=== PATIENT | female | born 1960 | race Caucasian/White ===

== ENCOUNTER 2022-12-31 16:43 | Emergency (ER) | payer OTHER, SELFPAY ==
[2022-12-31 17:03] VITALS: BP 137/74; PULSE 92; RESP 16; TEMP 36.8; O2SAT 98; BMI 26.0
--- NOTE | 2022-12-31 17:07 | XR_ITS ---
[address] [address] Patient Name: ANA LUA MRN: [id number] date: 1960 Sex: F Assigned Patient Location: ED.MAIN Current Patient Location: ER Accession/Order Number: [id number] Exam Date: 12/31/2022 18:10 Report Date: 12/31/2022 18:21 At the request of: MARIA ANTONIA ROMERO Procedure: XR ankle RT 2V EXAM: XR ankle RT 2V HISTORY: Right ankle pain COMPARISON: None. TECHNIQUE: 2 views FINDINGS: No osseous lesion, fracture, dislocation or subluxation. Joint spaces are normal. No visualized effusion. No visualized soft tissue edema. IMPRESSION: Normal x-rays Electronically authenticated by: JOSE FRANCISCO LONDONO Date: 12/31/2022 18:21
--- NOTE | 2022-12-31 17:08 | ED.LOWEXI1 ---
HPI - Extremity Injury (Lower) General Stated Complaint: INJURY TO FOOT Time Seen by Provider: 12/31/22 17:05 Source: patient and family History of Present Illness HPI Narrative: this patient's here for evaluation of injury to her ankle. She got up from sitting in the chair and rolled her right ankle. She does not any pain in her lower leg or knee area. Hip is asymptomatic. She points to the lateral malleolus as the area discomfort. Does not have any pain over the anterior aspect of the ankle. Related Data Home Medications Medication Instructions Recorded Confirmed acetaminophen 500 mg capsule 1,500 mg PO ONCE 12/31/22 12/31/22 albuterol sulfate 90 mcg/actuation 2 puff inhalation Q4H PRN 12/31/22 12/31/22 aerosol inhaler shortness of breath or wheezing amlodipine 5 mg tablet 5 mg PO DAILY 12/31/22 12/31/22 olmesartan 20 mg tablet 20 mg PO DAILY 12/31/22 12/31/22 Allergies Allergy/AdvReac Type Severity Reaction Status Date / Time diphenhydramine Allergy Severe hives Verified 12/31/22 17:03 [From Benadryl] aspirin Allergy Mild Nausea Verified 12/31/22 17:03 ibuprofen [From Motrin] Allergy Nausea Verified 12/31/22 17:03 prednisone Allergy swelling Verified 12/31/22 17:03 actifed Allergy Severe Hives Uncoded 12/31/22 17:03 [facility] Medical History (Updated 12/31/22 @ 19:48 by Otto Coles MD) Social History Smoking status: Never smoker Exam Narrative Exam Narrative: mild to moderate pain. Prop focus examination as below Extremity Other: early soft tissue swelling is noted over the lateral malleolus with pain over the anterior talofibular ligament. No pain over the posterior joint. No pain over the medial ankle mortise. Slight tenderness over the proximal 5th metatarsal. Neurovascular examination is normal. MDM - Extremity Injury (Lower) MDM Narrative Medical decision making narrative: patient's images were read by the radiologist as negative. She has a grade 2 ankle sprain. Ankle sprain x-ray discussion she will be discussed with her ice elevation and rest Differential Diagnosis Differential diagnosis: Likely ankle sprain and strain Discharge Plan Discharge Clinical Impression: Ankle sprain Patient Disposition: Home, Self-Care Time of Disposition Decision: 19:48 Prescriptions / Home Meds: No Action albuterol sulfate 90 mcg/actuation HFA aerosol inhaler 2 puff INHALATION Q4H PRN (Reason: shortness of breath or wheezing) amlodipine 5 mg tablet 5 mg PO DAILY olmesartan 20 mg tablet 20 mg PO DAILY acetaminophen 500 mg capsule 1,500 mg PO ONCE Instructions: Ankle Sprain (ED), Ankle Stirrup Splint (ED) Additional Instructions: patient to follow up with PCP in 1 week Stand Alone Forms: Portal Instructions Referrals: Physician,Non-Staff, MD [Primary Care Provider] - 1 week Discharge Date/Time: 12/31/22 20:22
== END 2022-12-31 20:22 | disposition home or self-care (01) ==
PROVIDERS: Emergency Provider Emergency Medicine Emergency Medical Services
DX: S93.401A Sprain of unspecified ligament of right ankle, initial encounter (principal); X50.1XXA Overexertion from prolonged static or awkward postures, initial encounter
CPT/HCPCS: 73600; 99283

== ENCOUNTER 2023-09-28 07:30 | Observation (INO) | payer OTHER, SELFPAY ==
[2023-09-28] VITALS (18 sets, daily range): BP systolic 98–114; BP diastolic 62–70; PULSE 87–98; RESP 18–24; TEMP 36.5–36.6; O2SAT 86–99; BMI 49.5; BMI 24.9
--- NOTE | 2023-09-28 07:51 | XR_ITS ---
The [address] [address] Patient Name: ANA LUA MRN: [facility]:[id number] date: 1960 Sex: F Assigned Patient Location: ER Current Patient Location: ER Accession/Order Number: [id number] Exam Date: 09/28/2023 08:13 Report Date: 09/28/2023 08:42 At the request of: LORA LOUIS Procedure: XR thoracic spine 2V EXAMINATION: XR lumbar spine 2-3V, XR thoracic spine 2V HISTORY: fall ; fell off porch; left lower back and leg pain COMPARISON: No relevant comparison available. FINDINGS: BONES: Mild left convex curvature of upper thoracic spine. Mild superior endplate irregularity of T6 and T8 vertebral bodies, nonspecific. Abnormal anterior wedging of L4 vertebral body with increased density of the adjacent trabecula and superior anterior wall angulation. DISC SPACES: No significant disc height narrowing, subluxation, or endplate abnormality. PARASPINOUS: Negative. No paraspinous abnormality is seen. OTHER: Negative. XR/XR thoracic spine 2V IMPRESSION: 1. Acute versus subacute moderate compression fracture of L4. Acute fracture is suspected. 2. Degenerative endplate changes versus mild compression fractures of T6 and T8 vertebral bodies. No increased density of the adjacent trabecula suggesting this may be degenerative or sequela of remote injury. 3. No comparison studies. Electronically authenticated by: SHARLENE HATHAWAY Date: 09/28/2023 08:42
--- NOTE | 2023-09-28 07:51 | XR_ITS ---
The [address] [address] Patient Name: ANA LUA MRN: [id number] date: 1960 Sex: F Assigned Patient Location: ER Current Patient Location: ER Accession/Order Number: [id number] Exam Date: 09/28/2023 08:13 Report Date: 09/28/2023 08:42 At the request of: LORA LOUIS Procedure: XR lumbar spine 2-3V EXAMINATION: XR lumbar spine 2-3V, XR thoracic spine 2V HISTORY: fall ; fell off porch; left lower back and leg pain COMPARISON: No relevant comparison available. FINDINGS: BONES: Mild left convex curvature of upper thoracic spine. Mild superior endplate irregularity of T6 and T8 vertebral bodies, nonspecific. Abnormal anterior wedging of L4 vertebral body with increased density of the adjacent trabecula and superior anterior wall angulation. DISC SPACES: No significant disc height narrowing, subluxation, or endplate abnormality. PARASPINOUS: Negative. No paraspinous abnormality is seen. OTHER: Negative. XR/XR lumbar spine 2-3V IMPRESSION: 1. Acute versus subacute moderate compression fracture of L4. Acute fracture is suspected. 2. Degenerative endplate changes versus mild compression fractures of T6 and T8 vertebral bodies. No increased density of the adjacent trabecula suggesting this may be degenerative or sequela of remote injury. 3. No comparison studies. Electronically authenticated by: SHARLENE HATHAWAY Date: 09/28/2023 08:42
[2023-09-28] MEDS: ALBUTEROL SULFATE 2.5 MG/3 ML VIAL NEB IH (09:01)
[2023-09-28] MEDS: MORPHINE SULFATE 4 MG/ML VIAL 10 MG IM (09:06)
--- NOTE | 2023-09-28 09:19 | ED.BACK1 ---
HPI - Back Pain/Injury General Chief Complaint: Back Pain/Injury Stated Complaint: FALL/BACK PAIN Time Seen by Provider: 09/28/23 07:44 Source: patient Mode of arrival: walk-in Limitations: no limitations History of Present Illness HPI Narrative: 63-year-old female presents for severe back pain. She fell today and landed on her back. She complains of pain in her lower back. She did not hit her head and no other injury was sustained. It is worse if she moves. She has no history of back fracture. Related Data Home Medications Medication Instructions Recorded Confirmed albuterol sulfate 90 mcg/actuation 2 puff inhalation Q4H PRN 12/31/22 09/28/23 aerosol inhaler shortness of breath or wheezing olmesartan 20 mg tablet 20 mg PO DAILY 12/31/22 09/28/23 fluticasone fur. 100 mcg-umeclid 1 inh inhalation DAILY 09/28/23 09/28/23 62.5 mcg-vilant 25 mcg inhalat.powder (Trelegy Ellipta) Previous Rx's Medication Instructions Recorded oxycodone-acetaminophen 5 mg-325 1 tab PO Q6H PRN pain 10 days #30 09/28/23 mg tablet (Percocet) tabs Allergies Allergy/AdvReac Type Severity Reaction Status Date / Time diphenhydramine Allergy Severe hives Verified 09/28/23 07:50 [From Benadryl] aspirin Allergy Mild Nausea Verified 09/28/23 07:50 ibuprofen [From Motrin] Allergy Nausea Verified 09/28/23 07:50 prednisone Allergy swelling Verified 09/28/23 07:50 actifed Allergy Severe Hives Uncoded 09/28/23 07:50 Review of Systems ROS Narrative A ten point review of systems is negative except as noted above. [facility] Medical History (Updated 09/28/23 @ 09:17 by Shahid Pena MD) Lung disease ?J98.4 - Other disorders of lung (ICD-10) Migraines ?G43.909 - Migraine, unspecified, not intractable, without status migrainosus (ICD-10) HTN (hypertension) ?I10 - Essential (primary) hypertension (ICD-10) Social History Smoking status: Never smoker Exam Narrative Exam Narrative: Nurses note and vital signs reviewed and patient is not hypoxic. General: The patient appears uncomfortable. She is tearful. Skin: Warm, dry, no pallor noted. There is no rash noted. Head: Normocephalic, atraumatic Eye: Normal conjunctiva, no drainage Ears, Nose, Mouth, and Throat: oral mucosa is moist. Nares patent. Cardiovascular: Regular Rate and Rhythm Respiratory: Patient is in no distress, no accessory muscle use, lungs are clear to auscultation, no wheezing, rales or rhonchi Back: No deformity, there is some tenderness in her lower back without abrasion. GI: Soft and nontender Musculoskeletal: The patient has no evidence of calf tenderness, no pitting edema, symmetrical pulses noted bilaterally Neurological: A&O, normal speech; lower extremity strength intact Psychiatric: Cooperative Constitutional Vital Signs, click to edit/add: Last Vital Signs Temp 97.7 F 09/28/23 07:42 Pulse 94 H 09/28/23 09:02 Resp 24 09/28/23 07:42 BP 98/68 09/28/23 07:42 Pulse Ox 99 09/28/23 07:42 O2 Del Method Room Air 09/28/23 07:42 Course Vital Signs Vital signs: Vital Signs Temperature 97.7 F 09/28/23 07:42 Pulse Rate 98 H 09/28/23 07:42 Respiratory Rate 24 09/28/23 07:42 Blood Pressure 98/68 09/28/23 07:42 Pulse Oximetry 99 09/28/23 07:42 Oxygen Delivery Method Room Air 09/28/23 07:42 Temperature 97.7 F 09/28/23 07:42 Pulse Rate 94 H 09/28/23 09:02 Respiratory Rate 24 09/28/23 07:42 Blood Pressure 98/68 09/28/23 07:42 Pulse Oximetry 99 09/28/23 07:42 Oxygen Delivery Method Room Air 09/28/23 07:42 MDM - Back Pain/Injury MDM Narrative Medical decision making narrative: L4 compression fracture is identified. I discussed the case with Dr. Villa and follow-up is arranged. She was given IM morphine and prescribed Percocet. Treatment diagnosis and follow-up were discussed with the patient and her family. Differential Diagnosis Differential diagnosis: Likely other (Back contusion, lumbar fracture) Imaging Data Lumbar x-rays: Radiologist's impression: ITS Impressions Lumbar Spine X-Ray 09/28/23 07:51 IMPRESSION: 1. Acute versus subacute moderate compression fracture of L4. Acute fracture is suspected. 2. Degenerative endplate changes versus mild compression fractures of T6 and T8 vertebral bodies. No increased density of the adjacent trabecula suggesting this may be degenerative or sequela of remote injury. 3. No comparison studies. Electronically authenticated by: SHARLENE HATHAWAY Date: 09/28/2023 08:42 Thoracic Spine X-Ray 09/28/23 07:51 IMPRESSION: 1. Acute versus subacute moderate compression fracture of L4. Acute fracture is suspected. 2. Degenerative endplate changes versus mild compression fractures of T6 and T8 vertebral bodies. No increased density of the adjacent trabecula suggesting this may be degenerative or sequela of remote injury. 3. No comparison studies. Electronically authenticated by: SHARLENE HATHAWAY Date: 09/28/2023 08:42 Discharge Plan Discharge Stand Alone Forms: Portal Instructions Chief Complaint: Back Pain/Injury Clinical Impression: Compression fx, lumbar spine Patient Disposition: Home, Self-Care Time of Disposition Decision: 09:17 Condition: Good Mode of Transportation: Private Vehicle Prescriptions / Home Meds: New oxycodone-acetaminophen [Percocet] 5-325 mg tablet 1 tab PO Q6H PRN (Reason: pain) 10 Days Qty: 30 0RF No Action albuterol sulfate 90 mcg/actuation HFA aerosol inhaler 2 puff INHALATION Q4H PRN (Reason: shortness of breath or wheezing) olmesartan 20 mg tablet 20 mg PO DAILY Trelegy Ellipta 100-62.5-25 mcg blister with device 1 inh inhalation DAILY Instructions: Vertebral Compression Fracture (ED) Referrals: Physician,Non-Staff, MD [Primary Care Provider] - 1 week
[2023-09-28] MEDS: MORPHINE SULFATE 4 MG/ML VIAL IV (09:59)
--- NOTE | 2023-09-28 12:42 | P.HP_ITS ---
HPI H&P: HPI History of Present Illness Chief complaint: LY COMPRESSION FX/ITRACTABLE PAIN Narrative: 63 y o f with was in her usual state of health when she fell backward while trying to get her dog inside. Denies head trauma, LOC. She reports significant and severe back pain since then. She was evaluated in ED - and her w/u revealed acute compression fx of L4 and possibly old thoracic compression fx. Patient was unable to ambulate due to severe pain. Patient admitted for pain control. No active complaints to offer, other than back pain Opioid HPI Opioid Management Most Recent Opioid Data: Last MAR Pain Assessment 09/28/23 09:59 Last ORT Total Score 0 09/28/23 11:57 Last ORT Risk Category Low Risk 09/28/23 11:57 Review of Systems ROS Status of ROS 10 or more systems reviewed and unremark able except as noted in history and below [facility] Medical History (Updated 09/28/23 @ 12:57 by Shaikh Andree MD) COPD (chronic obstructive pulmonary disease) ?J44.9 - Chronic obstructive pulmonary disease, unspecified (ICD-10) Lung disease ?J98.4 - Other disorders of lung (ICD-10) Migraines ?G43.909 - Migraine, unspecified, not intractable, without status migrainosus (ICD-10) HTN (hypertension) ?I10 - Essential (primary) hypertension (ICD-10) Surgical History (Updated 09/28/23 @ 11:55 by Lashaun Davis) H/O: hysterectomy ?Z90.710 - Acquired absence of both cervix and uterus (ICD-10) Family History (Updated 09/28/23 @ 12:08 by Lashaun Davis) Father Family history of cancer Mother Family history of cancer Social History (Updated 09/28/23 @ 12:09 by Lashaun Davis) Within the past year, how often did you have a drink containing alcohol: monthly or less Within the past year, how many standard drinks containing alcohol did you have on a typical day: 1 or 2 Within the past year, how often did you have six or more drinks on one occasion: never Total score: 0 Score interpretation: A score less than 3 is consistent with normal alcohol consumption. 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 Highest level of school completed/degree received: some college, no degree Are you now , , , , never or living with a partner: In a typical week, how many times do you talk on the telephone with family, friends, or neighbors: 3 or more times per week How often do you get together with friends or relatives: 3 or more times per week How often do you attend yazidism or mosque services: 4 or more times per year Do you belong to any clubs or organizations such as yazidism groups unions, [employer] or athletic groups, or school groups: no Total score: 3 Score interpretation: A score of greater than or equal to 2 indicates the lowest level of social isolation. Little interest or pleasure in doing things: not at all Feeling down, depressed, or hopeless: not at all Feel stressed/tense/nervous/anxious/difficulty sleeping: not at all Life stressors: recent of family or friend Gender Identity: female Meds Home Medications and Allergies Home Medications Medication Instructions Recorded Confirmed Type albuterol sulfate 90 mcg/actuation 2 puff inhalation Q4H PRN 12/31/22 09/28/23 History aerosol inhaler shortness of breath or wheezing fluticasone fur. 100 mcg-umeclid 1 inh inhalation DAILY 09/28/23 09/28/23 History 62.5 mcg-vilant 25 mcg inhalat.powder (Trelegy Ellipta) olmesartan 40 mg tablet 40 mg PO DAILY 09/28/23 09/28/23 History oxycodone-acetaminophen 5 mg-325 1 tab PO Q6H PRN pain 10 days #30 09/28/23 Rx mg tablet (Percocet) tabs Allergies Allergy/AdvReac Type Severity Reaction Status Date / Time diphenhydramine Allergy Severe hives Verified 09/28/23 07:50 [From Benadryl] aspirin Allergy Mild Nausea Verified 09/28/23 07:50 ibuprofen [From Motrin] Allergy Nausea Verified 09/28/23 07:50 prednisone Allergy swelling Verified 09/28/23 07:50 actifed Allergy Severe Hives Uncoded 09/28/23 07:50 Exam Constitutional Vital Signs, click to edit/add: Last Vital Signs Temp 97.7 F 09/28/23 11:57 Pulse 92 H 09/28/23 11:57 Resp 18 09/28/23 11:57 BP 105/67 09/28/23 11:57 Pulse Ox 91 L 09/28/23 11:57 O2 Del Method Room Air 09/28/23 11:57 Documenting provider has reviewed patient's vital signs: yes Common normals: no apparent distress and oriented x3 General appearance: cooperative HENMT Common normals: normocephalic and head/scalp atraumatic Head and scalp: normocephalic and atraumatic Eye Common normals: conjunctivae normal and no scleral icterus Conjunctiva: conjunctiva(e) normal Respiratory Common normals: normal respiratory effort and clear to auscultation bilaterally Effort & inspection: able to speak in complete sentences Auscultation: clear to auscultation bilaterally Cardio Common normals: regular rate, S1 normal heart sound and S2 normal heart sound Rate: regular rate Heart sounds: S1 normal and S2 normal GI Common normals: Normal to inspection, nondistended, normoactive bowel sounds present, soft to palpation, non-tender and no hepatosplenomegaly Palpation: soft and no hepatosplenomegaly Back & Pelvis Other: Severe thoracolumbar pain. Midline tenderness. Extremity Common normals: no clubbing, cyanosis or edema Neuro Common normals: oriented x3, moves all extremities and no focal motor deficits Psych Common normals: mental status grossly normal, denies hallucinations, denies homicidal ideation and denies suicidal ideation Assessment and Plan Assessment and Plan (1) Compression fx, lumbar spine: Qualifiers: Lumbar vertebra fracture level: L4 Fracture healing: with routine healing Encounter type: subsequent encounter Qualified Code(s): S32.040D - Wedge compression fracture of fourth lumbar vertebra, subsequent encounter for fracture with routine healing (2) COPD (chronic obstructive pulmonary disease): Qualifiers: COPD type: unspecified COPD Qualified Code(s): J44.9 - Chronic obstructive pulmonary disease, unspecified (3) HTN (hypertension): Qualifiers: Hypertension type: primary hypertension Qualified Code(s): I10 - Essential (primary) hypertension Plan Patient admitted for intractable pain, inability to ambulate. Patient started on combination of PO/IV narcotics along with lidocaine patch and baclofen PT/OT ordered Resumed patient's home medications. Ordered CBC, CMP to make sure no sig abnormality. Will need outpatient f/u with Orthopedics.
[2023-09-28] MEDS: BACLOFEN 10 MG TABLET PO ×2 (13:30→21:02)
[2023-09-28] MEDS: MORPHINE SULFATE 2 MG/ML SYRINGE IV ×2 (13:30→20:04)
[2023-09-28] MEDS: LIDOCAINE 5% PATCH 1 PATCH TOPICAL (13:30)
--- NOTE | 2023-09-28 15:05 | XR_ITS ---
The [address] [address] Patient Name: ANA LUA MRN: [id number] date: 1960 Sex: F Assigned Patient Location: MS Current Patient Location: MS Accession/Order Number: [id number] Exam Date: 09/28/2023 15:15 Report Date: 09/28/2023 15:38 At the request of: SHAIKH JAIME Procedure: XR wrist LT 2V IMAGES REVIEWED: XR wrist LT 2V COMPARISON: None available. CLINICAL INDICATION: pain FINDINGS/IMPRESSION: No radiographic evidence of acute osseous abnormality of the left wrist. Bones appear slightly osteopenic. There may also be a focal benign-appearing lucent lesion in the radial aspect of the distal radius. Slight positive ulnar variance. Trace vascular calcification. Electronically authenticated by: MJ BLACKMON Date: 09/28/2023 15:38
--- NOTE | 2023-09-28 16:07 | SWNOTE1 ---
SW attempted to see pt, but was having testing done in room.
--- NOTE | 2023-09-28 16:16 | SWNOTE1 ---
SW met with pt and in room. Pt had a fall at home and fell on to her back, did not hit her head. Pt voiced her wrist is hurting her and asked for more ice. At home pt was independent prior to this fall. She voiced therapy came to work with her, btu she was in too much pain and could not at this time. SW to follow as needed in regards to discharge needs. SW asked wheel braider to where to get ice for pt, nurses aide was able to assist and get ice for pt for her wrist.
[2023-09-28] MEDS: IPRATROPIUM/ALBUTEROL SULFATE 3 ML AMPUL.NEB IH (20:25)
[2023-09-28] MEDS: BUDESONIDE 0.5 MG/2 ML AMPULE NEB IH (20:25)
[2023-09-29] VITALS (7 sets, daily range): BP systolic 86–97; BP diastolic 45–57; PULSE 85–94; RESP 14–18; TEMP 36.9–37.3; O2SAT 93–95
[2023-09-29] MEDS: OXYCODONE HCL 5 MG TABLET PO ×2 (02:10→08:06)
[2023-09-29] MEDS: IPRATROPIUM/ALBUTEROL SULFATE 3 ML AMPUL.NEB IH (04:18)
[2023-09-29 04:59] LABS: Basophils Percent Auto 0.4 % (0.2-2.0); Eosinophils Percent Auto 0.5 % (0.9-7.0); Hematocrit 31.5 % (36.0-48.0); Hemoglobin 10.3 g/dL (12.0-16.0); Immature Granulocytes Abs Auto 0.03 10^3/uL (0.00-0.03); Immature Granulocytes Pct Auto 0.4 % (0.0-0.5); Lymphocytes Absolute Auto 2.3 10^3/uL (1.2-3.8); Lymphocytes Percent Auto 27.1 % (20.5-60.0); Mean Corpuscular HGB Conc 32.7 g/dL (29.9-35.2); Mean Corpuscular Hemoglobin 30.1 pg (26.7-34.0); Mean Corpuscular Volume 92.1 fL (81.0-99.0); Mean Platelet Volume 10.4 fL (9.5-13.5); Monocytes Absolute Auto 0.8 10^3/uL (0.3-0.8); Monocytes Percent Auto 9.3 % (1.7-12.0); Neutrophils Absolute Auto 5.2 10^3/uL (1.4-6.5); Neutrophils Percent Auto 62.3 % (43.0-75.0); Platelet Count 256 10^3/uL (150-450); Red Blood Count 3.42 10^6/uL (4.20-5.40); Red Cell Distribution Width 14.3 % (11.0-15.0); White Blood Count 8.4 10^3/uL (4.0-11.0)
[2023-09-29] MEDS: BACLOFEN 10 MG TABLET PO (05:32)
[2023-09-29 05:34] LABS: Alanine Aminotransferase 17 U/L (14-59); Albumin Globulin Ratio 0.9; Alkaline Phosphatase 62 U/L (46-116); Anion Gap 12.6; Aspartate Amino Transferase 19 U/L (15-37); BUN Creatinine Ratio 11.9; Bilirubin Total 0.6 mg/dL (0.2-1.0); Calcium 8.2 mg/dL (8.5-10.1); Chloride 99 mmol/L (98-107); Estimated GFR (African America >60 (>=60); Estimated GFR (Non-African Ame >60 (>=60); Globulin 3.3 g/dL; Glucose 121 mg/dL (74-106); Potassium 3.6 mmol/L (3.5-5.1); Sodium 131 mmol/L (136-145); Total Protein 6.3 g/dL (6.4-8.2)
[2023-09-29] MEDS: ACETAMINOPHEN 325 MG TABLET 650 MG PO (07:14)
[2023-09-29] MEDS: LIDOCAINE 5% PATCH 1 PATCH TOPICAL (08:05)
--- NOTE | 2023-09-29 09:54 | SWNOTE1 ---
LIZZETTE stopped in to speak with pt. Pt's daughter and in room. Pt voiced she is being discharged today. Her pain is at a 7, she stated yesterday it was a 12. She voiced she is looking to get a back brace. SW to check in to this for patient. Unsure of the requirements and her insurance. LIZZETTE also offered home health to pt for at least a physical therapy evaluation. Pt voiced she does not want it. LIZZETTE recommended to just have them come in a least 1 or 2 times to evaluate and assist pt with exercises. Pt again refused. Pt voiced her and daughter will help her. LIZZETTE to call [facility] in regards to back brace.
--- NOTE | 2023-09-29 10:32 | SWNOTE1 ---
LIZZETTE called and spoke with Reena at [facility]. Pt's can get a back brace covered by there insurance. LIZZETTE gave Reena pt's insurance information and they do not take that insurance. Pt has a commercial insurance. The back braces they have are $35. She recommended when pt follows up with orthopedic or with surgeon that they will likely be able to assist and get her fitted. Reena voiced they can purchase out of pocket. [facility] does not take insurance. LIZZETTE looked online and [facility], and [facility] have back braces ranging from $20-$35. LIZZETTE relayed all information to the patient, , and daughter. They all voiced understanding and felt out of pocket cost was not bad and will buy out of pocket.
--- NOTE | 2023-09-29 10:45 | P.DS_ITS ---
DS: Providers Provider Date of admission: 09/28/23 11:41 Primary care physician: Non-Staff Physician, Consults: 09/28/23 11:01 Occupational Therapy Eval and Treat Routine Reason for consultation: Ambulatory dysfunction/weakness Physical Therapy Eval and Treat Routine Reason for consultation: Ambulatory dysfunction/weakness Attending physician on discharge: Shaikh Andree Discharging clinician: Shaikh Andree Anticipated date of discharge: 09/29/23 DS: Diagnosis Discharge Diagnosis (1) Compression fx, lumbar spine: Assessment and plan: From fall. No neurological symptoms. Pain is improved. Will d/c on oral narcotics, asked patient to use a back brace and she will follow up with an orthopedic as outpatient. Qualifiers: Encounter type: subsequent encounter Fracture healing: with routine healing Lumbar vertebra fracture level: L4 Qualified Code(s): S32.040D - Wedge compression fracture of fourth lumbar vertebra, subsequent encounter for fracture with routine healing (2) COPD (chronic obstructive pulmonary disease): Assessment and plan: C/w home meds, stable, no wheezing. Qualifiers: COPD type: unspecified COPD Qualified Code(s): J44.9 - Chronic obstructive pulmonary disease, unspecified (3) HTN (hypertension): Assessment and plan: BP was noted to be a little soft. She is on olmesartan as outpatient. Not sure if she truly needs it. Will recommend to hold until seen by PCP and defer it to PCP to possibly d/c olmesartan Qualifiers: Hypertension type: primary hypertension Qualified Code(s): I10 - Essential (primary) hypertension DS: Summary Hospital Course Hospital Course: 63 y o f with was in her usual state of health when she fell backward while trying to get her dog inside. Denies head trauma, LOC. She was evaluated in ED - and her w/u revealed acute compression fx of L4 and possibly old thoracic compression fx. Patient was unable to ambulate due to severe pain. Patient admitted for pain control. He is doing much better today. Stable for discharge on oral narcotic. I will also prescribe intranasal CALCITONIN for pain control. Patient will follow-up with orthopedic as outpatient. She likely has osteoporosis from early surgical menopause and will benefit from antiresorptive therapy. We will defer to PCP. Her blood pressure was also noted to be well controlled out or losartan. I will recommend holding it off until she is seen by PCP and maybe possibly discontinue on losartan as it does not seem like she needs it for high blood pressure. Medically stable for discharge. Follow-up with PCP in 1-2 weeks. Status at Discharge Functional status at discharge: independent ambulation Overall status at discharge: patient is progressing back to baseline Time Spent with Patient Time attestation: Total time spent providing and/or coordinating discharge services: Time spent: greater than 30 minutes Exam Constitutional Vital Signs, click to edit/add: Last Vital Signs Temp 99.1 F 09/29/23 07:11 Pulse 89 09/29/23 07:11 Resp 14 09/29/23 07:36 BP 97/54 09/29/23 07:11 Pulse Ox 94 L 09/29/23 07:11 O2 Del Method Room Air 09/29/23 07:11 O2 Flow Rate 1 09/29/23 00:00 Documenting provider has reviewed patient's vital signs: yes Common normals: no apparent distress and oriented x3 General appearance: cooperative HENMT Common normals: normocephalic and head/scalp atraumatic Head and scalp: normocephalic and atraumatic Eye Common normals: conjunctivae normal and no scleral icterus Conjunctiva: conjunctiva(e) normal Respiratory Common normals: normal respiratory effort and clear to auscultation bilaterally Effort & inspection: able to speak in complete sentences Auscultation: clear to auscultation bilaterally Cardio Common normals: regular rate, S1 normal heart sound and S2 normal heart sound Rate: regular rate Heart sounds: S1 normal and S2 normal GI Common normals: Normal to inspection, nondistended, normoactive bowel sounds present, soft to palpation, non-tender and no hepatosplenomegaly Palpation: soft and no hepatosplenomegaly Back & Pelvis Other: Overall pain is improved. There is still midline tenderness Extremity Common normals: no clubbing, cyanosis or edema Neuro Common normals: oriented x3, moves all extremities and no focal motor deficits Psych Common normals: mental status grossly normal, denies hallucinations, denies homicidal ideation and denies suicidal ideation DS: Data Data Completed and Pending Labs on day of discharge: Labs from last 24 hours 09/29/23 04:23 WBC 8.4 RBC 3.42 L Hgb 10.3 L Hct 31.5 L MCV 92.1 MCH 30.1 MCHC 32.7 RDW 14.3 Plt Count 256 MPV 10.4 Neut % (Auto) 62.3 Lymph % (Auto) 27.1 Stewart % (Auto) 9.3 Eos % (Auto) 0.5 L Baso % (Auto) 0.4 Neut # (Auto) 5.2 Lymph # (Auto) 2.3 Stewart # (Auto) 0.8 Eos # (Auto) 0.0 Baso # (Auto) 0.0 Abs Immat Gran (auto) 0.03 Imm/Tot Granulo (auto) 0.4 Sodium 131 L Potassium 3.6 Chloride 99 Carbon Dioxide 23.0 Anion Gap 12.6 BUN 10.0 Creatinine 0.84 Est GFR ( Amer) >60 Est GFR (Non-Af Amer) >60 BUN/Creatinine Ratio 11.9 Glucose 121 H Calcium 8.2 L Total Bilirubin 0.6 AST 19 ALT 17 Alkaline Phosphatase 62 Total Protein 6.3 L Albumin 3.0 L Globulin 3.3 Albumin/Globulin Ratio 0.9 Discharge Plan Discharge Disposition: Home, Self-Care Condition: Good Discharge Medications: New oxycodone-acetaminophen [Percocet] 5-325 mg tablet 1 tab PO Q6H PRN (Reason: pain) 10 Days Qty: 30 0RF Continued albuterol sulfate 90 mcg/actuation HFA aerosol inhaler 2 puff INHALATION Q4H PRN (Reason: shortness of breath or wheezing) Trelegy Ellipta 100-62.5-25 mcg blister with device 1 inh inhalation DAILY Held olmesartan 40 mg tablet 40 mg PO DAILY Hold Instructions: Resume on 10/09/23. Until seen by PCP Activity: increase activity as tolerated Diet: advance to your usual diet Diet Detail: regular Print Language: Spanish Patient Instructions: Oxycodone/Acetaminophen (By mouth), Vertebral Compression Fracture (DC), Clamshell Brace (DC) Forms: Portal Instructions Follow Up Appointments: Follow up with Dr. Colin Saunders in 7-10 days. She will need outpatient follow-up with orthopedic (patient will discuss with her PCP)
--- NOTE | 2023-09-29 11:23 | CM.NOTE ---
Rounds made with Dr. Candelario. Plan is for pt to discharge today. Dr. Candelario discussed need to followup with orthopedics. Patient and family said they would make arrangements to go to an orthopedic dr that they already know. Dr. Candelario also discussed the need for the patient to followup with their PCP regarding the osteoporosis and the possible need for medication. Dr. Candelario is giving them a prescription for a back brace. [employer] is looking into the back brace for the patient.
--- NOTE | 2023-10-02 14:12 | CM.DCFOLLOWU ---
Person spoke with:patient How are you feeling? alright, still pain How is your pain? still having pain Did you understand your discharge instructions? yes Do you have any questions about your discharge instructions? no Were you given any prescriptions at discharge? yes Were you able to get your prescriptions filled? yes Do you understand how to take your medications as ordered? yes Do you have any questions about your follow up appointment and do you plan to keep your follow up appointment? no questions, follow up was moved back until following week as well as neuro surgeon Is there anything else that you would like to discuss? no Questions/Comments/Concerns/Other: N.A
== END 2023-09-29 11:05 | disposition home or self-care (01) ==
LOC: ER 11:05 → MS 11:46
PROVIDERS: Admitting Provider Internal Medicine; Emergency Provider Emergency Medicine; Visit Provider Internal Medicine
DX: S32.049A Unspecified fracture of fourth lumbar vertebra, initial encounter for closed fracture (principal); J44.9 Chronic obstructive pulmonary disease, unspecified; I10 Essential (primary) hypertension; W19.XXXA Unspecified fall, initial encounter; Z79.899 Other long term (current) drug therapy; Z90.710 Acquired absence of both cervix and uterus
CPT/HCPCS: 36415; 72070; 72100; 73100; 80053; 85025; 94640; 94761; 96372; 96374; 96376; 99285; G0378

== ENCOUNTER 2023-10-11 06:42 | Outpatient (OUT) | payer OTHER, SELFPAY ==
--- OUTSIDE RECORDS SUMMARY | 2023-10-11 06:44 | XMS_ITS | CCD ---
Author Organization [facility] Care Team Providers Care It Program Manager Name Role Phone Juan Manuel Hernandez Unavailable Unavailable Juan Manuel Hernandez Unavailable Unavailable NONE, XXXX Unavailable Unavailable Colin Saunders Unavailable PAY ., DR MCGEE Attending Unavailable CHIP, DR MELGAR Primary Care Unavailable PAY ., DR MCGEE Admitting Unavailable PAY ., DR MCGEE Consulting Unavailable HAY ., DR MARQUIS Admitting Unavailable HAY ., DR MARQUIS Consulting Unavailable HAY ., DR MARQUIS Attending Unavailable CHIP, DR MELGAR Primary Care Unavailable DO Colin Saunders Primary Care Provider [phone] DO Colin Saunders Attending Provider MD Obdulio Thomas Attending Provider [phone] Obdulio Thomas Unavailable DO Colin Saunders Primary Care Provider DO Colin Saunders Attending Provider [phone] Colin Saunders Admitting Unavailable Colin Saunders Primary Care Unavailable Colin Saunders Attending Unavailable Colin Saunders Primary Care Unavailable Obdulio Thomas Admitting Unavailable Obdulio Thomas Attending Unavailable Colin Saunders Admitting Unavailable Colin Saunders Primary Care Unavailable Colin Saunders Attending Unavailable Allergies Allergy Classification Reported Allergen(s) Allergy Type Date of Onset Reaction(s) Facility (20 sources) aspirin; Translations: [aspirin] Drug Allergy 02-13-[address] [facility] Repository (19 sources) ibuprofen; Translations: [Motrin] Drug Allergy 02-13-[address] [facility] Repository (1 source) probenecid; Translations: [Benemid] Drug Allergy [facility] Repository (19 sources) pseudoephedrine / triprolidine; Translations: [Actifed] Drug Allergy 02-13-20 13 [facility] Repository (2 sources) Darvocet-N 100; Translations: [Darvocet-N 100] Propensity to adverse reactions (disorder) 07-31-[address] [facility] Repository (17 sources) Acetaminophen / oxyCODONE Drug Allergy vomiting [facility] Other (17 sources) diphenhydrAMINE Drug Allergy hives [facility] Other (17 sources) methylPREDNISolone Drug Allergy dizziness [facility] Other (19 sources) predniSONE; Translations: [prednisone] Drug Allergy 11-05-19 23 [facility] Repository (1 source) Acetaminophen / oxyCODONE Drug Allergy 03-29-20 13 [facility] Repository (1 source) diphenhydrAMINE Drug Allergy 02-13-20 13 [facility] Repository (1 source) Acetaminophen Drug Allergy 05-09-20 23 [facility] Repository (1 source) diphenhydrAMINE Drug Allergy 05-09-20 23 [facility] Repository (1 source) Ibuprofen Drug Allergy 05-09-20 23 [facility] Repository (1 source) methylPREDNISolone Drug Allergy 05-09-20 23 [facility] Repository (1 source) oxyCODONE Drug Allergy 05-09-20 23 [facility] Repository (1 source) Pseudoephedrine Drug Allergy 05-09-20 23 [facility] Repository (1 source) Triprolidine Drug Allergy 05-09-20 23 [facility] Repository Medications Current Medications Medication Drug Class(es) Dates Sig (Normalized) Sig (Original) [id number] actuat albuterol 0.09 mg/actuat metered dose inhaler (17 sources) beta2-Adrenergic Agonist take 1 puff(s) by inhalation every six hours as needed Albuterol Sulfate HFA 108 (90 Base) MCG/ACT 1 puffs as needed Inhalation every 6 hrs Active take 1 puff(s) by in halation every six hours as needed Albuterol Sulfate HFA 108 (90 Base) MCG/ACT 1 puffs as needed Inhalation every 6 hrs Active take 1 puff(s) by in halation every six hours as needed Albuterol Sulfate HFA 108 (90 Base) MCG/ACT 1 puffs as needed Inhalation every 6 hrs Active amLODIPine 5 mg oral tablet (8 sources) Dihydropyridine Calcium Channel Quirino Start: 11-29-2022 take 1 tablet by mouth every twenty-four hours amLODIPine Besylate 5 MG 1 tablet Orally Once a day for 90 days November, Active azithromycin 250 mg oral tablet (3 sources) Macrolide Antimicrobial Start: 04-14-2022 Zithromax Z-Oz 250 MG as directed Orally Mar, Active cefdinir 300 mg oral capsule (5 sources) Cephalosporin Antibacterial Start: 04-04-2022 take 1 capsule by mouth every twelve hours Cefdinir 300 MG 1 capsule Orally BID for 10 days Oct, Active ciprofloxacin 500 mg oral tablet (1 source) Quinolone Antimicrobial Start: 08-16-2023 take 1 tablet by mouth every twelve hours Cipro 500 MG 1 tablet Orally every 12 hrs for 10 days Jul, Active clotrimazole 10 mg oral lozenge (14 sources) Azole Antifungal Start: 12-05-2022 Clotrimazole 10 MG 1 hayden while on immunosuppressive medicine Mouth/Throat Four times a day November, Active Start: 12-05-2022 diclofenac sodium 0.01 mg/mg topical gel (2 sources) Nonsteroidal Anti-inflammatory Drug Start: 05-09-2023 Diclofenac Sodium 1 % as directed Externally Apr, Active olmesartan medoxomil 40 mg oral tablet (14 sources) Angiotensin 2 Receptor Quirino Start: 12-05-2022 take 1 tablet by mouth every twenty-four hours Olmesartan Medoxomil 40 MG 1 tablet Orally once a day November, Active Start: 12-05-2022 take 1 tablet by brett th every twenty-four hours Olmesartan Medoxomil 20 MG 1 tablet Orally once a day for 90 days November, Active phentermine hydrochloride 37.5 mg oral tablet (8 sources) Sympathomimetic Amine Anorectic Start: 05-09-2023 take 1 tablet by mouth once daily before breakfast Phentermine HCl 37.5 MG 1 tablet before breakfast Orally Once a day for 30 days Apr, Active Start: 04-11-2023 take 1 tablet by brett th once daily before breakfast Phentermine HCl 37.5 MG 1 tablet before breakfast Orally Once a day for 30 days Mar, Active Start: 02-17-2023 take 1 tablet by brett th once daily before breakfast Phentermine HCl 37.5 MG 1 tablet before breakfast Orally Once a day for 30 days Feb, Active Start: 08-17-2020 take 1 tablet by brett th every twenty-four hours Adipex-P 37.5 MG 1 tablet Orally Once a day Aug, Active traMADol hydrochloride 50 mg oral tablet (13 sources) Opioid Agonist Start: 01-05-2023 take 1 tablet by mouth four times daily as needed for pain traMADol HCl 50 MG 1 tablet Orally QID as needed for ankle pain prn Dec, Active Trelegy Ellipta 100-62.5-25 MCG/INH (17 sources) Start: 07-20-2020 Start: 07-20-2020 take 1 puff(s) by in halation once daily Trelegy Ellipta 100-62.5-25 MCG/INH 1 puff Inhalation Once a day Jul, Active Problems Problem Classification Problem Date Documented Date Episodic/Chronic Asthma (20 sources) Reactive airway disease; Translations: [Unspecified asthma, uncomplicated] Chronic Disorders of lipid metabolism (18 sources) Hyperlipidemia; Translations: [Hyperlipidemia, unspecified] Onset: 11-29-2022 Chronic Disorders of teeth and jaw (1 source) Dental caries, unspecified Episodic Essential hypertension (20 sources) Essential (primary) hypertension; Translations: [Essential hypertension] Onset: 11-21-2022 Chronic Fever of unknown origin (1 source) Fever, unspecified Episodic Lymphadenitis (1 source) Localized enlarged lymph nodes; Translations: [LOCALIZED ENLARGED LYMPH NODES] Onset: 11-07-2022 Episodic Other aftercare (1 source) Other fci (current) drug therapy; Translations: [OTH FCI CURRENT DRUG THERAPY] Onset: 11-23-2022 Episodic Other circulatory disease (14 sources) Elevated blood-pressure reading without diagnosis of hypertension; Translations: [Elevated blood-pressure reading, without diagnosis of hypertension] Episodic Other connective tissue disease (14 sources) Tendonitis of right wrist; Translations: [Other enthesopathies, not elsewhere classified] Episodic Other connective tissue disease (1 source) Pain in right foot Episodic Other non-traumatic joint disorders (1 source) Pain in right ankle and joints of right foot Episodic Other non-traumatic joint disorders (1 source) Effusion, left knee Episodic Other non-traumatic joint disorders (1 source) Pain in left knee Episodic Other nutritional; endocrine; and metabolic disorders (17 sources) Obesity; Translations: [Obesity, unspecified] Chronic Other nutritional; endocrine; and metabolic disorders (4 sources) Obesity, unspecified Chronic Other nutritional; endocrine; and metabolic disorders (17 sources) Body mass index 25-29 - overweight; Translations: [Body mass index (BMI) 28.0-28.9, adult] Episodic Other nutritional; endocrine; and metabolic disorders (1 source) Body mass index (BMI) 27.0-27.9, adult Episodic Other nutritional; endocrine; and metabolic disorders (2 sources) Body mass index (BMI) 26.0-26.9, adult Episodic Other nutritional; endocrine; and metabolic disorders (3 sources) Overweight in adulthood with body mass index of 25 or more but less than 30; Translations: [Body mass index (BMI) 26.0-26.9, adult] Episodic Other nutritional; endocrine; and metabolic disorders (1 source) Body mass index (BMI) 25.0-25.9, adult Episodic Other screening for suspected conditions (not mental disorders or infectious disease) (6 sources) Encounter for other screening for malignant neoplasm of breast; Translations: [Encounter for screening mammogram for malignant neoplasm of breast] Episodic Other upper respiratory disease (1 source) Other specified disorders of nose and nasal sinuses; Translations: [OTH SPEC D/O NOSE NASAL SINUSES] Onset: 11-07-2022 Episodic Other upper respiratory infections (11 sources) Pain in throat; Translations: [Acute pharyngitis, unspecified] Episodic Residual codes; unclassified (17 sources) Family history of malignant neoplasm of gastrointestinal tract; Translations: [Family history of malignant neoplasm of digestive organs] Episodic Residual codes; unclassified (1 source) Acquired absence of both cervix and uterus; Translations: [ACQUIRED ABSENCE BOTH CERVIX AND UTERUS] Onset: 11-23-2022 Episodic Spondylosis; intervertebral disc disorders; other back problems (3 sources) Cervicalgia; Translations: [CERVICALGIA] Onset: 11-04-2022 Episodic Sprains and strains (19 sources) Sprain of ankle grade III; Translations: [Sprain of unspecified ligament of unspecified ankle, initial encounter] Episodic Unclassified (1 source) Encounter for screening mammogram for malignant neoplasm of breast; Translations: [Encounter for screening mammogram for malignant neoplasm of breast] Onset: 03-10-2023 Unclassified (1 source) Pain in right foot; Translations: [Pain in right foot] Onset: 01-12-2023 Results Test Name Value Interpretation Reference Range Facility MM screening mammo BI w/CADo n 03-10-2023 MM screening mammo BI w/CAD [facility] [place] [address] [place] [address] Mammography Report Signed Patient: Ana Sloan MR#: [id number] : 1960 Acct:[id number] Age/Sex: 62 / F ADM Date: 03/10/23 Loc: [place] Room: Type: [facility] Attending Dr: Colin Saunders DO Copies to: Colin Saunders DO Ordering Provider: Colin Saunders DO Date of Service: 03/10/23 MM/MM screening mammo BI w/CAD: Screening for breast cancer CLINICAL DATA: Screening for malignancy. SCREENING MAMMOGRAM - FULL FIELD DIGITAL WITH TOMOSYNTHESIS AND CAD COMPARISON:Mammograms dating back to 2010 Tomosynthesis craniocaudal and mediolateral oblique views of both breasts were obtained using low- dose digital technique. This examination was reviewed with the aid of CAD. The breast tissue is composed of scattered fibroglandular densities. There are no dominant masses, typically malignant calcifications or architectural distortion. There has been no significant interval change. MM/MM screening mammo BI w/CAD IMPRESSION: NO MAMMOGRAPHIC EVIDENCE OF MALIGNANCY. ROUTINE FOLLOW-UP IS RECOMMENDED IN ONE YEAR. RESULT CODE: 1 Negative DENSITY CODE: 2 (approximately 25-50% glandular) FOLLOW UP: 1YR The false-negative rate of mammography is approximately 10-percent. Management of a palpable abnormality must be based on clinical grounds. Patient was entered into a reminder system with a target due date for the next mammogram. Impression dictated by: Kishor Simms Jr. D.OJanes03/10/2023 10:40 AM Dictation Location: [facility] Transcribed By: MELI 03/10/23 1040 Dictated By: Kishor Simms Jr, DO 03/10/23 1039 Signed By: 03/10/23 1040 [facility] XR foot RT min 3V*on 023 XR foot RT min 3V* [facility] [place] [address] [place] [id number] XRay Report Signed Patient: Ana Sloan MR#: [id number] : 1960 Acct:[id number] Age/Sex: 62 / F ADM Date: 01/12/23 Loc: [facility] Room: Type: [facility] Attending Dr: Obdulio Thomas MD Copies to: Obdulio Thomas MD Ordering Provider: Obdulio Thomas MD Date of Service: 01/12/23 XR/XR foot RT min 3V*: Right foot pain RIGHT FOOT - 3 views CLINICAL HISTORY: Lateral right foot pain following injury. COMPARISON: None FINDINGS: No focal soft tissue abnormality. No acute bony process is seen. No bony erosions. Mild degenerative changes at the MTP joint of the first digit. XR/XR foot RT min 3V* IMPRESSION: MILD DEGENERATIVE CHANGES WITHOUT ACUTE BONY PROCESS. Impression dictated by: Kishor Simms Jr., D.O.01/12/2023 11:35 AM Dictation Location: [place] [address] Transcribed By: [facility] 01/12/23 1135 Dictated By: Kishor Simms Jr, DO 01/12/23 1127 Signed By: 01/12/23 1135 [facility] Alanine aminotransferase [En zymatic activity/volume] in Serum or PlasmaOrdered By: Colin Saunders on 11-29-2022 ALT [Catalytic activity/Vol] 10 U/L 7-52 [facility] Albumin [Mass/volume] in Ser um or Plasma by Bromocresol green (BCG) dye binding methoOrdered By: Colin Saunders on 11-29-2022 Albumin BCG dye [Mass/Vol] 4.2 g/dL 3.5-5.7 [facility] Alkaline phosphatase [Enzyma tic activity/volume] in Serum or PlasmaOrdered By: Colin Saunders on 11-29-2022 ALP [Catalytic activity/Vol] 66 U/L 34-104 [facility] Aspartate aminotransferase [ Enzymatic activity/volume] in Serum or PlasmaOrdered By: Colin Saunders on 11-29-2022 AST [Catalytic activity/Vol] 14 U/L 13-39 [facility] Basophils Auto (Bld) [#/Vol] Ordered By: Colin Saunders on 11-29-2022 Basophils (Bld) [#/Vol] 0.1 10*3/uL 0.0-0.2 [facility] Basophils/100 WBC Auto (Bld) Ordered By: Colin Saunders on 11-29-2022 Basophils/100 WBC (Bld) 0.8 % . [facility] Bilirubin.total [Mass/volume ] in Serum or PlasmaOrdered By: Colin Saunders on 11-29-2022 Bilirubin [Mass/Vol] 0.7 mg/dL 0.3-1.0 [facility] Calcium [Mass/volume] in Ser um or PlasmaOrdered By: Colin Saunders on 11-29-2022 Calcium [Mass/Vol] 9.3 mg/dL 8.6-10.3 [facility] Carbon dioxide, total [Moles /volume] in Serum or PlasmaOrdered By: Colin Saunders on 11-29-2022 CO2 [Moles/Vol] 26.7 mmol/L 21.0-31.0 [facility] Chloride [Moles/volume] in S lily or PlasmaOrdered By: Colin Saunders on 11-29-2022 Chloride [Moles/Vol] 106 mmol/L 98-107 [facility] Cholesterol [Mass/volume] in Serum or PlasmaOrdered By: Colin Saunders on 11-29-2022 Cholesterol [Mass/Vol] 225 mg/dL 140-200 [facility] Comment on above: Chol less than 200 m g/dl low riskChol 201-239 mg/dl borderline riskChol 240 mg/dl and greater high risk Cholesterol in LDL Calc [Mas s/Vol]Ordered By: Colin Saunders on 11-29-2022 Cholesterol in LDL [Mass/Vol] 155 mg/dL 0-100 [facility] Comment on above: LDL ATP III CLASSIFI CATIONLDL less than 100 mg/dL OptimalLDL 100-129 mg/dL Near or above optimalLDL 130-159 mg/dL Borderline highLDL 160-189 mg/dL HighLDL greater than 189 mg/dL Very high Cholesterol in VLDL Calc [Ma ss/Vol]Ordered By: Colin Saunders on 11-29-2022 Cholesterol in VLDL [Mass/Vol] 25 mg/dL [facility] Complete Blood Count Auto Di ffon 11-29-2022 Basophils (Bld) [#/Vol] 0.1 10*3/uL Normal 0.0-0.2 [facility] Comment on above: Result Comment: PERF ORMED BY: [place] [address] PATHOLOGIST SHOE COVERER DEVONTE HOWARD M.D. Performed By: #### L IPID, CMP, CBC, TSH3 #### [facility] [address] Basophils/100 WBC (Bld) 0.8 % Normal . [facility] Comment on above: Performed By: #### L IPID, CMP, CBC, TSH3 #### [facility] [address] [place] [address] [place] Eosinophils (Bld) [#/Vol] 0.1 10*3/uL Normal 0.0-0.45 [facility] Comment on above: Performed By: #### L IPID, CMP, CBC, TSH3 #### [facility] [address] [place] [address] [place] Eosinophils/100 WBC (Bld) 0.9 % Normal . [facility] Comment on above: Performed By: #### L IPID, CMP, CBC, TSH3 #### [facility] [address] [place] [address] [place] Erythrocyte distribution width (RBC) [Ratio] 14.9 % Normal 11.9-15.3 [facility] Comment on above: Performed By: #### L IPID, CMP, CBC, TSH3 #### [facility] [address] [place] [address] [place] Hematocrit (Bld) [Volume fraction] 42.2 % Normal 34.0-46.4 [facility] Comment on above: Performed By: #### L IPID, CMP, CBC, TSH3 #### [address] Hemoglobin (Bld) [Mass/Vol] 13.7 g/dL Normal 11.8-15.4 [facility] Comment on above: Performed By: #### L IPID, CMP, CBC, TSH3 #### [address] Lymphocytes (Bld) [#/Vol] 4.2 10*3/uL Normal 1.00-4.8 [facility] Comment on above: Performed By: #### L IPID, CMP, CBC, TSH3 #### [address] Lymphocytes/100 WBC (Bld) 48.3 % Normal . [facility] Comment on above: Performed By: #### L IPID, CMP, CBC, TSH3 #### [address] MCH (RBC) [Entitic mass] 29.1 pg Normal 24.7-34.3 [facility] Comment on above: Performed By: #### L IPID, CMP, CBC, TSH3 #### [address] MCV (RBC) [Entitic vol] 89.7 fL Normal 80-100 [facility] Comment on above: Performed By: #### L IPID, CMP, CBC, TSH3 #### [address] Mean Corpuscular HGB Conc 32.4 g/dL Normal 32.0-35.0 [facility] Comment on above: Performed By: #### L IPID, CMP, CBC, TSH3 #### [address] Monocytes (Bld) [#/Vol] 0.6 10*3/uL Normal 0.0-0.8 [facility] Comment on above: Performed By: #### L IPID, CMP, CBC, TSH3 #### [place] [address] [place] Monocytes/100 WBC (Bld) 6.5 % Normal . [facility] Comment on above: Performed By: #### L IPID, CMP, CBC, TSH3 #### [facility] [address] [place] [address] Neutrophils (Bld) [#/Vol] 3.8 10*3/uL Normal 1.8-7.7 [facility] Comment on above: Performed By: #### L IPID, CMP, CBC, TSH3 #### [address] Neutrophils/100 WBC (Bld) 43.5 % Normal . [facility] Comment on above: Performed By: #### L IPID, CMP, CBC, TSH3 #### [address] NRBC% 0.1 /100{WBC} Normal 0-0.5 [facility] Comment on above: Performed By: #### L IPID, CMP, CBC, TSH3 #### [place] [address] [place] Platelet mean volume (Bld) [Entitic vol] 8.7 fL Normal 6.3-10.7 [facility] Comment on above: Performed By: #### L IPID, CMP, CBC, TSH3 #### [place] [address] [place] Platelets (Bld) [#/Vol] 323 10*3/uL Normal 150-450 [facility] Comment on above: Performed By: #### L IPID, CMP, CBC, TSH3 #### [place] [address] [place] RBC (Bld) [#/Vol] 4.70 10*6/uL Normal 3.60-5.00 [facility] Comment on above: Performed By: #### L IPID, CMP, CBC, TSH3 #### [place] [address] [place] WBC (Bld) [#/Vol] 8.7 10*3/uL Normal 3.8-11.6 [facility] Comment on above: Performed By: #### L IPID, CMP, CBC, TSH3 #### [facility] [address] Comprehensive Metabolic Pane karl 11-29-2022 Albumin [Mass/Vol] 4.2 g/dL Normal 3.5-5.7 [facility] Comment on above: Performed By: #### L IPID, CMP, CBC, TSH3 #### [facility] [address] Albumin/Globulin [Mass ratio] 1.5 {ratio} Normal [facility] Comment on above: Performed By: #### L IPID, CMP, CBC, TSH3 #### [address] ALP [Catalytic activity/Vol] 66 U/L Normal 34-104 [facility] Comment on above: Performed By: #### L IPID, CMP, CBC, TSH3 #### [address] ALT [Catalytic activity/Vol] 10 U/L Normal 7-52 [facility] Comment on above: Performed By: #### L IPID, CMP, CBC, TSH3 #### [address] Anion gap [Moles/Vol] 12.2 mmol/L Normal 6.0-15.0 [facility] Comment on above: Performed By: #### L IPID, CMP, CBC, TSH3 #### [place] [address] [place] AST [Catalytic activity/Vol] 14 U/L Normal 13-39 [facility] Comment on above: Performed By: #### L IPID, CMP, CBC, TSH3 #### [facility] [address] Bilirubin [Mass/Vol] 0.7 mg/dL Normal 0.3-1.0 [facility] Comment on above: Performed By: #### L IPID, CMP, CBC, TSH3 #### [facility] [address] Calcium [Mass/Vol] 9.3 mg/dL Normal 8.6-10.3 [facility] Comment on above: Performed By: #### L IPID, CMP, CBC, TSH3 #### [facility] [address] Chloride [Moles/Vol] 106 mmol/L Normal 98-107 [facility] Comment on above: Performed By: #### L IPID, CMP, CBC, TSH3 #### [address] CO2 [Moles/Vol] 26.7 mmol/L Normal 21.0-31.0 [facility] Comment on above: Performed By: #### L IPID, CMP, CBC, TSH3 #### [address] Creatinine [Mass/Vol] 0.65 mg/dL Normal 0.60-1.20 [facility] Comment on above: Performed By: #### L IPID, CMP, CBC, TSH3 #### [place] [address] [place] GFR/1.73 sq M.predicted MDRD (S/P/Bld) [Vol rate/Area] mL/min/{1.73_m2} [facility] Comment on above: Performed By: #### L IPID, CMP, CBC, TSH3 #### [address] Globulin (S) [Mass/Vol] 2.8 g/dL [facility] Comment on above: Performed By: #### L IPID, CMP, CBC, TSH3 #### [address] Glucose [Mass/Vol] 89 mg/dL Normal 70-100 [facility] Comment on above: Result Comment: [facility] Glucose Reference Range is dependent on time and content of last meal. Glucose of more than 200 mg/dL in a nonstressed, ambulatory subject supports the diagnosis of Diabetes Mellitus. ADA recommended reference range Performed By: #### L IPID, CMP, CBC, TSH3 #### [facility] [address] Potassium [Moles/Vol] 3.9 mmol/L Normal 3.5-5.1 [facility] Comment on above: Performed By: #### L IPID, CMP, CBC, TSH3 #### [facility] [address] Protein [Mass/Vol] 7.0 g/dL Normal 6.4-8.9 [facility] Comment on above: Performed By: #### L IPID, CMP, CBC, TSH3 #### [facility] [address] Sodium [Moles/Vol] 141 mmol/L Normal 136-145 [facility] Comment on above: Performed By: #### L IPID, CMP, CBC, TSH3 #### [facility] [address] Urea nitrogen [Mass/Vol] 13 mg/dL Normal 7-25 [facility] Comment on above: Performed By: #### L IPID, CMP, CBC, TSH3 #### [address] Creatinine [Mass/volume] in Serum or PlasmaOrdered By: Colin Saunders on 11-29-2022 Creatinine [Mass/Vol] 0.65 mg/dL 0.60-1.20 [facility] Eosinophils Auto (Bld) [#/Vo l]Ordered By: Colin Saunders on 11-29-2022 Eosinophils (Bld) [#/Vol] 0.1 10*3/uL 0.0-0.45 [facility] Eosinophils/100 WBC Auto (Bl d)Ordered By: Colin Saunders on 11-29-2022 Eosinophils/100 WBC (Bld) 0.9 % . [facility] Erythrocyte distribution wid th Auto (RBC) [Ratio]Ordered By: Colin Saunders on 11-29-2022 Erythrocyte distribution width (RBC) [Ratio] 14.9 % 11.9-15.3 [facility] Globulin Calc (S) [Mass/Vol] Ordered By: Colin Saunders on 11-29-2022 Globulin (S) [Mass/Vol] 2.8 g/dL [facility] Glucose [Mass/volume] in Ser um or PlasmaOrdered By: Colin Saunders on 11-29-2022 Glucose [Mass/Vol] 89 mg/dL 70-100 [facility] Comment on above: ADA recommended refe rence rangeRandom Glucose Reference Range is dependent on time and content of last meal. Glucose of more than 200 mg/dL in a nonstressed, ambulatory subject supports the diagnosis of Diabetes Mellitus. Hematocrit Auto (Bld) [Volum e fraction]Ordered By: Colin Saunders on 11-29-2022 Hematocrit (Bld) [Volume fraction] 42.2 % 34.0-46.4 [facility] Hemoglobin [Mass/volume] in BloodOrdered By: Colin Saunders on 11-29-2022 Hemoglobin (Bld) [Mass/Vol] 13.7 g/dL 11.8-15.4 [facility] Leukocytes [#/volume] correc james for nucleated erythrocytes in Blood by Automated counOrdered By: Colin Saunders on 11-29-2022 WBC corrected for nucl RBC Auto (Bld) [#/Vol] 8.7 10*3/uL 3.8-11.6 [facility] Lipid Panelon 11-29-2022 Cholesterol [Mass/Vol] 225 mg/dL High 140-200 [facility] Comment on above: Result Comment: Chol less than 200 mg/dl low risk Chol 201-239 mg/dl borderline risk Chol 240 mg/dl and greater high risk Performed By: #### L IPID, CMP, CBC, TSH3 #### [facility] [address] Cholesterol in HDL [Mass/Vol] 45 mg/dL Normal 35-85 [facility] Comment on above: Result Comment: HDL CHOL ATP-III CLASSIFICATION Cardiovascular Risk HDL > or equal to 60 mg/dL LOW HDL < 40 mg/dL HIGH Performed By: #### L IPID, CMP, CBC, TSH3 #### [facility] [address] Cholesterol.total/Cho lesterol in HDL [Mass ratio] 5.0 {ratio} Normal <5.0 [facility] Comment on above: Performed By: #### L IPID, CMP, CBC, TSH3 #### [facility] [address] LDL Cholesterol,Calculate d 155 mg/dL High 0-100 [facility] Comment on above: Result Comment: LDL ATP III CLASSIFICATION LDL less than 100 mg/dL Optimal LDL 100-129 mg/dL Near or above optimal LDL 130-159 mg/dL Borderline high LDL 160-189 mg/dL High LDL greater than 189 mg/dL Very high Performed By: #### L IPID, CMP, CBC, TSH3 #### [facility] [address] Triglyceride w/Reflex 127 mg/dL Normal 0-149 [facility] Comment on above: Result Comment: TRIG ATP III CLASSIFICATION TRIG less than 150 mg/dL Normal TRIG 150-199 mg/dL Borderline high TRIG 200-500 mg/dL High TRIG greater than 500 mg/dL Very high Standard traceable to the Center for Disease Conrtrol and Prevention (CDC) test method. Performed By: #### L IPID, CMP, CBC, TSH3 #### [facility] [address] VLDL CHOLESTEROL 25 mg/dL Normal [facility] Comment on above: Performed By: #### L IPID, CMP, CBC, TSH3 #### [facility] [address] Lymphocytes Auto (Bld) [#/Vo l]Ordered By: Colin Saunders on 11-29-2022 Lymphocytes (Bld) [#/Vol] 4.2 10*3/uL 1.00-4.8 [facility] Lymphocytes/100 WBC Auto (Bl d)Ordered By: Colin Saunders on 11-29-2022 Lymphocytes/100 WBC (Bld) 48.3 % . [facility] MCH Auto (RBC) [Entitic mass ]Ordered By: Colin Saunders on 11-29-2022 MCH (RBC) [Entitic mass] 29.1 pg 24.7-34.3 [facility] MCHC Auto (RBC) [Mass/Vol]Or dered By: Colin Saunders on 11-29-2022 MCHC (RBC) [Mass/Vol] 32.4 g/dL 32.0-35.0 [facility] MCV Auto (RBC) [Entitic vol] Ordered By: Colin Saunders on 11-29-2022 MCV (RBC) [Entitic vol] 89.7 fL 80-100 [facility] Monocytes Auto (Bld) [#/Vol] Ordered By: Colin Saunders on 11-29-2022 Monocytes (Bld) [#/Vol] 0.6 10*3/uL 0.0-0.8 [facility] Monocytes/100 WBC Auto (Bld) Ordered By: Colin Saunders on 11-29-2022 Monocytes/100 WBC (Bld) 6.5 % . [facility] Neutrophils Auto (Bld) [#/Vo l]Ordered By: Colin Saunders on 11-29-2022 Neutrophils (Bld) [#/Vol] 3.8 10*3/uL 1.8-7.7 [facility] Neutrophils/100 WBC Auto (Bl d)Ordered By: Colin Saunders on 11-29-2022 Neutrophils/100 WBC (Bld) 43.5 % . [facility] No Panel InformationOrdered By: Colin Saunders on 11-29-2022 Estimated GFR (CKD-EPI) > 60.0 mL/Min [facility] Creatinine Clearance (Chem N/A [facility] Nucleated erythrocytes [Pres ence] in Blood by Automated countOrdered By: Colin Saunders on 11-29-2022 Nucleated RBC Auto Ql (Bld) 0.1 /100{WBC} 0-0.5 [facility] Platelet mean volume Auto (B ld) [Entitic vol]Ordered By: Colin Saunders on 11-29-2022 Platelet mean volume (Bld) [Entitic vol] 8.7 fL 6.3-10.7 [facility] Platelets Auto (Bld) [#/Vol] Ordered By: Colin Saunders on 11-29-2022 Platelets (Bld) [#/Vol] 323 10*3/uL 150-450 [facility] Potassium [Moles/volume] in Serum or PlasmaOrdered By: Colin Saunders on 11-29-2022 Potassium [Moles/Vol] 3.9 mmol/L 3.5-5.1 [facility] Protein [Mass/volume] in Ser um or PlasmaOrdered By: Colin Saunders on 11-29-2022 Protein [Mass/Vol] 7.0 g/dL 6.4-8.9 [facility] RBC Auto (Bld) [#/Vol]Ordere d By: Colin Saunders on 11-29-2022 RBC (Bld) [#/Vol] 4.70 10*6/uL 3.60-5.00 [facility] Serum or plasma albumin/glob ulin mass ratioOrdered By: Colin Saunders on 11-29-2022 Albumin/Globulin [Mass ratio] 1.5 {ratio} [facility] Serum or plasma anion gap de terminationOrdered By: Colin Saunders on 11-29-2022 Anion gap [Moles/Vol] 12.2 mmol/L 6.0-15.0 [facility] Serum or plasma high density lipoprotein (HDL) cholesterol measurementOrdered By: Colin Saunders on 11-29-2022 Cholesterol in HDL [Mass/Vol] 45 mg/dL 35-85 [facility] Comment on above: HDL CHOL ATP-III CLA SSIFICATION Cardiovascular RiskHDL > or equal to 60 mg/dL LOWHDL < 40 mg/dL HIGH Serum or plasma total choles terol/high density lipoprotein (HDL) cholesterol mass ratOrdered By: Colin Saunders on 11-29-2022 Cholesterol.total/Cho lesterol in HDL [Mass ratio] 5.0 {ratio} <5.0 [facility] Sodium [Moles/volume] in Ser um or PlasmaOrdered By: Colin Saunders on 11-29-2022 Sodium [Moles/Vol] 141 mmol/L 136-145 [facility] Thyroid Stimulating Hormoneo n 11-29-2022 TSH Qn 1.41 m[IU]/L Normal 0.45-5.33 [facility] Comment on above: Result Comment: PERF ORMED BY: [facility] [address] [place] [address] PATHOLOGIST SHOE COVERER DEVONTE HOWARD M.D. Performed By: #### L IPID, CMP, CBC, TSH3 #### [facility] [address] Thyrotropin [Units/volume] i n Serum or PlasmaOrdered By: Colin Saunders on 11-29-2022 TSH Qn 1.41 m[IU]/L 0.45-5.33 [facility] Triglyceride [Mass/volume] i n Serum or PlasmaOrdered By: Colin Saunders on 11-29-2022 Triglyceride [Mass/Vol] 127 mg/dL 0-149 [facility] Comment on above: TRIG ATP III CLASSIF ICATIONTRIG less than 150 mg/dL NormalTRIG 150-199 mg/dL Borderline highTRIG 200-500 mg/dL High TRIG greater than 500 mg/dL Very highStandard traceable to the Center for Disease Conrtrol and Prevention (CDC) test method. Urea nitrogen [Mass/volume] in Serum or PlasmaOrdered By: Colin Saunders on 11-29-2022 Urea nitrogen [Mass/Vol] 13 mg/dL 7-25 [facility] WBC Auto (Bld) [#/Vol]Ordere d By: Colin Saunders on 11-29-2022 WBC (Bld) [#/Vol] 8.7 10*3/uL 3.8-11.6 [facility] CBC AUTO DIFFon 11-21-2022 BASO # 0.1 103/ul Normal 0.0-0.1 [facility] Comment on above: Performed By: #### C BC #### [facility] [address] [address] [address] Jesse Nicole Basophils/100 WBC (Bld) 0.5 % Normal 0.2-2.0 [facility] Comment on above: Performed By: #### C BC #### [facility] [address] [address] [address] Jesse Nicole EO # 0.0 103/ul Normal 0.0-0.7 [facility] Comment on above: Performed By: #### C BC #### [facility] [address] [place] [address] Dr. Jesse Nicole Eosinophils/100 WBC (Bld) 0.3 % Critically low 0.9-7.0 [facility] Comment on above: Performed By: #### C BC #### [facility] [address] [place] [address] Dr. Jesse Nicole Erythrocyte distribution width (RBC) [Ratio] 14.3 % Normal 11.0-15.0 [facility] Comment on above: Performed By: #### C BC #### [facility] [address] [place] [address] Dr. Jesse Nicole Hematocrit (Bld) [Volume fraction] 44.0 % Normal 36.0-48.0 [facility] Comment on above: Performed By: #### C BC #### [facility] [address] [place] [address] Dr. Jesse Nicole Hemoglobin (Bld) [Mass/Vol] 14.4 g/dL Normal 12.0-16.0 [facility] Comment on above: Performed By: #### C BC #### [facility] [address] [place] [address] Dr. Jesse Nicole IG # 0.03 10e3/ul Normal 0.00-0.03 [facility] Comment on above: Performed By: #### C BC #### [facility] [address] [place] [address] Dr. Jesse Nicole IG % 0.3 % Normal 0.0-0.5 [facility] Comment on above: Performed By: #### C BC #### [facility] [address] [place] [address] Dr. Jesse Nicole LYMPH # 4.1 103/ul Critically high 1.2-3.8 [facility] Comment on above: Performed By: #### C BC #### [facility] [address] [place] [address] Dr. Jesse Nicole Lymphocytes/100 WBC (Bld) 39.2 % Normal 20.5-60.0 [facility] Comment on above: Performed By: #### C BC #### [facility] [address] [place] [address] Dr. Jesse Nicole MANUAL DIFF REQ NO Normal [facility] Comment on above: Performed By: #### C BC #### [facility] [address] [place] [address] Dr. Jesse Nicole MCH (RBC) [Entitic mass] 29.2 pg Normal 26.7-34.0 [facility] Comment on above: Performed By: #### C BC #### [facility] [address] [place] [address] Dr. Jesse Nicole MCHC (RBC) [Mass/Vol] 32.7 g/dL Normal 29.9-35.2 [facility] Comment on above: Performed By: #### C BC #### [facility] [address] [place] [address] Dr. Jesse Nicole MCV (RBC) [Entitic vol] 89.2 fL Normal 81.0-99.0 [facility] Comment on above: Performed By: #### C BC #### [facility] [address] [place] [address] Dr. Jesse Nicole MONO # 0.5 103/ul Normal 0.3-0.8 [facility] Comment on above: Performed By: #### C BC #### [facility] [address] [place] [address] Dr. Jesse Nicole Monocytes/100 WBC (Bld) 4.5 % Normal 1.7-12.0 [facility] Comment on above: Performed By: #### C BC #### [facility] [address] [place] [address] Dr. Jesse Nicole NEUT # 5.8 103/ul Normal 1.4-6.5 [facility] Comment on above: Performed By: #### C BC #### [facility] [address] [place] [address] Dr. Jesse Nicole Neutrophils/100 WBC (Bld) 55.2 % Normal 43.0-75.0 [facility] Comment on above: Performed By: #### C BC #### [facility] [address] [place] [address] Dr. Jesse Nicole Platelet mean volume (Bld) [Entitic vol] 9.8 fL Normal 9.5-13.5 [facility] Comment on above: Performed By: #### C BC #### [facility] [address] [place] [address] Dr. Jesse Nicole PLT 368 103/ul Normal 150-450 [facility] Comment on above: Performed By: #### C BC #### [facility] [address] [place] [address] Dr. Jesse Nicole RBC 4.93 106/ul Normal 4.20-5.40 [facility] Comment on above: Performed By: #### C BC #### [facility] [address] [place] [address] Dr. Jesse Nicole WBC 10.5 103/ul Normal 4.0-11.0 [facility] Comment on above: Performed By: #### C BC #### [facility] [address] [place] [address] Dr. Jesse Nicole PROF CHEM 8 (BAS METB)on Anion gap [Moles/Vol] 12.0 mmol/L Normal [facility] Comment on above: Performed By: #### B MP #### [facility] [address] [place] [address] Dr. Jesse Nicole Calcium [Mass/Vol] 9.0 mg/dL Normal 8.5-10.1 [facility] Comment on above: Performed By: #### B MP #### [facility] [address] [place] [address] Dr. Jesse Nicole Chloride [Moles/Vol] 104 mmol/L Normal 98-107 [facility] Comment on above: Performed By: #### B MP #### [facility] [address] [place] [address] Dr. Jesse Nicole CO2 [Moles/Vol] 28.1 mmol/L Normal 21.0-32.[address] [facility] Comment on above: Performed By: #### B MP #### [facility] [address] [address] [address] Jesse Nicole Creatinine [Mass/Vol] 0.75 mg/dL Normal 0.55-1.02 [facility] Comment on above: Performed By: #### B MP #### [facility] [address] [address] [address] Jesse Nicole EGFR-AF MONTENEGRIN >60 Normal >=[address] [facility] Comment on above: Performed By: #### B MP #### [facility] [address] [address] [address] Jesse Nicole EGFR-NON AF MONTENEGRIN >60 Normal >=60 [facility] Comment on above: Performed By: #### B MP #### [facility] [address] [address] [address] Jesse Nicole Glucose [Mass/Vol] 106 mg/dL Normal 74-106 [facility] Comment on above: Performed By: #### B MP #### [facility] [address] [address] [address] Jesse Nicole Potassium [Moles/Vol] 3.1 mmol/L Critically low 3.5-5.1 [facility] Comment on above: Performed By: #### B MP #### [facility] [address] [address] [address] Jesse Nicole Sodium [Moles/Vol] 141 mmol/L Normal 136-145 [facility] Comment on above: Performed By: #### B MP #### [facility] [address] [address] [address] Jesse Nicole Urea nitrogen [Mass/Vol] 8.0 mg/dL Normal 7.0-18.0 [facility] Comment on above: Performed By: #### B MP #### [facility] [address] [address] [address] Jesse Nicole Urea nitrogen/Creatinine [Mass ratio] 10.7 mg/mg Normal [facility] Comment on above: Performed By: #### B MP #### [facility] [address] [address] [address] Jesse Nicole COVID + FLU Quick Testingon 09-09-2022 SARS-CoV-2 (COVID-19) RNA MARCIN+probe Ql (Unsp spec) Positive [facility] Other COVID + FLU Quick Testing Negative [facility] Other Quick Strepon 09-09-2022 S. pyogenes Org specific cx Ql (Throat) Negative [facility] Other Quick Strep [facility] Other RSVon 09-09-2022 RSV Ag IA Ql (Unsp spec) Negative [facility] Other Coding Summary.on 06-19-2017 Coding Summary. CODING DATE: 017 [facility] STATUS: Home (Routine DC) PAYOR: Self Pay APC DESCRIPTION 5521 Level 1 Imaging without Contrast 5023 Level 3 Type A ED Visits ADMIT DX: REASON FOR VISIT DX: R06.02 Shortness of breath R05 Cough FINAL DX: PRINCIPAL: J68.0 Bronchitis and pneumonitis due to chemicals, gases, fumes and vapors SECONDARY: H10.9 Unspecified conjunctivitis PYMT PROC APC STAT DESCRIPTION DOCTOR NAME DATE NOTE: The code number assigned matches the documented diagnosis and / or procedure in the patient's chart. However, the narrative phrase printed from the coding software may appear abbreviated, or result in slightly different terminology. Revised Coded By: Sonja Bird Revised Date Saved: 06/19/2017 03:14 pm Normal [facility] ED Clinical Summaryon 2016 ED Clinical Summary (Inserted Image. Linda ble to display) [place] [id number] ED Clinical SummaryPerson Information Name: ANA MOROCHO/Xu Age: 56 Years : 1960 12:00 AM Sex: Female Language:Urdu PCP: NONE, XXXX Marital Status: Visit Id: Visit Reason:General medical; Upper respiratory infection; Inhalation injury; UPPER RESP INFEC, DIFF BREATHING, L EYE BURNING Speciality: Acuity: 4 Enc Type: Emergency Med Service: Emergency Arrival:06/13/2017 10:12 AM Discharge: 06/13/2017 11:30 AM LOS: 000 01:18 Checkin:06/13/2017 10:12 AM Checkout: 06/13/2017 11:30 AM Dispo Type: Home (Routine DC) EVENTS:Event Name Event Status Request Date/Time Start Date/Time Complete Date/Time Arrive Complete 06/13/2017 10:12 AM 06/13/2017 10:12 AM 06/13/2017 10:12 AM Document Home Meds Request 06/13/2017 10:12 AM Triage Complete 06/13/2017 10:12 AM 06/13/2017 10:27 AM 06/13/2017 10:27 AM Bed Assign Complete 06/13/2017 10:32 AM 06/13/2017 10:32 AM 06/13/2017 10:[address] Exam Complete 06/13/2017 10:32 AM 06/13/2017 10:32 AM 06/13/2017 10:32 AM RN Exam Complete 06/13/2017 10:32 AM 06/13/2017 10:39 AM 06/13/2017 10:39 AM Registration Complete 06/13/2017 10:32 AM 06/13/2017 10:45 AM 06/13/2017 10:45 AM X-Ray Complete 06/13/2017 10:37 AM 06/13/2017 10:42 AM 06/13/2017 10:53 AM Reg Complete Request 06/13/2017 10:45 AM Reg Bed Request Complete 06/13/2017 10:45 AM 06/13/2017 10:45 AM 06/13/2017 10:45 AM Wet Read Complete 06/13/2017 10:53 AM 06/13/2017 10:53 AM 06/13/2017 10:53 AM Discharge Complete 06/13/2017 10:55 AM 06/13/2017 11:30 AM 06/13/2017 11:30 AM Transfer Complete 06/13/2017 11:30 AM 06/13/2017 11:30 AM 06/13/2017 11:30 AM ADDRESS:[address] [place], [place] [address] [id number] PHYS DOC NOTES: Patient: ANA MOROCHO Age: 56 years Sex: Female : 1960 Associated Diagnoses: None Author: Juan Manuel Hernandez DO Basic Information Time seen: Date & time 06/13/17 10:30:00. History source: Patient, Nursing notes, Nursing notes. Arrival mode: Private vehicle. History limitation: None. Additional information: Chief Complaint from Nursing Triage Note : Chief Complaint 06/13/2017 10:26 EST Chief Complaint reports just completed antibiotic and steroid for bronchitis, this am chemicals were being sparayed and increased wheezing and redness and puffiness to face fever last night (Modified) . History of Present Illness 56 female presents emergency department with shortness of breath and cough. The patient states that she was just recently treated in [place] for bronchitis she was given unknown antibiotic unknown dose of steroids and albuterol. The patient states that she was feeling a little bit better but continued to have cough when today at work she was exposed to some type of cleaning solution that she inhaled and she believes this triggered her difficulty breathing. The patient denies any sore throat or earache other than pain associated with her cough. Patient denies any history of COPD emphysema did have asthma many years ago but nothing recently. No other associated symptoms or complaints no other prior treatments. Review of Systems Unless otherwise stated in this report the patient's positive and negative responses for review of systems for constitutional, eyes, ENT, cardiovascular, respiratory, gastrointestinal, neurological, genitourinary, musculoskeletal, and integument systems and related systems to the presenting problem are either as stated in the HPI or were not pertinent or were negative for the symptoms and/or complaints related to the presenting medical problem. Health Status Allergies: Allergic Reactions (Selected)Severity Not DocumentedActifed- Swelling.Aspirin- Nausea.Benemid- Swelling.Darvocet-N 100- Vomiting.Motrin- Nausea.. Past Medical/ Family/ Social History Medical history: No active or resolved past medical history items have been selected or recorded.. Surgical history: No active procedure history items have been selected or recorded.. Family history: No family history items have been selected or recorded., reviewed in chart and noncontributory. Social history: Social & Psychosocial HabitsTobacco Comment: none - 06/13/2017 10:37 - Mojgan Hunter RN. Problem list: No qualifying data available. Physical Examination Vital Signs Vital Signs 06/13/2017 10:26 EST Temperature Oral 36.7 DegC Peripheral Pulse Rate 86 bpm Respiratory Rate 16 br/min Systolic Blood Pressure 165 mmHg HI Diastolic Blood Pressure 100 mmHg HI SpO2 96 % . Measurements 06/13/2017 10:26 EST Height/Length Measured 165 cm Body Mass Index Measured 27.73 kg/m2 Weight Measured 75.5 kg . Basic Oxygen Information 06/13/2017 10:26 EST SpO2 96 % Oxygen Therapy Room air . Vital signs have been reviewed and the patient is not hypoxic.. General: Alert, no acute distress. Skin: Warm, dry, pink, intact, no rash. Head: Normocephalic, atraumatic. Neck: No JVD. Eye: Pupils are equal, round and reactive to light, extraocular movements are intact, normal conjunctiva. Ears, nose, mouth and throat: Oral mucosa moist, Minimal posterior pharyngeal erythema no exudate swelling shift or mass. Right tympanic membrane does show some injection and erythema no perforation no posterior fusion. Left tympanic membrane benign.. Cardiovascular: Regular rate and rhythm, No murmur, Normal peripheral perfusion, No wheezing rhonchi or rales, No cardiac rub, Respiratory: Lungs are clear to auscultation, breath sounds are equal, Symmetrical chest wall expansion, Respirations: Regular, Retractions: None. Musculoskeletal: Normal ROM, normal strength, no swelling. Neurological: No focal neurological deficit observed, normal sensory observed, normal motor observed, normal speech observed, cranial nerves grossly intact bilaterally. Psychiatric: Cooperative, appropriate mood & affect. Medical Decision Making Orders Launch Order Profile (Selected) Inpatient OrdersOrdered (Exam Ordered)XR Chest 2 Views: 06/13/17 10:37:00 EST, Stat, Transport Mode: Cart, Reason: Cough, No, pp_set_radiology_subspecia lty, Emergency. Radiology results: 06/13/2017 10:53; Juan Manuel Hernandez DO; Negative; No infiltrate, mass or other acute cardiopulmonary abnormality. Notes: The patient was treated with Omnicef and 40 mg prednisone and Flonase as we did call the pharmacy to find this out. Therefore chest x-ray here today is negative she is discharged home on doxycycline given additional prednisone for a few more days and follow-up in the outpatient setting.. Reexamination/ Reevaluation Vital signs Basic Oxygen Information 06/13/2017 10:26 EST SpO2 96 % Oxygen Therapy Room air Impression and Plan Diagnosis Acute chemical pneumonitis ([id number] J68.0, Discharge, Emergency medicine, Medical) Bronchitis ([id number] J40, Discharge, Emergency medicine, Medical) Plan Condition: Improved, Stable. Disposition: Discharged: to home. Prescriptions: Launch prescriptions Pharmacy:homatropine-hydro codone 1.5 mg-5 mg/5 mL Oral Syrup 473 mL (Prescribe): 5 mL, Oral, q4hr for 5 day(s), 150 mL, Refill(s) 0predniSONE 20 mg Tab (Prescribe): 3, Oral, Daily, # 15 tab(s), Refills(s) 0doxycycline monohydrate 100 mg oral tablet (Prescribe): 100 = 1 mg tab(s), Oral, BID, X 7 day(s), # 14 tab(s), Refills(s) 0. Follow up with: ; Ned Salguero In 3 days 06/16/2017. Counseled: Patient, Regarding diagnosis, Regarding diagnostic results, Regarding treatment plan, Regarding prescription, Patient indicated understanding of instructions. Notes: Return to the ER if condition changes or worsens or if you have any other concerns. Otherwise see your family doctor for follow up.. Addendum by Juan Manuel Hernandez DO on June 13, 2017 11:19 ESTUpon discharge the patient does start to complain of left eye irritation. She states this occurred yesterday. She took her contact lenses out. The patient does not have any injury to the area but does complain of some irritation and erythema to the area. No ocular injuries. I did examine the eye with floor seen dye and tetracaine. The patient has no increased uptake no dendritic lesions no abrasions no form bodies no corneal ulcerations. The patient is treated with topical antibiotics discharged home educated to avoid contact usage for at least 7 days.Add diagnosis: Conjunctivitis left eye MEDICAL INFORMATION: Prescriptions Given:Prescription Display doxycycline (doxycycline monohydrate 100 mg oral tablet) 100 mg = 1 tab(s), Oral, BID, X 7 day(s), # 14 tab(s), Refills(s) 0 homatropine-hydrocodone (homatropine-hydrocodone 1.5 mg-5 mg/5 mL Oral Syrup 473 mL) 5 mL, Oral, q4hr for 5 day(s), 150 mL, Refill(s) 0 predniSONE (predniSONE 20 mg Tab) 3, Oral, Daily, # 15 tab(s), Refills(s) 0 tobramycin ophthalmic (tobramycin ophthalmic 0.3% ointment) 1 jose armando, OPTH, TID, 3.5 gram, Refill(s) 0 PATIENT EDUCATION INFORMATION: Instructions:Pneumonitis; Acute Bronchitis Follow up:With: Address: When: Ned Salguero [facility] [address] [place] [id number] Business (1) In 3 days 06/16/2017 DIAGNOSIS:Acute chemical pneumonitis; Bronchitis Normal [facility] ED Note-Physicianon 06-13-20 ED Note-Physician Patient: MARS MOROCHO Age: 56 years Sex: Female : 1960 Associated Diagnoses: None Author: Juan Manuel Hernandez DO Basic Information Time seen: Date & time 06/13/17 10:30:00. History source: Patient, Nursing notes, Nursing notes. Arrival mode: Private vehicle. History limitation: None. Additional information: Chief Complaint from Nursing Triage Note : Chief Complaint 06/13/2017 10:26 EST Chief Complaint reports just completed antibiotic and steroid for bronchitis, this am chemicals were being sparayed and increased wheezing and redness and puffiness to face fever last night (Modified) . History of Present Illness 56 female presents emergency department with shortness of breath and cough. The patient states that she was just recently treated in [place] for bronchitis she was given unknown antibiotic unknown dose of steroids and albuterol. The patient states that she was feeling a little bit better but continued to have cough when today at work she was exposed to some type of cleaning solution that she inhaled and she believes this triggered her difficulty breathing. The patient denies any sore throat or earache other than pain associated with her cough. Patient denies any history of COPD emphysema did have asthma many years ago but nothing recently. No other associated symptoms or complaints no other prior treatments. Review of Systems Unless otherwise stated in this report the patient's positive and negative responses for review of systems for constitutional, eyes, ENT, cardiovascular, respiratory, gastrointestinal, neurological, genitourinary, musculoskeletal, and integument systems and related systems to the presenting problem are either as stated in the HPI or were not pertinent or were negative for the symptoms and/or complaints related to the presenting medical problem. Health Status Allergies: Allergic Reactions (Selected)Severity Not DocumentedActifed- Swelling.Aspirin- Nausea.Benemid- Swelling.Darvocet-N 100- Vomiting.Motrin- Nausea.. Past Medical/ Family/ Social History Medical history: No active or resolved past medical history items have been selected or recorded.. Surgical history: No active procedure history items have been selected or recorded.. Family history: No family history items have been selected or recorded., reviewed in chart and noncontributory. Social history: Social & Psychosocial HabitsTobacco Comment: none - 06/13/2017 10:37 - Mojgan Hunter RN. Problem list: No qualifying data available. Physical Examination Vital Signs Vital Signs 06/13/2017 10:26 EST Temperature Oral 36.7 DegC Peripheral Pulse Rate 86 bpm Respiratory Rate 16 br/min Systolic Blood Pressure 165 mmHg HI Diastolic Blood Pressure 100 mmHg HI SpO2 96 % . Measurements 06/13/2017 10:26 EST Height/Length Measured 165 cm Body Mass Index Measured 27.73 kg/m2 Weight Measured 75.5 kg . Basic Oxygen Information 06/13/2017 10:26 EST SpO2 96 % Oxygen Therapy Room air . Vital signs have been reviewed and the patient is not hypoxic.. General: Alert, no acute distress. Skin: Warm, dry, pink, intact, no rash. Head: Normocephalic, atraumatic. Neck: No JVD. Eye: Pupils are equal, round and reactive to light, extraocular movements are intact, normal conjunctiva. Ears, nose, mouth and throat: Oral mucosa moist, Minimal posterior pharyngeal erythema no exudate swelling shift or mass. Right tympanic membrane does show some injection and erythema no perforation no posterior fusion. Left tympanic membrane benign.. Cardiovascular: Regular rate and rhythm, No murmur, Normal peripheral perfusion, No wheezing rhonchi or rales, No cardiac rub, Respiratory: Lungs are clear to auscultation, breath sounds are equal, Symmetrical chest wall expansion, Respirations: Regular, Retractions: None. Musculoskeletal: Normal ROM, normal strength, no swelling. Neurological: No focal neurological deficit observed, normal sensory observed, normal motor observed, normal speech observed, cranial nerves grossly intact bilaterally. Psychiatric: Cooperative, appropriate mood & affect. Medical Decision Making Orders Launch Order Profile (Selected) Inpatient OrdersOrdered (Exam Ordered)XR Chest 2 Views: 06/13/17 10:37:00 EST, Stat, Transport Mode: Cart, Reason: Cough, No, pp_set_radiology_subspecia lty, Emergency. Radiology results: 06/13/2017 10:53; David DO, Juan Manuel; Negative; No infiltrate, mass or other acute cardiopulmonary abnormality. Notes: The patient was treated with Omnicef and 40 mg prednisone and Flonase as we did call the pharmacy to find this out. Therefore chest x-ray here today is negative she is discharged home on doxycycline given additional prednisone for a few more days and follow-up in the outpatient setting.. Reexamination/ Reevaluation Vital signs Basic Oxygen Information 06/13/2017 10:26 EST SpO2 96 % Oxygen Therapy Room air Impression and Plan Diagnosis Acute chemical pneumonitis (OBS14-BD J68.0, Discharge, Emergency medicine, Medical) Bronchitis ([id number] J40, Discharge, Emergency medicine, Medical) Plan Condition: Improved, Stable. Disposition: Discharged: to home. Prescriptions: Launch prescriptions Pharmacy:homatropine-hydro codone 1.5 mg-5 mg/5 mL Oral Syrup 473 mL (Prescribe): 5 mL, Oral, q4hr for 5 day(s), 150 mL, Refill(s) 0predniSONE 20 mg Tab (Prescribe): 3, Oral, Daily, # 15 tab(s), Refills(s) 0doxycycline monohydrate 100 mg oral tablet (Prescribe): 100 = 1 mg tab(s), Oral, BID, X 7 day(s), # 14 tab(s), Refills(s) 0. Follow up with: ; Ned Salguero In 3 days 06/16/2017. Counseled: Patient, Regarding diagnosis, Regarding diagnostic results, Regarding treatment plan, Regarding prescription, Patient indicated understanding of instructions. Notes: Return to the ER if condition changes or worsens or if you have any other concerns. Otherwise see your family doctor for follow up..Upon discharge the patient does start to complain of left eye irritation. She states this occurred yesterday. She took her contact lenses out. The patient does not have any injury to the area but does complain of some irritation and erythema to the area. No ocular injuries. I did examine the eye with floor seen dye and tetracaine. The patient has no increased uptake no dendritic lesions no abrasions no form bodies no corneal ulcerations. The patient is treated with topical antibiotics discharged home educated to avoid contact usage for at least 7 days.Add diagnosis: Conjunctivitis left eye Normal [facility] Comment on above: Result Comment: Elec tronically Signed By: Juan Manuel Hernandez DO\.raissa\Date and Time Signed: 06/13/17 11:19 EST ED Patient Education Noteon 06-13-2017 ED Patient Education Note Patient Education Materials Follows:MedicineAcute BronchitisBronchitis is inflammation of the airways that extend from the windpipe into the lungs (bronchi). The inflammation often causes mucus to develop. This leads to a cough, which is the most common symptom of bronchitis. In acute bronchitis, the condition usually develops suddenly and goes away over time, usually in a couple weeks. Smoking, allergies, and asthma can make bronchitis worse. Repeated episodes of bronchitis may cause further lung problems. CAUSESAcute bronchitis is most often caused by the same virus that causes a cold. The virus can spread from person to person (contagious) through coughing, sneezing, and touching contaminated objects.SIGNS AND SYMPTOMS? Cough. ?? Fever. ?? Coughing up mucus. ?? Body aches. ?? Chest congestion. ?? Chills. ?? Shortness of breath. ?? Sore throat. ?DIAGNOSISAcute bronchitis is usually diagnosed through a physical exam. Your health care provider will also ask you questions about your medical history. Tests, such as chest X-rays, are sometimes done to rule out other conditions. TREATMENTAcute bronchitis usually goes away in a couple weeks. Oftentimes, no medical treatment is necessary. Medicines are sometimes given for relief of fever or cough. Antibiotic medicines are usually not needed but may be prescribed in certain situations. In some cases, an inhaler may be recommended to help reduce shortness of breath and control the cough. A cool mist vaporizer may also be used to help thin bronchial secretions and make it easier to clear the chest. HOME CARE INSTRUCTIONS? Get plenty of rest. ?? Drink enough fluids to keep your urine clear or pale yellow (unless you have a medical condition that requires fluid restriction). Increasing fluids may help thin your respiratory secretions (sputum) and reduce chest congestion, and it will prevent dehydration. ?? Take medicines only as directed by your health care provider. ? If you were prescribed an antibiotic medicine, finish it all even if you start to feel better. ? Avoid smoking and secondhand smoke. Exposure to cigarette smoke or irritating chemicals will make bronchitis worse. If you are a smoker, consider using nicotine gum or skin patches to help control withdrawal symptoms. Quitting smoking will help your lungs heal faster. ?? Reduce the chances of another bout of acute bronchitis by washing your hands frequently, avoiding people with cold symptoms, and trying not to touch your hands to your mouth, nose, or eyes. ?? Keep all follow-up visits as directed by your health care provider. ?SEEK MEDICAL CARE IF:Your symptoms do not improve after 1 week of treatment. SEEK IMMEDIATE MEDICAL CARE IF:? You develop an increased fever or chills. ?? You have chest pain. ?? You have severe shortness of breath.? You have bloody sputum. ? ? You develop dehydration.? You faint or repeatedly feel like you are going to pass out.? You develop repeated vomiting.? You develop a severe headache. MAKE SURE YOU:? Understand these instructions. ? Will watch your condition.? Will get help right away if you are not doing well or get worse.Document Released: 08/10/2005 Document Revised: 11/17/2014 Document Reviewed: 12/24/2013ExitCare? Patient Information ?2015 [employer]. This information is not intended to replace advice given to you by your health care provider. Make sure you discuss any questions you have with your health care provider.Internal MedicinePneumonitisPneumon itis is inflammation of the lungs. CAUSESMany things can cause pneumonitis. These can include: ? A bacterial or viral infection. Pneumonitis due to an infection is usually called pneumonia.? Work-related exposures, including farm and industrial work. Some substances that can cause pneumonitis include asbestos, silica, inhaled acids, or inhaled chlorine gas. ?? Repeated exposure to bird feathers, bird feces, or other allergens. ?? Medicine such as chemotherapy drugs, certain antibiotics, and some heart medicines. ?? Radiation therapy. ?? Exposure to mold. A hot tub, sauna, or home humidifier can have mold growing in it, even if it looks clean. The mold can be breathed in through water vapor. ? Breathing (aspirating) stomach contents, food, or liquids into the lungs. ?SIGNS AND SYMPTOMS? Cough. ?? Shortness of breath or difficulty breathing. ?? Fever. ?? Decreased energy. ?? Decreased appetite. ?DIAGNOSISTo diagnose pneumonitis, your health care provider will do a complete history and physical exam. Various tests may be ordered, such as: ? Pulmonary function test. ?? Chest X-ray. ?? CT scan of the lungs. ?? Bronchoscopy. ?? Lung biopsy. ?TREATMENTTreatment will depend on the cause of the pneumonitis. If the cause is exposure to a substance, avoiding further exposure to that substance will help reduce your symptoms. Possible medical treatments for pneumonitis include: ? Corticosteroid medicine to help decrease inflammation in the lungs. ?? Antibiotic medicine to help fight a bacterial lung infection. ?? Oxygen therapy if you are having difficulty breathing. ?HOME CARE INSTRUCTIONS? Avoid exposure to any substance identified as the cause of your pneumonitis. ?? If you must continue to work with substances that can cause pneumonitis, wear a mask to protect your lungs. ?? Only take quzy-hxk-nqynvbe or prescription medicine as directed by your health care provider. ?? Do not smoke. ?? If you use inhalers, keep them with you at all times. ?? Follow up with your health care provider as directed. ?SEEK IMMEDIATE MEDICAL CARE IF:? You develop new or increased shortness of breath. ?? You develop a blue color (cyanosis) under your fingernails. ?? You have a fever. ?MAKE SURE YOU:? Understand these instructions.? Will watch your condition.? Will get help right away if you are not doing well or get worse.Document Released: 12/21/2010 Document Revised: 03/05/2014 Document Reviewed: 12/23/2013ExitCare? Patient Information ?2015 [employer]. This information is not intended to replace advice given to you by your health care provider. Make sure you discuss any questions you have with your health care provider. Normal [facility] ED Patient Summaryon 017 ED Patient Summary (Inserted Image. Linda ble to display) [place] [id number] Patient Discharge Instructions Person Information Name: ANA MOROCHO Age: 56 Years Date: 06/13/2017 10:12 AMDischarge Diagnosis: Acute chemical pneumonitis; Bronchitis Primary Care Physician: NONE, XXXX Provider InformationPrimary Provider: Cris Hernandez DO Astrophysics Teacher:Vonda The exam and treatment you received in the Emergency Department were for an urgent problem and are not intended as complete care. It is important that you follow up with a doctor, nurse practitioner, or physician?s anatomic pathology assistant for ongoing care. If your symptoms become worse or you do not improve as expected and you are unable to reach your usual health care provider, you should return to the Emergency Department. We are available 24 hours a day. ANA MOROCHO has been given the following list of patient education materials, prescriptions and follow-up instructions: Follow-up Instructions:With: Address: When: Ned Salguero [facility] [place] [address] [place] [address] Business (1) In 3 days 06/16/2017 In the event that this physician does not participate in your insurance network, please consult with your insurance company to find a nearby participating provider. Patient Education Materials:Pneumonitis; Acute Bronchitis Medications Given:Medication Dose Route tetracaine ophthalmic 2.00 drop(s) Eye-Left fluorescein ophthalmic 1.00 mg OPTH Medication Information:New MedicationsPrinted Prescriptionsdoxycycline (doxycycline monohydrate 100 mg oral tablet) 1 Tabs By Mouth 2 times a day for 7 Days. Refills: 0.homatropine-hydrocodone (homatropine-hydrocodone 1.5 mg-5 mg/5 mL Oral Syrup 473 mL) 5 Milliliter By Mouth every 4 hours for 5 Days. Refills: 0.predniSONE (predniSONE 20 mg Tab) 3 By Mouth every day. Refills: 0.tobramycin ophthalmic (tobramycin ophthalmic 0.3% ointment) 1 Application Ophthalmic 3 times a day. Refills: 0.Comment: Pharmacy Information: Thank you for choosing [facility] Patient Education Materials: PneumonitisPneumonitis is inflammation of the lungs. CAUSESMany things can cause pneumonitis. These can include: ? A bacterial or viral infection. Pneumonitis due to an infection is usually called pneumonia.? Work-related exposures, including farm and industrial work. Some substances that can cause pneumonitis include asbestos, silica, inhaled acids, or inhaled chlorine gas. ?? Repeated exposure to bird feathers, bird feces, or other allergens. ?? Medicine such as chemotherapy drugs, certain antibiotics, and some heart medicines. ?? Radiation therapy. ?? Exposure to mold. A hot tub, sauna, or home humidifier can have mold growing in it, even if it looks clean. The mold can be breathed in through water vapor. ? Breathing (aspirating) stomach contents, food, or liquids into the lungs. ?SIGNS AND SYMPTOMS? Cough. ?? Shortness of breath or difficulty breathing. ?? Fever. ?? Decreased energy. ?? Decreased appetite. ?DIAGNOSISTo diagnose pneumonitis, your health care provider will do a complete history and physical exam. Various tests may be ordered, such as: ? Pulmonary function test. ?? Chest X-ray. ?? CT scan of the lungs. ?? Bronchoscopy. ?? Lung biopsy. ?TREATMENTTreatment will depend on the cause of the pneumonitis. If the cause is exposure to a substance, avoiding further exposure to that substance will help reduce your symptoms. Possible medical treatments for pneumonitis include: ? Corticosteroid medicine to help decrease inflammation in the lungs. ?? Antibiotic medicine to help fight a bacterial lung infection. ?? Oxygen therapy if you are having difficulty breathing. ?HOME CARE INSTRUCTIONS? Avoid exposure to any substance identified as the cause of your pneumonitis. ?? If you must continue to work with substances that can cause pneumonitis, wear a mask to protect your lungs. ?? Only take nmyu-kth-jihzutz or prescription medicine as directed by your health care provider. ?? Do not smoke. ?? If you use inhalers, keep them with you at all times. ?? Follow up with your health care provider as directed. ?SEEK IMMEDIATE MEDICAL CARE IF:? You develop new or increased shortness of breath. ?? You develop a blue color (cyanosis) under your fingernails. ?? You have a fever. ?MAKE SURE YOU:? Understand these instructions.? Will watch your condition.? Will get help right away if you are not doing well or get worse.Document Released: 12/21/2010 Document Revised: 03/05/2014 Document Reviewed: 12/23/2013ExitCare? Patient Information ?2014 [employer]. This information is not intended to replace advice given to you by your health care provider. Make sure you discuss any questions you have with your health care provider.Acute BronchitisBronchitis is inflammation of the airways that extend from the windpipe into the lungs (bronchi). The inflammation often causes mucus to develop. This leads to a cough, which is the most common symptom of bronchitis. In acute bronchitis, the condition usually develops suddenly and goes away over time, usually in a couple weeks. Smoking, allergies, and asthma can make bronchitis worse. Repeated episodes of bronchitis may cause further lung problems. CAUSESAcute bronchitis is most often caused by the same virus that causes a cold. The virus can spread from person to person (contagious) through coughing, sneezing, and touching contaminated objects.SIGNS AND SYMPTOMS? Cough. ?? Fever. ?? Coughing up mucus. ?? Body aches. ?? Chest congestion. ?? Chills. ?? Shortness of breath. ?? Sore throat. ?DIAGNOSISAcute bronchitis is usually diagnosed through a physical exam. Your health care provider will also ask you questions about your medical history. Tests, such as chest X-rays, are sometimes done to rule out other conditions. TREATMENTAcute bronchitis usually goes away in a couple weeks. Oftentimes, no medical treatment is necessary. Medicines are sometimes given for relief of fever or cough. Antibiotic medicines are usually not needed but may be prescribed in certain situations. In some cases, an inhaler may be recommended to help reduce shortness of breath and control the cough. A cool mist vaporizer may also be used to help thin bronchial secretions and make it easier to clear the chest. HOME CARE INSTRUCTIONS? Get plenty of rest. ?? Drink enough fluids to keep your urine clear or pale yellow (unless you have a medical condition that requires fluid restriction). Increasing fluids may help thin your respiratory secretions (sputum) and reduce chest congestion, and it will prevent dehydration. ?? Take medicines only as directed by your health care provider. ? If you were prescribed an antibiotic medicine, finish it all even if you start to feel better. ? Avoid smoking and secondhand smoke. Exposure to cigarette smoke or irritating chemicals will make bronchitis worse. If you are a smoker, consider using nicotine gum or skin patches to help control withdrawal symptoms. Quitting smoking will help your lungs heal faster. ?? Reduce the chances of another bout of acute bronchitis by washing your hands frequently, avoiding people with cold symptoms, and trying not to touch your hands to your mouth, nose, or eyes. ?? Keep all follow-up visits as directed by your health care provider. ?SEEK MEDICAL CARE IF:Your symptoms do not improve after 1 week of treatment. SEEK IMMEDIATE MEDICAL CARE IF:? You develop an increased fever or chills. ?? You have chest pain. ?? You have severe shortness of breath.? You have bloody sputum. ? ? You develop dehydration.? You faint or repeatedly feel like you are going to pass out.? You develop repeated vomiting.? You develop a severe headache. MAKE SURE YOU:? Understand these instructions. ? Will watch your condition.? Will get help right away if you are not doing well or get worse.Document Released: 08/10/2005 Document Revised: 11/17/2014 Document Reviewed: 12/24/2013ExitCare? Patient Information ?2015 [employer]. This information is not intended to replace advice given to you by your health care provider. Make sure you discuss any questions you have with your health care provider.RASHAWN Jimenes KIMBERLY A , have received the following patient education materials/instructions and have verbalized understanding: Patient Education Materials: Pneumonitis; Acute Bronchitis Follow-up Instructions: With: Address: When: Ned Salguero [facility] [address] [place] [address] Business (1) In 3 days 06/16/2017 Prescriptions: [doxycycline (doxycycline monohydrate 100 mg oral tablet)] [homatropine-hydrocodone (homatropine-hydrocodone 1.5 mg-5 mg/5 mL Oral Syrup 473 mL)] [predniSONE (predniSONE 20 mg Tab)] [tobramycin ophthalmic (tobramycin ophthalmic 0.3% ointment)] Patient Signature __ Date Clinician/Nurse Signature Date 06/13/17 11:30:16 [facility] XR Chest 2 Viewson 7 XR Chest 2 Views Exam Date/Time:06/13 10:53 ESTReason for Exam:CoughReportIMPRESSION : NO EVIDENCE OF ACTIVE DISEASE IN THE CHEST.CLINICAL HISTORY: Upper respiratory congestion, cough and dyspnea x1 week, history ofbronchitisCOMPARISONS: None available.FINDINGS: Two views of the chest demonstrate normal appearance of the heart andmediastinum. The lungs appear clear. The visualized bony thorax and remainder ofthe chest appears unremarkable. FINAL REPORT Dictated: 06/13/2017 11:04 am Austin White MD Signed (Electronic Signature): 06/13/2017 11:04 am Signed by: Austin White MD Transcribed by: MAAME Technologist: CHRISTOPHER [facility] Vital Signs Date Time Vital Sign Value Performing Clinician Facility 05-09-2023 15:30-0400 Body height 165.1 cm Colin Saunders Other [facility] Other 05-09-2023 15:30-0400 Body mass index (BMI) [Ratio] 25.29 kg/m2 Colin Saunders Other [facility] Other 05-09-2023 15:30-0400 Body weight 68.95 kg Colin Saunders Other [facility] Other 05-09-2023 15:30-0400 Diastolic blood pressure 78 mm[Hg] Colin Saunders Other [facility] Other 05-09-2023 15:30-0400 Respiratory rate 18 /min Colin Saunders Other [facility] Other 05-09-2023 15:30-0400 SaO2% (BldA) [Mass fraction] 93 % Colin Saunders Other [facility] Other 05-09-2023 15:30-0400 Systolic blood pressure 115 mm[Hg] Colin Saunders Other [facility] Other 04-11-2023 14:45-0400 Body height 165.1 cm Colin Saunders Other [facility] Other 04-11-2023 14:45-0400 Body mass index (BMI) [Ratio] 26.46 kg/m2 Colin Saunders Other [facility] Other 04-11-2023 14:45-0400 Body weight 72.12 kg Colin Saunders Other [facility] Other 04-11-2023 14:45-0400 Diastolic blood pressure 80 mm[Hg] Colin Saunders Other [facility] Other 04-11-2023 14:45-0400 Respiratory rate 16 /min Colin Saunders Other [facility] Other 04-11-2023 14:45-0400 SaO2% (BldA) [Mass fraction] 94 % Colin Saunders Other [facility] Other 04-11-2023 14:45-0400 Systolic blood pressure 130 mm[Hg] Colin Saunders Other [facility] Other 03-17-2023 09:00-0400 Body height 165.1 cm Colin Saunders Other [facility] Other 03-17-2023 09:00-0400 Body mass index (BMI) [Ratio] 26.29 kg/m2 Colin Saunders Other [facility] Other 03-17-2023 09:00-0400 Body weight 71.67 kg Colin Saunders Other [facility] Other 03-17-2023 09:00-0400 Diastolic blood pressure 80 mm[Hg] Coiln Saunders Other [facility] Other 03-17-2023 09:00-0400 Respiratory rate 16 /min Colin Saunders Other [facility] Other 03-17-2023 09:00-0400 SaO2% (BldA) [Mass fraction] 97 % Colin Saunders Other [facility] Other 03-17-2023 09:00-0400 Systolic blood pressure 126 mm[Hg] Colin Saunders Other [facility] Other 02-17-2023 08:30-0400 Body height 165.1 cm Colin Saunders Other [facility] Other 02-17-2023 08:30-0400 Body mass index (BMI) [Ratio] 27.29 kg/m2 Colin Saunders Other [facility] Other 02-17-2023 08:30-0400 Body weight 74.39 kg Colin Saunders Other [facility] Other 02-17-2023 08:30-0400 Diastolic blood pressure 86 mm[Hg] Colin Saunders Other [facility] Other 02-17-2023 08:30-0400 Respiratory rate 16 /min Colin Saunders Other [facility] Other 02-17-2023 08:30-0400 SaO2% (BldA) [Mass fraction] 96 % Colin Saunders Other [facility] Other 02-17-2023 08:30-0400 Systolic blood pressure 146 mm[Hg] Colin Saunders Other [facility] Other 01-09-2023 10:45-0400 Body height 165.1 cm Colin Saunders Other [facility] Other 01-09-2023 10:45-0400 Diastolic blood pressure 76 mm[Hg] Colin Saunders Other [facility] Other 01-09-2023 10:45-0400 Respiratory rate 18 /min Colin Saunders Other [facility] Other 01-09-2023 10:45-0400 SaO2% (BldA) [Mass fraction] 98 % Colin Saunders Other [facility] Other 01-09-2023 10:45-0400 Systolic blood pressure 114 mm[Hg] Colin Saunders Other [facility] Other Encounters Encounter Date Encounter Type Care Provider Facility Start: 08-16-2023 End: 08-16-2023 ambulatory Colin Blounts Other [facility] Other Start: 08-16-2023 Telephone encounter Colin Chip [facility] Start: 05-09-2023 End: 05-09-2023 ambulatory Colin Blounts Other [facility] Other Start: 05-09-2023 Office outpatient vi sit 15 minutes Colinrudolph Blounts [facility] Start: 04-11-2023 End: 04-11-2023 ambulatory Colinrudolph Blounts Other [facility] Other Start: 04-11-2023 Office outpatient vi sit 15 minutes Colinrudolph Blounts [facility] Start: 03-17-2023 End: 03-17-2023 ambulatory Colin Blounts Other [facility] Other Start: 03-17-2023 Office outpatient vi sit 15 minutes Colin Blounts [facility] Start: 03-10-2023 End: 03-10-2023 ambulatory Colin Saunders Facility:[facility] Start: 03-10-2023 End: 03-10-2023 ambulatory DO Colin Blounts Work Phone: [facility] Work Phone: Start: 03-10-2023 End: 03-10-2023 Patient encounter procedure DO Colin Blounts Work Phone: [facility] Work Phone: Start: 02-17-2023 End: 02-17-2023 ambulatory Colin Blounts Other [facility] Other Start: 02-17-2023 Office outpatient vi sit 25 minutes Colinrudolph Blounts [facility] Start: 02-01-2023 End: 02-01-2023 ambulatory Colinrudolph Blounts Other [facility] Other Start: 02-01-2023 Telephone encounter Colin Saunders [facility] Start: 01-30-2023 End: 01-30-2023 ambulatory Obdulio Ezekielxa Other [facility] Other Start: 01-30-2023 Office outpatient vi sit 15 minutes Obdulio Olexa [facility] Start: 01-12-2023 Office outpatient ne w 30 minutes Obdulio Olexa [facility] Start: 01-12-2023 Telephone encounter Obdulio Ezekielxa [facility] Start: 01-12-2023 End: 01-12-2023 ambulatory Colin Saunders Facility:[facility] Start: 01-12-2023 End: 01-12-2023 ambulatory DO Colin Saunders Work Phone: [facility] Work Phone: Start: 01-12-2023 End: 01-12-2023 Patient encounter procedure DO Colin Saunders Work Phone: [facility] Start: 01-10-2023 End: 01-10-2023 ambulatory Colin Saunders Other [facility] Other Start: 01-10-2023 Telephone encounter Colin Saunders [facility] Start: 01-09-2023 End: 01-09-2023 ambulatory Colin Saunders Other [facility] Other Start: 01-09-2023 Office outpatient vi sit 15 minutes Colin Saunders [facility] Start: 01-09-2023 Telephone encounter Colin Saunders [facility] Start: 01-05-2023 End: 01-05-2023 ambulatory Colin Saunders Other [facility] Other Start: 01-05-2023 Telephone encounter Colin Saunders [facility] Start: 01-03-2023 End: 01-03-2023 ambulatory Colin Saunders Other [facility] Other Start: 01-03-2023 Telephone encounter Colin Saunders [facility] Start: 11-29-2022 End: 11-29-2022 ambulatory Colin Jose Alejandroabilio Facility:[facility] Start: 11-29-2022 End: 11-29-2022 Patient encounter procedure DO Colin Saunders Work Phone: [facility] Work Phone: Start: 11-21-2022 End: 11-21-[address] KANDIS ALAN . Facility: Start: 11-04-2022 End: 11-04-[address] EVERARDO BROWN . [facility] Other Start: 11-04-2022 Telephone encounter Colin Saunders [facility] Start: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
--- NOTE | 2023-10-11 06:46 | MR_ITS ---
[address] [address] Patient Name: ANA LUA MRN: [facility]:[id number] date: 1960 Sex: F Assigned Patient Location: MRI Current Patient Location: MRI Accession/Order Number: [id number] Exam Date: 10/11/2023 07:55 Report Date: 10/11/2023 09:14 At the request of: JENNIFER ESTRADA Procedure: MR thoracic spine wo con EXAMINATION: MR thoracic spine wo con, MR lumbar spine wo con HISTORY: Closed Wedge Fracture Of Vertebra T6, T8, L4 COMPARISON: No relevant comparison available. TECHNIQUE: A variety of imaging planes and parameters were utilized for visualization of suspected pathology. FINDINGS: PARASPINAL AREA: Normal with no visible mass. BONES: Superior endplate compression fracture of L4 with approximately 40% loss of its height and marrow edema consistent with acute to subacute injury. Retropulsion of the superior posterior corner causing mild/moderate central canal narrowing. CORD/CAUDA EQUINA: Normal caliber, contour, and signal intensity. DISC LEVELS: Lower cervical: C6-C7 prominent posterior disc osteophyte complex indenting the anterior margin of the cord causing moderate central canal narrowing. Thoracic spine: No acute abnormality or significant degenerative changes. 12-L1: Early degenerative disc disease is present without focal protrusion or neural impingement. L1-L2: Early degenerative disc disease is present without focal protrusion or neural impingement. L2-L3: Early degenerative disc disease is present without focal protrusion or neural impingement. L3-L4: Mild diffuse disc bulging without disc height reduction. Mild central canal and foraminal narrowing. L4-L5: Mild-moderate foramen narrowing bilaterally secondary to mild diffuse disc bulging without disc at reduction and mild degenerative facet arthropathy. L5-S1: Mild-moderate left foramen narrowing secondary to mild diffuse disc bulging eccentric into the left foramen and mild degenerative facet arthropathy. MR/MR thoracic spine wo con IMPRESSION: 1. Acute to early subacute moderate compression fracture of L4 vertebral body causing mild-moderate central canal and mild-moderate foramen narrowing. 2. No compression fractures of the thoracic spine with specific attention to T6 and T8. 3. L5-S1 mild to moderate left foramen narrowing secondary to degenerative disc disease and facet arthropathy. 4. Images of the lower cervical spine show prominent disc osteophyte complex at C6-C7 indenting the cord causing moderate central canal narrowing. Electronically authenticated by: SHARLENE HATHAWAY Date: 10/11/2023 09:14
--- NOTE | 2023-10-11 06:46 | XR_ITS ---
[address] [address] Patient Name: ANA LUA MRN: [id number] date: 1960 Sex: F Assigned Patient Location: MRI Current Patient Location: MRI Accession/Order Number: [id number] Exam Date: 10/11/2023 08:00 Report Date: 10/11/2023 09:15 At the request of: JENNIFER ESTRADA Procedure: XR DEXA axial skeleton EXAMINATION: XR DEXA axial skeleton HISTORY: Closed Wedge Fracture Of Vertebra T6, T8, L4 COMPARISON: No relevant comparison available. TECHNIQUE: Dual-energy X-ray absorptiometry (DXA) was performed. FINDINGS: SPINE ANALYSIS: Average bone mineral density is 0.959 g/cm2. T-score (standard deviation relative to young adult mean): -1.8 . HIP ANALYSIS: Lowest bone mineral density is within the right femoral neck, 0.794 g/cm2. T-score (standard deviation relative to young adult mean): -1.8 . XR/XR DEXA axial skeleton IMPRESSION: World [employer] Classification: Osteopenia - Moderate Fracture Risk Electronically authenticated by: SHARLENE HATHAWAY Date: 10/11/2023 09:15
--- NOTE | 2023-10-11 06:46 | MR_ITS ---
[address] [address] Patient Name: ANA LUA MRN: [facility]:[id number] date: 1960 Sex: F Assigned Patient Location: MRI Current Patient Location: MRI Accession/Order Number: [id number] Exam Date: 10/11/2023 06:55 Report Date: 10/11/2023 09:14 At the request of: JENNIFER ESTRADA Procedure: MR lumbar spine wo con EXAMINATION: MR thoracic spine wo con, MR lumbar spine wo con HISTORY: Closed Wedge Fracture Of Vertebra T6, T8, L4 COMPARISON: No relevant comparison available. TECHNIQUE: A variety of imaging planes and parameters were utilized for visualization of suspected pathology. FINDINGS: PARASPINAL AREA: Normal with no visible mass. BONES: Superior endplate compression fracture of L4 with approximately 40% loss of its height and marrow edema consistent with acute to subacute injury. Retropulsion of the superior posterior corner causing mild/moderate central canal narrowing. CORD/CAUDA EQUINA: Normal caliber, contour, and signal intensity. DISC LEVELS: Lower cervical: C6-C7 prominent posterior disc osteophyte complex indenting the anterior margin of the cord causing moderate central canal narrowing. Thoracic spine: No acute abnormality or significant degenerative changes. 12-L1: Early degenerative disc disease is present without focal protrusion or neural impingement. L1-L2: Early degenerative disc disease is present without focal protrusion or neural impingement. L2-L3: Early degenerative disc disease is present without focal protrusion or neural impingement. L3-L4: Mild diffuse disc bulging without disc height reduction. Mild central canal and foraminal narrowing. L4-L5: Mild-moderate foramen narrowing bilaterally secondary to mild diffuse disc bulging without disc at reduction and mild degenerative facet arthropathy. L5-S1: Mild-moderate left foramen narrowing secondary to mild diffuse disc bulging eccentric into the left foramen and mild degenerative facet arthropathy. MR/MR lumbar spine wo con IMPRESSION: 1. Acute to early subacute moderate compression fracture of L4 vertebral body causing mild-moderate central canal and mild-moderate foramen narrowing. 2. No compression fractures of the thoracic spine with specific attention to T6 and T8. 3. L5-S1 mild to moderate left foramen narrowing secondary to degenerative disc disease and facet arthropathy. 4. Images of the lower cervical spine show prominent disc osteophyte complex at C6-C7 indenting the cord causing moderate central canal narrowing. Electronically authenticated by: SHARLENE HATHAWAY Date: 10/11/2023 09:14
== END 2023-10-11 06:43 | disposition home or self-care (01) ==
LOC: MRI 06:42
PROVIDERS: PCP Family Medicine; Visit Provider Orthopaedic Surgery Orthopaedic Surgery of the Spine
DX: M54.32 Sciatica, left side (principal); S22.050A Wedge compression fracture of T5-T6 vertebra, initial encounter for closed fracture; S22.060A Wedge compression fracture of T7-T8 vertebra, initial encounter for closed fracture; S32.040A Wedge compression fracture of fourth lumbar vertebra, initial encounter for closed fracture; M51.36 Other intervertebral disc degeneration, lumbar region; M85.80 Other specified disorders of bone density and structure, unspecified site
CPT/HCPCS: 72146; 72148; 77080

== ENCOUNTER 2023-11-22 12:25 | Outpatient (OUT) | payer OTHER, SELFPAY ==
--- NOTE | 2023-11-22 12:30 | ECG_ITS ---
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
--- NOTE | 2023-11-22 12:30 | XR_ITS ---
[address] [address] Patient Name: ANA LUA MRN: [id number] date: 1960 Sex: F Assigned Patient Location: [facility] Current Patient Location: Accession/Order Number: [id number] Exam Date: 11/22/2023 13:15 Report Date: 11/23/2023 11:44 At the request of: JENNIFER ESTRADA Procedure: XR chest 2V EXAM: CHEST 2 VIEWS HISTORY: Preop exam TECHNIQUE: PA and lateral views chest. COMPARISON: None. FINDINGS: The lungs are clear. There is no focal lung consolidation, pleural effusion or pneumothorax. Pulmonary vasculature is within normal limits. The cardiomediastinal silhouette is normal. XR/XR chest 2V IMPRESSION: 1. No acute cardiopulmonary disease. Electronically authenticated by: RUSS LANRDY Date: 11/23/2023 11:44
--- NOTE | 2023-11-22 13:12 | P.GSHP_ITS ---
History of Present Illness History of Present Illness Chief complaint: closed wedge compression fracture Narrative: Patient presents for preadmission testing. Please see HPI from Dr. Keen's office dated 11/17/2023. Review of Systems ROS Narrative REVIEW OF SYSTEMS: Negative except as stated in HPI, ten or more systems reviewed. Constitutional: No fever , chills, weakness ENT: No sore throat or epistaxis Cardiovascular: No edema, chest pain, palpitations, or activity intolerance Respiratory: No shortness of breath, cough, or wheezing Gastrointestinal: No abdominal pain, constipation, diarrhea, or vomiting Genitourinary: No dysuria or hematuria Neurological: No numbness, tingling, weakness, or headache Psychiatric: No mood changes [facility] (Updated 11/22/23 @ 13:16 by Huma Lee NP) Wedge compression fracture of lumbar vertebra ?S32.000A - Wedge compression fracture of unspecified lumbar vertebra, initial encounter for closed fracture (ICD-10) Back pain ?M54.9 - Dorsalgia, unspecified (ICD-10) Radiculopathy ?M54.10 - Radiculopathy, site unspecified (ICD-10) Spinal stenosis ?M48.00 - Spinal stenosis, site unspecified (ICD-10) Osteopenia ?M85.80 - Other specified disorders of bone density and structure, unspecified site (ICD-10) COVID-19 ?U07.1 - COVID-19 (ICD-10) Respiratory syncytial virus ?B33.8 - Other specified viral diseases (ICD-10) Reactive airway disease ?J45.909 - Unspecified asthma, uncomplicated (ICD-10) Bronchitis ?J40 - Bronchitis, not specified as acute or chronic (ICD-10) Pneumonia ?J18.9 - Pneumonia, unspecified organism (ICD-10) Kidney stones ?N20.0 - Calculus of kidney (ICD-10) Postoperative nausea and vomiting ?R11.2 - Nausea with vomiting, unspecified (ICD-10) ?Z98.890 - Other specified postprocedural states (ICD-10) COPD (chronic obstructive pulmonary disease) ?J44.9 - Chronic obstructive pulmonary disease, unspecified (ICD-10) Compression fx, lumbar spine ?S32.000A - Wedge compression fracture of unspecified lumbar vertebra, initial encounter for closed fracture (ICD-10) Lung disease ?J98.4 - Other disorders of lung (ICD-10) Migraines ?G43.909 - Migraine, unspecified, not intractable, without status migrainosus (ICD-10) HTN (hypertension) ?I10 - Essential (primary) hypertension (ICD-10) Surgical History (Updated 11/22/23 @ 12:52 by Huma Lee NP) History of colonoscopy ?Z98.890 - Other specified postprocedural states (ICD-10) H/O knee surgery ?Z98.890 - Other specified postprocedural states (ICD-10) History of arthroscopy of knee ?Z98.890 - Other specified postprocedural states (ICD-10) H/O hand surgery ?Z98.890 - Other specified postprocedural states (ICD-10) H/O hand surgery ?Z98.890 - Other specified postprocedural states (ICD-10) H/O hand surgery ?Z98.890 - Other specified postprocedural states (ICD-10) H/O: hysterectomy ?Z90.710 - Acquired absence of both cervix and uterus (ICD-10) Family History (Updated 09/28/23 @ 12:08 by Lashaun Davis) Father Family history of cancer Mother Family history of cancer Social History (Updated 09/28/23 @ 12:09 by Lashaun Davis) Within the past year, how often did you have a drink containing alcohol: monthly or less Within the past year, how many standard drinks containing alcohol did you have on a typical day: 1 or 2 Within the past year, how often did you have six or more drinks on one occasion: never Total score: 0 Score interpretation: A score less than 3 is consistent with normal alcohol consumption. 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 [employer] Highest level of school completed/degree received: some college, no degree Are you now , , , , never or living with a partner: In a typical week, how many times do you talk on the telephone with family, friends, or neighbors: 3 or more times per week How often do you get together with friends or relatives: 3 or more times per week How often do you attend muslim or restorationist services: 4 or more times per year Do you belong to any clubs or organizations such as muslim groups unions, fraternal or athletic groups, or school groups: no Total score: 3 Score interpretation: A score of greater than or equal to 2 indicates the lowest level of social isolation. Little interest or pleasure in doing things: not at all Feeling down, depressed, or hopeless: not at all Feel stressed/tense/nervous/anxious/difficulty sleeping: not at all Life stressors: recent of family or friend Gender Identity: female Meds Home Medications and Allergies Home Medications ?Medication ?Instructions ?Recorded ?Confirmed ?Type albuterol sulfate 90 mcg/actuation 2 puff inhalation Q4H PRN 12/31/22 11/22/23 History aerosol inhaler shortness of breath or wheezing fluticasone fur. 100 mcg-umeclid 1 inh inhalation DAILY 09/28/23 11/22/23 History 62.5 mcg-vilant 25 mcg inhalat.powder (Trelegy Ellipta) alendronate 70 mg tablet 70 mg PO QWEEK 11/22/23 11/22/23 History amlodipine 5 mg tablet 5 mg PO DAILY 11/22/23 11/22/23 History cholecalciferol (vitamin D3) 125 5,000 unit PO DAILY 11/22/23 11/22/23 History mcg (5,000 unit) capsule tramadol 50 mg tablet 50 mg PO Q4H PRN pain 11/22/23 11/22/23 History Allergies Allergy/AdvReac Type Severity Reaction Status Date / Time diphenhydramine Allergy Severe hives Verified 11/22/23 12:41 [From Benadryl] aspirin Allergy Mild Nausea Verified 11/22/23 12:41 ibuprofen [From Motrin] Allergy Nausea Verified 11/22/23 12:41 prednisone Allergy swelling Verified 11/22/23 12:41 pseudoephedrine Allergy Rash Verified 11/22/23 12:41 [From Sudafed] actifed Allergy Severe Hives Uncoded 11/22/23 12:41 Exam Narrative Exam Narrative: Constitutional: Awake, alert, comfortable, well-appearing, nontoxic, interactive, vital signs as charted Head: Normocephalic, atraumatic Neck: Supple, normal appearance, normal range of motion, no meningeal signs, no lymphadenopathy Respiratory: No respiratory distress, breath sounds clear Cardiovascular: Regular rate and rhythm, strong and regular heart tones Skin: No rashes or induration, no lesions, only visible skin inspected Neuro: No neurological deficits, normal sensation Psychiatric: Oriented ?3, normal affect Assessment and Plan Assessment and Plan (1) Back pain: (2) Radiculopathy: (3) Spinal stenosis: (4) Wedge compression fracture of lumbar vertebra: Plan L4 kyphoplasty scheduled with Dr. Keen 12/01/2023.
[2023-11-22 14:41] LABS: Partial Thromboplastin Time 27.3 sec (22.3-36.2); Prothrombin Time 10.6 sec (9.0-11.6)
== END 2023-11-22 12:26 | disposition home or self-care (01) ==
LOC: PST 12:27
PROVIDERS: PCP Family Medicine; Visit Provider Orthopaedic Surgery Orthopaedic Surgery of the Spine
DX: Z01.810 Encounter for preprocedural cardiovascular examination (principal); Z01.812 Encounter for preprocedural laboratory examination; Z01.818 Encounter for other preprocedural examination; S32.040A Wedge compression fracture of fourth lumbar vertebra, initial encounter for closed fracture
CPT/HCPCS: 71046; 80048; 85610; 85730; 87081; 93005; G0463

== ENCOUNTER 2023-12-01 06:24 | Day surgery (SDC) | payer OTHER, SELFPAY ==
[2023-11-22 13:06] VITALS: BP 138/82; PULSE 69; TEMP 36.3; O2SAT 97; BMI 24.7
[2023-12-01] VITALS (18 sets, daily range): BP systolic 120–140; BP diastolic 71–85; PULSE 70–97; TEMP 36.4; O2SAT 96–100; BMI 24.8
--- NOTE | 2023-12-01 | FL_ITS ---
[address] [address] Patient Name: ANA LUA MRN: [id number] date: 1960 Sex: F Assigned Patient Location: [facility] Current Patient Location: [facility] Accession/Order Number: [id number] Exam Date: 12/01/2023 07:45 Report Date: 12/01/2023 09:32 At the request of: JENNIFER ESTRADA Procedure: FL fluoroscopy <1hr NON-READ EXAM: FL fluoroscopy <1hr NON-READ HISTORY: Fracture COMPARISON: 10/11/2023 TECHNIQUE: 40.0 seconds of fluoroscopy. 46.6 mg FINDINGS: 42 images demonstrate kyphoplasty at the L4 level. Methylmethacrylate is confined to the vertebral body with no extension beyond the cortical margins FL/FL fluoroscopy <1hr NON-READ IMPRESSION: L4 kyphoplasty Electronically authenticated by: JOSE FRANCISCO LAWRENCE Date: 12/01/2023 09:32
--- OUTSIDE RECORDS SUMMARY | 2023-12-01 06:27 | XMS_ITS | CCD ---
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 [employer] Name Role Phone Juan Manuel Hernandez Unavailable [...] Unavailable DO Colin Saunders Primary Care Provider [phone] DO Colin Saunders Attending Provider MD Obdulio Thomas Attending Provider [phone] Obdulio Thomas Unavailable DO Colin Saunders Primary Care Provider [phone] DO Colin Saunders Attending Provider [phone] Obdulio Thomas Admitting Unavailable Obdulio Thomas Attending Unavailable Colin Saunders Primary Care Unavailable Colin Saunders Admitting Unavailable Colin Saunders Attending Unavailable Colin Saunders Primary Care Unavailable Colin Saunders Admitting Unavailable Colin Saunders Attending Unavailable Colin Saunders Primary Care Unavailable Colin Saunders Admitting Unavailable Colin Saunders Attending Unavailable Colin Saunders Primary Care Unavailable Allergies Allergy Classification Reported Allergen(s) Allergy Type Date of Onset Reaction(s) Facility (20 sources) aspirin; Translations: [aspirin] Drug Allergy 02-13-20 13 vomiting [facility] Repository (19 sources) ibuprofen; Translations: [Motrin] Drug Allergy 02-13-20 13 vomiting [facility] (1 source) probenecid; Translations: [Benemid] Drug Allergy [facility] Repository (19 sources) pseudoephedrine / triprolidine; Translations: [Actifed] Drug Allergy 02-13-20 13 hives [facility] Repository (2 sources) Darvocet-N 100; Translations: [Darvocet-N 100] Propensity to adverse reactions (disorder) 07-31-19 14 [facility] Repository (17 sources) Acetaminophen / oxyCODONE Drug Allergy vomiting [facility] Other (17 sources) diphenhydrAMINE Drug Allergy hives [facility] Other (17 sources) methylPREDNISolone Drug Allergy dizziness [facility] Other (19 sources) predniSONE; Translations: [prednisone] Drug Allergy 11-05-19 23 hives [facility] Repository (1 source) Acetaminophen / oxyCODONE Drug Allergy 03-29-20 13 [facility] Repository (1 source) diphenhydrAMINE Drug Allergy 02-13-20 13 [facility] Repository (1 source) Acetaminophen Drug Allergy 05-09-20 [facility] Repository (1 source) diphenhydrAMINE Drug Allergy 10-09-19 [facility] Repository (1 source) Ibuprofen Drug Allergy 10-09-19 [facility] Repository (1 source) methylPREDNISolone Drug Allergy 10-09-19 [facility] Repository (1 source) oxyCODONE Drug Allergy 05-09-20 [facility] Repository (1 source) Pseudoephedrine Drug Allergy 10-09-19 [facility] Repository (1 source) Triprolidine Drug Allergy 10-09-19 [facility] Repository Medications Current Medications Medication Drug Class(es) Dates Sig (Normalized) Sig (Original) [id number] actuat albuterol 0.09 mg/actuat metered dose [...] [LOCALIZED ENLARGED LYMPH NODES] Onset: 11-07-2022 Episodic Nutritional deficiencies (1 source) Vitamin D deficiency, unspecified; Translations: [Vitamin D deficiency, unspecified] Onset: 11-15-2023 Chronic Other aftercare (1 source) 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 Performed By: #### V [id number], CMP, LIPID, CBC, TSH3 #### [address] Basophils/100 WBC (Bld) 1.1 % Normal . [facility] Comment on above: Performed By: #### V [id number], CMP, LIPID, CBC, TSH3 #### [place] [address] [place] Eosinophils (Bld) [#/Vol] 0.2 10*3/uL Normal 0.0-0.45 [facility] Comment on above: Performed By: #### V [id number], CMP, LIPID, CBC, TSH3 #### [address] Eosinophils/100 WBC (Bld) 2.0 % Normal . [facility] Comment on above: Performed By: #### V [id number], CMP, LIPID, CBC, TSH3 #### [place] [id number] [place] Erythrocyte distribution width (RBC) [Ratio] 14.7 % Normal 11.9-15.3 [facility] Comment on above: Performed By: #### V [id number], CMP, LIPID, CBC, TSH3 #### [address] Hematocrit (Bld) [Volume fraction] 39.1 % Normal 34.0-46.4 [facility] Comment on above: Performed By: #### V [id number], CMP, LIPID, CBC, TSH3 #### [address] Hemoglobin (Bld) [Mass/Vol] 12.8 g/dL Normal 11.8-15.4 [facility] Comment on above: Performed By: #### V [id number], CMP, LIPID, CBC, TSH3 #### [address] Lymphocytes (Bld) [#/Vol] 3.9 10*3/uL Normal 1.00-4.8 [facility] Comment on above: Performed By: #### V [id number], CMP, LIPID, CBC, TSH3 #### [address] Lymphocytes/100 WBC (Bld) 50.5 % Normal . [facility] Comment on above: Performed By: #### V [id number], CMP, LIPID, CBC, TSH3 #### [address] MCH (RBC) [Entitic mass] 29.7 pg Normal 24.7-34.3 [facility] Comment on above: Performed By: #### V [id number], CMP, LIPID, CBC, TSH3 #### [address] MCV (RBC) [Entitic vol] 90.8 fL Normal 80-100 [facility] Comment on above: Performed By: #### V [id number], CMP, LIPID, CBC, TSH3 #### [address] Mean Corpuscular HGB Conc 32.7 g/dL Normal 32.0-35.0 [facility] Comment on above: Performed By: #### V [id number], CMP, LIPID, CBC, TSH3 #### [address] Monocytes (Bld) [#/Vol] 0.5 10*3/uL Normal 0.0-0.8 [facility] Comment on above: Performed By: #### V [id number], CMP, LIPID, CBC, TSH3 #### [address] Monocytes/100 WBC (Bld) 6.1 % Normal . [facility] Comment on above: Performed By: #### V [id number], CMP, LIPID, CBC, TSH3 #### [address] Neutrophils (Bld) [#/Vol] 3.1 10*3/uL Normal 1.8-7.7 [facility] Comment on above: Performed By: #### V [id number], CMP, LIPID, CBC, TSH3 #### [address] Neutrophils/100 WBC (Bld) 40.3 % Normal . [facility] Comment on above: Performed By: #### V [id number], CMP, LIPID, CBC, TSH3 #### [address] NRBC% 0.1 /100{WBC} Normal 0-0.5 [facility] Comment on above: Performed By: #### V [id number], CMP, LIPID, CBC, TSH3 #### [address] Platelet mean volume (Bld) [Entitic vol] 8.4 fL Normal 6.3-10.7 [facility] Comment on above: Performed By: #### V [id number], CMP, LIPID, CBC, TSH3 #### [place] [address] [place] Platelets (Bld) [#/Vol] 342 10*3/uL Normal 150-450 [facility] Comment on above: Performed By: #### V [id number], CMP, LIPID, CBC, TSH3 #### [address] RBC (Bld) [#/Vol] 4.31 10*6/uL Normal 3.60-5.00 [facility] Comment on above: Performed By: #### V [id number], CMP, LIPID, CBC, TSH3 #### [address] WBC (Bld) [#/Vol] 7.7 10*3/uL Normal 3.8-11.6 [facility] Comment on above: Performed By: #### V [id number], CMP, LIPID, CBC, TSH3 #### [address] Comprehensive Metabolic Pane karl 11-15-2023 Albumin [Mass/Vol] 4.3 g/dL Normal 3.5-5.7 [facility] Comment on above: Performed By: #### V [id number], CMP, LIPID, CBC, TSH3 #### [address] Albumin/Globulin [Mass ratio] 1.7 {ratio} Normal [facility] Comment on above: Performed By: #### V [id number], CMP, LIPID, CBC, TSH3 #### [address] ALP [Catalytic activity/Vol] 61 U/L Normal 34-104 [facility] Comment on above: Performed By: #### V [id number], CMP, LIPID, CBC, TSH3 #### [address] ALT [Catalytic activity/Vol] 12 U/L Normal 7-52 [facility] Comment on above: Performed By: #### V [id number], CMP, LIPID, CBC, TSH3 #### [address] Anion gap [Moles/Vol] 12.6 mmol/L Normal 6.0-15.0 [facility] Comment on above: Performed By: #### V [id number], CMP, LIPID, CBC, TSH3 #### [address] AST [Catalytic activity/Vol] 18 U/L Normal 13-39 [facility] Comment on above: Performed By: #### V [id number], CMP, LIPID, CBC, TSH3 #### [address] Bilirubin [Mass/Vol] 0.3 mg/dL Normal 0.3-1.0 [facility] Comment on above: Performed By: #### V [id number], CMP, LIPID, CBC, TSH3 #### [address] Calcium [Mass/Vol] 9.3 mg/dL Normal 8.6-10.3 [facility] Comment on above: Performed By: #### V [id number], CMP, LIPID, CBC, TSH3 #### [place] [address] [place] Chloride [Moles/Vol] 107 mmol/L Normal 98-107 [facility] Comment on above: Performed By: #### V [id number], CMP, LIPID, CBC, TSH3 #### [place] [address] [place] CO2 [Moles/Vol] 27.7 mmol/L Normal 21.0-31.0 [facility] Comment on above: Performed By: #### V [id number], CMP, LIPID, CBC, TSH3 #### [place] [address] [place] Creatinine [Mass/Vol] 0.70 mg/dL Normal 0.60-1.20 [facility] Comment on above: Performed By: #### V [id number], CMP, LIPID, CBC, TSH3 #### [place] [address] [place] GFR/1.73 sq M.predicted MDRD (S/P/Bld) [Vol rate/Area] mL/min/{1.73_m2} Normal [facility] Comment on above: Performed By: #### V [id number], CMP, LIPID, CBC, TSH3 #### [address] Globulin (S) [Mass/Vol] 2.5 g/dL Normal [facility] Comment on above: Performed By: #### V [id number], CMP, LIPID, CBC, TSH3 #### [address] Glucose [Mass/Vol] 93 mg/dL Normal 70-100 [facility] Comment on above: Result Comment: Whitt Glucose Reference Range is dependent on time and content of last meal. Glucose of more than 200 mg/dL in a nonstressed, ambulatory subject supports the diagnosis of Diabetes Mellitus. ADA recommended reference range Performed By: #### V [id number], CMP, LIPID, CBC, TSH3 #### [address] Potassium [Moles/Vol] 4.3 mmol/L Normal 3.5-5.1 [facility] Comment on above: Performed By: #### V [id number], CMP, LIPID, CBC, TSH3 #### [address] Protein [Mass/Vol] 6.8 g/dL Normal 6.4-8.9 [facility] Comment on above: Performed By: #### V [id number], CMP, LIPID, CBC, TSH3 #### [address] Sodium [Moles/Vol] 143 mmol/L Normal 136-145 [facility] Comment on above: Performed By: #### V [id number], CMP, LIPID, CBC, TSH3 #### [address] Urea nitrogen [Mass/Vol] 11 mg/dL Normal 7-25 [facility] Comment on above: Performed By: #### V [id number], CMP, LIPID, CBC, TSH3 #### [facility] [address] Lipid Panelon 11-15-2023 Cholesterol [Mass/Vol] 200 mg/dL Normal 140-200 [facility] Comment on above: Result Comment: Chol less than 200 mg/dl low risk Chol 201-239 mg/dl borderline risk Chol 240 mg/dl and greater high risk Performed By: #### V [id number], CMP, LIPID, CBC, TSH3 #### [facility] [address] Cholesterol in HDL [Mass/Vol] 43 mg/dL Normal 23-92 [facility] Comment on above: Result Comment: HDL CHOL ATP-III CLASSIFICATION Cardiovascular Risk HDL > or equal to 60 mg/dL LOW HDL < 40 mg/dL HIGH Performed By: #### V [id number], CMP, LIPID, CBC, TSH3 #### [facility] [address] Cholesterol.total/Cho lesterol in HDL [Mass ratio] 4.7 {ratio} Normal <5.0 [facility] Comment on above: Performed By: #### V [id number], CMP, LIPID, CBC, TSH3 #### [facility] [address] LDL Cholesterol,Calculate d 135 mg/dL High 0-100 [facility] Comment on above: Result Comment: LDL ATP III CLASSIFICATION LDL less than 100 mg/dL Optimal LDL 100-129 mg/dL Near or above optimal LDL 130-159 mg/dL Borderline high LDL 160-189 mg/dL High LDL greater than 189 mg/dL Very high Performed By: #### V [id number], CMP, LIPID, CBC, TSH3 #### [facility] [address] [place] [id number] [facility] Triglyceride w/Reflex 109 mg/dL Normal 0-149 [facility] Comment on above: Result Comment: TRIG ATP III CLASSIFICATION TRIG less than 150 mg/dL Normal TRIG 150-199 mg/dL Borderline high TRIG 200-500 mg/dL High TRIG greater than 500 mg/dL Very high Standard traceable to the Center for Disease Conrtrol and Prevention (CDC) test method. Performed By: #### V [id number], CMP, LIPID, CBC, TSH3 #### [address] VLDL CHOLESTEROL 21 mg/dL Normal [facility] Comment on above: Performed By: #### V [id number], CMP, LIPID, CBC, TSH3 #### [address] Thyroid Stimulating Hormoneo n 11-15-2023 TSH Qn 2.56 m[IU]/L Normal 0.45-5.33 [facility] Comment on above: Performed By: #### V [id number], CMP, LIPID, CBC, TSH3 #### [address] Vitamin D 25 Hydroxy Totalon 11-15-2023 Vitamin D 25 Hydroxy Total 9.4 ng/mL Low 30-100 [facility] Comment on above: Result Comment: ASHWINI MIN D STATUS 25(OH)VITAMIN D RANGE (ng/mL) Deficient <20 Insufficient 20 to <30 Sufficient 30 to 100 Reference: Codie MF,Lucy NC, Molina MARTINEZ, et al. Evaluation,treatment, and prevention of vitamin D deficiency; an Endocrine Society clinical practice guideline. JCEM. 2010; 96(7):1911-30. PERFORMED BY: [place] [address] PATHOLOGIST PAINT MAKER DEVONTE HOWARD M.D. Performed By: #### T SH3, LIPID, CMP, CBC #### [address] MM screening mammo BI w/CADo n 03-10-2023 MM screening mammo BI w/CAD [facility] Main [place] [address] [place] [address] Mammography Report Signed Patient: Ana Sloan MR#: [id number] : 1960 Acct:[id number] Age/Sex: 62 / F ADM Date: 03/10/23 Loc: [place] Room: Type: [facility] Attending Dr: Colin Saunders DO Copies to: [...] next mammogram. Impression dictated by: Kishor Simms Jr., D.O.03/10/2023 10:40 AM Dictation Location: [facility] Transcribed By: [facility] 03/10/23 1040 Dictated By: Kishor Simms Jr, DO 03/10/23 1039 Signed By: 03/10/23 1040 Normal [facility] XR foot RT min 3V*on 023 XR foot RT min 3V* [facility] [place] [address] XRay Report Signed Patient: Ana Sloan MR#: [id number] : 1960 Acct:[id number] Age/Sex: 62 / F ADM Date: 01/12/23 Loc: [facility] Room: Type: [facility] Attending Dr: Obdulio Thomas MD Copies to: [...] Simms Jr., D.O.01/12/2023 11:35 AM Dictation Location: [place] [address] Transcribed By: [facility] 01/12/23 1135 Dictated By: Kishor Simms Jr, DO 01/12/23 1127 Signed By: 01/12/23 1135 Normal [facility] Alanine aminotransferase [En zymatic activity/volume] in Serum or PlasmaOrdered By: Colin Saunders on 11-29-2022 ALT [Catalytic activity/Vol] 10 U/L 7-52 [facility] Albumin [Mass/volume] in Ser um or Plasma by Bromocresol green (BCG) dye binding methoOrdered By: Colin Saunders on 11-29-2022 Albumin BCG dye [Mass/Vol] 4.2 g/dL 3.5-5.7 [facility] Alkaline phosphatase [Enzyma tic activity/volume] in Serum or PlasmaOrdered By: Colin Saunders on 11-29-2022 ALP [Catalytic activity/Vol] 66 U/L 34-104 [facility] Aspartate aminotransferase [ Enzymatic activity/volume] in Serum or PlasmaOrdered By: Colin Saunders on 11-29-2022 AST [Catalytic activity/Vol] 14 U/L 13-39 [facility] Basophils Auto (Bld) [#/Vol] Ordered By: Colin Saunders on 11-29-2022 Basophils (Bld) [#/Vol] 0.1 10*3/uL 0.0-0.2 [facility] Basophils/100 WBC Auto (Bld) Ordered By: Colin Saunders on 11-29-2022 Basophils/100 WBC (Bld) 0.8 % . [facility] Bilirubin.total [Mass/volume ] in Serum or PlasmaOrdered By: Colin Saunders on 11-29-2022 Bilirubin [Mass/Vol] 0.7 mg/dL 0.3-1.0 [facility] Calcium [Mass/volume] in Ser um or PlasmaOrdered By: Colin Saunders on 11-29-2022 Calcium [Mass/Vol] 9.3 mg/dL 8.6-10.3 [facility] Carbon dioxide, total [Moles /volume] in Serum or PlasmaOrdered By: Colin Saunders on 11-29-2022 CO2 [Moles/Vol] 26.7 mmol/L 21.0-31.0 [facility] Chloride [Moles/volume] in S lily or PlasmaOrdered By: Colin Saunders on 11-29-2022 Chloride [Moles/Vol] 106 mmol/L 98-107 [facility] Cholesterol [Mass/volume] in Serum or PlasmaOrdered By: Colin Saunders on 11-29-2022 Cholesterol [Mass/Vol] 225 mg/dL 140-200 [facility] Comment on above: Chol less than 200 m g/dl low riskChol 201-239 mg/dl borderline riskChol 240 mg/dl and greater high risk Cholesterol in LDL Calc [Mas s/Vol]Ordered By: Colin Saunders on 11-29-2022 Cholesterol in LDL [Mass/Vol] 155 mg/dL 0-100 [facility] Comment on above: LDL ATP III CLASSIFI CATIONLDL less than 100 mg/dL OptimalLDL 100-129 mg/dL Near or above optimalLDL 130-159 mg/dL Borderline highLDL 160-189 mg/dL HighLDL greater than 189 mg/dL Very high Cholesterol in VLDL Calc [Ma ss/Vol]Ordered By: Colin Saunders on 11-29-2022 Cholesterol in VLDL [Mass/Vol] 25 mg/dL [facility] Complete Blood Count Auto Di ffon 11-29-2022 Basophils (Bld) [#/Vol] 0.1 10*3/uL Normal 0.0-0.2 [facility] Comment on above: Result Comment: PERF ORMED BY: [place] [address] PATHOLOGIST PAINT MAKER DEVONTE HOWARD M.D. Performed By: #### T SH3, LIPID, CMP, CBC #### [address] Basophils/100 WBC (Bld) 0.8 % Normal . [facility] Comment on above: Performed By: #### T SH3, LIPID, CMP, CBC #### [address] Eosinophils (Bld) [#/Vol] 0.1 10*3/uL Normal 0.0-0.45 [facility] Comment on above: Performed By: #### T SH3, LIPID, CMP, CBC #### [address] Eosinophils/100 WBC (Bld) 0.9 % Normal . [facility] Comment on above: Performed By: #### T SH3, LIPID, CMP, CBC #### [address] Erythrocyte distribution width (RBC) [Ratio] 14.9 % Normal 11.9-15.3 [facility] Comment on above: Performed By: #### T SH3, LIPID, CMP, CBC #### [address] Hematocrit (Bld) [Volume fraction] 42.2 % Normal 34.0-46.4 [facility] Comment on above: Performed By: #### T SH3, LIPID, CMP, CBC #### [address] Hemoglobin (Bld) [Mass/Vol] 13.7 g/dL Normal 11.8-15.4 [facility] Comment on above: Performed By: #### T SH3, LIPID, CMP, CBC #### [address] Lymphocytes (Bld) [#/Vol] 4.2 10*3/uL Normal 1.00-4.8 [facility] Comment on above: Performed By: #### T SH3, LIPID, CMP, CBC #### [address] Lymphocytes/100 WBC (Bld) 48.3 % Normal . [facility] Comment on above: Performed By: #### T SH3, LIPID, CMP, CBC #### [address] MCH (RBC) [Entitic mass] 29.1 pg Normal 24.7-34.3 [facility] Comment on above: Performed By: #### T SH3, LIPID, CMP, CBC #### [address] MCV (RBC) [Entitic vol] 89.7 fL Normal 80-100 [facility] Comment on above: Performed By: #### T SH3, LIPID, CMP, CBC #### [address] Mean Corpuscular HGB Conc 32.4 g/dL Normal 32.0-35.0 [facility] Comment on above: Performed By: #### T SH3, LIPID, CMP, CBC #### [address] Monocytes (Bld) [#/Vol] 0.6 10*3/uL Normal 0.0-0.8 [facility] Comment on above: Performed By: #### T SH3, LIPID, CMP, CBC #### [address] Monocytes/100 WBC (Bld) 6.5 % Normal . [facility] Comment on above: Performed By: #### T SH3, LIPID, CMP, CBC #### [address] Neutrophils (Bld) [#/Vol] 3.8 10*3/uL Normal 1.8-7.7 [facility] Comment on above: Performed By: #### T SH3, LIPID, CMP, CBC #### [address] Neutrophils/100 WBC (Bld) 43.5 % Normal . [facility] Comment on above: Performed By: #### T SH3, LIPID, CMP, CBC #### [address] NRBC% 0.1 /100{WBC} Normal 0-0.5 [facility] Comment on above: Performed By: #### T SH3, LIPID, CMP, CBC #### [address] Platelet mean volume (Bld) [Entitic vol] 8.7 fL Normal 6.3-10.7 [facility] Comment on above: Performed By: #### T SH3, LIPID, CMP, CBC #### [address] Platelets (Bld) [#/Vol] 323 10*3/uL Normal 150-450 [facility] Comment on above: Performed By: #### T SH3, LIPID, CMP, CBC #### [address] RBC (Bld) [#/Vol] 4.70 10*6/uL Normal 3.60-5.00 [facility] Comment on above: Performed By: #### T SH3, LIPID, CMP, CBC #### [address] WBC (Bld) [#/Vol] 8.7 10*3/uL Normal 3.8-11.6 [facility] Comment on above: Performed By: #### T SH3, LIPID, CMP, CBC #### [address] Comprehensive Metabolic Pane karl 11-29-2022 Albumin [Mass/Vol] 4.2 g/dL Normal 3.5-5.7 [facility] Comment on above: Performed By: #### T SH3, LIPID, CMP, CBC #### [address] Albumin/Globulin [Mass ratio] 1.5 {ratio} Normal [facility] Comment on above: Performed By: #### T SH3, LIPID, CMP, CBC #### [address] ALP [Catalytic activity/Vol] 66 U/L Normal 34-104 [facility] Comment on above: Performed By: #### T SH3, LIPID, CMP, CBC #### [address] [address] [place] ALT [Catalytic activity/Vol] 10 U/L Normal 7-52 [facility] Comment on above: Performed By: #### T SH3, LIPID, CMP, CBC #### [address] Anion gap [Moles/Vol] 12.2 mmol/L Normal 6.0-15.0 [facility] Comment on above: Performed By: #### T SH3, LIPID, CMP, CBC #### [address] AST [Catalytic activity/Vol] 14 U/L Normal 13-39 [facility] Comment on above: Performed By: #### T SH3, LIPID, CMP, CBC #### [address] Bilirubin [Mass/Vol] 0.7 mg/dL Normal 0.3-1.0 [facility] Comment on above: Performed By: #### T SH3, LIPID, CMP, CBC #### [address] Calcium [Mass/Vol] 9.3 mg/dL Normal 8.6-10.3 [facility] Comment on above: Performed By: #### T SH3, LIPID, CMP, CBC #### [place] [address] [place] Chloride [Moles/Vol] 106 mmol/L Normal 98-107 [facility] Comment on above: Performed By: #### T SH3, LIPID, CMP, CBC #### [place] [address] [place] CO2 [Moles/Vol] 26.7 mmol/L Normal 21.0-31.0 [facility] Comment on above: Performed By: #### T SH3, LIPID, CMP, CBC #### [place] [address] [place] Creatinine [Mass/Vol] 0.65 mg/dL Normal 0.60-1.20 [facility] Comment on above: Performed By: #### T SH3, LIPID, CMP, CBC #### [facility] [address] [place] [address] [place] GFR/1.73 sq M.predicted MDRD (S/P/Bld) [Vol rate/Area] mL/min/{1.73_m2} Normal [facility] Comment on above: Performed By: #### T SH3, LIPID, CMP, CBC #### [facility] [address] [place] [address] [place] Globulin (S) [Mass/Vol] 2.8 g/dL Normal [facility] Comment on above: Performed By: #### T SH3, LIPID, CMP, CBC #### [address] Glucose [Mass/Vol] 89 mg/dL Normal 70-100 [facility] Comment on above: Result Comment: [facility] Glucose Reference Range is dependent on time and content of last meal. Glucose of more than 200 mg/dL in a nonstressed, ambulatory subject supports the diagnosis of Diabetes Mellitus. ADA recommended reference range Performed By: #### T SH3, LIPID, CMP, CBC #### [address] Potassium [Moles/Vol] 3.9 mmol/L Normal 3.5-5.1 [facility] Comment on above: Performed By: #### T SH3, LIPID, CMP, CBC #### [address] Protein [Mass/Vol] 7.0 g/dL Normal 6.4-8.9 [facility] Comment on above: Performed By: #### T SH3, LIPID, CMP, CBC #### [place] [address] [place] Sodium [Moles/Vol] 141 mmol/L Normal 136-145 [facility] Comment on above: Performed By: #### T SH3, LIPID, CMP, CBC #### [address] Urea nitrogen [Mass/Vol] 13 mg/dL Normal 7-25 [facility] Comment on above: Performed By: #### T SH3, LIPID, CMP, CBC #### [facility] [address] Creatinine [Mass/volume] in Serum or PlasmaOrdered By: Colin Saunders on 11-29-2022 Creatinine [Mass/Vol] 0.65 mg/dL 0.60-1.20 [facility] Eosinophils Auto (Bld) [#/Vo l]Ordered By: Colin Saunders on 11-29-2022 Eosinophils (Bld) [#/Vol] 0.1 10*3/uL 0.0-0.45 [facility] Eosinophils/100 WBC Auto (Bl d)Ordered By: Colin Saunders on 11-29-2022 Eosinophils/100 WBC (Bld) 0.9 % . [facility] Erythrocyte distribution wid th Auto (RBC) [Ratio]Ordered By: Colin Saunders on 11-29-2022 Erythrocyte distribution width (RBC) [Ratio] 14.9 % 11.9-15.3 [facility] Globulin Calc (S) [Mass/Vol] Ordered By: Colin Saunders on 11-29-2022 Globulin (S) [Mass/Vol] 2.8 g/dL [facility] Glucose [Mass/volume] in Ser um or PlasmaOrdered By: Colin Saunders on 11-29-2022 Glucose [Mass/Vol] 89 mg/dL 70-100 [facility] Comment on above: ADA recommended refe rence rangeRandom Glucose Reference Range is dependent on time and content of last meal. Glucose of more than 200 mg/dL in a nonstressed, ambulatory subject supports the diagnosis of Diabetes Mellitus. Hematocrit Auto (Bld) [Volum e fraction]Ordered By: Colin Saunders on 11-29-2022 Hematocrit (Bld) [Volume fraction] 42.2 % 34.0-46.4 [facility] Hemoglobin [Mass/volume] in BloodOrdered By: Colin Saunders on 11-29-2022 Hemoglobin (Bld) [Mass/Vol] 13.7 g/dL 11.8-15.4 [facility] Leukocytes [#/volume] correc james for nucleated erythrocytes in Blood by Automated counOrdered By: Colin Saunders on 11-29-2022 WBC corrected for nucl RBC Auto (Bld) [#/Vol] 8.7 10*3/uL 3.8-11.6 [facility] Lipid Panelon 11-29-2022 Cholesterol [Mass/Vol] 225 mg/dL High 140-200 [facility] Comment on above: Result Comment: Chol less than 200 mg/dl low risk Chol 201-239 mg/dl borderline risk Chol 240 mg/dl and greater high risk Performed By: #### T SH3, LIPID, CMP, CBC #### [facility] [address] Cholesterol in HDL [Mass/Vol] 45 mg/dL Normal 35-85 [facility] Comment on above: Result Comment: HDL CHOL ATP-III CLASSIFICATION Cardiovascular Risk HDL > or equal to 60 mg/dL LOW HDL < 40 mg/dL HIGH Performed By: #### T SH3, LIPID, CMP, CBC #### [facility] [address] Cholesterol.total/Cho lesterol in HDL [Mass ratio] 5.0 {ratio} Normal <5.0 [facility] Comment on above: Performed By: #### T SH3, LIPID, CMP, CBC #### [facility] [address] LDL Cholesterol,Calculate d 155 mg/dL High 0-100 [facility] Comment on above: Result Comment: LDL ATP III CLASSIFICATION LDL less than 100 mg/dL Optimal LDL 100-129 mg/dL Near or above optimal LDL 130-159 mg/dL Borderline high LDL 160-189 mg/dL High LDL greater than 189 mg/dL Very high Performed By: #### T SH3, LIPID, CMP, CBC #### [facility] [address] Triglyceride w/Reflex 127 mg/dL Normal 0-149 [facility] Comment on above: Result Comment: TRIG ATP III CLASSIFICATION TRIG less than 150 mg/dL Normal TRIG 150-199 mg/dL Borderline high TRIG 200-500 mg/dL High TRIG greater than 500 mg/dL Very high Standard traceable to the Center for Disease Conrtrol and Prevention (CDC) test method. Performed By: #### T SH3, LIPID, CMP, CBC #### [facility] [address] VLDL CHOLESTEROL 25 mg/dL Normal [facility] Comment on above: Performed By: #### T SH3, LIPID, CMP, CBC #### [facility] [address] Lymphocytes Auto (Bld) [#/Vo l]Ordered By: Colin Saunders on 11-29-2022 Lymphocytes (Bld) [#/Vol] 4.2 10*3/uL 1.00-4.8 [facility] Lymphocytes/100 WBC Auto (Bl d)Ordered By: Colin Saunders on 11-29-2022 Lymphocytes/100 WBC (Bld) 48.3 % . [facility] MCH Auto (RBC) [Entitic mass ]Ordered By: Colin Saunders on 11-29-2022 MCH (RBC) [Entitic mass] 29.1 pg 24.7-34.3 [facility] MCHC Auto (RBC) [Mass/Vol]Or dered By: Colin Saunders on 11-29-2022 MCHC (RBC) [Mass/Vol] 32.4 g/dL 32.0-35.0 [facility] MCV Auto (RBC) [Entitic vol] Ordered By: Colin Saunders on 11-29-2022 MCV (RBC) [Entitic vol] 89.7 fL 80-100 [facility] Monocytes Auto (Bld) [#/Vol] Ordered By: Colin Saunders on 11-29-2022 Monocytes (Bld) [#/Vol] 0.6 10*3/uL 0.0-0.8 [facility] Monocytes/100 WBC Auto (Bld) Ordered By: Colin Saunders on 11-29-2022 Monocytes/100 WBC (Bld) 6.5 % . [facility] Neutrophils Auto (Bld) [#/Vo l]Ordered By: Colin Saunders on 11-29-2022 Neutrophils (Bld) [#/Vol] 3.8 10*3/uL 1.8-7.7 [facility] Neutrophils/100 WBC Auto (Bl d)Ordered By: Colin Saunders on 11-29-2022 Neutrophils/100 WBC (Bld) 43.5 % . [facility] No Panel InformationOrdered By: Colin Saunders on 11-29-2022 Estimated GFR (CKD-EPI) > 60.0 mL/Min [facility] Creatinine Clearance (Chem N/A [facility] Nucleated erythrocytes [Pres ence] in Blood by Automated countOrdered By: Colin Saunders on 11-29-2022 Nucleated RBC Auto Ql (Bld) 0.1 /100{WBC} 0-0.5 [facility] Platelet mean volume Auto (B ld) [Entitic vol]Ordered By: Colin Saunders on 11-29-2022 Platelet mean volume (Bld) [Entitic vol] 8.7 fL 6.3-10.7 [facility] Platelets Auto (Bld) [#/Vol] Ordered By: Colin Saunders on 11-29-2022 Platelets (Bld) [#/Vol] 323 10*3/uL 150-450 [facility] Potassium [Moles/volume] in Serum or PlasmaOrdered By: Colin Saunders on 11-29-2022 Potassium [Moles/Vol] 3.9 mmol/L 3.5-5.1 [facility] Protein [Mass/volume] in Ser um or PlasmaOrdered By: Colin Saunders on 11-29-2022 Protein [Mass/Vol] 7.0 g/dL 6.4-8.9 [facility] RBC Auto (Bld) [#/Vol]Ordere d By: Colin Saunders on 11-29-2022 RBC (Bld) [#/Vol] 4.70 10*6/uL 3.60-5.00 [facility] Serum or plasma albumin/glob ulin mass ratioOrdered By: Colin Saunders on 11-29-2022 Albumin/Globulin [Mass ratio] 1.5 {ratio} [facility] Serum or plasma anion gap de terminationOrdered By: Colin Saunders on 11-29-2022 Anion gap [Moles/Vol] 12.2 mmol/L 6.0-15.0 [facility] Serum or plasma high density lipoprotein (HDL) cholesterol measurementOrdered By: Colin Saunders on 11-29-2022 Cholesterol in HDL [Mass/Vol] 45 mg/dL 35-85 [facility] Comment on above: HDL CHOL ATP-III CLA SSIFICATION Cardiovascular RiskHDL > or equal to 60 mg/dL LOWHDL < 40 mg/dL HIGH Serum or plasma total choles terol/high density lipoprotein (HDL) cholesterol mass ratOrdered By: Colin Saunders on 11-29-2022 Cholesterol.total/Cho lesterol in HDL [Mass ratio] 5.0 {ratio} <5.0 [facility] Sodium [Moles/volume] in Ser um or PlasmaOrdered By: Colin Saunders on 11-29-2022 Sodium [Moles/Vol] 141 mmol/L 136-145 [facility] Thyroid Stimulating Hormoneo n 11-29-2022 TSH Qn 1.41 m[IU]/L Normal 0.45-5.33 [facility] Comment on above: Result Comment: PERF ORMED BY: [place] [address] PATHOLOGIST [employer] DEVONTE HOWARD M.D. Performed By: #### T SH3, LIPID, CMP, CBC #### [address] Thyrotropin [Units/volume] i n Serum or PlasmaOrdered By: Colin Saunders on 11-29-2022 TSH Qn 1.41 m[IU]/L 0.45-5.33 [facility] Triglyceride [Mass/volume] i n Serum or PlasmaOrdered By: Colin Saunders on 11-29-2022 Triglyceride [Mass/Vol] 127 mg/dL 0-149 [facility] Comment on above: TRIG ATP III CLASSIF ICATIONTRIG less than 150 mg/dL NormalTRIG 150-199 mg/dL Borderline highTRIG 200-500 mg/dL High TRIG greater than 500 mg/dL Very highStandard traceable to the Center for Disease Conrtrol and Prevention (CDC) test method. Urea nitrogen [Mass/volume] in Serum or PlasmaOrdered By: Colin Saunders on 11-29-2022 Urea nitrogen [Mass/Vol] 13 mg/dL 7-25 [facility] WBC Auto (Bld) [#/Vol]Ordere d By: Colin Saunders on 11-29-2022 WBC (Bld) [#/Vol] 8.7 10*3/uL 3.8-11.6 [facility] CBC AUTO DIFFon 11-21-2022 BASO # 0.1 103/ul Normal 0.0-0.1 [facility] Comment on above: Performed By: #### C BC #### [facility] [address] [address] [address] Jesse Nicole Basophils/100 WBC (Bld) 0.5 % Normal 0.2-2.0 [facility] Comment on above: Performed By: #### C BC #### [facility] [address] [address] [address] Jesse Nicole EO # 0.0 103/ul Normal 0.0-0.7 [facility] Comment on above: Performed By: #### C BC #### [facility] [address] [address] [address] Jesse Nicole Eosinophils/100 WBC (Bld) 0.3 % Critically low 0.9-7.0 [facility] Comment on above: Performed By: #### C BC #### [facility] [address] [address] [address] Jesse Nicole Erythrocyte distribution width (RBC) [Ratio] 14.3 % Normal 11.0-15.0 [facility] Comment on above: Performed By: #### C BC #### [facility] [address] [address] [address] Jesse Nicole Hematocrit (Bld) [Volume fraction] 44.0 % Normal 36.0-48.0 [facility] Comment on above: Performed By: #### C BC #### [facility] [address] [address] [address] Jesse Nicole Hemoglobin (Bld) [Mass/Vol] 14.4 g/dL Normal 12.0-16.0 [facility] Comment on above: Performed By: #### C BC #### [facility] [address] [place] [address] Dr. Jesse Nicole IG # 0.03 10e3/ul Normal 0.00-0.03 [facility] Comment on above: Performed By: #### C BC #### [facility] [address] [place] [address] Dr. Jesse Nicole IG % 0.3 % Normal 0.0-0.5 [facility] Comment on above: Performed By: #### C BC #### [facility] [address] [place] [address] Dr. Jesse Nicole LYMPH # 4.1 103/ul Critically high 1.2-3.8 [facility] Comment on above: Performed By: #### C BC #### [facility] [address] [place] [address] Dr. Jesse Nicole Lymphocytes/100 WBC (Bld) 39.2 % Normal 20.5-60.0 [facility] Comment on above: Performed By: #### C BC #### [facility] [address] [place] [address] Dr. Jesse Nicole MANUAL DIFF REQ NO Normal [facility] Comment on above: Performed By: #### C BC #### [facility] [address] [place] [address] Dr. Jesse Nicole MCH (RBC) [Entitic mass] 29.2 pg Normal 26.7-34.0 [facility] Comment on above: Performed By: #### C BC #### [facility] [address] [place] [address] Dr. Jesse Nicole MCHC (RBC) [Mass/Vol] 32.7 g/dL Normal 29.9-35.2 [facility] Comment on above: Performed By: #### C BC #### [facility] [address] [place] [address] Dr. Jesse Nicole MCV (RBC) [Entitic vol] 89.2 fL Normal 81.0-99.0 [facility] Comment on above: Performed By: #### C BC #### [facility] [address] [place] [address] Dr. Jesse Nicole MONO # 0.5 103/ul Normal 0.3-0.8 [facility] Comment on above: Performed By: #### C BC #### [facility] [address] [place] [address] Dr. Jesse Nicole Monocytes/100 WBC (Bld) 4.5 % Normal 1.7-12.0 [facility] Comment on above: Performed By: #### C BC #### [facility] [address] [place] [address] Dr. Jesse Nicole NEUT # 5.8 103/ul Normal 1.4-6.5 [facility] Comment on above: Performed By: #### C BC #### [facility] [address] [place] [address] Dr. Jesse Nicole Neutrophils/100 WBC (Bld) 55.2 % Normal 43.0-75.0 [facility] Comment on above: Performed By: #### C BC #### [facility] [address] [place] [address] Dr. Jesse Nicole Platelet mean volume (Bld) [Entitic vol] 9.8 fL Normal 9.5-13.5 [facility] Comment on above: Performed By: #### C BC #### [facility] [address] [place] [address] Dr. Jesse Nicole PLT 368 103/ul Normal 150-450 [facility] Comment on above: Performed By: #### C BC #### [facility] [address] [place] [address] Dr. Jesse Nicole RBC 4.93 106/ul Normal 4.20-5.40 [facility] Comment on above: Performed By: #### C BC #### [facility] [address] [place] [address] Dr. Jesse Nicole WBC 10.5 103/ul Normal 4.0-11.0 [facility] Comment on above: Performed By: #### C BC #### [facility] [address] [place] [address] Dr. Jesse Nicole PROF CHEM 8 (BAS METB)on Anion gap [Moles/Vol] 12.0 mmol/L Normal Th [facility] Comment on above: Performed By: #### B MP #### [facility] [address] [address] [address] Jesse Nicole Calcium [Mass/Vol] 9.0 mg/dL Normal 8.5-10.1 [facility] Comment on above: Performed By: #### B MP #### [facility] [address] [address] [address] Jesse Nicole Chloride [Moles/Vol] 104 mmol/L Normal 98-107 [facility] Comment on above: Performed By: #### B MP #### [facility] [address] [address] [address] Jesse Nicole CO2 [Moles/Vol] 28.1 mmol/L Normal 21.0-32.0 [facility] Comment on above: Performed By: #### B MP #### [facility] [address] [place] [address] Dr. Jesse Nicole Creatinine [Mass/Vol] 0.75 mg/dL Normal 0.55-1.02 [facility] Comment on above: Performed By: #### B MP #### [facility] [address] [address] [address] Jesse Nicole EGFR-AF BURKINAN >60 Normal >=60 [facility] Comment on above: Performed By: #### B MP #### [facility] [address] [place] [address] Dr. Jesse Nicole EGFR-NON AF BURKINAN >60 Normal >=60 [facility] Comment on above: Performed By: #### B MP #### [facility] [address] [address] [address] Jesse Nicole Glucose [Mass/Vol] 106 mg/dL Normal 74-106 [facility] Comment on above: Performed By: #### B MP #### [facility] [address] [address] [address] Jesse Nicole Potassium [Moles/Vol] 3.1 mmol/L Critically low 3.5-5.1 [facility] Comment on above: Performed By: #### B MP #### [facility] [address] [address] [address] Jesse Nicole Sodium [Moles/Vol] 141 mmol/L Normal 136-145 [facility] Comment on above: Performed By: #### B MP #### [facility] [address] [address] [address] Jesse Nicole Urea nitrogen [Mass/Vol] 8.0 mg/dL Normal 7.0-18.0 [facility] Comment on above: Performed By: #### B MP #### [facility] [address] [address] [address] Jesse Nicole Urea nitrogen/Creatinine [Mass ratio] 10.7 mg/mg Normal [facility] Comment on above: Performed By: #### B MP #### [facility] [address] [address] [address] Jesse Nicole COVID + FLU Quick Testingon 09-09-2022 SARS-CoV-2 (COVID-19) RNA MARCIN+probe Ql (Unsp spec) Positive [facility] Other COVID + FLU Quick Testing Negative [facility] Other Quick Strepon 09-09-2022 S. pyogenes Org specific cx Ql (Throat) Negative [facility] Other Quick Strep [facility] Other RSVon 09-09-2022 RSV Ag IA Ql (Unsp spec) Negative [facility] Other Coding Summary.on 06-19-2017 Coding Summary. CODING DATE: 017 FINAL [facility] STATUS: Home (Routine DC) PAYOR: Self [...] Revised Date Saved: 06/19/2017 03:14 pm Normal [facility] ED Clinical Summaryon 2016 ED Clinical Summary (Inserted Image. Linda ble to display) [address] [place] [id number] [place] [id number] ED Clinical SummaryPerson Information Name: ANA MOROCHO/Xu Age: 56 Years : 1960 12:00 AM Sex: Female Language:Ukrainian PCP: NONE, XXXX Marital Status: Visit Id: [...] AM 06/13/2017 11:30 AM 06/13/2017 11:30 AM ADDRESS:[facility] [place] [id number] [facility] DOC NOTES: Patient: ANA MOROCHO Age: 56 [...] that she was just recently treated in [place] for bronchitis she was given unknown antibiotic [...] Impression and Plan Diagnosis Acute chemical pneumonitis ([id number] J68.0, Discharge, Emergency medicine, Medical) Bronchitis ([id number] J40, Discharge, Emergency medicine, Medical) Plan Condition: [...] Bronchitis Follow up:With: Address: When: Ned Salguero [facility][note 3] [address] [place] [address] Business (1) In 3 days 06/16/2017 DIAGNOSIS:Acute chemical pneumonitis; Bronchitis Normal [facility] ED Note-Physicianon 06-13-20 ED Note-Physician Patient: MARS [...] that she was just recently treated in [place] for bronchitis she was given unknown antibiotic [...] Impression and Plan Diagnosis Acute chemical pneumonitis ([id number] J68.0, Discharge, Emergency medicine, Medical) Bronchitis ([id number] J40, Discharge, Emergency medicine, Medical) Plan Condition: [...] 7 days.Add diagnosis: Conjunctivitis left eye Normal [facility] Comment on above: Result Comment: Elec tronically [...] 11/17/2014 Document Reviewed: 12/24/2013ExitCare? Patient Information ?2015 [employer]. This information is not intended to replace [...] to protect your lungs. ?? Only take aqet-yxo-qejssnq or prescription medicine as directed by your [...] 03/05/2014 Document Reviewed: 12/23/2013ExitCare? Patient Information ?2015 [employer]. This information is not intended to replace advice given to you by your health care provider. Make sure you discuss any questions you have with your health care provider. Normal [facility] ED Patient Summaryon 017 ED Patient Summary (Inserted Image. Linda ble to display) [address] [address] Patient Discharge Instructions Person Information Name: ANA MOROCHO Age: 56 Years Date: 06/13/2017 10:12 AMDischarge Diagnosis: Acute chemical pneumonitis; Bronchitis Primary Care Physician: NONE, XXXX Provider InformationPrimary Provider: Cris Hernandez DO [employer] The exam and treatment you received in the Emergency Department were for an urgent problem and are not intended as complete care. It is important that you follow up with a doctor, nurse practitioner, or physician?s assignment desk assistant for ongoing care. If your symptoms become worse or you do not improve as expected and you are unable to reach your usual health care provider, you should return to the Emergency Department. We are available 24 hours a day. ANA MOROCHO has been given the following list of patient education materials, prescriptions and follow-up instructions: Follow-up Instructions:With: Address: When: Ned Jose M [address] [place] [id number] Business (1) In 3 days 06/16/2017 In [...] 0.Comment: Pharmacy Information: Thank you for choosing [facility] Patient Education Materials: PneumonitisPneumonitis is inflammation of [...] to protect your lungs. ?? Only take isgl-fao-cvsuqdr or prescription medicine as directed by your [...] 03/05/2014 Document Reviewed: 12/23/2013ExitCare? Patient Information ?2015 [employer]. This information is not intended to replace [...] 11/17/2014 Document Reviewed: 12/24/2013ExitCare? Patient Information ?2015 [employer]. This information is not intended to replace advice given to you by your health care provider. Make sure you discuss any questions you have with your health care provider.IRASHAWN KIMBERLY A , have received the following patient education materials/instructions and have verbalized understanding: Patient Education Materials: Pneumonitis; Acute Bronchitis Follow-up Instructions: With: Address: When: Ned Salguero [address] [place] [address] Business (2) In 3 days 06/16/2017 Prescriptions: [doxycycline (doxycycline monohydrate 100 mg oral tablet)] [homatropine-hydrocodone (homatropine-hydrocodone 1.5 mg-5 mg/5 mL Oral Syrup 473 mL)] [predniSONE (predniSONE 20 mg Tab)] [tobramycin ophthalmic (tobramycin ophthalmic 0.3% ointment)] Patient Signature __ Date Clinician/Nurse Signature Date 06/13/17 11:30:16 [facility] XR Chest 2 Viewson XR Chest 2 Views Exam Date/Time:06/13 10:53 [...] White MD Transcribed by: MAAME Technologist: [facility] Vital Signs Date Time Vital Sign Value Performing Clinician Facility 05-09-2023 15:30-0400 Body height 165.1 cm Colin Chip Other [facility] Other 05-09-2023 15:30-0400 Body mass index (BMI) [Ratio] 25.29 kg/m2 Colin Chip Other [facility] Other 05-09-2023 15:30-0400 Body weight 68.95 kg Colin Saunders Other [facility] Other 05-09-2023 15:30-0400 Diastolic blood pressure 78 mm[Hg] Colin Saunders Other [facility] Other 05-09-2023 15:30-0400 Respiratory rate 18 /min Colin Saunders Other [facility] Other 05-09-2023 15:30-0400 SaO2% (BldA) [Mass fraction] 93 % Colin Saunders Other [facility] Other 05-09-2023 15:30-0400 Systolic blood pressure 115 mm[Hg] Colin Saunders Other [facility] Other 04-11-2023 14:45-0400 Body height 165.1 cm Colin Saunders Other [facility] Other 04-11-2023 14:45-0400 Body mass index (BMI) [Ratio] 26.46 kg/m2 Colin Saunders Other [facility] Other 04-11-2023 14:45-0400 Body weight 72.12 kg Colin Saunders Other [facility] Other 04-11-2023 14:45-0400 Diastolic blood pressure 80 mm[Hg] Colin Saunders Other [facility] Other 04-11-2023 14:45-0400 Respiratory rate 16 /min Colin Saunders Other [facility] Other 04-11-2023 14:45-0400 SaO2% (BldA) [Mass fraction] 94 % Colin Saunders Other [facility] Other 04-11-2023 14:45-0400 Systolic blood pressure 130 mm[Hg] Colin Saunders Other [facility] Other 03-17-2023 09:00-0400 Body height 165.1 cm Colin Saunders Other [facility] Other 03-17-2023 09:00-0400 Body mass index (BMI) [Ratio] 26.29 kg/m2 Colin Saunders Other [facility] Other 03-17-2023 09:00-0400 Body weight 71.67 kg Colin Saunders Other [facility] Other 03-17-2023 09:00-0400 Diastolic blood pressure 80 mm[Hg] Colin Saunders Other [facility] Other 03-17-2023 09:00-0400 Respiratory rate 16 /min Colin Saunders Other [facility] Other 03-17-2023 09:00-0400 SaO2% (BldA) [Mass fraction] 97 % Colin Saunders Other [facility] Other 03-17-2023 09:00-0400 Systolic blood pressure 126 mm[Hg] Colin Saunders Other [facility] Other 02-17-2023 08:30-0400 Body height 165.1 cm Colin Saunders Other [facility] Other 02-17-2023 08:30-0400 Body mass index (BMI) [Ratio] 27.29 kg/m2 Colin Saunders Other [facility] Other 02-17-2023 08:30-0400 Body weight 74.39 kg Colin Saunders Other [facility] Other 02-17-2023 08:30-0400 Diastolic blood pressure 86 mm[Hg] Colin Saunders Other [facility] Other 02-17-2023 08:30-0400 Respiratory rate 16 /min Colin Saunders Other [facility] Other 02-17-2023 08:30-0400 SaO2% (BldA) [Mass fraction] 96 % Colin Saunders Other [facility] Other 02-17-2023 08:30-0400 Systolic blood pressure 146 mm[Hg] Colin Saunders Other [facility] Other 01-09-2023 10:45-0400 Body height 165.1 cm Colin Saunders Other [facility] Other 01-09-2023 10:45-0400 Diastolic blood pressure 76 mm[Hg] Colin Suanders Other [facility] Other 01-09-2023 10:45-0400 Respiratory rate 18 /min Colin Saunders Other [facility] Other 01-09-2023 10:45-0400 SaO2% (BldA) [Mass fraction] 98 % Colin Blountabilio Other [facility] Other 01-09-2023 10:45-0400 Systolic blood pressure 114 mm[Hg] Colin Saunders Other [facility] Other Encounters Encounter Date Encounter Type Care Provider Facility Start: 11-15-2023 End: 11-15-2023 ambulatory Colin Saunders Facility:[facility] Start: 08-16-2023 End: 08-16-2023 ambulatory Colin Saunders Other [facility] Other Start: 08-16-2023 Telephone encounter Colin Saunders [facility] Start: 05-09-2023 End: 05-09-2023 ambulatory Colin Saunders Other [facility] Other Start: 05-09-2023 Office outpatient vi sit 15 minutes Colin Blounts [facility] Start: 04-11-2023 End: 04-11-2023 ambulatory Colin Saunders Other [facility] Other Start: 04-11-2023 Office outpatient vi sit 15 minutes Colin Blounts [facility] Start: 03-17-2023 End: 03-17-2023 ambulatory Colin Saunders Other [facility] Other Start: 03-17-2023 Office outpatient vi sit 15 minutes Colin Blounts [facility] Start: 03-10-2023 End: 03-10-2023 ambulatory Colin Saunders Facility:[facility] Start: 03-10-2023 End: 03-10-2023 ambulatory DO Colin Saunders Work Phone: [facility] Work Phone: Start: 03-10-2023 End: 03-10-2023 Patient encounter procedure DO Colin Saunders Work Phone: [facility] Work Phone: Start: 02-17-2023 End: 02-17-2023 ambulatory Colin Saunders Other [facility] Other Start: 02-17-2023 Office outpatient vi sit 25 minutes Colinrudolph Saunders [facility] Start: 02-01-2023 End: 02-01-2023 ambulatory Colin Saunders Other [facility] Other Start: 02-01-2023 Telephone encounter Colinrudolph Saunders [facility] Start: 01-30-2023 End: 01-30-2023 ambulatory Obdulio Olexa Other [facility] Other Start: 01-30-2023 Office outpatient vi sit 15 minutes Obdulio Olexa [facility] Start: 01-12-2023 Office outpatient ne w 30 minutes Obdulio Olexa [facility] Start: 01-12-2023 Telephone encounter Obdulio Olexa [facility] Start: 01-12-2023 End: 01-12-2023 ambulatory Obdulio Olexa Facility:[facility] Start: 01-12-2023 End: 01-12-2023 ambulatory DO Colin Saunders Work Phone: [facility] Work Phone: Start: 01-12-2023 End: 01-12-2023 Patient encounter procedure DO Colin Saunders Work Phone: [facility] Start: 01-10-2023 End: 01-10-2023 ambulatory Colin Jose Alejandroabilio Other [facility] Other Start: 01-10-2023 Telephone encounter Colin Saunders [facility] Start: 01-09-2023 End: 01-09-2023 ambulatory Colinrudolph Saunders Other [facility] Other Start: 01-09-2023 Office outpatient vi sit 15 minutes Colin Jose Alejandroabilio [facility] Start: 01-09-2023 Telephone encounter Colinrudolph Saunders [facility] Start: 01-05-2023 End: 01-05-2023 ambulatory Colin Jose Alejandroabilio Other [facility] Other Start: 01-05-2023 Telephone encounter Colin Saunders [facility] Start: 01-03-2023 End: 01-03-2023 ambulatory Colin Saunders Other [facility] Other Start: 01-03-2023 Telephone encounter Colin Jose Alejandroabilio [facility] Start: 11-29-2022 End: 11-29-2022 ambulatory Colin Blountabilio Facility:[facility] Start: 11-29-2022 End: 11-29-2022 Patient encounter procedure DO Colin Saunders Work Phone: [facility] Work Phone: Start: 11-21-2022 End: 11-21-[address] KANDIS ALAN . Facility: Start: 11-04-2022 End: 11-04-[address] EVERARDO BROWN . [employer] Other Start: 11-04-2022 Telephone encounter Colin Chip [facility] Start: 10-19-2022 End: 10-19-2022 ambulatory Colin Saunders Other [facility] Other Start: 10-19-2022 Telephone encounter Colin Saunders [facility] Start: 09-09-2022 End: 09-09-2022 ambulatory Colin Saunders Other [facility] Other Start: 09-09-2022 Nursing evaluation o f patient and report Colin Saunders [facility] Start: 06-13-2017 End: 06-13-2017 Emergency department patient visit [facility] Facility:[facility] Procedures Date Procedure Procedure Detail Performing Clinician Start: 03-10-2023 Screening mammograph y of bilateral breasts DO Colin Saunders Work Phone: Start: 01-12-2023 X-ray of right foot DO Colin Saunders Work Phone: Screening for malign ant neoplasm of breast Colin Saunders Other Payers Date Payer Category Payer Private Health Insurance [id number] 2017 Self-pay 1961 Unknown [id number] 1960 Unknown [id number] 1960 Unknown [id number] Private Health Insurance [facility] e [id number] Private Health Insurance [facility] e [id number] Unknown [facility] Employees [id number] Unknown [employer] [id number] Unknown [id number] Unknown [id number] Unknown [id number] Unknown [id number] Social History Date Type Detail Facility Unknown if ever smoked [facility] Other Sex Assigned At Sex Assigned At Bir th [facility] Other Start: 1960 Sex Assigned At Female [facility] Clinical Notes 05-02-2018 to 08-16-2023 Note Date & Type Note Facility 08-16-2023 Evaluation note Encounter Date Diagnosis Assessment Notes Jul, Reactive airway disease (ICD-10 - J45.909) [facility] Other [id number] Evaluation note* Encounter Date Diagnosis Assessment Notes [...] left knee. Apr, Obesity (ICD-10 - E66.9) [facility] Other 09-26-2023 Evaluation note* Encounter Date Diagnosis [...] airway disease (ICD-10 - J45.909) Sample provided. [facility] Other 09-01-2023 Evaluation note* Encounter Date Diagnosis [...] Mammogram reviewed advising that this was normal. [facility] Other 08-04-2023 Evaluation note* Encounter Date Diagnosis [...] She did buy an ankle brace at [facility] but this is not very comfortable and [...] weight loss efforts. EKG done in the [facility] ER 11/21/22 Feb, Obesity (ICD-10 - E66.9) Encouraged patient to increase exercise and monitor diet closer. Feb, Screening for breast cancer (ICD-10 - Z12.39) Mammogram ordered. Feb, Dental cavity (ICD-10 - K02.9) Letter provided for her to proceed with previously planned dental procedure now that blood pressure is stabilized. [facility] Other 07-19-2023 Evaluation note* Encounter Date Diagnosis Assessment Notes Treatment Notes Treatment Clinical Notes Jan, Essential hypertension (ICD-10 - I10) [facility] Other 07-17-2023 Evaluation note* Encounter Date Diagnosis [...] right foot, initial encounter (ICD-10 - S93.601A) [facility] Other 06-29-2023 Evaluation note* Encounter Date Diagnosis [...] Dec, Right foot pain (ICD-10 - M79.671) [facility] Other 06-26-2023 Evaluation note* Encounter Date Diagnosis Assessment Notes Treatment Notes Treatment Clinical Notes Dec, Sprain of right ankle, unspecified ligament, initial encounter (ICD-10 - S93.401A) Review of [facility] ER report from 12/31/22 . Upon examination I recommend the patient cosult with an technical customer support specialist for a likey 2nd - 3rd [...] two samples of the above medication provided. [facility] Other 06-22-2023 Evaluation note* Encounter Date Diagnosis Assessment Notes Treatment Notes Treatment Clinical Notes Dec, Essential hypertension (ICD-10 - I10) [facility] Other 02-24-2023 Evaluation note* Encounter Date Diagnosis Assessment Notes Treatment Notes Treatment Clinical Notes Aug, Fever (ICD-10 - R50.9) Patient covid test is positive, all other testing was negative. Treatment discussed in TE. [facility] Other 10-17-2018 History general Narrative - Reported* Type Description Date Medical History hypertension Medical History hx of UTI Medical History 05/02/2018 Mammogram - normal Medical History 04/2018 NEGATIVE COLOGUARD Surgical History Left knee repaired torn meniscu s 07/11/13 Surgical History Total hysterectomy and hernia r epair 2008 Surgical History metal inserted into lump during mammogram Surgical History left forearm surgery-severed te dani shaffer. 2003 Surgical History left meniscus repair, and bone spur Dr. Burnette Hospitalization History see above [facility] Other Evaluation noteNo InformationNortMoney360 Other Evaluation noteNo assessment information available [facility] Work Phone: History general Narrative - ReportedNortMoney360 Other Summary Purpose Family History No Family History Records FoundNo Family History Records FoundNo Family History Records Found Advance Directives No Advanced Directives Records Found Advance Directive Response Recorded Date/ Time Advance Directives No March 8:46am Reason for Referral Reason consult and treat Diagnosis 1 Sprain of right ankl e, unspecified ligament, initial encounter (S93.401A) Referral Organization [facility] Referring Provider First Name Colin Referring Provider Last Name Chip Referring Provider Specialty Family Prac kevin Referred Organization [facility] Referred Provider Keegan Thompson II Referred Address [address] [place] [place] [place] Referred Provider Specialty Orthopedic S urgery Referral Priority Routine General Notes Roselia Alvarado 02:27:11 PM >[facility] contacted for urgent referral. They request the [...] section and content) DATE CREATED AUTHOR 01/09/2018 [facility] DATE CREATED AUTHOR AUTHOR'S ORGANIZ ATION 11/24/2022 [facility] DATE CREATED AUTHOR AUTHOR'S ORGANIZ ATION 11/25/2023 [facility] REASON FOR VISIT (unrecogniz ed section and content) need insurance card-covid, f yo, strep, rsvClinicalEar pain/neck massClinicalRefillsClinicalER recheck/ ankle sprain/ per Dr. WahlRight Ankle InjuryRecheck Right Ankle/FootClinicalR/S Follow up1 month [...] Colin Saunders DO Primary Care Provider, Attending [place] [facility] Active Goals (unrecognized section and content) Goals [...] BE BASED ON THE PRIMARY CLINICAL RECORDS. [facility] [employer] [facility]. provides no warranty or guarantee of the accuracy or completeness of information in this document.
[2023-12-01] MEDS: LACTATED RINGER'S SOLUTION 1,000 ML 50 ML IV (07:09)
[2023-12-01] MEDS: SCOPOLAMINE 1 MG/3 DAYS TRANSDERM PATCH 1 PATCH TD (07:09)
[2023-12-01] MEDS: CEFAZOLIN SODIUM/DEXTROSE,ISO 2 GM/50 ML PIGGYBACK IV (07:43)
[2023-12-01] MEDS: IOHEXOL 300 MG/ML - 50 ML BTL INJ (08:29)
--- NOTE | 2023-12-01 15:05 | W.PM.OPNOTE ---
Surgery Operative Note Operative Note Procedure Date: 12/01/23 Time Out Performed: yes Pre-op Diagnosis: L4 vertebral compression fracture Post-op Diagnosis: same as pre-op Procedures performed: L4 kyphoplasty Anesthesia: DUNIAA Primary Surgeon: Deni Keen Complications: none Estimated blood loss (mL): 5 Findings: no significant findings Specimens: none Drains: none Indications for Procedures: This is a with refractory back and leg pain from lumbar stenosis and degenerative disc disease at L3-S1. ?Patient has tried failed conservative therapy including medication management, physical therapy, and epidural steroid injections. ?Due to the persistence of symptoms and failure of conservative treatment, patient elected to proceed with surgical treatment. ?Patient, therefore, understood the indication for the surgery as well as its risks, benefits, and alternatives. ?These risks include, but are not limited to paralysis, infection, hematoma, dural tear, nerve root injury, DVT/PE, stroke, MS, etc. ?All questions were answered and informed consent was obtained. Detailed description of Procedure: The patient was taken to the operating room by Anesthesiology Service and had satisfactory general anesthesia. ?A first-generation cephalosporin was given within one hour of surgical incision, 2 gm of cefazolin were given IV. ?Venous thromboembolic prophylaxis was performed with sequential devices. ?The patient was then positioned prone on a standard OSI frame with the abdomen hanging free and all bony prominences well padded. ?The low back was then prepped and draped in its entirety in the usual sterile fashion. Before incision, a formal time-out was taken per protocol. ?C-arm was used to identify landmarks over the L4 pedicles in the AP and lateral planes. Salified with this, we made a poke hole incision with an 11 scalpel an inch and half lateral to the L4 pedicle on the left. Jamschidi then used to cannulate the pedicle at L4, paying attention to get across midline under fluoroscopic guidance. a hand drill was then used to create a cavity in the body of L4. A cavity was widened with a rotating ahl. Satisfied with this, we then used a Kyphon balloon to create a contained defect. The balloon was then inserted and expanded to an average of 300 psi. The balloon was then deflated. Satisfied with this, cement was mixed at the back table and then inserted into the defect through the cannula for approximately 3cc .This was done under direct visualization with fluoroscopy. The cement was then allowed to dry and the cannula removed. No extravasation of the cement was found in the canal. Final xrays were taken which demonstrated satisfactory placement of the cement in the L4 vertebral body. Poke hole-incision was then closed with a steri-strip. The patient was then returned to the hospital bed, extubated, and taken to recovery room in stable condition. DATACAP DEVELOPER: ?MARIE Mann, PAC, assisted throughout the procedure with positioning, draping, retraction, wound closure, and dressing application POSTOPERATIVE CARE: ?The patient will be recovered in PACU and then discharged home per clinical indication. Patient will follow up in the office in 6 weeks. Acid Etch Operator: Isak Castaneda
== END 2023-12-01 10:24 | disposition home or self-care (01) ==
PROVIDERS: PCP Family Medicine; Visit Provider Orthopaedic Surgery Orthopaedic Surgery of the Spine
PROC: (CPT 01942; principal; 2023-12-01 07:30)
DX: S32.040A Wedge compression fracture of fourth lumbar vertebra, initial encounter for closed fracture (principal); M48.061 Spinal stenosis, lumbar region without neurogenic claudication; M54.16 Radiculopathy, lumbar region; M51.37 Other intervertebral disc degeneration, lumbosacral region; Z86.16 Personal history of COVID-19; Z87.01 Personal history of pneumonia (recurrent); Z87.442 Personal history of urinary calculi; J44.9 Chronic obstructive pulmonary disease, unspecified; I10 Essential (primary) hypertension; M85.80 Other specified disorders of bone density and structure, unspecified site; Z90.710 Acquired absence of both cervix and uterus; X58.XXXA Exposure to other specified factors, initial encounter
CPT/HCPCS: 01942; 22514; 36415; 76000; C1713; J1094; J2704; Q9967

== ENCOUNTER 2024-05-17 08:30 | Outpatient (OUT) | payer OTHER, SELFPAY ==
--- NOTE | 2024-05-17 | XR_ITS ---
The [address] [address] Patient Name: ANA LUA MRN: [id number] date: 1960 Sex: F Assigned Patient Location: Current Patient Location: Accession/Order Number: [id number] Exam Date: 05/17/2024 08:30 Report Date: 05/19/2024 06:03 At the request of: JENNIFER ESTRADA Procedure: XR lumbar spine min 4V EXAMINATION: XR lumbar spine min 4V HISTORY: LUMBAR SPINE PAIN COMPARISON: XR lumbar spine 09/28/2023 FINDINGS: BONES: Moderate compression fracture of L4 with prior vertebral plasty. No new fracture. No spondylolisthesis or bone lesion. Mild-moderate degenerative facet arthropathy L4-L5, L5-S1. DISC SPACES: No significant disc height narrowing, subluxation, or endplate abnormality. PARASPINOUS: Negative. No paraspinous abnormality is seen. OTHER: Negative. XR/XR lumbar spine min 4V IMPRESSION: 1. Remote L4 compression fracture and vertebroplasty. No appreciable acute abnormality. 2. Mild degenerative facet arthropathy. No significant disc height reduction. Electronically authenticated by: SHARLENE HATHAWAY Date: 05/19/2024 06:03
--- NOTE | 2024-05-17 | XR_ITS ---
The [address] [address] Patient Name: ANA LUA MRN: [id number] date: 1960 Sex: F Assigned Patient Location: Current Patient Location: Accession/Order Number: [id number] Exam Date: 05/17/2024 08:56 Report Date: 05/19/2024 06:08 At the request of: JENNIFER ESTRADA Procedure: XR cervical spine w flex/ext EXAMINATION: XR cervical spine w flex/ext HISTORY: CERVICAL SPINE PAIN COMPARISON: No relevant comparison available. FINDINGS: BONES: Mild grade 1 retrolisthesis of C3 on 4, C4-C5. Mild grade 1 anterolisthesis of C7 on T1. No appreciable change in alignment during flexion and extension. Multilevel mild-moderate degenerative facet arthropathy. DISC SPACES: Moderate narrowing C3-C4 through C6-C7. PARASPINOUS: Negative. No paraspinous abnormality is seen. OTHER: Negative. XR/XR cervical spine w flex/ext IMPRESSION: 1. Moderate degenerative changes throughout the cervical spine. Electronically authenticated by: SHARLENE HATHAWAY Date: 05/19/2024 06:08
== END 2024-05-17 08:31 | disposition home or self-care (01) ==
LOC: EC 08:30
PROVIDERS: PCP Family Medicine; Visit Provider Orthopaedic Surgery Orthopaedic Surgery of the Spine
DX: M54.2 Cervicalgia (principal); M54.50 Low back pain, unspecified
CPT/HCPCS: 72052; 72110

== ENCOUNTER 2024-05-30 14:33 | Outpatient (OUT) | payer OTHER, SELFPAY ==
--- NOTE | 2024-05-30 14:38 | MR_ITS ---
[address] [address] Patient Name: ANA LUA MRN: [facility]:[id number] date: 1960 Sex: F Assigned Patient Location: MRI Current Patient Location: Accession/Order Number: [id number] Exam Date: 05/30/2024 15:00 Report Date: 06/03/2024 05:08 At the request of: JENNFIER ESTRADA Procedure: MR cervical spine wo con EXAMINATION: MR cervical spine wo con HISTORY: Neck Pain, Degenerative Disc Disease ; chronic cervical pain, left arm and shoulder pain COMPARISON: XR cervical spine 05/17/2024 TECHNIQUE: A variety of imaging planes and parameters were utilized for visualization of suspected pathology without and/or with intravenous Dotarem contrast based on examination type. FINDINGS: CRANIOCERVICAL AREA: Normal foramen magnum with no Chiari malformation. PARASPINAL AREA: Normal with no visible mass. BONES: Minimal grade 1 retrolisthesis of C3 on 4. No fracture or bone lesion. CORD: Normal caliber, contour, and signal intensity. CERVICAL DISC LEVELS: C2-C3: Mild left foramen narrowing. Mild uncovertebral joint spurring and mild degenerative left facet arthropathy. No significant disc bulging. C3-C4: Moderate central canal and right foramen narrowing. Marked left foramen narrowing. Moderate diffuse disc bulging with moderate-marked disc height reduction. Mild degenerative facet arthropathy and uncovertebral joint spurring bilaterally. C4-C5: Moderate central canal narrowing. Marked foramen narrowing bilaterally. Moderate-marked disc height reduction with mild diffuse disc bulging, uncovertebral joint spurring, and mild degenerative facet arthropathy bilaterally. C5-C6: Mild central canal narrowing and moderate bilateral foramen narrowing. Mild diffuse disc bulging and mild disc height reduction. Mild degenerative facet arthropathy bilaterally. C6-C7: Marked central canal narrowing with moderate-marked foramen narrowing bilaterally. Prominent posterior disc-osteophyte complex with moderate disc height reduction. Mild degenerative facet arthropathy bilaterally. C7-T1:. Early degenerative disc disease is present without focal protrusion or neural impingement. MR/MR cervical spine wo con IMPRESSION: 1. Multilevel degenerative disc disease and degenerative facet arthropathy resulting in central canal and foraminal stenosis, greatest at C3-C4 through C6-C7. Electronically authenticated by: SHARLENE Toussaint: 06/03/2024 05:08
== END 2024-05-30 14:34 | disposition home or self-care (01) ==
LOC: MRI 14:33
PROVIDERS: PCP Family Medicine; Visit Provider Orthopaedic Surgery Orthopaedic Surgery of the Spine
DX: M54.2 Cervicalgia (principal); M48.02 Spinal stenosis, cervical region
CPT/HCPCS: 72141

== ENCOUNTER 2024-08-06 09:09 | Outpatient (OUT) | payer OTHER, SELFPAY ==
--- NOTE | 2024-08-06 | ECG_ITS ---
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
--- NOTE | 2024-08-06 09:31 | XR_ITS ---
[address] [address] Patient Name: ANA LUA MRN: [id number] date: 1960 Sex: F Assigned Patient Location: CARD Current Patient Location: CARD Accession/Order Number: [id number] Exam Date: 08/06/2024 09:35 Report Date: 08/06/2024 10:28 At the request of: JUSTINE ACOSTA Procedure: XR chest 2V PROCEDURE: XR chest 2V DATE: 08/06/2024 8:35 AM CHIEF RELAY TESTER COMPARISONS: 11/22/2023 CLINICAL INDICATION: 64 years Female Cervical Spinal Stenosis FINDINGS: The cardiomediastinal silhouette and pulmonary vasculature are within normal limits. The lungs are clear. There is no evidence of pleural effusion or pneumothorax. XR/XR chest 2V IMPRESSION: Chest radiograph is within normal limits. Electronically authenticated by: LUISA BOWDEN Date: 08/06/2024 10:28
--- OUTSIDE RECORDS SUMMARY | 2024-08-06 09:34 | XMS_ITS | CCD ---
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 Hand Name Role Phone Juan Manuel Hernandez Unavailable [...] Care Provider DO Colin Saunders Attending Provider MD Obdulio Thomas Attending Provider Obdulio Thomas Unavailable DO Colin Saunders Primary Care Provider [phone] DO Colin Saunders Attending Provider DO Colin Saunders Primary Care Provider [phone] DO Colin Saunders Attending Provider Colin Saunders Admitting Unavailable Colin Saunders Attending Unavailable Colin Saunders Primary Care Unavailable Colin Saunders Admitting Unavailable Colin Saunders Attending Unavailable Colin Saunders Primary Care Unavailable Colin Saunders Admitting Unavailable Colin Saunders Attending Unavailable Colin Saunders Primary Care Unavailable Allergies Allergy Classification Reported Allergen(s) Allergy Type Date of Onset Reaction(s) Facility (20 sources) aspirin; Translations: [aspirin] Drug Allergy 02-13-20 13 vomiting [facility] (19 sources) ibuprofen; Translations: [Motrin] Drug Allergy 02-13-20 13 vomiting [facility] (1 source) probenecid; Translations: [Benemid] Drug Allergy [facility] (19 sources) pseudoephedrine / triprolidine; Translations: [Actifed] Drug Allergy 02-13-20 13 [facility] Repository (2 sources) Darvocet-N 100; Translations: [Darvocet-N 100] Propensity to adverse reactions (disorder) 07-31-19 14 [facility] Repository (17 sources) Acetaminophen / oxyCODONE Drug Allergy vomiting [facility] Other (18 sources) diphenhydrAMINE Drug Allergy 12-13-19 24 [facility] (18 sources) methylPREDNISolone Drug Allergy 12-13-19 24 [facility] (20 sources) predniSONE; Translations: [prednisone] Drug Allergy 11-05-19 23 [facility] Repository (1 source) Acetaminophen / oxyCODONE Drug Allergy 03-29-20 13 [facility] Repository (1 source) diphenhydrAMINE Drug Allergy 02-13-20 13 [facility] Repository (2 sources) Ibuprofen; Translations: [ibuprofen] Drug Allergy 12-13-19 24 [facility] (2 sources) Pseudoephedrine; Translations: [pseudoephedrine] Drug Allergy 12-13-19 24 [facility] (2 sources) Triprolidine; Translations: [triprolidine] Drug Allergy 12-13-19 24 [facility] (1 source) diphenhydrAMINE Drug Allergy 12-13-19 24 [facility] Repository (1 source) methylPREDNISolone Drug Allergy 12-13-19 24 [facility] Repository Medications Current Medications Medication Drug Class(es) Dates Sig (Normalized) Sig (Original) acetaminophen 325 mg / oxyCODONE hydrochloride 5 mg oral tablet (6 sources) Opioid Agonist Start: 04-08-2024 take 1 tablet by mouth every four to six hours Oxycodone-Acetami nophen (Percocet) 5-325 mg tablet Active 1 TAB PO EVERY 4-6 HOURS 10 02April 08, 2024 Start: 10-03-2023 End: 12-13-2023 take 1 tablet by mouth four times daily Oxycodone-Acetaminophen (Percocet) 5-325 mg tablet Discontinued 1 TAB PO Four times daily 10 02October 20, 2023 October 20, 2023 5:10pm [id number] 200 actuat albuterol 0.09 mg/actuat metered dose inhaler (18 sources) beta2-Adrenergic Agonist Start: 10-03-2023 Albut oliverio Sulfate Active 1 PUFF INHALATION October 03, 2023 12:00am take 1 puff(s) by in halation every [...] as needed Inhalation every 6 hrs Active alendronic acid 70 mg oral tablet (2 sources) Bisphosphonate Start: 10-20-2023 End: 01-12-2024 take 1 tablet by mouth every week Alendronate (Fosamax) 70 mg tablet Active 70 MG PO every week January 12, 2024 10:47am amLODIPine 5 mg oral tablet (8 sources) Dihydropyridine Calcium Channel Quirino Start: 11-29-2022 take 1 tablet by mouth every twenty-four hours amLODIPine Besylate 5 MG 1 tablet Orally Once a day for 90 days November, Active cefdinir 300 mg oral capsule (5 [...] 12 hrs for 10 days Jul, Active cyclobenzaprine hydrochloride 10 mg oral tablet (2 sources) Muscle Relaxant Start: 12-13-2023 End: 12-13-2023 take 10 mg by mouth twice daily Cyclobenzaprine Active 10 MG PO Twice daily December 13, 2023 11:34am 30 actuat fluticasone furoate 0.1 mg/actuat / vilanterol 0.025 mg/actuat dry powder inhaler (1 source) Corticosteroid, beta2-Adrenergic Agonist Start: 11-24-2023 Fluticasone Furoate-Vilanterol (Breo Ellipta) 100-25 mcg/dose blister with device Active 1 INH INHALATION Daily November 24, 2023 12:00am olmesartan medoxomil 20 mg oral tablet (20 sources) Angiotensin 2 Receptor Quirino Start: 03-21-2024 End: 03-22-2024 take 20 mg by mouth once daily Olmesartan Active 20 MG PO Daily March 22, 2024 10:18am Start: 01-12-2024 End: 03-21-2024 take 40 mg by mouth once daily Olmesartan Discontinued 40 MG PO Daily January 12, 2024 12:00am March 21, 2024 11:51am Start: 10-09-2023 End: 03-21-2024 take 5 mg by mouth once daily Olmesartan Discontinued 5 MG PO Daily October 09, 2023 12:00am March 21, 2024 11:51am Start: 10-03-2023 End: 10-09-2023 take 1 tablet by mouth once daily Olmesartan Discontinued 1 TAB PO Daily October 03, 2023 12:00am October 09, 2023 9:30am [employer] tablet Orally once a day; Note: Source Status: Taking; Provider: Chip Knott Start: 12-05-2022 take 1 tablet by brett th every twenty-four hours Olmesartan Medoxomil 40 MG [...] Start: 04-11-2023 take 1 tablet by brett once daily before breakfast Phentermine HCl 37.5 MG 1 tablet before breakfast Orally Once a day for 30 days Mar, Active Start: 02-17-2023 take 1 tablet by brett once daily before breakfast Phentermine HCl 37.5 MG 1 tablet before breakfast Orally Once a day for 30 days Feb, Active Start: 08-17-2020 take 1 tablet by brett every twenty-four hours Adipex-P 37.5 MG 1 tablet Orally Once a day Aug, Active traMADol hydrochloride 50 mg oral tablet (16 sources) Opioid Agonist Start: 12-13-2023 End: 12-13-2023 take 50 mg by mouth four times daily Tramadol Active 50 MG PO Four times daily 120 December 13, 2023 11:34am Start: 10-03-2023 End: 10-09-2023 take 50 mg by mouth four times daily Tramadol Discontinued 50 MG PO Four times daily October 03, 2023 12:00am October 09, 2023 9:29am Start: 01-05-2023 take 1 tablet by brett four times daily as needed for pain traMADol HCl 50 MG 1 tablet Orally QID as needed for ankle pain prn Dec, Active Trelegy Ellipta 100-62.5-25 MCG/INH (17 sources) Start: 07-20-2020 Start: 07-20-2020 take 1 puff(s) by in halation once daily Trelegy Ellipta 100-62.5-25 MCG/INH 1 puff Inhalation Once a day Jul, Active Completed/Discontinued Medications Medication Drug Class(es) Dates Sig (Normalized) Sig (Original) azithromycin 250 mg oral tablet (4 sources) Macrolide Antimicrobial Start: 09-01-2023 End: 10-09-2023 Azithromycin (Zithromax Z-Oz) 250 mg tablet Discontinued 0 PO .COMPLEX September 01, 2023 1:00am October 09, 2023 9:28am For 250 mg dose pack: take 500 mg today (day 1), then 250 mg for 4 days (days 2-5) PO Start: 04-14-2022 Zithromax Z-Pa k 250 MG as directed Orally Mar, Active betamethasone 1 mg/ml topical cream (1 source) Corticosteroid Start: 11-24-2023 End: 12-13-2023 Betamethasone Valerate Discontinued 1 APPLIC TOPICAL Three times daily November 24, 2023 12:00am December 13, 2023 11:21am clotrimazole 10 mg oral lozenge (15 sources) Azole Antifungal Start: 10-03-2023 End: 12-13-2023 Clotrimazole Discontinued MG PO October 03, 2023 12:00am December 13, 2023 11:21am FreeTextSi hayden while on immunosuppressive medicine Mouth/Throat Four times a day; Note: Source Status: Taking; Refills: 0; Provider: Chip Knott Start: 12-05-2022 Clotrimazole 1 0 MG 1 hayden while on immunosuppressive medicine Mouth/Throat Four times a day November, Active Start: 12-05-2022 diclofenac sodium 0.01 mg/mg topical gel (3 sources) Nonsteroidal Anti-inflammatory Drug Start: 10-03-2023 End: 10-09-2023 Diclofenac Sodium Discontinued 2 GM TOPICAL As Directed October 03, 2023 12:00am October 09, 2023 9:28am FreeTextSig: as directed Externally; Note: Source Status: Start; Provider: Chip Knott Start: 05-09-2023 Diclofenac Sod ium 1 % as directed Externally Apr, Active Vstwgmpgvmf-Ywpapnsrl-Okwchu er (2 sources) Anticholinergic, Corticosteroid, beta2-Adrenergic Agonist Start: 10-09-2023 End: 11-24-2023 Uexonllmael-Mwnllwhgk-Cijpgf er (Trelegy Ellipta) 100-62.5-25 mcg blister with device Discontinued 1 INH INHALATION Daily October 09, 2023 10:05am November 24, 2023 9:18am Sample provided Start: 10-03-2023 End: 10-09-2023 Uyrnacdshpv-Ozzutxase-Ouwfdd er (Trelegy Ellipta) 100-62.5-25 mcg blister with device Discontinued 1 INH INHALATION Daily October 03, 2023 12:00am October 09, 2023 10:16am levoFLOXacin 750 mg oral tablet (1 source) Quinolone Antimicrobial Start: 09-13-2023 End: 10-09-2023 take 750 mg by mouth once daily Levofloxacin Discontinued 750 MG PO Daily September 13, 2023 1:00am October 09, 2023 9:29am Problems Problem Classification Problem Date Documented Date Episodic/Chronic Asthma (20 sources) Reactive airway disease; Translations: [Unspecified asthma, uncomplicated] Chronic Disorders of lipid metabolism (19 sources) Hyperlipidemia; Translations: [Hyperlipidemia, unspecified] Onset: 06-28-2024 09-29-2023 Chronic Disorders of teeth and jaw (1 source) Dental caries, unspecified Episodic Essential hypertension (20 sources) Essential (primary) hypertension; Translations: [Essential hypertension] Onset: 11-21-2022 Chronic Fever of unknown origin (1 source) Fever, unspecified Episodic Headache; including migraine (1 source) Headache; Translations: [Headache] 01-12-2024 Episodic Lymphadenitis (1 source) Localized enlarged lymph nodes; Translations: [LOCALIZED ENLARGED LYMPH NODES] Onset: 11-07-2022 Episodic Nutritional deficiencies (2 sources) Vitamin D deficiency; Translations: [Vitamin D deficiency, unspecified] Onset: 06-28-2024 10-09-2023 Chronic Other aftercare (1 source) Other senior care (current) drug therapy; Translations: [OTH CARE HOME CURRENT DRUG THERAPY] Onset: 11-23-2022 Episodic Other bone disease and musculoskeletal deformities (1 source) Disorder of bone, unspecified; Translations: [Bone lesion] 10-09-2023 Episodic Other circulatory disease (14 sources) Elevated blood-pressure reading without diagnosis of hypertension; Translations: [Elevated blood-pressure reading, without diagnosis of hypertension] Episodic Other connective tissue disease (14 sources) Tendonitis of right wrist; Translations: [Other enthesopathies, not elsewhere classified] Episodic Other connective tissue disease (1 source) Pain in right foot Episodic Other connective tissue disease (1 source) Pain in left arm; Translations: [Pain in left arm] 03-22-2024 Episodic Other connective tissue disease (1 source) Pain in left arm; Translations: [Pain in left arm] Onset: 04-17-2024 Episodic Other fractures (1 source) Compression fracture of thoracic spine; Translations: [Wedge compression fracture of T7-T8 vertebra, initial encounter for closed fracture] 11-24-2023 Episodic Other fractures (1 source) Fracture of sixth thoracic vertebra; Translations: [Wedge compression fracture of T5-T6 vertebra, initial encounter for closed fracture] 11-24-2023 Episodic Other fractures (1 source) Wedge fracture of lumbar vertebra; Translations: [Wedge compression fracture of fourth lumbar vertebra, subsequent encounter for fracture with routine healing] 11-24-2023 Episodic Other non-traumatic joint disorders (1 source) Pain in right ankle and joints of right foot Episodic Other non-traumatic joint disorders (1 source) Effusion, left knee Episodic Other non-traumatic joint disorders (1 source) Pain in left knee Episodic Other nutritional; endocrine; and metabolic disorders (18 sources) Obesity; Translations: [Obesity, unspecified] 09-29-2023 Chronic Other nutritional; endocrine; and metabolic disorders [...] conditions (not mental disorders or infectious disease) (7 sources) Encounter for other screening for malignant [...] BOTH CERVIX AND UTERUS] Onset: 11-23-2022 Episodic Residual codes; unclassified (1 source) H/O Spinal surgery; Translations: [Other specified postprocedural states] 12-13-2023 Episodic Residual codes; unclassified (1 source) History of hernia repair; Translations: [Other specified postprocedural states] 09-29-2023 Episodic Spondylosis; intervertebral disc disorders; other back problems (3 sources) Cervicalgia; Translations: [CERVICALGIA] Onset: 11-04-2022 Episodic Sprains and strains (19 sources) Sprain of ankle grade III; Translations: [Sprain of unspecified ligament of unspecified ankle, initial encounter] Episodic Results Test Name Value Interpretation Reference Range Facility Comprehensive Metabolic Pane [facility] 06-28-2024 Albumin [Mass/Vol] 3.9 g/dL Normal 3.5-5.7 [facility] Comment on above: Performed By: #### C MP, LIPID, [id number] #### [address] Albumin/Globulin [Mass ratio] 1.6 {ratio} Normal [facility] Comment on above: Performed By: #### C MP, LIPID, [id number] #### [address] ALP [Catalytic activity/Vol] 60 U/L Normal 34-104 [facility] Comment on above: Performed By: #### C MP, LIPID, [id number] #### [address] ALT [Catalytic activity/Vol] 18 U/L Normal 7-52 [facility] Comment on above: Performed By: #### C MP, LIPID, [id number] #### [address] Anion gap [Moles/Vol] 9.2 mmol/L Normal 6.0-15.0 [facility] Comment on above: Performed By: #### C MP, LIPID, [id number] #### [address] AST [Catalytic activity/Vol] 15 U/L Normal 13-39 [facility] Comment on above: Performed By: #### C MP, LIPID, [id number] #### [address] Bilirubin [Mass/Vol] 0.5 mg/dL Normal 0.3-1.0 [facility] Comment on above: Performed By: #### C MP, LIPID, [id number] #### [address] Calcium [Mass/Vol] 9.5 mg/dL Normal 8.6-10.3 [facility] Comment on above: Performed By: #### C MP, LIPID, [id number] #### [address] Chloride [Moles/Vol] 105 mmol/L Normal 98-107 [facility] Comment on above: Performed By: #### C MP, LIPID, [id number] #### [address] CO2 [Moles/Vol] 31.2 mmol/L High 21.0-31.0 [facility] Comment on above: Performed By: #### C MP, LIPID, [id number] #### [address] Creatinine [Mass/Vol] 0.79 mg/dL Normal 0.60-1.20 [facility] Comment on above: Performed By: #### C MP, LIPID, [id number] #### [place] [id number] [place] GFR/1.73 sq M.predicted MDRD (S/P/Bld) [Vol rate/Area] mL/min/{1.73_m2} Normal [facility] Comment on above: Performed By: #### C MP, LIPID, [id number] #### [address] Globulin (S) [Mass/Vol] 2.5 g/dL Normal [facility] Comment on above: Performed By: #### C MP, LIPID, [id number] #### [address] Glucose [Mass/Vol] 92 mg/dL Normal 70-100 [facility] Comment on above: Result Comment: [facility] Glucose Reference Range is dependent on time and content of last meal. Glucose of more than 200 mg/dL in a nonstressed, ambulatory subject supports the diagnosis of Diabetes Mellitus. ADA recommended reference range Performed By: #### C MP, LIPID, [id number] #### [address] Potassium [Moles/Vol] 4.4 mmol/L Normal 3.5-5.1 [facility] Comment on above: Performed By: #### C MP, LIPID, [id number] #### [address] Protein [Mass/Vol] 6.4 g/dL Normal 6.4-8.9 [facility] Comment on above: Performed By: #### C MP, LIPID, [id number] #### [address] Sodium [Moles/Vol] 141 mmol/L Normal 136-145 [facility] Comment on above: Performed By: #### C MP, LIPID, [id number] #### [address] Urea nitrogen [Mass/Vol] 17 mg/dL Normal 7-25 [facility] Comment on above: Performed By: #### C MP, LIPID, [id number] #### [address] Lipid Panelon 06-28-2024 Cholesterol [Mass/Vol] 219 mg/dL High 140-200 [facility] Comment on above: Result Comment: Chol less than 200 mg/dl low risk Chol 201-239 mg/dl borderline risk Chol 240 mg/dl and greater high risk Performed By: #### C MP, LIPID, [id number] #### [place] [id number] [place] Cholesterol in HDL [Mass/Vol] 37 mg/dL Normal 23-92 [facility] Comment on above: Result Comment: HDL CHOL ATP-III CLASSIFICATION Cardiovascular Risk HDL > or equal to 60 mg/dL LOW HDL < 40 mg/dL HIGH Performed By: #### C MP, LIPID, [id number] #### [facility] [place] [address] Cholesterol.total/Cho lesterol in HDL [Mass ratio] 5.9 {ratio} Normal <5.0 [facility] Comment on above: Performed By: #### C MP, LIPID, [id number] #### [facility] [address] LDL Cholesterol,Calculate d 126 mg/dL High 0-100 [facility] Comment on above: Result Comment: LDL ATP III CLASSIFICATION LDL less than 100 mg/dL Optimal LDL 100-129 mg/dL Near or above optimal LDL 130-159 mg/dL Borderline high LDL 160-189 mg/dL High LDL greater than 189 mg/dL Very high Performed By: #### C MP, LIPID, [id number] #### [facility] [address] [place] [id number] [facility] Triglyceride w/Reflex 282 mg/dL High 0-149 [facility] Comment on above: Result Comment: TRIG ATP III CLASSIFICATION TRIG less than 150 mg/dL Normal TRIG 150-199 mg/dL Borderline high TRIG 200-500 mg/dL High TRIG greater than 500 mg/dL Very high Standard traceable to the Center for Disease Conrtrol and Prevention (CDC) test method. Performed By: #### C MP, LIPID, [id number] #### [facility] [address] [place] [id number] [facility] VLDL CHOLESTEROL 56 mg/dL Normal [facility] Comment on above: Performed By: #### C MP, LIPID, [id number] #### [facility] [place] [address] [place] [id number] [facility] Vitamin D 25 Hydroxy Totalon 06-28-2024 Vitamin D 25 Hydroxy Total 20.0 ng/mL Low 30-100 [facility] Comment on above: Result Comment: ASHWINI MIN D STATUS 25(OH)VITAMIN D RANGE (ng/mL) Deficient <20 Insufficient 20 to <30 Sufficient 30 to 100 Reference: Codie MF,Lucy NC, Molina MARTINEZ, et al. Evaluation,treatment, and prevention of vitamin D deficiency; an Endocrine Society clinical practice guideline. JCEM. 2010; 96(7):1911-30. PERFORMED BY: [place] [address] PATHOLOGIST MECHANICAL PROCESS ENGINEER JE MOBLEY M.D. Performed By: #### C MP, LIPID, [id number] #### [address] Complete Blood Count Auto Di ffon 11-15-2023 Basophils (Bld) [#/Vol] 0.1 10*3/uL Normal 0.0-0.2 [facility] Comment on above: Result Comment: PERF ORMED BY: [place] [address] PATHOLOGIST MECHANICAL PROCESS ENGINEER DEVONTE HOWARD M.D. Performed By: #### V [id number], CMP, LIPID, CBC, TSH3 #### [address] Basophils/100 WBC (Bld) 1.1 % Normal . [facility] Comment on above: Performed By: #### V [id number], CMP, LIPID, CBC, TSH3 #### [address] Eosinophils (Bld) [#/Vol] 0.2 10*3/uL Normal 0.0-0.45 [facility] Comment on above: Performed By: #### V [id number], CMP, LIPID, CBC, TSH3 #### [place] [id number] [place] Eosinophils/100 WBC (Bld) 2.0 % Normal . [facility] Comment on above: Performed By: #### V [id number], CMP, LIPID, CBC, TSH3 #### [address] Erythrocyte distribution width (RBC) [Ratio] 14.7 % Normal 11.9-15.3 [facility] Comment on above: Performed By: #### V [id number], CMP, LIPID, CBC, TSH3 #### [address] Hematocrit (Bld) [Volume fraction] 39.1 % Normal 34.0-46.4 [facility] Comment on above: Performed By: #### V [id number], CMP, LIPID, CBC, TSH3 #### [address] Hemoglobin (Bld) [Mass/Vol] 12.8 g/dL Normal 11.8-15.4 [facility] Comment on above: Performed By: #### V [id number], CMP, LIPID, CBC, TSH3 #### [address] Lymphocytes (Bld) [#/Vol] 3.9 10*3/uL Normal 1.00-4.8 [facility] Comment on above: Performed By: #### V [id number], CMP, LIPID, CBC, TSH3 #### [address] Lymphocytes/100 WBC (Bld) 50.5 % Normal . [facility] Comment on above: Performed By: #### V [id number], CMP, LIPID, CBC, TSH3 #### [address] MCH (RBC) [Entitic mass] 29.7 pg Normal 24.7-34.3 [facility] Comment on above: Performed By: #### V [id number], CMP, LIPID, CBC, TSH3 #### [address] MCV (RBC) [Entitic vol] 90.8 fL Normal 80-100 [facility] Comment on above: Performed By: #### V [id number], CMP, LIPID, CBC, TSH3 #### [address] Mean Corpuscular HGB Conc 32.7 g/dL Normal 32.0-35.0 [facility] Comment on above: Performed By: #### V [id number], CMP, LIPID, CBC, TSH3 #### [address] Monocytes (Bld) [#/Vol] 0.5 10*3/uL Normal 0.0-0.8 [facility] Comment on above: Performed By: #### V [id number], CMP, LIPID, CBC, TSH3 #### [address] Monocytes/100 WBC (Bld) 6.1 % Normal . [facility] Comment on above: Performed By: #### V [id number], CMP, LIPID, CBC, TSH3 #### [address] Neutrophils (Bld) [#/Vol] 3.1 10*3/uL Normal 1.8-7.7 [facility] Comment on above: Performed By: #### V [id number], CMP, LIPID, CBC, TSH3 #### [address] Neutrophils/100 WBC (Bld) 40.3 % Normal . [facility] Comment on above: Performed By: #### V [id number], CMP, LIPID, CBC, TSH3 #### [address] NRBC% 0.1 /100{WBC} Normal 0-0.[address] [facility] Comment on above: Performed By: #### V [id number], CMP, LIPID, CBC, TSH3 #### [address] Platelet mean volume (Bld) [Entitic vol] 8.4 fL Normal 6.3-10.[address] [facility] Comment on above: Performed By: #### V [id number], CMP, LIPID, CBC, TSH3 #### [address] Platelets (Bld) [#/Vol] 342 10*3/uL Normal 150-450 [facility] Comment on above: Performed By: #### V [id number], CMP, LIPID, CBC, TSH3 #### [address] RBC (Bld) [#/Vol] 4.31 10*6/uL Normal 3.60-5.00 [facility] Comment on above: Performed By: #### V [id number], CMP, LIPID, CBC, TSH3 #### [address] WBC (Bld) [#/Vol] 7.7 10*3/uL Normal 3.8-11.6 [facility] Comment on above: Performed By: #### V [id number], CMP, LIPID, CBC, TSH3 #### [address] Comprehensive Metabolic Pane karl 11-15-2023 Albumin [Mass/Vol] 4.3 g/dL Normal 3.5-5.7 [facility] Comment on above: Performed By: #### V [id number], CMP, LIPID, CBC, TSH3 #### [address] Albumin/Globulin [Mass ratio] 1.7 {ratio} Normal [facility] Comment on above: Performed By: #### V [id number], CMP, LIPID, CBC, TSH3 #### [address] ALP [Catalytic activity/Vol] 61 U/L Normal 34-104 [facility] Comment on above: Performed By: #### V [id number], CMP, LIPID, CBC, TSH3 #### [address] ALT [Catalytic activity/Vol] 12 U/L Normal 7-52 [facility] Comment on above: Performed By: #### V [id number], CMP, LIPID, CBC, TSH3 #### [address] Anion gap [Moles/Vol] 12.6 mmol/L Normal 6.0-15.0 Th e [facility] Comment on above: Performed By: #### V [id number], CMP, LIPID, CBC, TSH3 #### [address] AST [Catalytic activity/Vol] 18 U/L Normal 13-39 [facility] Comment on above: Performed By: #### V [id number], CMP, LIPID, CBC, TSH3 #### [place] [address] [place] Bilirubin [Mass/Vol] 0.3 mg/dL Normal 0.3-1.0 [facility] Comment on above: Performed By: #### V [id number], CMP, LIPID, CBC, TSH3 #### [address] Calcium [Mass/Vol] 9.3 mg/dL Normal 8.6-10.3 [facility] Comment on above: Performed By: #### V [id number], CMP, LIPID, CBC, TSH3 #### [address] Chloride [Moles/Vol] 107 mmol/L Normal 98-107 [facility] Comment on above: Performed By: #### V [id number], CMP, LIPID, CBC, TSH3 #### [address] CO2 [Moles/Vol] 27.7 mmol/L Normal 21.0-31.0 [facility] Comment on above: Performed By: #### V [id number], CMP, LIPID, CBC, TSH3 #### [place] [address] [place] Creatinine [Mass/Vol] 0.70 mg/dL Normal 0.60-1.20 [facility] Comment on above: Performed By: #### V [id number], CMP, LIPID, CBC, TSH3 #### [place] [address] [place] GFR/1.73 sq M.predicted MDRD (S/P/Bld) [Vol rate/Area] mL/min/{1.73_m2} Normal [facility] Comment on above: Performed By: #### V [id number], CMP, LIPID, CBC, TSH3 #### [facility] [place] [address] Globulin (S) [Mass/Vol] 2.5 g/dL Normal [facility] Comment on above: Performed By: #### V [id number], CMP, LIPID, CBC, TSH3 #### [address] Glucose [Mass/Vol] 93 mg/dL Normal 70-100 [facility] Comment on above: Result Comment: [facility] Glucose Reference Range is dependent on time and content of last meal. Glucose of more than 200 mg/dL in a nonstressed, ambulatory subject supports the diagnosis of Diabetes Mellitus. ADA recommended reference range Performed By: #### V [id number], CMP, LIPID, CBC, TSH3 #### [address] Potassium [Moles/Vol] 4.3 mmol/L Normal 3.5-5.1 [facility] Comment on above: Performed By: #### V [id number], CMP, LIPID, CBC, TSH3 #### [address] Protein [Mass/Vol] 6.8 g/dL Normal 6.4-8.9 [facility] Comment on above: Performed By: #### V [id number], CMP, LIPID, CBC, TSH3 #### [address] Sodium [Moles/Vol] 143 mmol/L Normal 136-145 [facility] Comment on above: Performed By: #### V [id number], CMP, LIPID, CBC, TSH3 #### [address] Urea nitrogen [Mass/Vol] 11 mg/dL Normal 7-25 [facility] Comment on above: Performed By: #### V [id number], CMP, LIPID, CBC, TSH3 #### [address] Lipid Panelon 05-01-2024 Cholesterol [Mass/Vol] 200 mg/dL Normal 140-200 [facility] Comment on above: Result Comment: Chol less than 200 mg/dl low risk Chol 201-239 mg/dl borderline risk Chol 240 mg/dl and greater high risk Performed By: #### V [id number], CMP, LIPID, CBC, TSH3 #### [facility] [place] [address] Cholesterol in HDL [Mass/Vol] 43 mg/dL Normal 23-92 [facility] Comment on above: Result Comment: HDL CHOL ATP-III CLASSIFICATION Cardiovascular Risk HDL > or equal to 60 mg/dL LOW HDL < 40 mg/dL HIGH Performed By: #### V [id number], CMP, LIPID, CBC, TSH3 #### [facility] [place] [address] Cholesterol.total/Cho lesterol in HDL [Mass ratio] 4.7 {ratio} Normal <5.0 [facility] Comment on above: Performed By: #### V [id number], CMP, LIPID, CBC, TSH3 #### [address] LDL Cholesterol,Calculate d 135 mg/dL High 0-100 [facility] Comment on above: Result Comment: LDL ATP III CLASSIFICATION LDL less than 100 mg/dL Optimal LDL 100-129 mg/dL Near or above optimal LDL 130-159 mg/dL Borderline high LDL 160-189 mg/dL High LDL greater than 189 mg/dL Very high Performed By: #### V [id number], CMP, LIPID, CBC, TSH3 #### [facility] [place] [address] Triglyceride w/Reflex 109 mg/dL Normal 0-149 [facility] Comment on above: Result Comment: TRIG ATP III CLASSIFICATION TRIG less than 150 mg/dL Normal TRIG 150-199 mg/dL Borderline high TRIG 200-500 mg/dL High TRIG greater than 500 mg/dL Very high Standard traceable to the Center for Disease Conrtrol and Prevention (CDC) test method. Performed By: #### V [id number], CMP, LIPID, CBC, TSH3 #### [facility] [place] [address] [place] [address] VLDL CHOLESTEROL 21 mg/dL Normal [facility] Comment on above: Performed By: #### V [id number], CMP, LIPID, CBC, TSH3 #### [facility] [place] [address] Thyroid Stimulating Hormoneo n 11-15-2023 TSH Qn 2.56 m[IU]/L Normal 0.45-5.[address] [facility] Comment on above: Performed By: #### V [id number], CMP, LIPID, CBC, TSH3 #### [facility] [place] [address] Vitamin D 25 Hydroxy Totalon 11-15-2023 Vitamin D 25 Hydroxy Total 9.4 ng/mL Low 30-100 [facility] Comment on above: Result Comment: ASHWINI MIN D STATUS 25(OH)VITAMIN D RANGE (ng/mL) Deficient <20 Insufficient 20 to <30 Sufficient 30 to 100 Reference: Codie MF,Lucy ABBOTT, Molina MARTINEZ, et al. Evaluation,treatment, and prevention of vitamin D deficiency; an Endocrine Society clinical practice guideline. JCEM. 2010; 96(7):1911-30. PERFORMED BY: [place] [address] PATHOLOGIST MECHANICAL PROCESS ENGINEER DEVONTE HOWARD M.D. Performed By: #### V [id number], CMP, LIPID, CBC, TSH3 #### [facility] [address] [place] [address] Alanine aminotransferase [En zymatic activity/volume] in Serum or PlasmaOrdered By: Colin Saunders on 11-29-2022 ALT [Catalytic activity/Vol] 10 U/L 7-52 [facility] Albumin [Mass/volume] in Ser um or Plasma by Bromocresol green (BCG) dye binding methoOrdered By: Colin Saunders on 11-29-2022 Albumin BCG dye [Mass/Vol] 4.2 g/dL 3.5-5.7 [facility] Alkaline phosphatase [Enzyma tic activity/volume] in Serum or PlasmaOrdered By: Colin Saunders on 11-29-2022 ALP [Catalytic activity/Vol] 66 U/L 34-104 [facility] Aspartate aminotransferase [ Enzymatic activity/volume] in Serum or PlasmaOrdered By: Colin Saunders on 11-29-2022 AST [Catalytic activity/Vol] 14 U/L 13-39 [facility] Basophils Auto (Bld) [#/Vol] Ordered By: Colin Saunders on 11-29-2022 Basophils (Bld) [#/Vol] 0.1 10*3/uL 0.0-0.2 [facility] Basophils/100 WBC Auto (Bld) Ordered By: Colin Saunders on 11-29-2022 Basophils/100 WBC (Bld) 0.8 % . [facility] Bilirubin.total [Mass/volume ] in Serum or PlasmaOrdered By: Colin Saunders on 11-29-2022 Bilirubin [Mass/Vol] 0.7 mg/dL 0.3-1.0 [facility] Calcium [Mass/volume] in Ser um or PlasmaOrdered By: Colin Saunders on 11-29-2022 Calcium [Mass/Vol] 9.3 mg/dL 8.6-10.3 [facility] Carbon dioxide, total [Moles /volume] in Serum or PlasmaOrdered By: Colin Saunders on 11-29-2022 CO2 [Moles/Vol] 26.7 mmol/L 21.0-31.0 [facility] Chloride [Moles/volume] in S lily or PlasmaOrdered By: Colin Saunders on 11-29-2022 Chloride [Moles/Vol] 106 mmol/L 98-107 [facility] Cholesterol [Mass/volume] in Serum or PlasmaOrdered By: Colin Saunders on 11-29-2022 Cholesterol [Mass/Vol] 225 mg/dL 140-200 [facility] Comment on above: Chol less than 200 m g/dl low riskChol 201-239 mg/dl borderline riskChol 240 mg/dl and greater high risk Cholesterol in LDL Calc [Mas s/Vol]Ordered By: Colin Saunders on 11-29-2022 Cholesterol in LDL [Mass/Vol] 155 mg/dL 0-100 [facility] Comment on above: LDL ATP III CLASSIFI CATIONLDL less than 100 mg/dL OptimalLDL 100-129 mg/dL Near or above optimalLDL 130-159 mg/dL Borderline highLDL 160-189 mg/dL HighLDL greater than 189 mg/dL Very high Cholesterol in VLDL Calc [Ma ss/Vol]Ordered By: Colin Saunders on 11-29-2022 Cholesterol in VLDL [Mass/Vol] 25 mg/dL [facility] Creatinine [Mass/volume] in Serum or PlasmaOrdered By: Colin Saunders on 11-29-2022 Creatinine [Mass/Vol] 0.65 mg/dL 0.60-1.20 [facility] Eosinophils Auto (Bld) [#/Vo l]Ordered By: Colin Saunders on 11-29-2022 Eosinophils (Bld) [#/Vol] 0.1 10*3/uL 0.0-0.45 [facility] Eosinophils/100 WBC Auto (Bl d)Ordered By: Colin Saunders on 11-29-2022 Eosinophils/100 WBC (Bld) 0.9 % . [facility] Erythrocyte distribution wid th Auto (RBC) [Ratio]Ordered By: Colin Saunders on 11-29-2022 Erythrocyte distribution width (RBC) [Ratio] 14.9 % 11.9-15.3 [facility] Globulin Calc (S) [Mass/Vol] Ordered By: Colin Saunders on 11-29-2022 Globulin (S) [Mass/Vol] 2.8 g/dL [facility] Glucose [Mass/volume] in Ser um or PlasmaOrdered By: Colin Saunders on 11-29-2022 Glucose [Mass/Vol] 89 mg/dL 70-100 [facility] Comment on above: ADA recommended refe rence rangeRandom Glucose Reference Range is dependent on time and content of last meal. Glucose of more than 200 mg/dL in a nonstressed, ambulatory subject supports the diagnosis of Diabetes Mellitus. Hematocrit Auto (Bld) [Volum e fraction]Ordered By: Colin Saunders on 11-29-2022 Hematocrit (Bld) [Volume fraction] 42.2 % 34.0-46.4 [facility] Hemoglobin [Mass/volume] in BloodOrdered By: Colin Saunders on 11-29-2022 Hemoglobin (Bld) [Mass/Vol] 13.7 g/dL 11.8-15.4 [facility] Leukocytes [#/volume] correc james for nucleated erythrocytes in Blood by Automated counOrdered By: Colin Saunders on 11-29-2022 WBC corrected for nucl RBC Auto (Bld) [#/Vol] 8.7 10*3/uL 3.8-11.6 [facility] Lymphocytes Auto (Bld) [#/Vo l]Ordered By: Colin Saunders on 11-29-2022 Lymphocytes (Bld) [#/Vol] 4.2 10*3/uL 1.00-4.8 [facility] Lymphocytes/100 WBC Auto (Bl d)Ordered By: Colin Saunders on 11-29-2022 Lymphocytes/100 WBC (Bld) 48.3 % . [facility] MCH Auto (RBC) [Entitic mass ]Ordered By: Colin Saunders on 11-29-2022 MCH (RBC) [Entitic mass] 29.1 pg 24.7-34.3 [facility] MCHC Auto (RBC) [Mass/Vol]Or dered By: Colin Saunders on 11-29-2022 MCHC (RBC) [Mass/Vol] 32.4 g/dL 32.0-35.0 [facility] MCV Auto (RBC) [Entitic vol] Ordered By: Colin Saunders on 11-29-2022 MCV (RBC) [Entitic vol] 89.7 fL 80-100 [facility] Monocytes Auto (Bld) [#/Vol] Ordered By: Colin Saunders on 11-29-2022 Monocytes (Bld) [#/Vol] 0.6 10*3/uL 0.0-0.8 [facility] Monocytes/100 WBC Auto (Bld) Ordered By: Colin Saunders on 11-29-2022 Monocytes/100 WBC (Bld) 6.5 % . [facility] Neutrophils Auto (Bld) [#/Vo l]Ordered By: Colin Saunders on 11-29-2022 Neutrophils (Bld) [#/Vol] 3.8 10*3/uL 1.8-7.7 [facility] Neutrophils/100 WBC Auto (Bl d)Ordered By: Colin Saunders on 11-29-2022 Neutrophils/100 WBC (Bld) 43.5 % . [facility] No Panel InformationOrdered By: Colin Saunders on 11-29-2022 Estimated GFR (CKD-EPI) > 60.0 mL/Min [facility] Creatinine Clearance (Chem N/A [facility] Nucleated erythrocytes [Pres ence] in Blood by Automated countOrdered By: Colin Saunders on 11-29-2022 Nucleated RBC Auto Ql (Bld) 0.1 /100{WBC} 0-0.5 [facility] Platelet mean volume Auto (B ld) [Entitic vol]Ordered By: Colin Saunders on 11-29-2022 Platelet mean volume (Bld) [Entitic vol] 8.7 fL 6.3-10.7 [facility] Platelets Auto (Bld) [#/Vol] Ordered By: Colin Saunders on 11-29-2022 Platelets (Bld) [#/Vol] 323 10*3/uL 150-450 [facility] Potassium [Moles/volume] in Serum or PlasmaOrdered By: Colin Saunders on 11-29-2022 Potassium [Moles/Vol] 3.9 mmol/L 3.5-5.1 [facility] Protein [Mass/volume] in Ser um or PlasmaOrdered By: Colin Saunders on 11-29-2022 Protein [Mass/Vol] 7.0 g/dL 6.4-8.9 [facility] RBC Auto (Bld) [#/Vol]Ordere d By: Colin Saunders on 11-29-2022 RBC (Bld) [#/Vol] 4.70 10*6/uL 3.60-5.00 [facility] Serum or plasma albumin/glob ulin mass ratioOrdered By: Cloin Saunders on 11-29-2022 Albumin/Globulin [Mass ratio] 1.5 {ratio} [facility] Serum or plasma anion gap de terminationOrdered By: Colin Saunders on 11-29-2022 Anion gap [Moles/Vol] 12.2 mmol/L 6.0-15.0 [facility] Serum or plasma high density lipoprotein (HDL) cholesterol measurementOrdered By: Colin Saunders on 11-29-2022 Cholesterol in HDL [Mass/Vol] 45 mg/dL 35-85 [facility] Comment on above: HDL CHOL ATP-III CLA SSIFICATION Cardiovascular RiskHDL > or equal to 60 mg/dL LOWHDL < 40 mg/dL HIGH Serum or plasma total choles terol/high density lipoprotein (HDL) cholesterol mass ratOrdered By: Colin Saunders on 11-29-2022 Cholesterol.total/Cho lesterol in HDL [Mass ratio] 5.0 {ratio} <5.0 [facility] Sodium [Moles/volume] in Ser um or PlasmaOrdered By: Colin Saunders on 11-29-2022 Sodium [Moles/Vol] 141 mmol/L 136-145 [facility] Thyrotropin [Units/volume] i n Serum or PlasmaOrdered By: Colin Saunders on 11-29-2022 TSH Qn 1.41 m[IU]/L 0.45-5.33 [facility] Triglyceride [Mass/volume] i n Serum or PlasmaOrdered By: Colin Saunders on 11-29-2022 Triglyceride [Mass/Vol] 127 mg/dL 0-149 [facility] Comment on above: TRIG ATP III CLASSIF ICATIONTRIG less than 150 mg/dL NormalTRIG 150-199 mg/dL Borderline highTRIG 200-500 mg/dL High TRIG greater than 500 mg/dL Very highStandard traceable to the Center for Disease Conrtrol and Prevention (CDC) test method. Urea nitrogen [Mass/volume] in Serum or PlasmaOrdered By: Colin Saunders on 11-29-2022 Urea nitrogen [Mass/Vol] 13 mg/dL 7-25 [facility] WBC Auto (Bld) [#/Vol]Ordere d By: Colin Saunders on 11-29-2022 WBC (Bld) [#/Vol] 8.7 10*3/uL 3.8-11.6 [facility] CBC AUTO DIFFon 11-21-2022 BASO # 0.1 103/ul Normal 0.0-0.1 [facility] Comment on above: Performed By: #### C BC #### [facility] [address] [place] [address] Dr. Jesse Nicole Basophils/100 WBC (Bld) 0.5 % Normal 0.2-2.0 [facility] Comment on above: Performed By: #### C BC #### [facility] [address] [place] [address] Dr. Jesse Nicole EO # 0.0 103/ul Normal 0.0-0.[address] [facility] Comment on above: Performed By: #### C BC #### [facility] [address] [place] [address] Dr. Jesse Nicole Eosinophils/100 WBC (Bld) 0.3 % Critically low 0.9-7.0 [facility] Comment on above: Performed By: #### C BC #### [facility] [address] [place] [address] Dr. Jesse Nicole Erythrocyte distribution width (RBC) [Ratio] 14.3 % Normal 11.0-15.0 [facility] Comment on above: Performed By: #### C BC #### [facility] [address] [place] [address] Dr. Jesse Nicole Hematocrit (Bld) [Volume fraction] 44.0 % Normal 36.0-48.0 [facility] Comment on above: Performed By: #### C BC #### [facility] [address] [place] [address] Dr. Jesse Nicole Hemoglobin (Bld) [Mass/Vol] 14.4 g/dL Normal 12.0-16.0 [facility] Comment on above: Performed By: #### C BC #### [facility] [address] [place] [address] Dr. Jesse Nicole IG # 0.03 10e3/ul Normal 0.00-0.[address] [facility] Comment on above: Performed By: #### C BC #### [facility] [address] [place] [address] Dr. Jesse Nicole IG % 0.3 % Normal 0.0-0.[address] [facility] Comment on above: Performed By: #### C BC #### [facility] [address] [place] [address] Dr. Jesse Nicole LYMPH # 4.1 103/ul Critically high 1.2-3.8 [facility] Comment on above: Performed By: #### C BC #### [facility] [address] [place] [address] Dr. Jesse Nicole Lymphocytes/100 WBC (Bld) 39.2 % Normal 20.5-60.0 [facility] Comment on above: Performed By: #### C BC #### [facility] [address] [place] [address] Dr. Jesse Nicole MANUAL DIFF REQ NO Normal [facility] Comment on above: Performed By: #### C BC #### [facility] [address] [place] [address] Dr. Jesse Nicole MCH (RBC) [Entitic mass] 29.2 pg Normal 26.7-34.0 [facility] Comment on above: Performed By: #### C BC #### [facility] [address] [place] [address] Dr. Jesse Nicole MCHC (RBC) [Mass/Vol] 32.7 g/dL Normal 29.9-35.2 [facility] Comment on above: Performed By: #### C BC #### [facility] [address] [place] [address] Dr. Jesse Nicole MCV (RBC) [Entitic vol] 89.2 fL Normal 81.0-99.0 [facility] Comment on above: Performed By: #### C BC #### [facility] [address] [place] [address] Dr. Jesse Nicole MONO # 0.5 103/ul Normal 0.3-0.[address] [facility] Comment on above: Performed By: #### C BC #### [facility] [address] [place] [address] Dr. Jesse Nicole Monocytes/100 WBC (Bld) 4.5 % Normal 1.7-12.0 [facility] Comment on above: Performed By: #### C BC #### [facility] [address] [place] [address] Dr. Jesse Nicole NEUT # 5.8 103/ul Normal 1.4-6.5 [facility] Comment on above: Performed By: #### C BC #### [facility] [address] [place] [address] Dr. Jesse Nicole Neutrophils/100 WBC (Bld) 55.2 % Normal 43.0-75.0 [facility] Comment on above: Performed By: #### C BC #### [facility] [address] [place] [address] Dr. Jesse Nicole Platelet mean volume (Bld) [Entitic vol] 9.8 fL Normal 9.5-13.5 [facility] Comment on above: Performed By: #### C BC #### [facility] [address] [place] [address] Dr. Jesse Nicole PLT 368 103/ul Normal 150-450 [facility] Comment on above: Performed By: #### C BC #### [facility] [address] [place] [address] Dr. Jesse Nicole RBC 4.93 106/ul Normal 4.20-5.40 [facility] Comment on above: Performed By: #### C BC #### [facility] [address] [place] [address] Dr. Jesse Nicole WBC 10.5 103/ul Normal 4.0-11.0 [facility] Comment on above: Performed By: #### C BC #### [facility] [address] [place] [address] Dr. Jesse Nicole PROF CHEM 8 (BAS METB)on Anion gap [Moles/Vol] 12.0 mmol/L Normal [facility] Comment on above: Performed By: #### B MP #### [facility] [address] [place] [address] Dr. Jesse Nicole Calcium [Mass/Vol] 9.0 mg/dL Normal 8.5-10.1 [facility] Comment on above: Performed By: #### B MP #### [facility] [address] [place] [address] Dr. Jesse Nicole Chloride [Moles/Vol] 104 mmol/L Normal 98-107 [facility] Comment on above: Performed By: #### B MP #### [facility] [address] [place] [address] [address] Jesse Nicole CO2 [Moles/Vol] 28.1 mmol/L Normal 21.0-32.0 [facility] Comment on above: Performed By: #### B MP #### [facility] [address] [address] [address] Jesse Nicole Creatinine [Mass/Vol] 0.75 mg/dL Normal 0.55-1.02 [facility] Comment on above: Performed By: #### B MP #### [facility] [address] [address] [address] Jesse Nicole EGFR-AF CYPRIOT >60 Normal >=60 [facility] Comment on above: Performed By: #### B MP #### [facility] [address] [address] [address] Jesse Nicole EGFR-NON AF CYPRIOT >60 Normal >=60 [facility] Comment on above: Performed By: #### B MP #### [facility] [address] [address] [address] Jesse Nicole Glucose [Mass/Vol] 106 mg/dL Normal 74-106 [facility] Comment on above: Performed By: #### B MP #### [facility] [address] [place] [address] Dr. Jesse Nicole Potassium [Moles/Vol] 3.1 mmol/L Critically low 3.5-5.[address] [facility] Comment on above: Performed By: #### B MP #### [facility] [address] [address] [address] Jesse Nicole Sodium [Moles/Vol] 141 mmol/L Normal 136-145 [facility] Comment on above: Performed By: #### B MP #### [facility] [address] [address] [address] Jesse Nicole Urea nitrogen [Mass/Vol] 8.0 mg/dL Normal 7.0-18.[address] [facility] Comment on above: Performed By: #### B MP #### [facility] [address] [place], [place] [address] Dr. Jesse Nicole Urea nitrogen/Creatinine [Mass ratio] 10.7 mg/mg Normal [facility] Comment on above: Performed By: #### B MP #### [facility] [address] [place], [place] [address] Dr. Jesse Nicole COVID + FLU Quick Testingon 09-09-2022 SARS-CoV-2 (COVID-19) RNA MARCIN+probe Ql (Unsp spec) Positive [facility] [employer] Other COVID + FLU Quick Testing Negative [facility] [employer] Other Quick Strepon 09-09-2022 S. pyogenes Org specific cx Ql (Throat) Negative [facility] [employer] Other Quick Strep [facility] [employer] Other RSVon 09-09-2022 RSV Ag IA Ql (Unsp spec) Negative [facility] [employer] Other Coding Summary.on 06-19-2017 Coding Summary. CODING DATE: 017 FINAL [facility] STATUS: Home (Routine DC) PAYOR: Self [...] Revised Date Saved: 06/19/2017 03:14 pm Normal [facility] ED Clinical Summaryon 2016 ED Clinical Summary (Inserted Image. Linda ble to display) [place] [id number] ED Clinical SummaryPerson Information Name: ANA MOROCHO/[facility] Age: 56 Years : 1960 12:00 AM Sex: Female Language:Guatemalan PCP: NONE, XXXX Marital Status: Visit Id: [...] AM 06/13/2017 11:30 AM 06/13/2017 11:30 AM ADDRESS:[place] [id number] [facility] DOC NOTES: Patient: ANA MOROCHO Age: 56 [...] that she was just recently treated in [place] for bronchitis she was given unknown antibiotic [...] Impression and Plan Diagnosis Acute chemical pneumonitis (FHI58-OV J68.0, Discharge, Emergency medicine, Medical) Bronchitis ([id number] J40, Discharge, Emergency medicine, Medical) Plan Condition: [...] Bronchitis Follow up:With: Address: When: Ned Salguero [facility] [address] [place] [address] Business (1) In 3 days 06/16/2017 DIAGNOSIS:Acute chemical pneumonitis; Bronchitis Normal [facility] ED Note-Physicianon 06-13-20 ED Note-Physician Patient: MARS [...] that she was just recently treated in [place] for bronchitis she was given unknown antibiotic [...] Impression and Plan Diagnosis Acute chemical pneumonitis (CNT09-ZH J68.0, Discharge, Emergency medicine, Medical) Bronchitis (SUL28-HL J40, Discharge, Emergency medicine, Medical) Plan Condition: [...] 7 days.Add diagnosis: Conjunctivitis left eye Normal [facility] Comment on above: Result Comment: Prema martinez Signed By: Juan Manuel Hernandez DO\.br\Date and Time Signed: 06/13/17 11:19 EST ED [...] 11/17/2014 Document Reviewed: 12/24/2013ExitCare? Patient Information ?2015 [employer]. This information is not intended to replace [...] to protect your lungs. ?? Only take onyn-fqy-wwfvmmq or prescription medicine as directed by your [...] 03/05/2014 Document Reviewed: 12/23/2013ExitCare? Patient Information ?2015 [employer]. This information is not intended to replace advice given to you by your health care provider. Make sure you discuss any questions you have with your health care provider. Normal [facility] ED Patient Summaryon 017 ED Patient Summary (Inserted Image. Linda ble to display) [address] [address] Patient Discharge Instructions Person Information Name: ANA MOROCHO Age: 56 Years Date: 06/13/2017 10:12 AMDischarge Diagnosis: Acute chemical pneumonitis; Bronchitis Primary Care Physician: NONE, XXXX Provider InformationPrimary Provider: Cris Hernandez DO Cane Burner:Vonda The exam and treatment you received in the Emergency Department were for an urgent problem and are not intended as complete care. It is important that you follow up with a doctor, nurse practitioner, or physician?s sales service assistant for ongoing care. If your symptoms become worse or you do not improve as expected and you are unable to reach your usual health care provider, you should return to the Emergency Department. We are available 24 hours a day. ANA MOROCHO has been given the following list of patient education materials, prescriptions and follow-up instructions: Follow-up Instructions:With: Address: When: Ned Salguero [address] [place], [place] [id number] Business (1) In 3 days 06/16/2017 In [...] 0.Comment: Pharmacy Information: Thank you for choosing [facility] Patient Education Materials: PneumonitisPneumonitis is inflammation of [...] to protect your lungs. ?? Only take ewqv-iyl-meslkkp or prescription medicine as directed by your [...] 03/05/2014 Document Reviewed: 12/23/2013ExitCare? Patient Information ?2015 [employer]. This information is not intended to replace [...] Revised: 11/17/2014 Document Reviewed: 12/24/2013ExitCare? Patient Information ?2014 [employer]. This information is not intended to replace advice given to you by your health care provider. Make sure you discuss any questions you have with your health care provider.RASHAWN Jimenes KIMBERLY A , have received the following patient education materials/instructions and have verbalized understanding: Patient Education Materials: Pneumonitis; Acute Bronchitis Follow-up Instructions: With: Address: When: Ned Salguero [address] [place] [address] [facility] (1) In 3 days 06/16/2017 Prescriptions: [doxycycline (doxycycline monohydrate 100 mg oral tablet)] [homatropine-hydrocodone (homatropine-hydrocodone 1.5 mg-5 mg/5 mL Oral Syrup 473 mL)] [predniSONE (predniSONE 20 mg Tab)] [tobramycin ophthalmic (tobramycin ophthalmic 0.3% ointment)] Patient Signature __ Date Clinician/Nurse Signature Date 06/13/17 11:30:16 [facility] XR Chest 2 Viewson 7 XR [...] Signature): 06/13/2017 11:04 am Signed by: Austin Whtie MD Transcribed by: MAAME Technologist: CHRISTOPHER [facility] Vital Signs Date Time Vital Sign Value Performing Clinician Facility 05-09-2023 15:30-0400 Body height 165.1 cm Colin Saunders Other [facility] Other 05-09-2023 15:30-0400 Body mass index (BMI) [Ratio] 25.29 kg/m2 Colin Saunders Other [facility] Other 05-09-2023 15:30-0400 Body weight 68.95 kg Colin Saunders Other [facility] Other 05-09-2023 15:30-0400 Diastolic blood pressure 78 mm[Hg] Colinrudolph Saunders Other [facility] Other 05-09-2023 15:30-0400 Respiratory rate 18 /min Colin Saunders Other [facility] Other 05-09-2023 15:30-0400 SaO2% (BldA) [Mass fraction] 93 % Colin Saunders Other [facility] Other 05-09-2023 15:30-0400 Systolic blood pressure 115 mm[Hg] Colin Saunders Other [facility] Other 04-11-2023 14:45-0400 Body height 165.1 cm Colin Blountabilio Other [facility] Other 04-11-2023 14:45-0400 Body mass index (BMI) [Ratio] 26.46 kg/m2 Colin Chip Other [facility] Other 04-11-2023 14:45-0400 Body weight 72.12 kg Colin Chip Other [facility] Other 04-11-2023 14:45-0400 Diastolic blood pressure 80 mm[Hg] Colin Saunders Other [facility] Other 04-11-2023 14:45-0400 Respiratory rate 16 /min Colin Saunders Other [facility] Other 04-11-2023 14:45-0400 SaO2% (BldA) [Mass fraction] 94 % Colin Saunders Other [facility] Other 04-11-2023 14:45-0400 Systolic blood pressure 130 mm[Hg] Colin Saunders Other [facility] Other 03-17-2023 09:00-0400 Body height 165.1 cm Colin Saunders Other [facility] Other 03-17-2023 09:00-0400 Body mass index (BMI) [Ratio] 26.29 kg/m2 Colin Saunders Other [facility] Other 03-17-2023 09:00-0400 Body weight 71.67 kg Colin Saunders Other [facility] Other 03-17-2023 09:00-0400 Diastolic blood pressure 80 mm[Hg] Colin Saunders Other [facility] Other 03-17-2023 09:00-0400 Respiratory rate 16 /min Colin Saunders Other [facility] Other 03-17-2023 09:00-0400 SaO2% (BldA) [Mass fraction] 97 % Colin Saunders Other [facility] Other 03-17-2023 09:00-0400 Systolic blood pressure 126 mm[Hg] Colin Saunders Other [facility] Other 02-17-2023 08:30-0400 Body height 165.1 cm Colin Saunders Other [facility] Other 02-17-2023 08:30-0400 Body mass index (BMI) [Ratio] 27.29 kg/m2 Colin Saunders Other [facility] Other 02-17-2023 08:30-0400 Body weight 74.39 kg Colin Saunders Other [facility] Other 02-17-2023 08:30-0400 Diastolic blood pressure 86 mm[Hg] Colin Saunders Other [facility] Other 02-17-2023 08:30-0400 Respiratory rate 16 /min Colin Saunders Other [facility] Other 02-17-2023 08:30-0400 SaO2% (BldA) [Mass fraction] 96 % Colinrudolph Blountabilio Other [facility] Other 02-17-2023 08:30-0400 Systolic blood pressure 146 mm[Hg] Colin Saunders Other [facility] Other 01-09-2023 10:45-0400 Body height 165.1 cm Colin Blountabilio Other [facility] Other 01-09-2023 10:45-0400 Diastolic blood pressure 76 mm[Hg] Colin Saunders Other [facility] Other 01-09-2023 10:45-0400 Respiratory rate 18 /min Colin Saunders Other [facility] Other 01-09-2023 10:45-0400 SaO2% (BldA) [Mass fraction] 98 % Colin Saunders Other [facility] Other 01-09-2023 10:45-2270 Systolic blood pressure 114 mm[Hg] Colinrudolph Blountabilio Other [facility] Other Encounters Encounter Date Encounter Type Care Provider Facility Start: 06-28-2024 End: 06-28-2024 ambulatory Colin Saunders Facility:[facility] Start: 04-17-2024 End: 04-17-2024 Patient encounter procedure DO Colinrudolph Saunders Work Phone: [facility] Work Phone: Start: 04-17-2024 End: 04-17-2024 ambulatory DO Colinrudolph Saunders Work Phone: [facility] Work Phone: Start: 04-08-2024 Non-patient / Non-visit DO David rudolph Blounts Work Phone: [facility] [place] Work Phone: Start: 03-22-2024 Non-patient / Non-visit DO David rudolph Blounts Work Phone: [facility] [place] Work Phone: Start: 03-21-2024 Non-patient / Non-visit DO David Blounts Work Phone: [facility] [place] Work Phone: Start: 12-13-2023 Patient encounter status DO Colin Saunders Work Phone: [facility] Start: 11-15-2023 End: 11-15-2023 ambulatory Colin Saunders Facility:[facility] Start: 08-16-2023 End: 08-16-2023 ambulatory Colin Blountabilio Other [facility] Other Start: 08-16-2023 Telephone encounter Colin Saunders [facility] [place] Start: 05-09-2023 End: 05-09-2023 ambulatory Colin Blounts Other [facility] Other Start: 05-09-2023 Office outpatient vi sit 15 minutes Colin Jose Alejandros [facility] [place] Start: 04-11-2023 End: 04-11-2023 ambulatory Colin Blounts Other [facility] Other Start: 04-11-2023 Office outpatient vi sit 15 minutes Colinrudolph Blounts [facility] Start: 03-17-2023 End: 03-17-2023 ambulatory Colin Blounts Other [facility] Other Start: 03-17-2023 Office outpatient vi sit 15 minutes Colin Blounts [facility] Start: 03-10-2023 End: 03-10-2023 ambulatory DO Colin Jose Alejandroabilio Work Phone: [facility] Work Phone: Start: 03-10-2023 End: 03-10-2023 Patient encounter procedure DO Colin Saunders Work Phone: [facility] Work Phone: Start: 02-17-2023 End: 02-17-2023 ambulatory Colin Saunders Other [facility] Other Start: 02-17-2023 Office outpatient vi sit 25 minutes Colin Blounts [facility] Start: 02-01-2023 End: 02-01-2023 ambulatory Colin Blounts Other [facility] Other Start: 02-01-2023 Telephone encounter Colin Blounts [facility] [place] Start: 01-30-2023 End: 01-30-2023 ambulatory Obdulio Thomas Other [facility] Other Start: 01-30-2023 Office outpatient vi sit 15 minutes Obdulio Thomas [facility] Start: 01-12-2023 Office outpatient ne w 30 minutes Obdulio Falconxa [facility] Start: 01-12-2023 Telephone encounter Obdulio Thomas [facility] Start: 01-12-2023 End: 01-12-2023 ambulatory DO Colin Saunders Work Phone: [facility] Work Phone: Start: 01-12-2023 End: 01-12-2023 Patient encounter procedure DO Colin Saunders Work Phone: [facility] Start: 01-10-2023 End: 01-10-2023 ambulatory Colin Saunders Other [facility] Other Start: 01-10-2023 Telephone encounter Colin Saunders [facility] [place] Start: 01-09-2023 End: 01-09-2023 ambulatory Colin Saunders Other [facility] Other Start: 01-09-2023 Office outpatient vi sit 15 minutes Colin Saunders [facility] [place] Start: 01-09-2023 Telephone encounter Colin Saunders [facility] [place] Start: 01-05-2023 End: 01-05-2023 ambulatory Colin Saunders Other [facility] Other Start: 01-05-2023 Telephone encounter Colin Saunders [facility] [place] Start: 01-03-2023 End: 01-03-2023 ambulatory Colin Saunders Other [facility] Other Start: 01-03-2023 Telephone encounter Colin Saunders [facility] [place] Start: 11-29-2022 End: 11-29-2022 Patient encounter procedure DO Colin Saunders Work Phone: [facility] [place] Work Phone: Start: 11-21-2022 End: 11-21-[address] KANDIS ALAN . Facility: Start: 11-04-2022 End: 11-04-[address] EVERARDO BROWN . [facility] Other Start: 11-04-2022 Telephone encounter Colinrudolph Saunders [facility] Start: 10-19-2022 End: 10-19-2022 ambulatory Colin Jose Alejandroabilio Other [facility] Other Start: 10-19-2022 Telephone encounter Colin Saunders [facility] Start: 09-09-2022 End: 09-09-2022 ambulatory Colin Jose Alejandroabilio Other [facility] Other Start: 09-09-2022 Nursing evaluation o f patient and report Colin Chip [facility] Start: 06-13-2017 End: 06-13-2017 [facility] [place] [place] Date Procedure Procedure Detail Performing Clinician Start: 03-10-2023 Screening mammograph y of bilateral breasts DO Colin Saunders Work Phone: Start: 01-12-2023 X-ray of right foot DO Colin Saunders Work Phone: Screening for malign ant neoplasm of breast Colin Saunders Other Plan of Treatment Date Care Activity Detail Author Electromyography [facility] Payers Date Payer Category Payer Private Health Insurance [id number] 2017 Self-pay 1961 Unknown [id number] 1960 Unknown [id number] 1960 Unknown [id number] [facility] e [id number] Private Health Insurance [facility] e [id number] Unknown [facility] Employees [id number] Unknown [employer] [id number] Unknown [id number] Unknown [id number] Unknown [id number] Social History Date Type Detail Facility Unknown if ever smoked [facility] Other Sex Assigned At Sex Assigned At Bir th [facility] Other Start: 1960 Sex Assigned At Female F [facility] Start: 08-23-2018 Tobacco smoking status NHIS Never smoked tobacco (finding) [facility] Clinical Notes 05-02-2018 to 08-16-2023 Note Date & Type Note Facility 08-16-2023 Evaluation note Encounter Date Diagnosis Assessment Notes Jul, Reactive airway disease (ICD-10 - J45.909) [facility] Other [id number] Evaluation note* Encounter Date Diagnosis Assessment Notes [...] left knee. Apr, Obesity (ICD-10 - E66.9) [facility] Other 09-26-2023 Evaluation note* Encounter Date Diagnosis [...] airway disease (ICD-10 - J45.909) Sample provided. [facility] Other 09-01-2023 Evaluation note* Encounter Date Diagnosis [...] Mammogram reviewed advising that this was normal. [facility] Other 08-04-2023 Evaluation note* Encounter Date Diagnosis [...] She did buy an ankle brace at [facility] but this is not very comfortable and [...] weight loss efforts. EKG done in the [facility] ER 11/21/22 Feb, Obesity (ICD-10 - E66.9) Encouraged patient to increase exercise and monitor diet closer. Feb, Screening for breast cancer (ICD-10 - Z12.39) Mammogram ordered. Feb, Dental cavity (ICD-10 - K02.9) Letter provided for her to proceed with previously planned dental procedure now that blood pressure is stabilized. [facility] Other 07-19-2023 Evaluation note* Encounter Date Diagnosis Assessment Notes Treatment Notes Treatment Clinical Notes Jan, Essential hypertension (ICD-10 - I10) [facility] Other 07-17-2023 Evaluation note* Encounter Date Diagnosis [...] right foot, initial encounter (ICD-10 - S93.601A) [facility] Other 06-29-2023 Evaluation note* Encounter Date Diagnosis [...] Dec, Right foot pain (ICD-10 - M79.671) [facility] Other 06-26-2023 Evaluation note* Encounter Date Diagnosis Assessment Notes Treatment Notes Treatment Clinical Notes Dec, Sprain of right ankle, unspecified ligament, initial encounter (ICD-10 - S93.401A) Review of [facility] ER report from 12/31/22 . Upon examination I recommend the patient cosult with an manipulative therapy specialist for a likey 2nd - 3rd [...] two samples of the above medication provided. [facility] Other 06-22-2023 Evaluation note* Encounter Date Diagnosis Assessment Notes Treatment Notes Treatment Clinical Notes Dec, Essential hypertension (ICD-10 - I10) [facility] Other 02-24-2023 Evaluation note* Encounter Date Diagnosis Assessment Notes Treatment Notes Treatment Clinical Notes Aug, Fever (ICD-10 - R50.9) Patient covid test is positive, all other testing was negative. Treatment discussed in TE. [facility] Other 10-17-2018 History general Narrative - Reported* [...] spur Dr. Burnette Hospitalization History see above [place] [facility] Other Evaluation noteNo InformationNort Alerts Other Evaluation noteNo assessment information available [facility] Work Phone: History general [facility] - [facility] Other Summary Purpose Family History No Family History Records Found Relationship Condition Age at Onset Recorded Date/T gabo brother Heart disease Unknown Unknown brother Unknown father Heart disease Unknown Malignant neoplasm Unknown mother Malignant neoplasm Unknown Advance Directives No Advanced Directives Records Found Advance Directive Response Recorded Date/ Time Advance Directives No March 8:46am Reason for Referral Reason consult and treat Diagnosis 1 Sprain of right ankl e, unspecified ligament, initial encounter (S93.401A) Referral Organization [facility] Referring Provider First Name Colin Referring Provider Last Name Chip Referring Provider Specialty Family Prac kevin Referred Organization [facility] Referred Provider Keegan Thompson II Referred Address [address] [place] [address] Abilio [facility] [place],[address] Referred Provider Specialty Orthopedic S urgery Referral [...] Chief Complaint E78.5 Chief Complaint m79.671 Z12.39 Chief Complaint Amb Documentation Amb Documentation Amb Documentation m79.602 Additional Source Comments INFORMATION SOURCE (unrecogn ized section and content) DATE CREATED AUTHOR 01/09/2018 [employer] [facility] DATE CREATED AUTHOR AUTHOR'S ORGANIZ ATION 11/24/2022 [facility] DATE CREATED AUTHOR AUTHOR'S ORGANIZ ATION 06/30/2024 [facility] REASON FOR VISIT (unrecogniz ed section and content) need insurance card-covid, f yo, strep, rsvClinicalEar pain/neck massClinicalRefillsClinicalER recheck/ ankle sprain/ per Dr. Matamoros Ankle InjuryRecheck Right Ankle/FootClinicalR/S Follow up1 month follow up -adipex1 month obesity adipexadipexClinical Care Teams (unrecognized sec tion and content) Team Status: Active Member Role Status Dates Colin Saunders DO Primary Care Provider Active Team Status: Active Member Role Status Dates Colin Saunders DO Primary Care Provider Active Sta rt: March 21, 2024 MAYRA Nelson Attending Provider Active Start: March 21, 2024 Team Status: Active Member Role Status Dates oClin Saunders DO Primary Care Provider Active Sta rt: March 22, 2024 MAYRA Chang Attending Provider Active Start: March 22, 2024 Team Status: Active Member Role Status Dates Colin Saunders DO Primary Care Provider Active Sta rt: April 08, 2024 MAYRA Chang Attending Provider Active Start: April 08, 2024 Team Status: Inactive Member Role Status Dates Colin Saunders DO Primary Care Provide r, Attending Provider Active Start: April 17, 2024 End: April 17, 2024 Team Status: Inactive Member Role Status Dates Colin Saunders DO Primary Care Provider Active Obdulio Thomas MD Attending Provider Active Team Status: Inactive Member Role Status Dates Colin Saunders DO Primary Care Provider, Attending Provi lennox Active Goals (unrecognized section and content) [...] BE BASED ON THE PRIMARY CLINICAL RECORDS. [facility] [employer] [facility]. provides no warranty or guarantee of the accuracy or completeness of information in this document.
[2024-08-06 09:51] LABS: INR 0.99; Partial Thromboplastin Time 26.8 sec (22.3-36.2); Prothrombin Time 10.5 sec (9.0-11.6)
[2024-08-06 10:33] LABS: Anion Gap 10.7; BUN Creatinine Ratio 19.8; Calcium 8.9 mg/dL (8.5-10.1); Carbon Dioxide 29.5 mmol/L (21.0-32.0); Chloride 107 mmol/L (98-107); Estimated GFR (African America >60 (>=60 mL/min/1.73m^2); Estimated GFR (Non-African Ame >60 (>=60 mL/min/1.73m^2); Glucose 96 mg/dL (74-106); Potassium 4.2 mmol/L (3.5-5.1); Sodium 143 mmol/L (136-145)
== END 2024-08-06 09:10 | disposition home or self-care (01) ==
LOC: CARD 09:11
PROVIDERS: PCP Family Medicine; Visit Provider Physician Assistant
DX: M48.02 Spinal stenosis, cervical region (principal)
CPT/HCPCS: 36415; 71046; 80048; 85610; 85730; 87081; 93005

== ENCOUNTER 2024-11-19 07:45 | Outpatient (OUT) | payer OTHER, SELFPAY ==
--- NOTE | 2024-11-19 07:53 | CT_ITS ---
The [address] [address] Patient Name: ANA LUA MRN: [id number] date: 1960 Sex: F Assigned Patient Location: CT Current Patient Location: CT Accession/Order Number: [id number] Exam Date: 11/19/2024 11:49 Report Date: 11/19/2024 11:52 At the request of: GEOVANNI PASCUAL Procedure: CT soft tissue neck wo con CT soft tissue neck wo con 11/19/2024 8:13 AM SIGNS AND SYMPTOMS: ^Dysphagia, Orthopedic Aftercare Encounter TECHNIQUE: Multidetector CT axial slices of the soft tissues of the neck were obtained without IV contrast . Sagittal and coronal reformats were reconstructed. CT was performed with one or more of the following dose reduction techniques: Automated exposure control, adjustment of the mA and/or kV according to patient size, or use of iterative reconstruction technique. COMPARISON: None FINDINGS: Mucosal surfaces of the nasopharynx, oropharynx, hypopharynx, glottic, and subglottic airways are grossly unremarkable. The parotid glands, submandibular, and the thyroid gland are within normal limits. The visualized lung parenchyma shows no acute pathology. No acute bony abnormalities are appreciated. Anterior fusion hardware C3-C7 without hardware complication. CT/CT soft tissue neck wo con IMPRESSION: Unremarkable CT soft tissue neck. Impression dictated by: Kishor Simms Jr., D.O. 11/19/2024 11:52 AM Dictation Location: [place] [address] Electronically authenticated by: [id number] Y Date: 11/19/2024 11:52
== END 2024-11-19 07:46 | disposition home or self-care (01) ==
LOC: CT 07:45
PROVIDERS: PCP Family Medicine
DX: R13.19 Other dysphagia (principal); Z47.89 Encounter for other orthopedic aftercare
CPT/HCPCS: 70490

== ENCOUNTER 2025-02-11 06:52 | Emergency (ER) | payer MEDICARE, SELFPAY ==
[2025-02-11] VITALS (21 sets, daily range): BP systolic 128–162; BP diastolic 81–98; PULSE 67–88; TEMP 36.9; O2SAT 88–100; BMI 25.7
--- OUTSIDE RECORDS SUMMARY | 2025-02-11 07:05 | XMS_ITS | Clinical Summary ---
Author Organization [employer] s tem Address [id number] [address] 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 Active albuterol (PROVENTIL HFA;VENTOLIN HFA) 90 mcg/actuation inhaler Inhale 2 puffs every 6 (six) hours as needed for wheezing. Active Active Problems No known active problems Social History Tobacco Use Types Packs/Day Years Used Date Smoking Tobacco: Never Smokeless Tobacco: Never Childcare Answer Date Recorded Childcare Unknown 12/26/2018 Employment Answer Date Recorded Employment Unknown 12/26/2018 Purpose - Life Answer Date Recorded Purpose and direction in life Unknown Comments Unknown Sex and Gender Information Value Date Recorded Sex Assigned at Not on file Legal Sex Female 11:57 AM EDT Gender Identity Not on file Sexual Orientation Not on file Last Filed Vital Signs Vital Sign Reading Time Taken Comments Blood Pressure 148/86 10/04/2018 12:03 PM EDT Pulse 97 10/04/2018 12:38 PM EDT Temperature 36.5 C (97.7 F) 10/04/2018 10:52 AM EDT Respiratory Rate 12 10/04/2018 12:38 PM EDT Oxygen Saturation 100% 10/04/2018 12:30 PM EDT Inhaled Oxygen Concentration - - Weight 72.6 kg (160 lb) 10/04/2018 10:52 AM EDT Height 162.6 cm (5' 4 ) 10/04/2018 10:52 AM EDT Body Mass Index 27.46 10/04/2018 10:52 AM EDT Plan of Treatment Not on file Medical Devices Not on file Insurance [employer] Care Teams 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
--- OUTSIDE RECORDS SUMMARY | 2025-02-11 07:05 | XMS_ITS | Patient Health Record ---
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 Inspector And Packer Name Role Phone ALVERTO KOLB Primary Care Provider Unavailabl e Deni Urena Unavailable [phone] Self, Referral Unavailable Unavailable Marco Antonio Veras Unavailable [phone] Nohemi Barragan Unavailable Allergies Allergen (clinical drug ingredient) Drug/Non Drug Allergy documented on EMR Reaction Allergy Type Onset Date Status bees (uncoded) Unknown Allergy Activ e diphenhydramine Benadryl Allergy Unknown Drug Allergy Active prednisone predniSONE Unknown Drug Allergy Activ e aspirin aspirin Unknown Drug Allergy Active Antihistamine and Nasal Decongestant Unknown Drug Allergy Active Results Component Value Reference Range Notes Surgery Scheduling (Not yet reviewed by provider) Interpretation: Performing Lab: Notes/Report: Primary Insurance Company: [facility] Surgeon/Assist: ST TUBBS/SHARLENE OR MARCO ANTONIO Surgery Location: [facility] Surgery Date & Time: 08/21/24 @ 8:30AM Hosp arrival time day of: 5:30AM Surgery End Time: 10:30AM Procedure: C3-7 ACDF Special Equipment: SSEP, SUPINE, OR TAB LE, MEDTRONICS Diagnosis: M48.02 STENOSIS Admission Type: OUTPATIENT Anesthesia Type/CPNB: GENERAL Bed 23 HOUR Post-op Appointment Date: 10/04/24 @ 9:50AM [facility] Latex Allergy NO Lab Location: Reports Analysis Manager: COY Muller Physician: ALVERTO KOLB History & Physical Appointme nt Date/: 08/09/24 @ 11:30AM HUMBERTO Reason For Referral Reason APPROVED............ .................NOT SCHEDULED...............................[facility] CERV[facility] TO BE DONE AT [facility] Diagnosis 1 Neck pain (M54.2) Referral Organization [facility] Referring Provider First Name Deni Referring Provider Last Name Ayanna Referring Provider Speciality Orthopedic Surgery Referred [facility] Referred Address [place], [place], Procedure 1 MRI Cervical w/o dye (49252) General Notes Coy Borges 2023 09:25:11 AM >, Jennifer Foster 05/17/2024 10:35:22 AM > WAITING ON TODAY'S OFFICE NOTE AUTHORIZATION IS REQUIRED PER [facility] CPT 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 SCANNED INTO CHART AND FAXED TO [facility].Isaias Sara 05/24/2024 08:58:28 AM > order faxed Referral Priority Routine Reason APPROVED................................08/21/24.................................. .........MMO C3-7 ACDF 10426, 38424 x3, 56211, 94792 Diagnos is 1 Degeneration of C5-C6 intervertebral dis c (M50.322) Diagnos is 2 Other cervical disc degeneration, high c ervical region (M50.31) Diagnos is 3 Cervical radiculopathy (M54.12) Diagnos is 4 Cervical spinal stenosis (M48.02) [facility]erra l [facility] Referri ng Provide r First Name Deni Referri nestor Provide r Last Name Ayanna Referri nestor Provide r Special ity Orthopedic Surgery Referre d [facility] - Outpatient Referre d Provide r [facility] Referre d Address [address],[place], [place],[address],[place] Procedu re 1 Arthrodesis, anterior interbody, includi ng disc space prep, discectomy, osteophytectomy & decompression of spinal cord and/or nerve roots, cervical below C2 (55177) Procedu re 2 Arthrodesis, cervical below C2 each add' l interspace (96274) Procedu re 3 Anterior instrumentation; 4-7 vertebral segments (18446) Procedu re 4 Allograft for spine surgery only; struct ural (00661) General Notes Coy Borges 08/12/2024 03:35:52 PM >, Coy Borges 08/13/2024 08:00:00 AM >so Kristin talbot Kayla 08/13/2024 08:10:45 AM > I NEED 08/09 OFFICE NOTE COMPLETED FOR AUTHORIZATION., Coy Borges 08/13/2024 08:21:19 AM >07/20 WAS THE H& P, Jennifer Foster 08/13/2024 08:37:20 AM > EXPEDITED AUTHORIZATION REQUEST SUBMITTED WITH CLINICALS VIA [employer] PROVIDER PORTAL, TRACKING # [id number], Jennifer Foster 08/14/2024 07:39:26 AM > AUTHORIZATION REQUEST DENIED DUE TO NOTES NOTE SHOWING PATIENT HAS TRIED AND FAILED AT LEAST 3 MONTHS OF NON-SURGICAL MANAGEMENT (PAIN MEDICATIONS, PT, CERVICAL COLLAR, EPIDURALS, ETC). P2P IS AVAILABLE BY CALLING [phone] WITHIN 14 DAYS. SCANNED INTO CHART., Coy Borges 08/14/2024 07:57:30 AM >NO RECENT PHYSICAL THERAPY FOR NECK. PRINTED FOR REVIEW, Leida Esparza 08/14/2024 10:29:23 AM > yes schedule P2P- has been on Mobic X3 months.., Coy Borges 08/14/2024 02:37:17 PM >requested p2p, Coy Borges 08/15/2024 09:24:53 AM >P2P SCHEDULE FOR SATURDAY 08/19 @ 11:30AM, Coy Borges 08/19/2024 11:53:33 AM >PER SFS APPROVED WITH P2P, Kristin HARRISON, Jennifer 08/19/2024 11:54:57 AM > NOTED, THANK YOU. CASE STILL SHOWING DENIED ON [employer] PROVIDER PORTAL, CAN TAKE 24-48 TO UPDATE. WILL KEEP AN EYE ON IT. AUTHORIZATION # [id number] WILL BE VALID 08/21/24-02/17/25.Kristin Kayla 08/20/2024 12:28:07 PM > PER PRADIP @ Source [employer] PATIENT ALSO HAS [facility] IN ADDITION TO MMO. ADVISED HER AUTH WASN'T RAN THROUGH [facility] WE DON'T HAVE IT LISTED SECONDARY, JUST AN ACTIVE POLICY. SHE IS SUPPOSED TO BE REACHING OUT TO THE PATIENT TO VERIFY BOTH POLICIES SHOW HER THE CARD LINARES. 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 SHE REACHED OUT TO CASE MANAGEMENT DEPARTMENT TRYING TO GET IN TOUCH WITH THE NURSE ON THE CASE BUT WAS UNABLE TO GET IN TOUCH WITH HER. SHE DID ADVISE ME THAT IF PROVIDER WAS TOLD CASE IS APPROVED TO GO AHEAD AND DO PROCEDURE AND IF CLAIM GETS DENIED WE CAN ALWAYS APPEAL WITH [employer]. CASES CAN TAKE UP TO 48 HOURS TO GET UPDATED AND IT HASN'T QUITE BEEN 48 HOURS YET SINCE P2P WAS COMPLETED. WILL KEEP CHECKING ON [employer] [place] AND ONCE CASE GETS UPDATED I WILL SCAN INTO CHART., Jennifer Foster 08/23/2024 09:22:26 AM > CASE NOW SHOWING APPROVED PER [employer] PROVIDER PORTAL. SCANNED INTO CHART. Elena Walter Stat Reason APPROVED............ .....................NOT SCHEDULED....................................MMO CT scan soft tissue neck at [facility] Diagnosis 1 Encounter for other orthopedic aftercare (Z47.89) Diagnosis 2 Other dysphagia (R13 .19) Referral Organization [facility] Referring Provider First Name Deni Referring Provider Last Name St Tubbs Referring Provider Speciality Orthopedic Surgery Referred Organization [facility] Referred Address [place], [place], Procedure [address] SOFT TISSUE NECK W/O DYE (99827) General Notes Leida Esparza 10/16 09:20:44 AM >, Jennifer Fostre 11/08/2024 09:54:56 AM > WAITING ON TODAY'S OFFICE NOTEIsaias Sara 11/13/2024 11:10:05 AM > note is done!, Jennifer Foster 11/13/2024 12:43:04 PM > AUTHORIZATION # [id number] APPROVED AND VALID 11/14/24-12/29/[address] [facility] SCANNED INTO CHART AND FAXED TO [facility].Isaias Sara 11/13/2024 01:34:55 PM > order faxed Referral Priority Urgent Medications Medication SIG (Take, Route, Fr equency, Duration) Notes Start Date End Date Status Flexeril 10 mg 1 tab(s) orally 3 ti mes a day prn muscle spasms 08/14/2024 Active meloxicam 15 mg 1 tab(s) orally once a day for 30 06/21/2024 Active Trelegy Ellipta Acti ve alendronate Active Social History AUDIT-C (Standard) Question Answer Notes Did you have a drink contain ing alcohol in the past year? Yes How often did you have six o r more drinks on one occasion in the past year? Never (0 point) How many drinks did you have on a typical day when you were drinking in the past year? 1 or 2 drinks (0 point) How often did you have a dri nk containing alcohol in the past year? Monthly or less (1 point) Problems Problem Type SNOMED Code ICD Code Onset Dates Problem Status W/U Status Risk Notes Problem 28749107 Cervical radiculopathy (M54.12) Active confirmed Problem 51832749 Cervical spinal stenosis (M48.02) Active confirmed Problem 79360716 Neck pain (M54.2) Active confirmed Problem 816195605 Arthrodesis status (Z98.1) Active confirmed Problem Degeneration of cervical intervertebral disc (54979912) Other cervical disc degeneration, high cervical region (M50.31) Active confirmed Problem 338239299 Radiculopathy, lumbar region (M54.16) Active confirmed Problem 432816559659804 Sciatica, left side (M54.32) Active confirmed Problem Pathological fracture of vertebra (557650028) Age-related osteoporosis with current pathological fracture, vertebra(e), initial encounter for fracture (M80.08XA) Active confirmed Problem 442630395 Wedge compressio n fracture of fourth lumbar vertebra, subsequent encounter for fracture with routine healing (S32.040D) Active confirmed Problem 327267335 Fall from, out o f or through balcony, initial encounter (W13.0XXA) Active confirmed Problem 317411929 Osteopenia, unspecified location (M85.80) Active confirmed Problem 43820871 Dysphagia, unspecified type (R13.10) Active confirmed Problem 78081400 Spinal stenosis of lumbar region, unspecified whether neurogenic claudication present (M48.061) Active confirmed Problem Degeneration of cervical intervertebral disc (64579870) Degeneration of intervertebral disc at C6-C7 level (M50.323) Active confirmed Problem Degeneration of cervical intervertebral disc (75120958) Degeneration of intervertebral disc at C4-C5 level (M50.321) Active confirmed Problem Degeneration of cervical intervertebral disc (21813522) Degeneration of C5-C6 intervertebral disc (M50.322) Active confirmed Problem 557135628 Encounter for other orthopedic aftercare (Z47.89) Active confirmed Problem 399878588 Closed wedge compression fracture of T6 vertebra, initial encounter (S22.050A) Active confirmed Problem 703452121 Closed wedge compression fracture of L4 vertebra, initial encounter (S32.040A) Active confirmed Problem 462228336 Closed wedge compression fracture of T8 vertebra, initial encounter (S22.060A) Active confirmed Problem Age-related osteopor with curr pathol fx of vertebra with routine heal (M80.08XD) Active confirmed Vital Signs Height 5'5 in 11/08/2024 Weight 140 lbs 11/08/2024 BMI 23.29 11/08/2024 Encounters Encounter Location Date Provider Diagnosis [facility] [address] [place] [address] [place] [address] 05/17/2024 Nohemi Barragan Other cervical disc degeneration, high cervical region M50.31 ; Age-related osteopor with curr pathol fx of vertebra with routine heal M80.08XD ; Degeneration of intervertebral disc at C4-C5 level M50.321 ; Degeneration of C5-C6 intervertebral disc M50.322 ; Degeneration of intervertebral disc at C6-C7 level M50.323 ; Cervical radiculopathy M54.12 and Cervical spinal stenosis M48.02 [facility] [address] [place] [facility] [place] [address] [place] [address] 06/21/2024 [facility] Other cervical disc degeneration, high cervical region M50.31 ; Degeneration of intervertebral disc at C4-C5 level M50.321 ; Degeneration of C5-C6 intervertebral disc M50.322 ; Degeneration of intervertebral disc at C6-C7 level M50.323 ; Cervical spinal stenosis M48.02 and Cervical radiculopathy M54.12 [facility] Office [address] [place] [address] 08/09/2024 Marco Antonio Veras Degeneration of intervertebral disc at C6-C7 level M50.323 ; Degeneration of intervertebral disc at C4-C5 level M50.321 ; Degeneration of C5-C6 intervertebral disc M50.322 ; Other cervical disc degeneration, high cervical region M50.31 ; Cervical radiculopathy M54.12 and Cervical spinal stenosis M48.02 [facility] - Outpatient [address] [place], [place] [id number] 08/21/2024 Deni Wild Clair Cervical spinal stenosis M48.02 ; Other cervical disc degeneration, high cervical region M50.31 ; Degeneration of intervertebral disc at C4-C5 level M50.321 ; Degeneration of C5-C6 intervertebral disc M50.322 and Degeneration of intervertebral disc at C6-C7 level M50.323 [facility] Office [address] [place] [address] 09/27/2024 Nohemi Barragan Encounter for other orthopedic aftercare Z47.89 and Arthrodesis status Z98.1 [facility] [facility] [address] [place] [address] 11/08/2024 Marco Antonio Veras Encounter for other orthopedic aftercare Z47.89 and Other dysphagia R13.19 [facility] [facility] [address] [place] [address] 11/22/2024 Selvon Ayanna Dysphagia, unspecifi ed type R13.10 and Aftercare following surgery of the musculoskeletal system Z47.89 [place] [address] [place] [address] 08/14/2024 Marco Antonio Veras Degeneration of intervertebral disc at C6-C7 level M50.323 [place] [address] [place] [address] 09/02/2024 Selmaurice Urena [place] [address] [place] [address] 09/04/2024 Selvoalberto Ayanna [place] [address] [place] [address] 09/12/2024 Selvon Ayanna Aftercare following surgery of the musculoskeletal system Z47.89 [place] [address] [place] [address] 09/24/2024 Selvon Ayanna Assessments Encounter Date Diagnosis (ICD Code) Assessment Notes Treatment Notes Treatment Clinical Notes Section Notes 05/17/2024 Other cervical disc degeneration, high cervical region (ICD-10 - M50.31) 1. S/p L4 kyphoplasty in November 2023 2. C3-7 DDD/radiculopat hy/stenosis 3. Dynamic C3 on 4 retrolithesis 05/17/2024 Age-related osteopor with curr pathol fx of vertebra with routine heal (ICD-10 - M80.08XD) 1. S/p L4 kyphoplasty in November 2023 2. C3-7 DDD/radiculopat hy/stenosis 3. Dynamic C3 on 4 retrolithesis 06/21/2024 Other cervical disc degeneration, high cervical region (ICD-10 - M50.31) 1. C3-7 stenosis/radicu lopathy/degener ative disc disease 06/21/2024 Degeneration of intervertebral disc at C4-C5 level (ICD-10 - M50.321) 1. C3-7 stenosis/radicu lopathy/degener ative disc disease 08/09/2024 Degeneration of intervertebral disc at C6-C7 level (ICD-10 - M50.323) 08/09/2024 Degeneration of intervertebral disc at C4-C5 level (ICD-10 - M50.321) 08/14/2024 Degeneration of intervertebral disc at C6-C7 level (ICD-10 - M50.323) 08/21/2024 Cervical spinal stenosis (ICD-10 - M48.02) 09/12/2024 Aftercare following surgery of the musculoskeletal system (ICD-10 - Z47.89) 09/27/2024 Arthrodesis status (ICD-10 - Z98.1) 1. 5 weeks s/p C3-7 ACDF 09/27/2024 Encounter for other orthopedic aftercare (ICD-10 - Z47.89) 1. 5 weeks s/p C3-7 ACDF 11/08/2024 Other dysphagia (ICD-10 - R13.19) 1. 2-1/2-month status post C3-7 anterior cervical discectomy and fusion with complaints of dysphagia 11/08/2024 Encounter for other orthopedic aftercare (ICD-10 - Z47.89) 1. 2-1/2-month status post C3-7 anterior cervical discectomy and fusion with complaints of dysphagia 11/22/2024 Aftercare following surgery of the musculoskeletal system (ICD-10 - Z47.89) 11/22/2024 Dysphagia, unspecified type (ICD-10 - R13.10) 08/21/2024 Other cervical disc degeneration, high cervical region (ICD-10 - M50.31) 08/09/2024 Degeneration of C5-C6 intervertebral disc (ICD-10 - M50.322) 06/21/2024 Degeneration of C5-C6 intervertebral disc (ICD-10 - M50.322) 1. C3-7 stenosis/radicu lopathy/degener ative disc disease 05/17/2024 Degeneration of intervertebral disc at C4-C5 level (ICD-10 - M50.321) 1. S/p L4 kyphoplasty in November 2023 2. C3-7 DDD/radiculopat hy/stenosis 3. Dynamic C3 on 4 retrolithesis 05/17/2024 Degeneration of C5-C6 intervertebral disc (ICD-10 - M50.322) 1. S/p L4 kyphoplasty in November 2023 2. C3-7 DDD/radiculopat hy/stenosis 3. Dynamic C3 on 4 retrolithesis 06/21/2024 Degeneration of intervertebral disc at C6-C7 level (ICD-10 - M50.323) 1. C3-7 stenosis/radicu lopathy/degener ative disc disease 08/09/2024 Other cervical disc degeneration, high cervical region (ICD-10 - M50.31) 08/21/2024 Degeneration of intervertebral disc at C4-C5 level (ICD-10 - M50.321) 08/21/2024 Degeneration of C5-C6 intervertebral disc (ICD-10 - M50.322) 06/21/2024 Cervical spinal stenosis (ICD-10 - M48.02) 1. C3-7 stenosis/radicu lopathy/degener ative disc disease 08/09/2024 Cervical radiculopathy (ICD-10 - M54.12) 05/17/2024 Degeneration of intervertebral disc at C6-C7 level (ICD-10 - M50.323) 1. S/p L4 kyphoplasty in November 2023 2. C3-7 DDD/radiculopat hy/stenosis 3. Dynamic C3 on 4 retrolithesis 05/17/2024 Cervical radiculopathy (ICD-10 - M54.12) 1. S/p L4 kyphoplasty in November 2023 2. C3-7 DDD/radiculopat hy/stenosis 3. Dynamic C3 on 4 retrolithesis 06/21/2024 Cervical radiculopathy (ICD-10 - M54.12) 1. C3-7 stenosis/radicu lopathy/degener ative disc disease 08/09/2024 Cervical spinal stenosis (ICD-10 - M48.02) 08/21/2024 Degeneration of intervertebral disc at C6-C7 level (ICD-10 - M50.323) 05/17/2024 Cervical spinal stenosis (ICD-10 - M48.02) 1. S/p L4 kyphoplasty in November 2023 2. C3-7 DDD/radiculopat hy/stenosis 3. Dynamic C3 on 4 retrolithesis 05/17/2024 Other Plan established by Dr. Keen. Patient was evaluated by myself and Dr. Keen today. For the patient's cervical radicular symptoms I have prescribed a Medrol Dosepak and Mobic to start afterwards. Medication precautions reviewed. I have also ordered an MRI of the cervical spine to further evaluate for any neural compression. We will see her back after imaging is complete to review and offer further recommendations . The patient is very much in agreement with the treatment and/or diagnostic plan set forth and all questions were answered to the patient's satisfaction. Thanks once again. If we can be of further service to your patients with disorders of the spine, cervical, thoracic, or lumbar, please do not hesitate to contact Dr. Keen. Best regards, 1. S/p L4 kyphoplasty in November 2023 2. C3-7 DDD/radiculopat hy/stenosis 3. Dynamic C3 on 4 retrolithesis 06/21/2024 Other Plan established by Dr. Keen. At this time, Dr. Keen discussed MRI results with the patient. He recommended a C3-7 anterior cervical discectomy and fusion. Surgical risks and benefits were discussed. Risks include, but are not limited to paralysis, infection, dural tear, nerve root injury, nonunion, etc. Patient would like to proceed with surgical intervention. In the meantime we will start patient on Mobic and see the patient back in the office prior to surgery. The patient is very much in agreement with the treatment and/or diagnostic plan set forth and all questions were answered to the patient's satisfaction. Thanks once again. If we can be of further service to your patients with disorders of the spine, cervical, thoracic, or lumbar, please do not hesitate to contact Dr. Keen. Best regards, 1. C3-7 stenosis/radicu lopathy/degener ative disc disease 09/27/2024 Other Plan established by Dr. Keen. Patient evaluated by myself and Dr. Keen today. Today we discussed with patient that the dysphagia can be normal at this point and recommend that she continue with soft diet until it starts to resolve. She was counseled to let us know immediately if she is having trouble swallowing liquids or report to the ER if she is having SOB or trouble breathing. She can discontinue the c-collar. I am going to start her on another Medrol Dosepak. We will see her back in 6 weeks for her next postop recheck. The patient is very much in agreement with the treatment and/or diagnostic plan set forth and all questions were answered to the patient's satisfaction. Thanks once again. If we can be of further service to your patients with disorders of the spine, cervical, thoracic, or lumbar, please do not hesitate to contact Dr. Keen. Best regards, 1. 5 weeks s/p C3-7 ACDF 11/08/2024 Other Plan established by Dr. Keen. At this time, we will set the patient up with a CT soft tissue of the neck with contrast. We will see her back in the office after the imaging is completed to discuss the results and likely refer her to ENT. The patient is very much in agreement with the treatment and/or diagnostic plan set forth and all questions were answered to the patient's satisfaction. Thanks once again. If we can be of further service to your patients with disorders of the spine, cervical, thoracic, or lumbar, please do not hesitate to contact Dr. Keen. Best regards, 1. 2-1/2-month status post C3-7 anterior cervical discectomy and fusion with complaints of dysphagia 11/22/2024 Other Feli Colon, 3 months post anterior cervical discectomy and fusion (ACDF) from C3-C7, presenting with persistent dysphagia and intermittent dysphonia. Post-operative dysphagia and dysphonia Assessment: Patient is experiencing difficulty swallowing solid foods and intermittent hoarseness, particularly worsening towards the end of the day. These symptoms are consistent with post-operative soft tissue swelling and potential laryngeal nerve irritation following ACDF. A CT scan of the neck soft tissues dated 11/19/2024 showed unremarkable soft tissue remaining, suggesting no significant obstructive pathology. The current presentation is likely due to expected post-operative changes, with symptoms typically resolving within 4-7 months post-surgery. Plan - Continue current diet of soft foods, avoiding [id number] items like steak - Gradually introduce small pieces of softer solid foods (e.g., chicken, fish) - No further steroid packs at this time - Monitor for worsening symptoms, especially difficulty with liquids - Follow-up appointment in 3 months at [facility] - Consider ENT referral for potential dilation if symptoms persist beyond 7 months post-op Plan Of Treatment Pending Test Test Name Order Date Lumbar spine, 4v flex ext - 55759 2023 Cervical spine,ap,lat,flex,ext - 63969 1 07/17/2023 Cervical spine 2 v - 09497 09/27/2024 Cervical spine 2 v - 83652 11/08/2024 MRI : Lumbosacral Spine W/O Contrast - 7 2148 10/06/2023 MRI : Thoracic Spine W/O Contrast - 7214 6 10/06/2023 [place] J Cervical Collar OTS 08/09/2024 DEXA SCAN: [id number] 10/06/2023 Surgery Scheduling 07/24/2024 DME - Lumbar Support, Surgical OTS 10/05 CT Scan Cervical Soft Tissue W/O Contras t - [id number] 11/08/2024 EKG 11/17/2023 Pain management- Eval and treat 10/20/19 MRI : Cervical Spine W/O Contrast - 7214 1 05/17/2024 Future Test Test Name Order Date Chest 2 views - 02127 11/17/2023 CBC 11/17/2023 PT/PTT 11/17/2023 BMP 11/17/2023 MRSA (Bilateral Nares) PCR 11/17/2023 EKG 11/17/2023 Chest 2 views - [id number] 07/24/2024 CBC 07/24/2024 PT/PTT 07/24/2024 BMP 07/24/2024 MRSA (Bilateral Nares) PCR 07/24/2024 EKG 07/24/2024 Insurance Providers Payer Name Payer Address Payer Phone Subscriber Number Group Number Insured Name Patient Relationship to Insured Coverage Start Date Coverage End Date [facility] [address] [place] [phone] [id number] FELI LEA Self - patient is the insured Medical (General) History Medical History History ICD Code High Blood Pressure Drug Allergies Surgical History Surgery Date(Month/Year) C3-7 ACDF 08/2024 2 Knee surgeries 3 Left hand surgeries
--- OUTSIDE RECORDS SUMMARY | 2025-02-11 07:05 | XMS_ITS | Patient Health Record ---
Author Organization [facility] Address [address] [place], [place] [id number] Support Name Relationship Address Phone Neil Burris Emergency Contact [address] [facility] [place] [address] Feli Smith Guarantor Unknown Reason For Referral No Information Plan Of Treatment No Information Insurance Providers Payer Name Payer Address Payer Phone Subscriber Number Group Number Insured Name Patient Relationship to Insured Coverage Start Date Coverage End Date [employer] [address] [address] [place], [place] [id number] Feli Smith Self - patient is the insured 3 3
--- OUTSIDE RECORDS SUMMARY | 2025-02-11 07:06 | XMS_ITS | CCD ---
Author Organization [facility] Care Team Providers Care Molder Floor Name Role Phone Juan Manuel Hernandez Unavailable Unavailable Juan Manuel Hernandez Unavailable Unavailable NONE, XXXX Unavailable Unavailable Colin Saunders Unavailable PAY ., DR MCGEE Attending Unavailable KUNAbilio, DR MELGAR Primary Care Unavailable PAY ., DR MCGEE Admitting Unavailable PAY ., DR MCGEE Consulting Unavailable HAY ., DR MARQUIS Admitting Unavailable HAY ., DR MARQUIS Consulting Unavailable HAY ., DR MARQUIS Attending Unavailable CHIP, DR MELGAR Primary Care Unavailable DO Colin Saunders Primary Care Provider DO Colin Saunders Attending Provider MD Obdulio Thomas Attending Provider [phone] Obdulio Thomas Unavailable DO Colin Saunders Primary Care Provider [phone] DO Colin Saunders Attending Provider [phone] DO Colin Saunders Primary Care Provider [phone] DO Colin Saunders Attending Provider Colin Saunders DO Primary Care Provider Colin Saunders DO Attending Provider [phone] Chip DOColin Primary Care Provider [phone] Colin Saunders DO Attending Provider [phone] Colin Saunders Admitting Unavailable Colin Saunders Primary Care Unavailable Colin Saunders Attending Unavailable Jose AlejandrosColin Primary Care Unavailable Colin Saunders Attending Unavailable KunsColin Admitting Unavailable KunsColin Admitting Unavailable KunsColin Primary Care Unavailable Colin Saunders Attending Unavailable Allergies Allergy Classification Reported Allergen(s) Allergy Type Date of Onset Reaction(s) Facility (20 sources) aspirin; Translations: [aspirin] Drug Allergy 02-13-20 13 vomiting [facility] Repository (19 sources) ibuprofen; Translations: [Motrin] Drug Allergy 02-13-20 13 vomiting [facility] Repository (1 source) probenecid; Translations: [Benemid] Drug Allergy [facility] Repository (19 sources) pseudoephedrine / triprolidine; Translations: [Actifed] Drug Allergy 02-13-20 13 [facility] Repository (2 sources) Darvocet-N 100; Translations: [Darvocet-N 100] Propensity to adverse reactions (disorder) 07-31-19 14 [facility] Repository (17 sources) Acetaminophen / oxyCODONE Drug Allergy vomiting [facility] Xochitl (So-Shee) [place] Other (20 sources) diphenhydrAMINE Drug Allergy 12-13-19 24 [facility] (18 sources) methylPREDNISolone Drug Allergy 12-13-[address] [facility] (20 sources) predniSONE; Translations: [prednisone] Drug Allergy 11-05-19 23 [facility] Repository (1 source) Acetaminophen / oxyCODONE Drug Allergy 03-29-20 13 [facility] Repository (1 source) diphenhydrAMINE Drug Allergy 02-13-20 13 [facility] Repository (5 sources) Ibuprofen; Translations: [ibuprofen] Drug Allergy 12-13-19 24 [facility] (5 sources) Pseudoephedrine; Translations: [pseudoephedrine] Drug Allergy 12-13-19 24 [facility] (5 sources) Triprolidine; Translations: [triprolidine] Drug Allergy 12-13-19 24 [facility] (1 source) diphenhydrAMINE Drug Allergy 09-20-[address] [facility] Repository (1 source) methylPREDNISolone Drug Allergy 12-13-[address] [facility] Repository Medications Current Medications Medication Drug Class(es) Dates Sig (Normalized) Sig (Original) [id number] 200 actuat albuterol 0.09 mg/actuat metered dose inhaler (20 sources) beta2-Adrenergic Agonist Start: 10-03-2023 Albuterol Sulfate 90 mcg/actuation HFA aerosol inhaler Active 1 PUFF INHALATION October 03, 2023 [...] as needed Inhalation every 6 hrs Active Albuterol-Budesonide (Airsup ra) 90-80 mcg/actuation HFA aerosol inhaler (3 sources) Start: 08-12-2024 Albuterol-[place] sonide (Airsupra) 90-80 mcg/actuation HFA aerosol inhaler Active 2 INH INHALATION Daily as needed August 12, 2024 1:00am Start: 08-12-2024 Albuterol-[place] sonide (Airsupra) 90-80 mcg/actuation HFA aerosol inhaler Active 2 INH INHALATION Daily as needed August 12, 2024 12:00am amLODIPine 5 mg oral tablet (8 sources) [...] Active cyclobenzaprine hydrochloride 10 mg oral tablet (9 sources) Muscle Relaxant Start: 09-19-2024 take 1 tablet by mouth twice daily as needed for muscle spasms Cyclobenzaprine 10 mg tablet Active 10 MG PO Twice daily as needed for muscle spasm 100 September 19, 2024 5:28pm Start: 12-13-2023 End: 09-19-2024 take 1 tablet by mouth twice daily as needed for muscle spasms Cyclobenzaprine 10 mg tablet Discontinued 10 MG PO Twice daily as needed for muscle spasm December 13, 2023 11:34am September 19, 2024 5:28pm meloxicam 15 mg oral tablet (3 sources) Nonsteroidal Anti-inflammatory Drug Start: 08-12-2024 End: 09-19-2024 take 1 tablet by mouth four times daily Meloxicam 15 mg tablet Discontinued 15 MG PO Four times daily August 12, 2024 1:00am September 19, 2024 5:04pm phentermine hydrochloride 37.5 mg oral tablet (8 [...] Active traMADol hydrochloride 50 mg oral tablet (20 sources) Opioid Agonist Start: 09-19-2024 take 1 tablet by mouth four times daily as needed Tramadol 50 mg tablet Active 50 MG PO Four times daily as needed September 19, 2024 5:04pm Start: 12-13-2023 End: 09-19-2024 take 1 tablet by mouth four times daily Tramadol 50 mg tablet Discontinued 50 MG PO Four times daily December 13, 2023 11:34am September 19, 2024 5:05pm Start: 10-03-2023 End: 10-09-2023 take 1 tablet by mouth four times daily Tramadol 50 mg tablet Discontinued 50 MG PO Four times daily October 03, 2023 12:00am October 09, 2023 9:29am Start: 01-05-2023 take 1 tablet by brett th four times daily as needed for pain [...] / oxyCODONE hydrochloride 5 mg oral tablet (20 sources) Opioid Agonist Start: 04-08-2024 End: 08-12-2024 take 1 tablet by mouth every four to six hours as needed for pain Oxycodone-Acetamino phen (Percocet) 5-325 mg tablet Discontinued 1 TAB PO EVERY 4-6 HOURS as needed for pain 10 02April 08, 2024 August 12, 2024 8:50am Start: 10-03-2023 End: 12-13-2023 take 1 tablet by mouth four times daily as needed for pain Oxycodone-Acetaminophen (Percocet) 5-325 mg tablet Discontinued 1 TAB PO Four times daily as needed for pain 10 02October 20, 2023 October 20, 2023 5:10pm alendronic acid 70 mg oral tablet (11 sources) Bisphosphonate Start: 10-20-2023 End: 08-12-2024 take 1 tablet by mouth every week Alendronate (Fosamax) 70 mg tablet Discontinued 70 MG PO every week January 12, 2024 10:47am August 12, 2024 9:38am azithromycin 250 mg oral tablet (7 sources) Macrolide Antimicrobial Start: 09-01-2023 End: 10-09-2023 Azithromycin (Zithromax Z-Oz) 250 mg tablet Discontinued 0 PO .COMPLEX September 01, 2023 1:00am October 09, 2023 9:28am For 250 mg dose pack: take 500 mg today (day 1), then 250 mg for 4 days (days 2-5) PO Start: 04-14-2022 Zithromax Z-Pa k 250 MG as directed Orally Mar, Active benzonatate 200 mg oral capsule (6 sources) Non-narcotic Antitussive Start: 06-05-2024 End: 08-12-2024 take 1 capsule by mouth twice daily as needed for cough Benzonatate 200 mg capsule Discontinued 200 MG PO Twice daily as needed for cough June 26, 2024 12:31pm August 12, 2024 8:48am betamethasone 1 mg/ml topical cream (4 sources) Corticosteroid Start: 11-24-2023 End: 12-13-2023 Betamethasone Valerate 0.1 % cream Discontinued 1 APPLIC TOPICAL Three times daily as needed for rash November 24, 2023 12:00am December 13, 2023 11:21am cephalexin 500 mg oral capsule (6 sources) Cephalosporin Antibacterial Start: 06-05-2024 End: 08-12-2024 take 1 capsule by mouth three times daily Cephalexin 500 mg capsule Discontinued 500 MG PO Three times daily 15 05June 26, 2024 12:32pm August 12, 2024 8:48am clotrimazole 10 mg oral lozenge (18 sources) Azole Antifungal Start: 10-03-2023 End: 12-13-2023 Clotrimazole 10 mg hayden Discontinued MG PO October 03, 2023 12:00am December 13, 2023 11:21am FreeTextSi hayden while on immunosuppressive medicine Mouth/Throat Four times a day; Note: Source Status: Taking; Refills: 0; Provider: Chip Knott Start: 12-05-2022 Clotrimazole 1 0 MG 1 hayden while on immunosuppressive medicine Mouth/Throat Four times a day November, Active diclofenac sodium 0.01 mg/mg topical gel (6 sources) Nonsteroidal Anti-inflammatory Drug Start: 10-03-2023 End: 10-09-2023 Diclofenac Sodium 1 % gel Discontinued 2 GM TOPICAL As Directed October 03, 2023 12:00am October 09, 2023 9:28am FreeTextSig: as directed Externally; Note: Source Status: Start; Provider: Chip Knott Start: 10-03-2023 End: 10-09-2023 Diclofenac Sodium Discontinu ed 2 GM TOPICAL As Directed October 03, 2023 12:00am October 09, 2023 9:28am FreeTextSig: as directed Externally; Note: Source Status: Start; Provider: Chip Knott Start: 05-09-2023 Diclofenac Sod ium 1 % as directed Externally Apr, Active Iqeqvgdyclu-Wsncnxkec-Xdwtyq er (8 sources) Anticholinergic, Corticosteroid, beta2-Adrenergic Agonist Start: 10-09-2023 End: 11-24-2023 Jhfqbsloblv-Jvdqyrsrs-Bgjacv er (Trelegy Ellipta) 100-62.5-25 mcg blister with device Discontinued 1 INH INHALATION Daily October 09, 2023 9:05am November 24, 2023 8:18am Sample provided Start: 10-09-2023 End: 11-24-2023 Lxjthcyjjfd-Ljsewxafe-Phskih er (Trelegy Ellipta) 100-62.5-25 mcg blister with device Discontinued 1 INH INHALATION Daily October 09, 2023 10:05am November 24, 2023 9:18am Sample provided Start: 10-03-2023 End: 10-09-2023 Cxyswolsdok-Ixxnecmrf-Khhsqi er (Trelegy Ellipta) 100-62.5-25 mcg blister with device Discontinued 1 INH INHALATION Daily October 02, 2023 11:00pm October 09, 2023 9:16am Start: 10-03-2023 End: 10-09-2023 Ucvlzhpdgox-Jmxsodkgp-Bzkrni er (Trelegy Ellipta) 100-62.5-25 mcg blister with device Discontinued 1 INH INHALATION Daily October 03, 2023 12:00am October 09, 2023 10:16am 30 actuat fluticasone furoate 0.1 mg/actuat / vilanterol 0.025 mg/actuat dry powder inhaler (4 sources) Corticosteroid, beta2-Adrenergic Agonist Start: 11-24-2023 End: 08-12-2024 Fluticasone Furoate-Vilanterol (Breo Ellipta) 100-25 mcg/dose blister with device Discontinued 1 INH INHALATION Daily November 24, 2023 12:00am August 12, 2024 8:50am levoFLOXacin 750 mg oral tablet (4 sources) Quinolone Antimicrobial Start: 09-13-2023 End: 10-09-2023 take 1 tablet by mouth once daily Levofloxacin 750 mg tablet Discontinued 750 MG PO Daily September 13, 2023 1:00am October 09, 2023 9:29am methylPREDNISolone 4 mg oral tablet (3 sources) Corticosteroid Start: 06-05-2024 End: 08-12-2024 Methylprednisolone 4 mg tablets,dose pack Discontinued 0 PO per package directions June 05, 2024 1:00am August 12, 2024 8:50am PO PER PKG DIR olmesartan medoxomil 20 mg oral tablet (20 sources) Angiotensin 2 Receptor Quirino Start: 03-21-2024 End: 03-22-2024 take 1 tablet by mouth once daily Olmesartan 20 mg tablet Discontinued 20 MG PO Daily March 22, 2024 7:35am March 22, 2024 10:18am Start: 01-12-2024 End: 03-21-2024 take 1 tablet by mouth once daily Olmesartan 40 mg tablet Discontinued 40 MG PO Daily January 12, 2024 12:00am March 21, 2024 11:51am Start: 10-09-2023 End: 03-21-2024 take 1 tablet by mouth once daily Olmesartan 5 mg tablet Discontinued 5 MG PO Daily October 09, 2023 12:00am March 21, 2024 11:51am Start: 10-03-2023 End: 10-09-2023 take 1 tablet by mouth once daily Olmesartan 40 mg tablet Discontinued 1 TAB PO Daily October 03, [...] a day for 90 days November, Active Problems Active Problems Problem Classification Problem Date Documented Date Episodic/Chronic Asthma (20 sources) Reactive airway disease; Translations: [Unspecified asthma, uncomplicated] Chronic Disorders of lipid metabolism (20 sources) Hyperlipidemia; Translations: [Hyperlipidemia, unspecified] Onset: 06-28-2024 4 Chronic Disorders of teeth and jaw (1 source) Dental caries, unspecified Episodic Essential hypertension (20 sources) Essential (primary) hypertension; Translations: [Essential hypertension] Onset: 11-21-2022 Chronic Fever of unknown origin (1 source) Fever, unspecified Episodic Headache; including migraine (4 sources) Headache; Translations: [Headache] 01-12-2024 Episodic Lymphadenitis (1 source) Localized enlarged lymph nodes; Translations: [LOCALIZED ENLARGED LYMPH NODES] Onset: 11-07-2022 Episodic Nutritional deficiencies (5 sources) Vitamin D deficiency; Translations: [Vitamin D deficiency, unspecified] Onset: 06-28-2024 10-09-2023 Chronic Other aftercare (1 source) Other intermediate accountant (current) drug therapy; Translations: [OTH SENIOR CARE CURRENT DRUG THERAPY] Onset: 11-23-2022 Episodic Other bone disease and musculoskeletal deformities (4 sources) Disorder of bone, unspecified; Translations: [Bone lesion] 10-09-2023 Episodic Other circulatory disease (14 sources) Elevated blood-pressure reading without diagnosis of hypertension; Translations: [Elevated blood-pressure reading, without diagnosis of hypertension] Episodic Other connective tissue disease (14 sources) Tendonitis of right wrist; Translations: [Other enthesopathies, not elsewhere classified] Episodic Other connective tissue disease (1 source) Pain in right foot Episodic Other connective tissue disease (4 sources) Pain in left arm; Translations: [Pain in left arm] 03-22-2024 Episodic Other fractures (4 sources) Compression fracture of thoracic spine; Translations: [Wedge compression fracture of T7-T8 vertebra, initial encounter for closed fracture] 11-24-2023 Episodic Other fractures (4 sources) Fracture of sixth thoracic vertebra; Translations: [Wedge compression fracture of T5-T6 vertebra, initial encounter for closed fracture] 11-24-2023 Episodic Other fractures (4 sources) Wedge fracture of lumbar vertebra; Translations: [Wedge compression fracture of fourth lumbar vertebra, subsequent encounter for fracture with routine healing] 11-24-2023 Episodic Other lower respiratory disease (5 sources) Cough; Translations: [Acute cough] 06-14-2024 Episodic Other non-traumatic joint disorders (1 source) Pain in right ankle and joints of right foot Episodic Other non-traumatic joint disorders (1 source) Effusion, left knee Episodic Other non-traumatic joint disorders (1 source) Pain in left knee Episodic Other nutritional; endocrine; and metabolic disorders (20 sources) Obesity; Translations: [Obesity, unspecified] 09-29-2023 Chronic [...] mass index (BMI) 25.0-25.9, adult Episodic Other nutritional; endocrine; and metabolic disorders (3 sources) Overweight; Translations: [Overweight] 08-12-2024 Episodic Other screening for suspected conditions (not mental disorders or infectious disease) (10 sources) Encounter for other screening for malignant neoplasm of breast; Translations: [Encounter for screening mammogram for malignant neoplasm of breast] Episodic Comment on above: 12/19/2023 Other upper respiratory disease (1 source) Other specified disorders of nose and nasal sinuses; Translations: [OTH SPEC D/O NOSE NASAL SINUSES] Onset: 11-07-2022 Episodic Other upper respiratory infections (16 sources) Pain in throat; Translations: [Acute pharyngitis, unspecified] 06-14-2024 Episodic Residual codes; unclassified (17 sources) Family history of malignant neoplasm of gastrointestinal tract; Translations: [Family history of malignant neoplasm of digestive organs] Episodic Residual codes; unclassified (1 source) Acquired absence of both cervix and uterus; Translations: [ACQUIRED ABSENCE BOTH CERVIX AND UTERUS] Onset: 11-23-2022 Episodic Residual codes; unclassified (4 sources) H/O Spinal surgery; Translations: [Other specified postprocedural states] 12-13-2023 Episodic Comment on above: L4 kyphoplasty [facility] Residual codes; unclassified (4 sources) History of hernia repair; Translations: [Other specified postprocedural states] 09-29-2023 Episodic Residual codes; unclassified (1 source) Postoperative state; Translations: [Other specified postprocedural states] 09-19-2024 Episodic Residual codes; unclassified (1 source) Other specified postprocedural states; Translations: [Other postprocedural status] 09-19-2024 Episodic Spondylosis; intervertebral disc disorders; other back problems (11 sources) Cervicalgia; Translations: [Spinal stenosis, cervical region] Onset: 11-04-2022 Episodic Sprains and strains (19 sources) Sprain of ankle grade III; Translations: [Sprain of unspecified ligament of unspecified ankle, initial encounter] Episodic Past or Other Problems Problem Classification Problem Date Documented Da te Episodic/Chronic Other connective tissue disease (1 source) Pain in left arm; Translations: [Pain in left arm] Onset: 04-17-2024 Episodic Results Test Name Value Interpretation Reference Range Facility Basophils Auto (Bld) [#/Vol] Ordered By: Colin Saunders on 08-12-2024 Basophils (Bld) [#/Vol] Automated basophil count 0.0-0.2 [facility] Basophils/100 WBC Auto (Bld) Ordered By: Colin Saunders on 08-12-2024 Basophils/100 WBC (Bld) Automated basophil % . [facility] Complete Blood Count Auto Di ffon 08-12-2024 Basophils (Bld) [#/Vol] 0.1 10*3/uL Normal 0.0-0.2 [facility] Comment on above: Result Comment: PERF ORMED BY: [place] [id number] PATHOLOGIST OXYHYDROGEN WELDER JE MOBLEY M.D. Performed By: #### C BC #### [address] Basophils/100 WBC (Bld) 0.8 % Normal . [facility] Comment on above: Performed By: #### C BC #### [place] [address] [place] Eosinophils (Bld) [#/Vol] 0.3 10*3/uL Normal 0.0-0.45 [facility] Comment on above: Performed By: #### C BC #### [address] Eosinophils/100 WBC (Bld) 2.4 % Normal . [facility] Comment on above: Performed By: #### C BC #### [address] Erythrocyte distribution width (RBC) [Ratio] 14.0 % Normal 11.9-15.3 [facility] Comment on above: Performed By: #### C BC #### [address] Hematocrit (Bld) [Volume fraction] 39.9 % Normal 34.0-46.4 [facility] Comment on above: Performed By: #### C BC #### [address] Hemoglobin (Bld) [Mass/Vol] 13.2 g/dL Normal 11.8-15.4 [facility] Comment on above: Performed By: #### C BC #### [address] Lymphocytes (Bld) [#/Vol] 4.3 10*3/uL Normal 1.00-4.8 [facility] Comment on above: Performed By: #### C BC #### [address] Lymphocytes/100 WBC (Bld) 40.3 % Normal . [facility] Comment on above: Performed By: #### C BC #### [address] MCH (RBC) [Entitic mass] 29.7 pg Normal 24.7-34.3 [facility] Comment on above: Performed By: #### C BC #### [address] MCV (RBC) [Entitic vol] 90.1 fL Normal 80-100 [facility] Comment on above: Performed By: #### C BC #### [facility] [address] Mean Corpuscular HGB Conc 33.0 g/dL Normal 32.0-35.0 [facility] Comment on above: Performed By: #### C BC #### [address] Monocytes (Bld) [#/Vol] 0.6 10*3/uL Normal 0.0-0.8 [facility] Comment on above: Performed By: #### C BC #### [place] [address] [place] Monocytes/100 WBC (Bld) 5.9 % Normal . [facility] Comment on above: Performed By: #### C BC #### [place] [address] [place] Neutrophils (Bld) [#/Vol] 5.3 10*3/uL Normal 1.8-7.7 [facility] Comment on above: Performed By: #### C BC #### [place] [address] [place] Neutrophils/100 WBC (Bld) 50.6 % Normal . [facility] Comment on above: Performed By: #### C BC #### [address] NRBC% 0.1 /100{WBC} Normal 0-0.5 [facility] Comment on above: Performed By: #### C BC #### [place] [address] [place] Platelet mean volume (Bld) [Entitic vol] 8.5 fL Normal 6.3-10.7 [facility] Comment on above: Performed By: #### C BC #### [place] [address] [place] Platelets (Bld) [#/Vol] 334 10*3/uL Normal 150-450 [facility] Comment on above: Performed By: #### C BC #### [address] [address] [place] RBC (Bld) [#/Vol] 4.43 10*6/uL Normal 3.60-5.00 [facility] Comment on above: Performed By: #### C BC #### [facility] [address] WBC (Bld) [#/Vol] 10.6 10*3/uL Normal 3.8-11.6 [facility] Comment on above: Performed By: #### C BC #### [facility] [address] Eosinophils Auto (Bld) [#/Vo l]Ordered By: Colin Saunders on 08-12-2024 Eosinophils (Bld) [#/Vol] Automated eosinophil count 0.0-0.45 [facility] Eosinophils/100 WBC Auto (Bl d)Ordered By: Colin Saunders on 08-12-2024 Eosinophils/100 WBC (Bld) Automated eosinophil % . [facility] Erythrocyte distribution wid th Auto (RBC) [Ratio]Ordered By: Colin Saunders on 08-12-2024 Erythrocyte distribution width (RBC) [Ratio] Erythrocyte distribution width [Ratio] by Automated count 11.9-15.[address] [facility] Hematocrit Auto (Bld) [Volum e fraction]Ordered By: Colin Saunders on 08-12-2024 Hematocrit (Bld) [Volume fraction] Hematocrit [Volume Fraction] of Blood by Automated count 34.0-46.[address] [facility] Hemoglobin [Mass/volume] in BloodOrdered By: Colin Saunders on 08-12-2024 Hemoglobin (Bld) [Mass/Vol] Hemoglobin [Mass/volume] in Blood 11.8-15.[address] [facility] Leukocytes [#/volume] correc james for nucleated erythrocytes in Blood by Automated counOrdered By: Colin Saunders on 08-12-2024 WBC corrected for nucl RBC Auto (Bld) [#/Vol] Leukocytes [#/volume] corrected for nucleated erythrocytes in Blood by Automated coun 3.8-11.[address] [facility] Lymphocytes Auto (Bld) [#/Vo l]Ordered By: Colin Saunders on 08-12-2024 Lymphocytes (Bld) [#/Vol] Lymphocytes [#/volume] in Blood by Automated count 1.00-4.[address] [facility] Lymphocytes/100 WBC Auto (Bl d)Ordered By: Colin Saunders on 08-12-2024 Lymphocytes/100 WBC (Bld) Lymphocytes/100 leukocytes in Blood by Automated count . [facility] MCH Auto (RBC) [Entitic mass ]Ordered By: Colin Saunders on 08-12-2024 MCH (RBC) [Entitic mass] MCH [Entitic mass] by Automated count 24.7-34.[address] [facility] MCHC Auto (RBC) [Mass/Vol]Or dered By: Colin Saunders on 08-12-2024 MCHC (RBC) [Mass/Vol] MCHC [Mass/volume] by Automated count 32.0-35.[address] [facility] MCV Auto (RBC) [Entitic vol] Ordered By: Colin Saunders on 08-12-2024 MCV (RBC) [Entitic vol] MCV [Entitic volume] by Automated count 80-[address] [facility] Monocytes Auto (Bld) [#/Vol] Ordered By: Colin Saunders on 08-12-2024 Monocytes (Bld) [#/Vol] Automated blood monocyte count 0.0-0.[address] [facility] Monocytes/100 WBC Auto (Bld) Ordered By: Colin Saunders on 08-12-2024 Monocytes/100 WBC (Bld) Automated monocyte % . [facility] Neutrophils Auto (Bld) [#/Vo l]Ordered By: Colin Saunders on 08-12-2024 Neutrophils (Bld) [#/Vol] Neutrophils [#/volume] in Blood by Automated count 1.8-7.[address] [facility] Neutrophils/100 WBC Auto (Bl d)Ordered By: Colin Saunders on 08-12-2024 Neutrophils/100 WBC (Bld) Automated neutrophil % . [facility] Nucleated erythrocytes [Pres ence] in Blood by Automated countOrdered By: Colin Saunders on 08-12-2024 Nucleated RBC Auto Ql (Bld) Nucleated erythrocytes [Presence] in Blood by Automated count 0-0.[address] [facility] Platelet mean volume Auto (B ld) [Entitic vol]Ordered By: Colin Saunders on 08-12-2024 Platelet mean volume (Bld) [Entitic vol] Platelet mean volume [Entitic volume] in Blood by Automated count 6.3-10.[address] [facility] Platelets Auto (Bld) [#/Vol] Ordered By: Colin Saunders on 08-12-2024 Platelets (Bld) [#/Vol] Platelets [#/volume] in Blood by Automated count 150-[address] [facility] RBC Auto (Bld) [#/Vol]Ordere d By: Colin Saunders on 08-12-2024 RBC (Bld) [#/Vol] Erythrocytes [#/volu me] in Blood by Automated count 3.60-5.[address] [facility] WBC Auto (Bld) [#/Vol]Ordere d By: Colin Saunders on 08-12-2024 WBC (Bld) [#/Vol] Leukocytes [#/volume ] in Blood by Automated count 3.8-11.[address] [facility] Activated partial thrombopla stin time (aPTT) in platelet poor plasma by coagulation aon 08-06-2024 aPTT Coag (PPP) [Time] Activated partial thromboplastin time (aPTT) in platelet poor plasma by coagulation a 22.3-36.[address] [facility] Estimated glomerular filtrat ion rate (GFR) non- Americanon 08-06-2024 GFR/1.73 sq M.predicted among non-blacks MDRD (S/P/Bld) [Vol rate/Area] Estimated glomerular filtration rate (GFR) non- >=60 mL/min/1.7 3m [address] [facility] INR in Platelet poor plasma by Coagulation assayon 08-06-2024 INR Coag (PPP) [Relative time] INR in Platelet poor plasma by Coagulation assay [facility] Comment on above: DESIRED INR:2.0-3.0 CONDITIONS NOT LISTED BELOW2.5-3.5 FOR PROSTHETIC HEART VALVE REPLACEMENT2.5-3.5 RECURRENT THROMBOSIS Laboratory - Chemistry and C hemistry - challengeon 08-06-2024 Calcium [Mass/Vol] 8.9 mg/dL 8.5-10.1 [facility] Chloride [Moles/Vol] 107 mmol/L 98-107 [facility] CO2 [Moles/Vol] 29.5 mmol/L 21.0-32.0 [facility] Creatinine [Mass/Vol] 0.86 mg/dL 0.55-1.02 [facility] GFR/1.73 sq M.predicted MDRD (S/P/Bld) [Vol rate/Area] mL/min/{1.73_m2} >=60 mL/min/1.7 [address]m [address] [facility] Glucose [Mass/Vol] 96 mg/dL 74-106 [facility] Potassium [Moles/Vol] 4.2 mmol/L 3.5-5.1 [facility] Sodium [Moles/Vol] 143 mmol/L 136-145 [facility] Urea nitrogen [Mass/Vol] 17.0 mg/dL 7.0-18.[address] [facility] Urea nitrogen/Creatinine [Mass ratio] 19.8 mg/mg [facility] Prothrombin time (PT)on 07-18 PT Coag (PPP) [Time] Prothrombin time (PT) 9.0- 11.[address] [facility] Serum or plasma anion gap de terminationon 08-06-2024 Anion gap [Moles/Vol] Serum or plasma an ion gap determination [facility] Alanine aminotransferase [En zymatic activity/volume] in Serum or PlasmaOrdered By: Colin Saunders on 06-28-2024 ALT [Catalytic activity/Vol] Alanine aminotransferase [Enzymatic activity/volume] in Serum or Plasma 7-[address] [facility] Albumin [Mass/volume] in Ser um or Plasma by Bromocresol green (BCG) dye binding methoOrdered By: Colin Saunders on 06-28-2024 Albumin BCG dye [Mass/Vol] Albumin [Mass/volume] in Serum or Plasma by Bromocresol green (BCG) dye binding metho 3.5-5.[address] [facility] Alkaline phosphatase [Enzyma tic activity/volume] in Serum or PlasmaOrdered By: Colin Saunders on 06-28-2024 ALP [Catalytic activity/Vol] Alkaline phosphatase [Enzymatic activity/volume] in Serum or Plasma 34-[address] [facility] Aspartate aminotransferase [ Enzymatic activity/volume] in Serum or PlasmaOrdered By: Colin Saunders on 06-28-2024 AST [Catalytic activity/Vol] Aspartate aminotransferase [Enzymatic activity/volume] in Serum or Plasma 13-[address] [facility] Bilirubin.total [Mass/volume ] in Serum or PlasmaOrdered By: Colin Saunders on 06-28-2024 Bilirubin [Mass/Vol] Bilirubin.total [Mass/volume] in Serum or Plasma 0.3-1.[address] [facility] Calcium [Mass/volume] in Ser um or PlasmaOrdered By: Colin Saunders on 06-28-2024 Calcium [Mass/Vol] Calcium [Mass/volume ] in Serum or Plasma 8.6-10.[address] [facility] Carbon dioxide, total [Moles /volume] in Serum or PlasmaOrdered By: Colin Saunders on 06-28-2024 CO2 [Moles/Vol] Carbon dioxide, tota l [Moles/volume] in Serum or Plasma High 21.0-31.[address] [facility] Chloride [Moles/volume] in S lily or PlasmaOrdered By: Colin Saunders on 06-28-2024 Chloride [Moles/Vol] Chloride [Moles/vol ume] in Serum or Plasma 98-[address] [facility] Cholesterol [Mass/volume] in Serum or PlasmaOrdered By: Colin Saunders on 06-28-2024 Cholesterol [Mass/Vol] Cholesterol [Mass/volume] in Serum or Plasma High 140-[address] [facility] Comment on above: Chol less than 200 m g/dl low riskChol 201-239 mg/dl borderline riskChol 240 mg/dl and greater high risk Cholesterol in HDL [Mass/vol ume] in Serum or PlasmaOrdered By: Colin Saunders on 06-28-2024 Cholesterol in HDL [Mass/Vol] Serum or plasma high density lipoprotein (HDL) cholesterol measurement 23-[address] [facility] Comment on above: HDL CHOL ATP-III CLA SSIFICATION Cardiovascular RiskHDL > or equal to 60 mg/dL LOWHDL < 40 mg/dL HIGH Cholesterol in LDL Calc [Mas s/Vol]Ordered By: Colin Saunders on 06-28-2024 Cholesterol in LDL [Mass/Vol] Cholesterol in LDL [Mass/volume] in Serum or Plasma by calculation High 0-[address] [facility] Comment on above: LDL ATP III CLASSIFI CATIONLDL less than 100 mg/dL OptimalLDL 100-129 mg/dL Near or above optimalLDL 130-159 mg/dL Borderline highLDL 160-189 mg/dL HighLDL greater than 189 mg/dL Very high Cholesterol in VLDL Calc [Ma ss/Vol]Ordered By: Colin Saunders on 06-28-2024 Cholesterol in VLDL [Mass/Vol] Cholesterol in VLDL [Mass/volume] in Serum or Plasma by calculation [facility] Comprehensive Metabolic Pane karl 06-28-2024 Albumin [Mass/Vol] 3.9 g/dL Normal 3.5-5.7 [facility] Comment on above: Performed By: #### C MP, LIPID, [id number] #### [address] Albumin/Globulin [Mass ratio] 1.6 {ratio} Normal [facility] Comment on above: Performed By: #### C MP, LIPID, [id number] #### [address] ALP [Catalytic activity/Vol] 60 U/L Normal 34-104 [facility] Comment on above: Performed By: #### C MP, LIPID, [id number] #### [address] ALT [Catalytic activity/Vol] 18 U/L Normal 7-52 [facility] Comment on above: Performed By: #### C MP, LIPID, [id number] #### [address] Anion gap [Moles/Vol] 9.2 mmol/L Normal 6.0-15.0 [facility] Comment on above: Performed By: #### C MP, LIPID, [id number] #### [address] AST [Catalytic activity/Vol] 15 U/L Normal 13-39 [facility] Comment on above: Performed By: #### C MP, LIPID, [id number] #### [place] [address] [place] Bilirubin [Mass/Vol] 0.5 mg/dL Normal 0.3-1.0 [facility] Comment on above: Performed By: #### C MP, LIPID, [id number] #### [address] Calcium [Mass/Vol] 9.5 mg/dL Normal 8.6-10.3 [facility] Comment on above: Performed By: #### C MP, LIPID, [id number] #### [address] Chloride [Moles/Vol] 105 mmol/L Normal 98-107 [facility] Comment on above: Performed By: #### C MP, LIPID, [id number] #### [address] CO2 [Moles/Vol] 31.2 mmol/L High 21.0-31.0 [facility] Comment on above: Performed By: #### C MP, LIPID, [id number] #### [address] Creatinine [Mass/Vol] 0.79 mg/dL Normal 0.60-1.20 [facility] Comment on above: Performed By: #### C MP, LIPID, [id number] #### [address] GFR/1.73 sq M.predicted MDRD (S/P/Bld) [Vol rate/Area] mL/min/{1.73_m2} Normal [facility] Comment on above: Performed By: #### C MP, LIPID, [id number] #### [place] [address] [place] Globulin (S) [Mass/Vol] 2.5 g/dL Normal [facility] Comment on above: Performed By: #### C MP, LIPID, [id number] #### [address] Glucose [Mass/Vol] 92 mg/dL Normal 70-100 [facility] Comment on above: Result Comment: [facility] Glucose Reference Range is dependent on time and content of last meal. Glucose of more than 200 mg/dL in a nonstressed, ambulatory subject supports the diagnosis of Diabetes Mellitus. ADA recommended reference range Performed By: #### C MP, LIPID, [id number] #### [facility] [address] Potassium [Moles/Vol] 4.4 mmol/L Normal 3.5-5.1 [facility] Comment on above: Performed By: #### C MP, LIPID, [id number] #### [address] Protein [Mass/Vol] 6.4 g/dL Normal 6.4-8.9 [facility] Comment on above: Performed By: #### C MP, LIPID, [id number] #### [address] Sodium [Moles/Vol] 141 mmol/L Normal 136-145 [facility] Comment on above: Performed By: #### C MP, LIPID, [id number] #### [place] [address] [place] Urea nitrogen [Mass/Vol] 17 mg/dL Normal 7-25 [facility] Comment on above: Performed By: #### C MP, LIPID, [id number] #### [address] Creatinine [Mass/volume] in Serum or PlasmaOrdered By: Colin Saunders on 06-28-2024 Creatinine [Mass/Vol] Creatinine [Mass/v olume] in Serum or Plasma 0.60-1.[address] [facility] Globulin Calc (S) [Mass/Vol] Ordered By: Colin Saunders on 06-28-2024 Globulin (S) [Mass/Vol] Serum globulin measurement by calculation (mass/volume) [facility] Glucose [Mass/volume] in Ser um or PlasmaOrdered By: Colin Saunders on 06-28-2024 Glucose [Mass/Vol] Glucose [Mass/volume ] in Serum or Plasma 70-[address] [facility] Comment on above: ADA recommended refe rence rangeRandom Glucose Reference Range is dependent on time and content of last meal. Glucose of more than 200 mg/dL in a nonstressed, ambulatory subject supports the diagnosis of Diabetes Mellitus. Lipid Panelon 06-28-2024 Cholesterol [Mass/Vol] 219 mg/dL High 140-200 [facility] Comment on above: Result Comment: Chol less than 200 mg/dl low risk Chol 201-239 mg/dl borderline risk Chol 240 mg/dl and greater high risk Performed By: #### C MP, LIPID, [id number] #### [facility] [address] Cholesterol in HDL [Mass/Vol] 37 mg/dL Normal 23-92 [facility] Comment on above: Result Comment: HDL CHOL ATP-III CLASSIFICATION Cardiovascular Risk HDL > or equal to 60 mg/dL LOW HDL < 40 mg/dL HIGH Performed By: #### C MP, LIPID, [id number] #### [facility] [address] Cholesterol.total/Cho lesterol in HDL [Mass ratio] 5.9 {ratio} Normal <5.0 [facility] Comment on above: Performed By: #### C MP, LIPID, [id number] #### [facility] [address] [place] [id number] [place] LDL Cholesterol,Calculate d 126 mg/dL High 0-100 [facility] Comment on above: Result Comment: LDL ATP III CLASSIFICATION LDL less than 100 mg/dL Optimal LDL 100-129 mg/dL Near or above optimal LDL 130-159 mg/dL Borderline high LDL 160-189 mg/dL High LDL greater than 189 mg/dL Very high Performed By: #### C MP, LIPID, [id number] #### [facility] [address] [place] [id number] [place] Triglyceride w/Reflex 282 mg/dL High 0-149 [facility] Comment on above: Result Comment: TRIG ATP III CLASSIFICATION TRIG less than 150 mg/dL Normal TRIG 150-199 mg/dL Borderline high TRIG 200-500 mg/dL High TRIG greater than 500 mg/dL Very high Standard traceable to the Center for Disease Conrtrol and Prevention (CDC) test method. Performed By: #### C MP, LIPID, [id number] #### [facility] [address] VLDL CHOLESTEROL 56 mg/dL Normal [facility] Comment on above: Performed By: #### C MP, LIPID, [id number] #### [facility] [address] No Panel InformationOrdered By: Colin Saunders on 06-28-2024 Estimated GFR (CKD-EPI) > 60.0 mL/Min [facility] Creatinine Clearance (Chem N/A [facility] Potassium [Moles/volume] in Serum or PlasmaOrdered By: Colin Saunders on 06-28-2024 Potassium [Moles/Vol] Potassium [Moles/v olume] in Serum or Plasma 3.5-5.[address] [facility] Protein [Mass/volume] in Ser um or PlasmaOrdered By: Colin Saunders on 06-28-2024 Protein [Mass/Vol] Protein [Mass/volume ] in Serum or Plasma 6.4-8.[address] [facility] Serum or plasma albumin/glob ulin mass ratioOrdered By: Colin Saunders on 06-28-2024 Albumin/Globulin [Mass ratio] Serum or plasma albumin/globulin mass ratio [facility] Serum or plasma anion gap de terminationOrdered By: Colin Saunders on 06-28-2024 Anion gap [Moles/Vol] Serum or plasma an ion gap determination 6.0-15.[address] [facility] Serum or plasma total choles terol/high density lipoprotein (HDL) cholesterol mass ratOrdered By: Colin Saunders on 06-28-2024 Cholesterol.total/Cho lesterol in HDL [Mass ratio] Serum or plasma total cholesterol/high density lipoprotein (HDL) cholesterol mass rat <5.[address] [facility] Sodium [Moles/volume] in Ser um or PlasmaOrdered By: Colin Saunders on 06-28-2024 Sodium [Moles/Vol] Sodium [Moles/volume ] in Serum or Plasma 136-[address] [facility] Triglyceride [Mass/volume] i n Serum or PlasmaOrdered By: Colin Saunders on 06-28-2024 Triglyceride [Mass/Vol] Triglyceride [Mass/volume] in Serum or Plasma High 0-[address] [facility] Comment on above: TRIG ATP III CLASSIF ICATIONTRIG less than 150 mg/dL NormalTRIG 150-199 mg/dL Borderline highTRIG 200-500 mg/dL High TRIG greater than 500 mg/dL Very highStandard traceable to the Center for Disease Conrtrol and Prevention (CDC) test method. Urea nitrogen [Mass/volume] in Serum or PlasmaOrdered By: Colin Saunders on 06-28-2024 Urea nitrogen [Mass/Vol] Urea nitrogen [Mass/volume] in Serum or Plasma 7-[address] [facility] Vitamin D 25 Hydroxy Totalon 06-28-2024 Vitamin D 25 Hydroxy Total 20.0 ng/mL Low 30-100 [facility] Comment on above: Result Comment: ASHWINI MIN D STATUS 25(OH)VITAMIN D RANGE (ng/mL) Deficient <20 Insufficient 20 to <30 Sufficient 30 to 100 Reference: Lucy Neri, Molina MARTINEZ, et al. Evaluation,treatment, and prevention of vitamin D deficiency; an Endocrine Society clinical practice guideline. JCEM. 2010; 96(7):191-. PERFORMED BY: [place] [address] PATHOLOGIST OXYHYDROGEN WELDER JE MOBLEY M.D. Performed By: #### C MP, LIPID, [id number] #### [address] Vitamin D+Metabolites [Mass/ volume] in Serum or PlasmaOrdered By: Colin Saunders on 06-28-2024 Vitamin D+Metabolites [Mass/Vol] Vitamin D+Metabolites [Mass/volume] in Serum or Plasma Low 30-[address] [facility] Comment on above: VITAMIN D STATUS 25( OH)VITAMIN D RANGE (ng/mL) Deficient <20 Insufficient 20 to <30Sufficient 30 to 100Reference: Lucy Neri, Molina MARTINEZ, et al. Evaluation,treatment, and prevention of vitamin D deficiency; an Endocrine Society clinical practice guideline. JCEM. 2010; 96(7):1911-30. Influenza virus B Ag [Presen ce] in Upper respiratory specimen by Rapid immunoassayon 06-05-2024 FLUBV Ag IA.rapid Ql (Nph) Influenza virus B Ag [Presence] in Upper respiratory specimen by Rapid immunoassay [facility] No Panel Informationon 06-05 Influenza Type A (Rapid) Negative [facility] POC SARS CoV-2 Antigen Negative [facility] No Panel InformationOrdered By: Colin Saunders on 06-05-2024 Quick Strep (POC) [facility] RSV (POC) [facility] Alanine aminotransferase [En zymatic activity/volume] in Serum or PlasmaOrdered By: Colin Suanders on 11-29-2022 ALT [Catalytic activity/Vol] 10 U/L 7-[address] [facility] Albumin [Mass/volume] in Ser um or Plasma by Bromocresol green (BCG) dye binding methoOrdered By: Colin Saunders on 11-29-2022 Albumin BCG dye [Mass/Vol] 4.2 g/dL 3.5-5.[address] [facility] Alkaline phosphatase [Enzyma tic activity/volume] in Serum or PlasmaOrdered By: Colin Saunders on 11-29-2022 ALP [Catalytic activity/Vol] 66 U/L 34-[address] [facility] Aspartate aminotransferase [ Enzymatic activity/volume] in Serum or PlasmaOrdered By: Colin Saunders on 11-29-2022 AST [Catalytic activity/Vol] 14 U/L 13-[address] [facility] Basophils Auto (Bld) [#/Vol] Ordered By: Colin Saunders on 11-29-2022 Basophils (Bld) [#/Vol] 0.1 10*3/uL 0.0-0.[address] [facility] Basophils/100 WBC Auto (Bld) Ordered By: Colin Saunders on 11-29-2022 Basophils/100 WBC (Bld) 0.8 % . [facility] Bilirubin.total [Mass/volume ] in Serum or PlasmaOrdered By: Colin Saunders on 11-29-2022 Bilirubin [Mass/Vol] 0.7 mg/dL 0.3-1.0 [facility] Calcium [Mass/volume] in Ser um or PlasmaOrdered By: Colin Saunders on 11-29-2022 Calcium [Mass/Vol] 9.3 mg/dL 8.6-10.3 [facility] Carbon dioxide, total [Moles /volume] in Serum or PlasmaOrdered By: Colin Saunders on 11-29-2022 CO2 [Moles/Vol] 26.7 mmol/L 21.0-31.0 [facility] Chloride [Moles/volume] in S lily or PlasmaOrdered By: Colin Saunders on 11-29-2022 Chloride [Moles/Vol] 106 mmol/L 98-107 [facility] Cholesterol [Mass/volume] in Serum or PlasmaOrdered By: Colin Saunders on 11-29-2022 Cholesterol [Mass/Vol] 225 mg/dL 140-[address] [facility] Comment on above: Chol less than 200 m g/dl low riskChol 201-239 mg/dl borderline riskChol 240 mg/dl and greater high risk Cholesterol in LDL Calc [Mas s/Vol]Ordered By: Colin Saunders on 11-29-2022 Cholesterol in LDL [Mass/Vol] 155 mg/dL 0-[address] [facility] Comment on above: LDL ATP III CLASSIFI CATIONLDL less than 100 mg/dL OptimalLDL 100-129 mg/dL Near or above optimalLDL 130-159 mg/dL Borderline highLDL 160-189 mg/dL HighLDL greater than 189 mg/dL Very high Cholesterol in VLDL Calc [Ma ss/Vol]Ordered By: Colin Saunders on 11-29-2022 Cholesterol in VLDL [Mass/Vol] 25 mg/dL [facility] Creatinine [Mass/volume] in Serum or PlasmaOrdered By: Colin Saunders on 11-29-2022 Creatinine [Mass/Vol] 0.65 mg/dL 0.60-1.20 [facility] Eosinophils Auto (Bld) [#/Vo l]Ordered By: Colin Saunders on 11-29-2022 Eosinophils (Bld) [#/Vol] 0.1 10*3/uL 0.0-0.[address] [facility] Eosinophils/100 WBC Auto (Bl d)Ordered By: Colin Saunders on 11-29-2022 Eosinophils/100 WBC (Bld) 0.9 % . [facility] Erythrocyte distribution wid th Auto (RBC) [Ratio]Ordered By: Colin Saunders on 11-29-2022 Erythrocyte distribution width (RBC) [Ratio] 14.9 % 11.9-15.[address] [facility] Globulin Calc (S) [Mass/Vol] Ordered By: Colin Saunders on 11-29-2022 Globulin (S) [Mass/Vol] 2.8 g/dL [facility] Glucose [Mass/volume] in Ser um or PlasmaOrdered By: Colin Saunders on 11-29-2022 Glucose [Mass/Vol] 89 mg/dL 70-100 [facility] Comment on above: ADA recommended refe rence rangeRandom Glucose Reference Range is dependent on time and content of last meal. Glucose of more than 200 mg/dL in a nonstressed, ambulatory subject supports the diagnosis of Diabetes Mellitus. Hematocrit Auto (Bld) [Volum e fraction]Ordered By: Colin Saunders on 11-29-2022 Hematocrit (Bld) [Volume fraction] 42.2 % 34.0-46.[address] [facility] Hemoglobin [Mass/volume] in BloodOrdered By: Colin Saunders on 11-29-2022 Hemoglobin (Bld) [Mass/Vol] 13.7 g/dL 11.8-15.[address] [facility] Leukocytes [#/volume] correc james for nucleated erythrocytes in Blood by Automated counOrdered By: Colin Saunders on 11-29-2022 WBC corrected for nucl RBC Auto (Bld) [#/Vol] 8.7 10*3/uL 3.8-11.[address] [facility] Lymphocytes Auto (Bld) [#/Vo l]Ordered By: Colin Saunders on 11-29-2022 Lymphocytes (Bld) [#/Vol] 4.2 10*3/uL 1.00-4.[address] [facility] Lymphocytes/100 WBC Auto (Bl d)Ordered By: Colin Saunders on 11-29-2022 Lymphocytes/100 WBC (Bld) 48.3 % . [facility] MCH Auto (RBC) [Entitic mass ]Ordered By: Colin Saunders on 11-29-2022 MCH (RBC) [Entitic mass] 29.1 pg 24.7-34.[address] [facility] MCHC Auto (RBC) [Mass/Vol]Or dered By: Colin Saunders on 11-29-2022 MCHC (RBC) [Mass/Vol] 32.4 g/dL 32.0-35.0 [facility] MCV Auto (RBC) [Entitic vol] Ordered By: Colin Saunders on 11-29-2022 MCV (RBC) [Entitic vol] 89.7 fL 80-[address] [facility] Monocytes Auto (Bld) [#/Vol] Ordered By: Colin Saunders on 11-29-2022 Monocytes (Bld) [#/Vol] 0.6 10*3/uL 0.0-0.[address] [facility] Monocytes/100 WBC Auto (Bld) Ordered By: Colin Saunders on 11-29-2022 Monocytes/100 WBC (Bld) 6.5 % . [facility] Neutrophils Auto (Bld) [#/Vo l]Ordered By: Colin Saunders on 11-29-2022 Neutrophils (Bld) [#/Vol] 3.8 10*3/uL 1.8-7.[address] [facility] Neutrophils/100 WBC Auto (Bl d)Ordered By: Colin Saunders on 11-29-2022 Neutrophils/100 WBC (Bld) 43.5 % . [facility] No Panel InformationOrdered By: Colin Saunders on 11-29-2022 Estimated GFR (CKD-EPI) > 60.0 mL/Min [facility] Creatinine Clearance (Chem N/A [facility] Nucleated erythrocytes [Pres ence] in Blood by Automated countOrdered By: Colin Saunders on 11-29-2022 Nucleated RBC Auto Ql (Bld) 0.1 /100{WBC} 0-0.[address] [facility] Platelet mean volume Auto (B ld) [Entitic vol]Ordered By: Colin Saunders on 11-29-2022 Platelet mean volume (Bld) [Entitic vol] 8.7 fL 6.3-10.[address] [facility] Platelets Auto (Bld) [#/Vol] Ordered By: Colin Saunders on 11-29-2022 Platelets (Bld) [#/Vol] 323 10*3/uL 150-[address] [facility] Potassium [Moles/volume] in Serum or PlasmaOrdered By: Colin Saunders on 11-29-2022 Potassium [Moles/Vol] 3.9 mmol/L 3.5-5.1 [facility] Protein [Mass/volume] in Ser um or PlasmaOrdered By: Colin Saunders on 11-29-2022 Protein [Mass/Vol] 7.0 g/dL 6.4-8.9 [facility] RBC Auto (Bld) [#/Vol]Ordere d By: Colin Saunders on 11-29-2022 RBC (Bld) [#/Vol] 4.70 10*6/uL 3.60-5.00 [facility] Serum or plasma albumin/glob ulin mass ratioOrdered By: Colin Saunders on 11-29-2022 Albumin/Globulin [Mass ratio] 1.5 {ratio} [facility] Serum or plasma anion gap de terminationOrdered By: Colin Saunders on 11-29-2022 Anion gap [Moles/Vol] 12.2 mmol/L 6.0-15.0 [facility] Serum or plasma high density lipoprotein (HDL) cholesterol measurementOrdered By: Colin Saunders on 11-29-2022 Cholesterol in HDL [Mass/Vol] 45 mg/dL 35-[address] [facility] Comment on above: HDL CHOL ATP-III CLA SSIFICATION Cardiovascular RiskHDL > or equal to 60 mg/dL LOWHDL < 40 mg/dL HIGH Serum or plasma total choles terol/high density lipoprotein (HDL) cholesterol mass ratOrdered By: Colin Saunders on 11-29-2022 Cholesterol.total/Cho lesterol in HDL [Mass ratio] 5.0 {ratio} <5.[address] [facility] Sodium [Moles/volume] in Ser um or PlasmaOrdered By: Colin Saunders on 11-29-2022 Sodium [Moles/Vol] 141 mmol/L 136-145 [facility] Thyrotropin [Units/volume] i n Serum or PlasmaOrdered By: Colin Saunders on 11-29-2022 TSH Qn 1.41 m[IU]/L 0.45-5.[address] [facility] Triglyceride [Mass/volume] i n Serum or PlasmaOrdered By: Colin Saunders on 11-29-2022 Triglyceride [Mass/Vol] 127 mg/dL 0-[address] [facility] Comment on above: TRIG ATP III CLASSIF ICATIONTRIG less than 150 mg/dL NormalTRIG 150-199 mg/dL Borderline highTRIG 200-500 mg/dL High TRIG greater than 500 mg/dL Very highStandard traceable to the Center for Disease Conrtrol and Prevention (CDC) test method. Urea nitrogen [Mass/volume] in Serum or PlasmaOrdered By: Colin Saunders on 11-29-2022 Urea nitrogen [Mass/Vol] 13 mg/dL 7-[address] [facility] WBC Auto (Bld) [#/Vol]Ordere d By: Colin Saunders on 11-29-2022 WBC (Bld) [#/Vol] 8.7 10*3/uL 3.8-11.6 [facility] CBC AUTO DIFFon 11-21-2022 BASO # 0.1 103/ul Normal 0.0-0.1 [facility] Comment on above: Performed By: #### C BC #### [facility] [address] [place] [address] Dr. Jesse Nicole Basophils/100 WBC (Bld) 0.5 % Normal 0.2-2.0 [facility] Comment on above: Performed By: #### C BC #### [facility] [address] [place] [address] Dr. Jesse Nicole EO # 0.0 103/ul Normal 0.0-0.7 [facility] Comment on above: Performed By: #### C BC #### [facility] [address] [address] [address] Jesse Nicole Eosinophils/100 WBC (Bld) 0.3 % Critically low 0.9-7.0 [facility] Comment on above: Performed By: #### C BC #### [facility] [address] [address] [address] Jesse Nicole Erythrocyte distribution width (RBC) [Ratio] 14.3 % Normal 11.0-15.0 [facility] Comment on above: Performed By: #### C BC #### [facility] [address] [place] [address] Dr. Jesse Nicole Hematocrit (Bld) [Volume fraction] 44.0 % Normal 36.0-48.0 [facility] Comment on above: Performed By: #### C BC #### [facility] [address] [place] [address] Dr. Jesse Nicole Hemoglobin (Bld) [Mass/Vol] 14.4 g/dL Normal 12.0-16.0 [facility] Comment on above: Performed By: #### C BC #### [facility] [address] [place] [address] Dr. Jesse Nicole IG # 0.03 10e3/ul Normal 0.00-0.03 [facility] Comment on above: Performed By: #### C BC #### [facility] [address] [place] [address] Dr. Jesse Nicole IG % 0.3 % Normal 0.0-0.5 [facility] Comment on above: Performed By: #### C BC #### [facility] [address] [place] [address] Dr. Jesse Nicole LYMPH # 4.1 103/ul Critically high 1.2-3.8 [facility] Comment on above: Performed By: #### C BC #### [facility] [address] [place] [address] Dr. Jesse Nicole Lymphocytes/100 WBC (Bld) 39.2 % Normal 20.5-60.0 [facility] Comment on above: Performed By: #### C BC #### [facility] [address] [place] [address] Dr. Jesse Nicole MANUAL DIFF REQ NO Normal [facility] Comment on above: Performed By: #### C BC #### [facility] [address] [place] [address] Dr. Jesse Nicole MCH (RBC) [Entitic mass] 29.2 pg Normal 26.7-34.0 [facility] Comment on above: Performed By: #### C BC #### [facility] [address] [place] [address] Dr. Jesse Nicole MCHC (RBC) [Mass/Vol] 32.7 g/dL Normal 29.9-35.2 [facility] Comment on above: Performed By: #### C BC #### [facility] [address] [place] [address] Dr. Jesse Nicole MCV (RBC) [Entitic vol] 89.2 fL Normal 81.0-99.0 [facility] Comment on above: Performed By: #### C BC #### [facility] [address] [address] [address] Jesse Nicole MONO # 0.5 103/ul Normal 0.3-0.8 [facility] Comment on above: Performed By: #### C BC #### [facility] [address] [place] [address] Dr. Jesse Nicole Monocytes/100 WBC (Bld) 4.5 % Normal 1.7-12.0 [facility] Comment on above: Performed By: #### C BC #### [facility] [address] [place] [address] Dr. Jesse Nicole NEUT # 5.8 103/ul Normal 1.4-6.5 [facility] Comment on above: Performed By: #### C BC #### [facility] [address] [place] [address] Dr. Jesse Nicole Neutrophils/100 WBC (Bld) 55.2 % Normal 43.0-75.0 [facility] Comment on above: Performed By: #### C BC #### [facility] [address] [place] [address] Dr. Jesse Nicole Platelet mean volume (Bld) [Entitic vol] 9.8 fL Normal 9.5-13.5 [facility] Comment on above: Performed By: #### C BC #### [facility] [address] [place] [address] Dr. Jesse Nicole PLT 368 103/ul Normal 150-450 [facility] Comment on above: Performed By: #### C BC #### [facility] [address] [place] [address] Dr. Jesse Nicole RBC 4.93 106/ul Normal 4.20-5.40 [facility] Comment on above: Performed By: #### C BC #### [facility] [address] [place] [address] Dr. Jesse Nicole WBC 10.5 103/ul Normal 4.0-11.0 [facility] Comment on above: Performed By: #### C BC #### [facility] [address] [place] [address] Dr. Jesse Nicole PROF CHEM 8 (BAS METB)on Anion gap [Moles/Vol] 12.0 mmol/L Normal Th [facility] Comment on above: Performed By: #### B MP #### [facility] [address] [place] [address] Dr. Jesse Nicole Calcium [Mass/Vol] 9.0 mg/dL Normal 8.5-10.1 [facility] Comment on above: Performed By: #### B MP #### [facility] [address] [place] [address] Dr. Jesse Nicole Chloride [Moles/Vol] 104 mmol/L Normal 98-107 [facility] Comment on above: Performed By: #### B MP #### [facility] [address] [place] [address] Dr. Jesse Nicole CO2 [Moles/Vol] 28.1 mmol/L Normal 21.0-32.0 [facility] Comment on above: Performed By: #### B MP #### [facility] [address] [place] [address] Dr. Jesse Nicole Creatinine [Mass/Vol] 0.75 mg/dL Normal 0.55-1.02 [facility] Comment on above: Performed By: #### B MP #### [facility] [address] [place] [address] Dr. Jesse Nicole EGFR-AF MALDIVIAN >60 Normal >=60 [facility] Comment on above: Performed By: #### B MP #### [facility] [address] [place] [address] Dr. Jesse Nicole EGFR-NON AF MALDIVIAN >60 Normal >=60 [facility] Comment on above: Performed By: #### B MP #### [facility] [address] [address] [address] Jesse Nicole Glucose [Mass/Vol] 106 mg/dL Normal 74-106 [facility] Comment on above: Performed By: #### B MP #### [facility] [address] [address] [address] Jesse Nicole Potassium [Moles/Vol] 3.1 mmol/L Critically low 3.5-5.1 [facility] Comment on above: Performed By: #### B MP #### [facility] [address] [address] [address] Jesse Nicole Sodium [Moles/Vol] 141 mmol/L Normal 136-145 [facility] Comment on above: Performed By: #### B MP #### [facility] [address] [address] [address] Jesse Nicole Urea nitrogen [Mass/Vol] 8.0 mg/dL Normal 7.0-18.0 [facility] Comment on above: Performed By: #### B MP #### [facility] [address] [address] [address] Jesse Nicole Urea nitrogen/Creatinine [Mass ratio] 10.7 mg/mg Normal [facility] Comment on above: Performed By: #### B MP #### [facility] [address] [address] [address] Jesse Nicole COVID + FLU Quick Testingon 09-09-2022 SARS-CoV-2 (COVID-19) RNA MARCIN+probe Ql (Unsp spec) Positive [employer] [facility] [employer] Other COVID + FLU Quick Testing Negative [employer] [facility] [employer] Other Quick Strepon 09-09-2022 S. pyogenes Org specific cx Ql (Throat) Negative [employer] [facility] [employer] Other Quick Strep [employer] [facility] [employer] Other RSVon 09-09-2022 RSV Ag IA Ql (Unsp spec) Negative [employer] [facility] [employer] Other Coding Summary.on 06-19-2017 Coding Summary. CODING DATE: 017 [facility] DSC STATUS: Home (Routine DC) PAYOR: Self Pay [...] Revised Date Saved: 06/19/2017 03:14 pm Normal [facility] ED Clinical Summaryon 2016 ED Clinical Summary (Inserted Image. Linda ble to display) [place] [id number] ED Clinical SummaryPerson Information Name: ANA [facility]ORO[facility] Age[facility] 56 Years : 1960 12:00 AM Sex: Female Language:Surinamese PCP: NONE, XXXX Marital Status: Visit Id: [...] AM 06/13/2017 11:30 AM 06/13/2017 11:30 AM ADDRESS:[facility] RADHA Reinaldo [employer] [phone] [facility] DOC NOTES: Patient: ANA MOROCHO [...] that she was just recently treated in [place] for bronchitis she was given unknown antibiotic [...] Impression and Plan Diagnosis Acute chemical pneumonitis (VMR38-OZ J68.0, Discharge, Emergency medicine, Medical) Bronchitis ([id number]-BL J40, Discharge, Emergency medicine, Medical) Plan Condition: [...] Bronchitis Follow up:With: Address: When: Ned Salguero [address] [place] [address] [employer] ([employer] In 3 days 06/16/2017 DIAGNOSIS:Acute chemical pneumonitis; Bronchitis Normal [facility] ED Note-Physicianon 06-13-20 ED Note-Physician Patient: [...] that she was just recently treated in [place] for bronchitis she was given unknown antibiotic [...] [employer] Comment: none - 06/13/2017 10:37 - Alexis-Mojgan Rice RN. Problem list: No qualifying data available. [...] Impression and Plan Diagnosis Acute chemical pneumonitis (NKJ59-NE J68.0, Discharge, Emergency medicine, Medical) Bronchitis (EUK78-[id number] J40, Discharge, Emergency medicine, Medical) Plan Condition: [...] 7 days.Add diagnosis: Conjunctivitis left eye Normal [facility] Comment on above: Result Comment: Elec tronically Signed By: Juan Manuel Hernandez DO\.richard\Date and Time Signed: 06/13/17 11:19 EST ED [...] 11/17/2014 Document Reviewed: 12/24/2013ExitCare? Patient Information ?2014 [employer]. This information is not intended to replace [...] to protect your lungs. ?? Only take xhct-mqh-fpfohyr or prescription medicine as directed by your [...] 03/05/2014 Document Reviewed: 12/23/2013ExitCare? Patient Information ?2015 [employer]. This information is not intended to replace advice given to you by your health care provider. Make sure you discuss any questions you have with your health care provider. Normal [facility] ED Patient Summaryon 017 ED Patient Summary (Inserted Image. Linda ble to display) [address] [id number] Patient Discharge Instructions Person Information Name: ANA MOROCHO Age: 56 Years Date: 06/13/2017 10:12 AMDischarge Diagnosis: Acute chemical pneumonitis; Bronchitis Primary Care Physician: NONE, XXXX Provider InformationPrimary Provider: Cris Hernandez DO Microgrinder Operator:Vonda The exam and treatment you received in the Emergency Department were for an urgent problem and are not intended as complete care. It is important that you follow up with a doctor, nurse practitioner, or physician?s insurance claims assistant for ongoing care. If your symptoms become worse or you do not improve as expected and you are unable to reach your usual health care provider, you should return to the Emergency Department. We are available 24 hours a day. ANA MOROCHO has been given the following list of patient education materials, prescriptions and follow-up instructions: Follow-up Instructions:With: Address: When: Ned Salguero [address] [place] [id number] Business (1) In 3 days 06/16/2017 In [...] 0.Comment: Pharmacy Information: Thank you for choosing [facility] Patient Education Materials: PneumonitisPneumonitis is inflammation [...] to protect your lungs. ?? Only take lktf-tfz-ngkpron or prescription medicine as directed by your [...] 03/05/2014 Document Reviewed: 12/23/2013ExitCare? Patient Information ?2015 [employer]. This information is not intended to replace [...] 11/17/2014 Document Reviewed: 12/24/2013ExitCare? Patient Information ?2014 [employer]. This information is not intended to replace advice given to you by your health care provider. Make sure you discuss any questions you have with your health care provider.RASHAWN Jimenes KIMBERLY A , have received the following patient education materials/instructions and have verbalized understanding: Patient Education Materials: Pneumonitis; Acute Bronchitis Follow-up Instructions: With: Address: When: Ned Salguero [address] [place] [address] [facility] (1) In 3 days 06/16/2017 Prescriptions: [doxycycline (doxycycline monohydrate 100 mg oral tablet)] [homatropine-hydrocodone (homatropine-hydrocodone 1.5 mg-5 mg/5 mL Oral Syrup 473 mL)] [predniSONE (predniSONE 20 mg Tab)] [tobramycin ophthalmic (tobramycin ophthalmic 0.3% ointment)] Patient Signature __ Date Clinician/Nurse Signature Date 06/13/17 11:30:16 Normal [facility] XR Chest 2 Viewson 06-13-201 7 XR Chest 2 Views Exam Date/Time:06/13 [...] White MD Transcribed by: MAAME Technologist: CHRISTOPHER Millard [facility] Vital Signs Date Time Vital Sign Value Performing Clinician Facility 09-19-2024 16:07-0500 Body height 165.1 cm Colin Blountabilio DO Work Phone: [facility] 09-19-2024 16:07-0500 Body mass index (BMI) [Ratio] 25.1 kg/m2 Colin Blounts DO Work Phone: [facility] 09-19-2024 16:07-0500 Body weight 68.49 kg Colin Blounts DO Work Phone: [facility] 09-19-2024 16:07-0500 Diastolic blood pressure 86 mm[Hg] Colin Blounts DO Work Phone: [facility] 09-19-2024 16:07-0500 Heart rate 97 /min Colinrudolph Blounts DO Work Phone: [facility] 09-19-2024 16:07-0500 Respiratory rate 16 /min Colin Blounts DO Work Phone: [facility] 09-19-2024 16:07-0500 SaO2% (BldA) [Mass fraction] 97 % Colinrudolph Blounts DO Work Phone: [facility] 09-19-2024 16:07-0500 Systolic blood pressure 130 mm[Hg] Colin Jose Alejandros DO Work Phone: [facility] 08-12-2024 07:52-0500 Body height 165.1 cm Colin Saunders DO Work Phone: [facility] 08-12-2024 07:52-0500 Body mass index (BMI) [Ratio] 26.9 kg/m2 Colin Blounts DO Work Phone: [facility] 08-12-2024 07:52-0500 Body weight 73.48 kg Colin Blounts DO Work Phone: [facility] 08-12-2024 07:52-0500 Diastolic blood pressure 82 mm[Hg] Colin Blounts DO Work Phone: [facility] 08-12-2024 07:52-0500 Heart rate 77 /min Colin Blounts DO Work Phone: [facility] 08-12-2024 07:52-0500 Respiratory rate 16 /min Colin Blounts DO Work Phone: [facility] 08-12-2024 07:52-0500 SaO2% (BldA) [Mass fraction] 96 % Colin Blounts DO Work Phone: [facility] 08-12-2024 07:52-0500 Systolic blood pressure 130 mm[Hg] Colin Blounts DO Work Phone: [facility] 05-09-2023 15:30-0400 Body height 165.1 cm Colin Saunders Other [employer] [facility] [employer] Other 05-09-2023 15:30-0400 Body mass index (BMI) [Ratio] 25.29 kg/m2 Colin Jose Alejandroabilio Other [employer] [facility] [employer] Other 05-09-2023 15:30-0400 Body weight 68.95 kg Colin Chip Other [employer] [facility] [employer] Other 05-09-2023 15:30-0400 Diastolic blood pressure 78 mm[Hg] Colin Saunders Other [employer] Other 05-09-2023 15:30-0400 Respiratory rate 18 /min Colin Saunders Other [employer] Other 05-09-2023 15:30-0400 SaO2% (BldA) [Mass fraction] 93 % Colin Saunders Other [employer] Other 05-09-2023 15:30-0400 Systolic blood pressure 115 mm[Hg] Colin Saunders Other [employer] Other 04-11-2023 14:45-0400 Body height 165.1 cm Colin Saunders Other [employer] Other 04-11-2023 14:45-0400 Body mass index (BMI) [Ratio] 26.46 kg/m2 Colin Saunders Other [employer] Other 04-11-2023 14:45-0400 Body weight 72.12 kg Colin Saunders Other [employer] Other 04-11-2023 14:45-0400 Diastolic blood pressure 80 mm[Hg] Colin Saunders Other [employer] Other 04-11-2023 14:45-0400 Respiratory rate 16 /min Colin Saunders Other [employer] Other 04-11-2023 14:45-0400 SaO2% (BldA) [Mass fraction] 94 % Colin Saunders Other [employer] Other 04-11-2023 14:45-0400 Systolic blood pressure 130 mm[Hg] Colin Saunders Other [employer] Other 03-17-2023 09:00-0400 Body height 165.1 cm Colin Saunders Other [employer] Other 03-17-2023 09:00-0400 Body mass index (BMI) [Ratio] 26.29 kg/m2 Colin Saunders Other [employer] Other 03-17-2023 09:00-0400 Body weight 71.67 kg Colin Saunders Other [employer] Other 03-17-2023 09:00-0400 Diastolic blood pressure 80 mm[Hg] Colin Saunders Other [employer] Other 03-17-2023 09:00-0400 Respiratory rate 16 /min Colin Saunders Other [employer] Other 03-17-2023 09:00-0400 SaO2% (BldA) [Mass fraction] 97 % Colin Saunders Other [employer] Other 03-17-2023 09:00-0400 Systolic blood pressure 126 mm[Hg] Colin Saunders Other [employer] Other 02-17-2023 08:30-0400 Body height 165.1 cm Colin Saunders Other [employer] Other 02-17-2023 08:30-0400 Body mass index (BMI) [Ratio] 27.29 kg/m2 Colin Saunders Other [employer] Other 02-17-2023 08:30-0400 Body weight 74.39 kg Colinrudolph Saunders Other [employer] Other 02-17-2023 08:30-0400 Diastolic blood pressure 86 mm[Hg] Colin Chip Other [employer] Other 02-17-2023 08:30-0400 Respiratory rate 16 /min Colin Saunders Other [employer] Other 02-17-2023 08:30-0400 SaO2% (BldA) [Mass fraction] 96 % Colin Saunders Other [employer] Other 02-17-2023 08:30-0400 Systolic blood pressure 146 mm[Hg] Colin Saunders Other [employer] Other 01-09-2023 10:45-0400 Body height 165.1 cm Colin Chip Other [employer] Other 01-09-2023 10:45-0400 Diastolic blood pressure 76 mm[Hg] Colin Saunders Other [employer] Other 01-09-2023 10:45-0400 Respiratory rate 18 /min Colin Saunders Other [employer] Other 01-09-2023 10:45-0400 SaO2% (BldA) [Mass fraction] 98 % Colin Saunders Other [employer] Other 01-09-2023 10:45-0400 Systolic blood pressure 114 mm[Hg] Colin Saunders Other [employer] Other Encounters Encounter Date Encounter Type Care Provider Facility Start: 09-19-2024 End: 09-19-2024 ambulatory Colin Chip DO Work Phone: [facility] Work Phone: Start: 09-19-2024 End: 09-19-2024 Patient encounter procedure Colin Saunders DO Work Phone: [facility] [place] Work Phone: Start: 08-12-2024 End: 08-12-2024 Patient encounter procedure Colin Saunders DO Work Phone: [facility] [place] Work Phone: Start: 08-12-2024 End: 08-12-2024 ambulatory Colin Saunders DO Work Phone: [facility] Work Phone: Start: 08-12-2024 Encounter for other preprocedural examination Colin Choi [facility] Start: 08-12-2024 End: 08-12-2024 ambulatory Colin Jose Alejandroabilio DO Work Phone: [facility] Work Phone: Start: 08-12-2024 End: 08-12-2024 Encounter for other preprocedural examination Colin Saunders DO Work Phone: [facility] Start: 08-12-2024 End: 08-12-2024 Patient encounter procedure Colin Chip DO Work Phone: [facility] [place] Work Phone: Start: 08-06-2024 Non-patient / Non-visit Colin Saunders DO Work Phone: [facility] Work Phone: Start: 08-06-2024 Non-patient / Non-visit Colin Saunders DO Work Phone: [facility] [employer] Work Phone: Start: 06-28-2024 End: 06-28-2024 Patient encounter procedure Colin Saunders DO Work Phone: [facility] [place] Work Phone: Start: 06-28-2024 End: 06-28-2024 ambulatory Colin Blounts Facility:[facility] Start: 06-05-2024 End: 06-05-2024 Patient encounter procedure Colinrudolph Saunders DO Work Phone: [facility] [place] Work Phone: Start: 04-17-2024 End: 04-17-2024 Patient encounter procedure DO Colinrudolph Saunders Work Phone: [facility] Work Phone: Start: 04-17-2024 End: 04-17-2024 ambulatory DO Colinrudolph Saunders Work Phone: [facility] Work Phone: Start: 04-08-2024 Non-patient / Non-visit DO David rudolph Jose Alejandros Work Phone: [facility] [place] Work Phone: Start: 03-22-2024 Non-patient / Non-visit DO David an Kuns Work Phone: [facility] [place] Work Phone: Start: 03-21-2024 Non-patient / Non-visit DO David an Kuns Work Phone: [facility] [place] Work Phone: Start: 12-13-2023 Patient encounter status DO Richard Saunders Work Phone: [facility] Start: 08-16-2023 End: 08-16-2023 ambulatory Colin Saunders Other [employer] Other Start: 08-16-2023 Telephone encounter Colin Chip [facility] [place] Start: 05-09-2023 End: 05-09-2023 ambulatory Colin Blountabilio Other [employer] Other Start: 05-09-2023 Office outpatient vi sit 15 minutes Colin Saunders [facility] [place] Start: 04-11-2023 End: 04-11-2023 ambulatory Colin Blounts Other [employer] Other Start: 04-11-2023 Office outpatient vi sit 15 minutes Colin Saunders [facility] [place] Start: 03-17-2023 End: 03-17-2023 ambulatory Colin Saunders Other [employer] Other Start: 03-17-2023 Office outpatient vi sit 15 minutes Colin Blounts [facility] [place] Start: 03-10-2023 End: 03-10-2023 ambulatory DO Colin Saunders Work Phone: [facility] Work Phone: Start: 03-10-2023 End: 03-10-2023 Patient encounter procedure DO Colin Saunders Work Phone: [facility] Work Phone: Start: 02-17-2023 End: 02-17-2023 ambulatory Colin Saunders Other [employer] Other Start: 02-17-2023 Office outpatient vi sit 25 minutes Colin Saunders [facility] [place] Start: 02-01-2023 End: 02-01-2023 ambulatory Colin Saunders Other [employer] Other Start: 02-01-2023 Telephone encounter Colin Saunders [facility] [place] Start: 01-30-2023 End: 01-30-2023 ambulatory Obdulio Olexa Other [employer] Other Start: 01-30-2023 Office outpatient vi sit 15 minutes Obdulio Falconxa [facility] Start: 01-12-2023 Office outpatient ne w 30 minutes Obdulio Olexa [facility] Start: 01-12-2023 Telephone encounter Obdulio Falconxa [facility] [employer] Start: 01-12-2023 End: 01-12-2023 ambulatory DO Colin Saunders Work Phone: [facility] Work Phone: Start: 01-12-2023 End: 01-12-2023 Patient encounter procedure DO Colin Saunders Work Phone: [facility] Start: 01-10-2023 End: 01-10-2023 ambulatory Colin Saunders Other [employer] Software Other Start: 01-10-2023 Telephone encounter Colin Saunders [facility] [place] Start: 01-09-2023 End: 01-09-2023 ambulatory Colin Saunders Other [employer] Other Start: 01-09-2023 Office outpatient vi sit 15 minutes Colin Saunders [facility] [place] Start: 01-09-2023 Telephone encounter Colin Saunders [facility] [place] Start: 01-05-2023 End: 01-05-2023 ambulatory Colin Saunders Other [employer] Other Start: 01-05-2023 Telephone encounter Colin Saunders [facility] [place] Start: 01-03-2023 End: 01-03-2023 ambulatory Colin Saunders Other [employer] Other Start: 01-03-2023 Telephone encounter Colin Saunders [facility] [place] Start: 11-29-2022 End: 11-29-2022 Patient encounter procedure DO Colin Saunders Work Phone: [facility] Work Phone: Start: 11-21-2022 End: 11-21-[address] KANDIS ALAN . Facility: Start: 11-04-2022 End: 11-04-[address] EVERARDO BROWN . [employer] Other Start: 11-04-2022 [facility] Start: 10-19-2022 End: 10-19-2022 ambulatory Colin Saunders Other [employer] Other Start: 10-19-2022 [facility] Start: 09-09-2022 End: 09-09-2022 ambulatory Colin Saunders Other [employer] Other Start: 09-09-2022 Nursing evaluation o f patient and report [facility] Start: 06-13-2017 End: 06-13-2017 Emergency department patient visit [facility] [place] Facility:[facility] Procedures Date Procedure Procedure Detail Performing Clinician Start: 06-05-2024 Quick Strep (POC) Colin Saunders DO Work Phone: Start: 06-05-2024 RSV (POC) Colin Saunders DO Work Phone: Start: 03-10-2023 Screening mammograph y of bilateral breasts DO Colin Saunders Work Phone: Start: 01-12-2023 X-ray of right foot DO Colin Saunders Work Phone: Screening for malign ant neoplasm of breast Colin Blountabilio Other Plan of Treatment Date Care Activity Detail Author Electromyography [facility] Immunizations Immunization Date Immunization Notes Care Provider Fa cility 08-13-2021 COVID-19 mRNA-1273 (Moderna) Colin Saunders DO Work Phone: [facility] 07-15-2021 COVID-19 mRNA-1273 (Moderna) Colin Saunders DO Work Phone: [facility] 04-25-2014 tetanus toxoid, redu meseret diphtheria toxoid, and acellular pertussis vaccine, adsorbed Colin Saunders DO Work Phone: [facility] Payers Date Payer Category Payer Unknown [id number] 2024 Private Health Insurance [id number] 2017 Self-pay 1961 Unknown [id number] 1960 Unknown [id number] 1960 Unknown [id number] Private Health Insurance [facility] e [id number] Private Health Insurance [facility] e [id number] Unknown [employer] [id number] Unknown [id number] Unknown [id number] Unknown [id number] Social History Date Type Detail Facility Unknown if ever smoked [employer] Other Sex Assigned At Sex Assigned At Bir th [employer] Other Start: 1960 Sex Assigned At Female F [facility] Start: 08-23-2018 End: 08-23-2018 Tobacco smoking status NHIS Never smoked tobacco (finding) [facility] Start: 08-12-2024 End: 09-19-2024 Sex Female (finding) [facility] Clinical Notes 05-02-2018 to 08-12-2024 Note Date & Type Note Facility 08-12-2024 Evaluation note Authored August 12, 2024 9 :19am The above note written by Rufus NUNEZ acting as human recorder, note dictated by Dr. Colin Saunders. [facility] Work Phone: 1(954) 105-616101-27-2025 Evaluation note* [facility] Authored August 12, 2024 8 :19am The above note written by Rufus NUNEZ acting as human recorder, note dictated by Dr. Colin Saunders. [facility] Work Phone: 1(690) 395-611901-31-2024 Evaluation note* Encounter Date Diagnosis Assessment Notes Treatment Notes Treatment Clinical Notes Jul, Reactive airway disease (ICD-10 - J45.909) [employer] Other 10-24-2023 Evaluation note* Encounter Date Diagnosis Assessment Notes [...] left knee. Apr, Obesity (ICD-10 - E66.9) [employer] Other 09-26-2023 Evaluation note* Encounter Date Diagnosis [...] airway disease (ICD-10 - J45.909) Sample provided. [employer] Other 09-01-2023 Evaluation note* Encounter Date Diagnosis [...] Mammogram reviewed advising that this was normal. [employer] Other 08-04-2023 Evaluation note* Encounter Date Diagnosis [...] She did buy an ankle brace at [facility] but this is not very comfortable [...] weight loss efforts. EKG done in the [facility] ER 11/21/22 Feb, Obesity (ICD-10 - E66.9) Encouraged patient to increase exercise and monitor diet closer. Feb, Screening for breast cancer (ICD-10 - Z12.39) Mammogram ordered. Feb, Dental cavity (ICD-10 - K02.9) Letter provided for her to proceed with previously planned dental procedure now that blood pressure is stabilized. [employer] Other 07-19-2023 Evaluation note* Encounter Date Diagnosis Assessment Notes Treatment Notes Treatment Clinical Notes Jan, Essential hypertension (ICD-10 - I10) [employer] Other 07-17-2023 Evaluation note* Encounter Date Diagnosis [...] right foot, initial encounter (ICD-10 - S93.601A) [employer] Other 06-29-2023 Evaluation note* Encounter Date Diagnosis [...] Dec, Right foot pain (ICD-10 - M79.671) [employer] Other 06-26-2023 Evaluation note* Encounter Date Diagnosis Assessment Notes Treatment Notes Treatment Clinical Notes Dec, Sprain of right ankle, unspecified ligament, initial encounter (ICD-10 - S93.401A) Review of [facility] report from 12/31/22 . Upon examination I recommend the patient cosult with an traffic monitor specialist for a likey 2nd - 3rd [...] two samples of the above medication provided. [employer] Other 06-22-2023 Evaluation note* Encounter Date Diagnosis Assessment Notes Treatment Notes Treatment Clinical Notes Dec, Essential hypertension (ICD-10 - I10) [employer] Other 02-24-2023 Evaluation note* Encounter Date Diagnosis Assessment Notes Treatment Notes Treatment Clinical Notes Aug, Fever (ICD-10 - R50.9) Patient covid test is positive, all other testing was negative. Treatment discussed in TE. [employer] Other 10-17-2018 History general Narrative - Reported* Type Description Date Medical History hypertension Medical History hx of UTI Medical History 05/02/2018 Mammogram - normal Medical History 04/2018 NEGATIVE COLOGUARD Surgical History Left knee repaired torn meniscu s 07/11/13 Surgical History Total hysterectomy and hernia r epair 2008 Surgical History metal inserted into lump during mammogram Surgical History left forearm surgery-severed te edmund, dani. 2002 Surgical History left meniscus repair, and bone spur Dr. Burnette Hospitalization History see above [facility] [employer] Other Evaluation [facility]No [facility] [employer] Other Evaluation noteNo assessment information available [facility] Work Phone: Evaluation note* Author Tierra Jimenez [facility] Authored August 12, 2024 8 :19am The above note written by Rufus NUNEZ acting as human recorder, note dictated by Dr. Colin Saunders. [facility] Work Phone: [facility] - [facility] [employer] Other Summary Purpose Family History No Family History Records Found Relationship Condition Age at Onset Recorded Date/T gabo brother Heart disease Unknown Unknown brother Unknown father Heart disease Unknown Malignant neoplasm Unknown mother Malignant neoplasm Unknown Advance Directives No Advanced Directives Records Found Advance Directive Response Recorded Date/ Time Advance Directives No March 8:46am Advance Directive Response Recorded Date/ Time Advance Directives No March 7:46am Reason for Referral Reason consult and treat Diagnosis 1 Sprain of right ankl e, unspecified ligament, initial encounter (D13.385U) Referral Organization [facility] [place] Referring Provider First Name Colin Referring Provider Last Name Chip Referring Provider Specialty Family Prac kevin Referred Organization [facility] Referred Provider Keegan Thompson II Referred Address [address] [place] [address] [place], [place],[address] Referred Provider Specialty Orthopedic S urgery Referral [...] Amb Documentation Amb Documentation Amb Documentation m79.602 Chief Complaint Admit Date per bpk testing (cough, chest congestion , fever) June 05, 2024 10:23am E78.5 E55.9 June 28, 2024 6:50am surgery clearance August 12, 2024 7 :32am Reason for Visit Admit Date Acute cough June 05, 2024 10:23am Strep pharyngitis June 05, 2024 10:23am Foraminal stenosis of cervical region [facility] 2024 7:32am Overweight (BMI 25.0-29.9) August 12, 2024 7:32am Pre-operative clearance August 12 7:32am Central stenosis of spinal canal August 12, 2024 7:32am Chief Complaint Admit Date per bpk testing (cough, chest congestion , fever) June 05, 2024 10:23am E78.5 E55.9 June 28, 2024 6:50am surgery clearance August 12, 2024 7 :32am Z01.818 August 12, 2024 8 :44am Chief Complaint Admit Date E78.5 E55.9 June 28, 2024 6:50am surgery clearance August 12, 2024 7 :32am Z01.818 August 12, 2024 8 :44am f/u after surgery September 19, 2024 3:43 pm Reason for Visit Admit Date Foraminal stenosis of cervical region [facility] 2024 7:32am Overweight (BMI 25.0-29.9) August 12, 2024 7:32am Pre-operative clearance August 12 7:32am Central stenosis of spinal canal August 12, 2024 7:32am Post-operative state September 19, 2024 3:4 3pm Central stenosis of spinal canal September 192024 3:43pm Additional Source Comments INFORMATION SOURCE (unrecogn ized section and content) DATE CREATED AUTHOR 01/09/2018 [facility] DATE CREATED AUTHOR AUTHOR'S ORGANIZ ATION 11/24/2022 [facility] DATE CREATED AUTHOR AUTHOR'S ORGANIZ ATION 11/21/[address] [facility] REASON FOR VISIT (unrecogniz ed [...] Care Provide r, Attending Provider Active Start: June 05, 2024 End: June 05, 2024 Team Status: Inactive Member Role Status Dates Colin Saunders DO Primary Care Provide r, Attending Provider Active Start: June 28, 2024 End: June 28, 2024 Team Status: Active Member Role Status Dates Colin Saunders DO Primary Care Provider Active Sta rt: August 06, 2024 Nohemi Webb PA-C Attending Provider Active Start: August 06, 2024 Team Status: Inactive Member Role Status Dates Colin Saunders DO Primary Care Provide r, Attending Provider Active Start: August 12, 2024 End: August 12, 2024 Team Status: Active Member Role Status [...] Primary Care Provider, Attending Provi lennox Active Team Status: Active Member Role Status Dates Colin Saunders DO Primary Care Provider Active Sta rt: August 06, 2024 Yeyo Nava DO Attending Provider Active Sta rt: August 06, 2024 Team Status: Inactive Member Role Status Dates Colin Kuns , DO Primary Care Provide r, Attending Provider Active Start: September 19, 2024 End: September 19, 2024 Goals (unrecognized section and content) Goals may [...] BE BASED ON THE PRIMARY CLINICAL RECORDS. [facility] [employer] [facility]. provides no warranty or guarantee of the accuracy or completeness of information in this document.
--- NOTE | 2025-02-11 07:10 | PC.NURSE ---
PT C/O DIFFICULTY SWALLOWING AND SOB. PT HAS HX ESOPHAGEAL STENOSIS AND HAS HAD A DILATATION WITH DR BLANK [place]. PT STATES SIMILAR SYMPTOMS STARTED AGAIN THIS MORNING. PT HASN'T HAD SOLID FOOD SINCE AUGUST WHEN THE PROCEDURE WAS DONE. PT ALSO APPEARED TO BE VERY ANXIOUS. PT SPO2 %100 ON RA AND HAS CLEAR LUNG SOUNDS THROUGHOUT.
--- NOTE | 2025-02-11 07:15 | ECG_ITS ---
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 Measurements Intervals Vesper Rate: 85 P: 52 NM: 124 QRS: 28 QRSD: 78 T: 43 QT: 376 QTc: 419 Interpretive Statements 1100 Sinus rhythm 4068 Nonspecific Twave abnormality 9130 borderline ECG Compared with the ECG of 08-06-2024 10:15, No significant changes Electronically Signed On 02-11-2025 20:47:00 EDT by MIGUEL ALVARES M.D.
--- NOTE | 2025-02-11 07:17 | ED.GENADUL1 ---
HPI HPI - General Adult General Chief complaint: Shortness of Breath/Dyspnea Stated complaint: shortness of breath Time Seen by Provider: 02/11/25 07:04 Source: patient Mode of arrival: walk-in Limitations: no limitations History of Present Illness HPI narrative: 64-year-old female presents to the emergency department for chief complaint of difficulty swallowing. She has had this for a few days and it seemed to get worse today. Today she feels short of breath. She does not complain to me of chest pain or back pain. In August of this year she had cervical spine surgery with anterior approach. She was told that she has some narrowing in her throat and if it did not get better by March that she was going to have to have another procedure. Related Data Home Medications ?Medication ?Instructions ?Recorded ?Confirmed albuterol sulfate 90 mcg/actuation 2 puff inhalation Q4H PRN 12/31/22 02/11/25 aerosol inhaler shortness of breath or wheezing fluticasone fur. 100 mcg-umeclid 1 inh inhalation DAILY 09/28/23 02/11/25 62.5 mcg-vilant 25 mcg inhalat.powder (Trelegy Ellipta) alendronate 70 mg tablet 70 mg PO QWEEK 11/22/23 02/11/25 amlodipine 5 mg tablet 20 mg PO DAILY 11/22/23 02/11/25 cholecalciferol (vitamin D3) 125 5,000 unit PO DAILY 11/22/23 02/11/25 mcg (5,000 unit) capsule tramadol 50 mg tablet 50 mg PO Q4H PRN pain 11/22/23 02/11/25 Allergies Allergy/AdvReac Type Severity Reaction Status Date / Time diphenhydramine (From Allergy Severe hives Verified 02/11/25 07:03 Benadryl) aspirin Allergy Mild Nausea Verified 02/11/25 07:03 ibuprofen (From Motrin) Allergy Nausea Verified 02/11/25 07:03 prednisone Allergy swelling Verified 02/11/25 07:03 pseudoephedrine (From Allergy Rash Verified 02/11/25 07:03 Sudafed) actifed Allergy Severe Hives Uncoded 02/11/25 07:03 Opioid HPI Opioid Management Most Recent Opioid Data: Last Pain Scale 9 12/01/23, 06:35 Last ORT Total Score 0 09/28/23, 11:57 Last ORT Risk Category Low Risk 09/28/23, 11:57 Review of Systems ROS Narrative A ten point review of systems is negative except as noted above. [facility] History (Updated 02/11/25 @ 09:06 by Shahid Pena MD) Wedge compression fracture of lumbar vertebra ?S32.000A - Wedge compression fracture of unspecified lumbar vertebra, initial encounter for closed fracture (ICD-10) Back pain ?M54.9 - Dorsalgia, unspecified (ICD-10) Radiculopathy ?M54.10 - Radiculopathy, site unspecified (ICD-10) Spinal stenosis ?M48.00 - Spinal stenosis, site unspecified (ICD-10) Osteopenia ?M85.80 - Other specified disorders of bone density and structure, unspecified site (ICD-10) COVID-19 ?U07.1 - COVID-19 (ICD-10) Respiratory syncytial virus ?B33.8 - Other specified viral diseases (ICD-10) Reactive airway disease ?J45.909 - Unspecified asthma, uncomplicated (ICD-10) Bronchitis ?J40 - Bronchitis, not specified as acute or chronic (ICD-10) Pneumonia ?J18.9 - Pneumonia, unspecified organism (ICD-10) Kidney stones ?N20.0 - Calculus of kidney (ICD-10) Postoperative nausea and vomiting ?R11.2 - Nausea with vomiting, unspecified (ICD-10) ?Z98.890 - Other specified postprocedural states (ICD-10) COPD (chronic obstructive pulmonary disease) ?J44.9 - Chronic obstructive pulmonary disease, unspecified (ICD-10) Compression fx, lumbar spine ?S32.000A - Wedge compression fracture of unspecified lumbar vertebra, initial encounter for closed fracture (ICD-10) Lung disease ?J98.4 - Other disorders of lung (ICD-10) Migraines ?G43.909 - Migraine, unspecified, not intractable, without status migrainosus (ICD-10) HTN (hypertension) ?I10 - Essential (primary) hypertension (ICD-10) Surgical History (Updated 11/22/23 @ 12:52 by Huma Lee NP) History of colonoscopy ?Z98.890 - Other specified postprocedural states (ICD-10) H/O knee surgery ?Z98.890 - Other specified postprocedural states (ICD-10) History of arthroscopy of knee ?Z98.890 - Other specified postprocedural states (ICD-10) H/O hand surgery ?Z98.890 - Other specified postprocedural states (ICD-10) H/O hand surgery ?Z98.890 - Other specified postprocedural states (ICD-10) H/O hand surgery ?Z98.890 - Other specified postprocedural states (ICD-10) H/O: hysterectomy ?Z90.710 - Acquired absence of both cervix and uterus (ICD-10) Family History (Updated 09/28/23 @ 12:08 by Lashaun Davis) Father Family history of cancer Mother Family history of cancer Social History (Updated 09/28/23 @ 12:09 by Lashaun Davis) Within the past year, how often did you have a drink containing alcohol: monthly or less Within the past year, how many standard drinks containing alcohol did you have on a typical day: 1 or 2 Within the past year, how often did you have six or more drinks on one occasion: never Total score: 0 Score interpretation: A score less than 3 is consistent with normal alcohol consumption. 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 Highest level of school completed/degree received: some college, no degree Are you now , , , , never or living with a partner: In a typical week, how many times do you talk on the telephone with family, friends, or neighbors: 3 or more times per week How often do you get together with friends or relatives: 3 or more times per week How often do you attend protestant or episcopal services: 4 or more times per year Do you belong to any clubs or organizations such as protestant groups unions, fraternal or athletic groups, or school groups: no Total score: 3 Score interpretation: A score of greater than or equal to 2 indicates the lowest level of social isolation. Little interest or pleasure in doing things: not at all Feeling down, depressed, or hopeless: not at all Feel stressed/tense/nervous/anxious/difficulty sleeping: not at all Life stressors: recent of family or friend Gender Identity: female Exam Narrative Exam Narrative: Nurses note and vital signs reviewed and patient is not hypoxic. General: The patient appears uncomfortable but is in no respiratory distress. Skin: Warm, dry, no pallor noted. There is no rash noted. Head: Normocephalic, atraumatic Eye: Normal conjunctiva, no drainage Ears, Nose, Mouth, and Throat: oral mucosa is moist. Nares patent. She is handling her oral secretions well. There is no pharyngeal mass or swelling. Uvula midline. No neck masses are appreciated. Cardiovascular: Regular Rate and Rhythm Respiratory: Patient is in no distress, no accessory muscle use, lungs are clear to auscultation, no wheezing, rales or rhonchi Back: non-tender GI: Soft and nontender Musculoskeletal: The patient has no evidence of calf tenderness, no pitting edema, symmetrical pulses noted bilaterally Neurological: A&O normal speech Psychiatric: Cooperative Constitutional Vital Signs, click to edit/add: Last Vital Signs Temp 98.5 F 02/11/25 06:55 Pulse 74 02/11/25 09:01 Resp 18 02/11/25 09:01 BP 155/88 H 02/11/25 09:01 Pulse Ox 94 L 02/11/25 09:01 O2 Del Method Room Air 02/11/25 07:08 Course Vital Signs Vital signs: Vital Signs Temperature 98.5 F 02/11/25 06:55 Pulse Rate 88 02/11/25 06:55 Respiratory Rate 20 02/11/25 06:55 Blood Pressure 156/91 H 02/11/25 06:55 Pulse Oximetry 100 02/11/25 06:55 Temperature 98.5 F 02/11/25 06:55 Pulse Rate 74 02/11/25 09:01 Respiratory Rate 18 02/11/25 09:01 Blood Pressure 155/88 H 02/11/25 09:01 Pulse Oximetry 94 L 02/11/25 09:01 Oxygen Delivery Method Room Air 02/11/25 07:08 Medical Decision Making MDM Narrative Medical decision making narrative: The patient's workup including CT of the neck is negative. She was given IV Valium and shortly thereafter had her symptoms resolved and she is able to swallow and drink water without difficulty. She is going to see her family doctor tomorrow. Treatment diagnosis and follow-up were discussed with the patient and her . Differential Diagnosis Differential Diagnosis: Esophageal stricture, foreign body, anxiety Lab Data Lab results reviewed: Yes I reviewed the patient's lab results Labs: Lab Results 02/11/25 Range/Units 07:05 WBC 12.0 H (4.0-11.0) 10^3/uL RBC 4.47 (4.20-5.40) 10^6/uL Hgb 13.5 (12.0-16.0) g/dL Hct 40.3 (36.0-48.0) % MCV 90.2 (81.0-99.0) fL MCH 30.2 (26.7-34.0) pg MCHC 33.5 (29.9-35.2) g/dL RDW 13.4 (11.0-15.0) % Plt Count 342 (150-450) 10^3/uL MPV 10.2 (9.5-13.5) fL Seg Neuts % (Manual) 32.0 L (43.0-75.0) Lymphocytes % (Manual) 54.0 (20.5-60.0) % Atypical Lymphs % (Man) 10.0 % Monocytes % (Manual) 4.0 (1.7-12.0) % Eosinophils % (Manual) 0.0 L (0.9-7.0) % Basophils % (Manual) 0.0 L (0.2-2.0) % Neutrophils # (Manual) 3.84 (1.4-6.5) 10^3/uL Lymphocytes # (Manual) 6.48 H (1.20-3.80) 10^3/uL Abs Atypical Lymphs Man 1.20 Monocytes # (Manual) 0.48 (0.30-0.80) 10^3/uL Eosinophils # (Manual) 0.00 (0.00-0.70) 10^3/uL Basophils # (Manual) 0.00 (0.00-0.10) 10^3/uL Sodium 139 (136-145) mmol/L Potassium 3.2 L (3.5-5.1) mmol/L Chloride 99 (98-107) mmol/L Carbon Dioxide 21.5 (21.0-32.0) mmol/L Anion Gap 21.7 BUN 10.0 (7.0-18.0) mg/dL Creatinine 0.82 (0.55-1.02) mg/dL Est GFR ( Amer) >60 (>=60 mL/min/1.73m^2) Est GFR (Non-Af Amer) >60 (>=60 mL/min/1.73m^2) BUN/Creatinine Ratio 12.2 Glucose 136 H (74-106) mg/dL Calcium 9.2 (8.5-10.1) mg/dL Troponin I High Sens <4.0 L (4.0-51.3) pg/mL Imaging Data CT neck: Radiologist's impression: ITS Impressions Soft Tissue Neck CT 02/11/25 08:10 IMPRESSION: NO ACUTE NECK FINDINGS Impression dictated by: Adele Miramontes M.D. 02/11/2025 8:24 AM Dictation Location: [place] [address] Electronically authenticated by: [id number] Y Date: 02/11/2025 08:24 ECG Data Attestation: I personally reviewed and interpreted this ECG as follows: (EKG on my interpretation shows sinus rhythm with rate of 85 and no acute change.) Discharge Plan Discharge Chief Complaint: Shortness of Breath/Dyspnea Clinical Impression: Dysphagia Patient Disposition: Home, Self-Care Time of Disposition Decision: 09:06 Condition: Good Mode of Transportation: Private Vehicle Prescriptions / Home Meds: No Action albuterol sulfate 90 mcg/actuation HFA aerosol inhaler 2 puff INHALATION Q4H PRN (Reason: shortness of breath or wheezing) Trelegy Ellipta 100-62.5-25 mcg blister with device 1 inh inhalation DAILY amlodipine 5 mg tablet 20 mg PO DAILY tramadol 50 mg tablet 50 mg PO Q4H PRN (Reason: pain) alendronate 70 mg tablet 70 mg PO QWEEK cholecalciferol (vitamin D3) 125 mcg (5,000 unit) capsule 5,000 unit PO DAILY Print Language: [place] Instructions: Dysphagia (ED) Additional Instructions: See your family doctor at your appointment tomorrow Referrals: Colin Saunders DO [Primary Care Provider] - 1 week
[2025-02-11] MEDS: DIAZEPAM 10 MG/2 ML SYRINGE 2.5 MG IV (07:27)
[2025-02-11 07:29] LABS: Hematocrit 40.3 % (36.0-48.0); Hemoglobin 13.5 g/dL (12.0-16.0); Mean Corpuscular HGB Conc 33.5 g/dL (29.9-35.2); Mean Corpuscular Hemoglobin 30.2 pg (26.7-34.0); Mean Corpuscular Volume 90.2 fL (81.0-99.0); Platelet Count 342 10^3/uL (150-450); Red Blood Count 4.47 10^6/uL (4.20-5.40); White Blood Count 12.0 10^3/uL (4.0-11.0)
[2025-02-11 07:47] LABS: Anion Gap 21.7; Blood Urea Nitrogen 10.0 mg/dL (7.0-18.0); Calcium 9.2 mg/dL (8.5-10.1); Carbon Dioxide 21.5 mmol/L (21.0-32.0); Chloride 99 mmol/L (98-107); Estimated GFR (African America >60 (>=60 mL/min/1.73m^2); Estimated GFR (Non-African Ame >60 (>=60 mL/min/1.73m^2); Glucose 136 mg/dL (74-106); Potassium 3.2 mmol/L (3.5-5.1); Sodium 139 mmol/L (136-145)
[2025-02-11 08:05] LABS: Atypical Lymphocytes % Manual 10.0 %; Atypical Lymphocytes Abs Man 1.20; Basophils Abs Manual 0.00 10^3/uL (0.00-0.10); Basophils Percent Manual 0.0 % (0.2-2.0); Eosinophils Absolute Manual 0.00 10^3/uL (0.00-0.70); Eosinophils Percent Manual 0.0 % (0.9-7.0); Lymphocytes Absolute Manual 6.48 10^3/uL (1.20-3.80); Lymphocytes Percent Manual 54.0 % (20.5-60.0); Monocytes Absolute Manual 0.48 10^3/uL (0.30-0.80); Monocytes Percent Manual 4.0 % (1.7-12.0); Segmented Neut Absolute Manual 3.84 10^3/uL (1.4-6.5); Segmented Neutrophils % Manual 32.0 (43.0-75.0)
--- NOTE | 2025-02-11 08:10 | CT_ITS ---
The [address] [address] Patient Name: ANA PIKE MRN: [id number] date: 1960 Sex: F Assigned Patient Location: ED.MAIN Current Patient Location: ED.MAIN Accession/Order Number: [id number] Exam Date: 02/11/2025 08:17 Report Date: 02/11/2025 08:24 At the request of: LORA LOUIS MD Procedure: CT soft tissue neck w con CT SOFT TISSUE NECK WITH CONTRAST COMPARISON: 11/19/2024 CLINICAL DATA: Difficulty swallowing and shortness of breath. Prior neck surgery. Spiral images were obtained through the neck following 100 mL of Omnipaque 300. This CT exam was performed using one or more following dose reduction techniques: Automated exposure control, adjustment of the mA and/or kV according to patient size, or use of iterative reconstruction technique. No thyroid nodularity is identified. The submandibular and parotid glands appear symmetric. There is no significant enlargement of the adenoids or tonsils. No suspected abscess is seen. The epiglottis and vocal cords are within normal limits. The airway is patent throughout its course with normal appearance of the mucosal surfaces. No prevertebral soft tissue swelling is seen. There are a few small shotty cervical lymph nodes. There is prior multilevel cervical fusion with anterior plate and screws extending from C3 through C7. There are also some degenerative changes through this area with thecal sac effacement and foraminal encroachment similar to the prior. The imaged paranasal sinuses and mastoid air cells are clear. Limited imaging of the upper chest shows similar minor chronic change. CT/CT soft tissue neck w con IMPRESSION: NO ACUTE NECK FINDINGS Impression dictated by: Adele Miramontes M.D. 02/11/2025 8:24 AM Dictation Location: [place] [address] Electronically authenticated by: [id number] Date: 02/11/2025 08:24
== END 2025-02-11 09:15 | disposition home or self-care (01) ==
PROVIDERS: Emergency Provider Emergency Medicine; PCP Family Medicine
DX: R13.10 Dysphagia, unspecified (principal); R06.02 Shortness of breath
CPT/HCPCS: 36415; 70491; 80048; 84484; 85007; 85027; 93005; 96374; 99285; J3360; Q9967